=== PATIENT | female | born 1995 | race Caucasian/White ===

== ENCOUNTER 2023-08-12 20:31 | Emergency (ER) | payer BC, SELFPAY ==
[2023-08-12 20:35] VITALS: BP 134/78; PULSE 92; RESP 22; TEMP 37.1; O2SAT 97; BMI 39.1
--- NOTE | 2023-08-12 20:56 | XR_ITS ---
The [address] [address] Patient Name: YIN GALEANO MRN: [id number] date: 1995 Sex: F Assigned Patient Location: ER Current Patient Location: ED.MAIN Accession/Order Number: [id number] Exam Date: 08/12/2023 21:35 Report Date: 08/12/2023 22:19 At the request of: ROCIO MARKER Procedure: XR ankle KIERA min 3V EXAM: XR ankle KIERA min 3V HISTORY: fall down stairs, B/l ankle pain COMPARISON: None. TECHNIQUE: 3 views of the right ankle, 3 views of the left ankle are performed. FINDINGS: Left ankle: There is an oblique, minimally displaced fracture involving the distal fibular diaphysis. There is adjacent soft tissue swelling. There may be slight widening to the medial aspect of the ankle mortise. Right ankle: There is lateral soft tissue swelling. No acute fracture is seen. The ankle mortise is preserved. XR/XR ankle KIERA min 3V IMPRESSION: Left ankle: Minimally displaced distal fibular fracture, with questionable widening of the medial aspect of the ankle mortise. Right ankle: No fracture. Lateral soft tissue swelling. Electronically authenticated by: MOHIT KIRK Date: 08/12/2023 22:19
--- NOTE | 2023-08-12 20:57 | ED.LOWEXI1 ---
HPI - Extremity Injury (Lower) General Chief Complaint: Extremity Injury, Lower Stated Complaint: Lower Extremity Injury Fall Time Seen by Provider: 08/12/23 20:46 Source: patient Mode of arrival: Wheelchair History of Present Illness HPI Narrative: 27-year-old female presents for evaluation of bilateral ankle pain. The patient states she was carrying laundry down the stairs and could not see the stairs and missed the last 3 steps and twisted both ankles while falling down the stairs. She denies striking her head. She has no neck or back pain. She doubts the possibility of . She has pain at the lateral aspect of the right ankle and pain at the lateral aspect of the left ankle. She states she cannot weight-bear on the left. She states that her legs are shaking because of the pain. She has no chest pain or shortness of breath. There was no additional injury. She states she had to crawl up the stairs to get back into her apartment and then had to have help getting down the stairs to come to the hospital. Related Data Home Medications Medication Instructions Recorded Confirmed albuterol sulfate 90 mcg/actuation inhalation 08/12/23 aerosol inhaler ivabradine 5 mg tablet (Corlanor) mg 08/12/23 midodrine 5 mg tablet mg 08/12/23 montelukast 10 mg tablet mg 08/12/23 Allergies Allergy/AdvReac Type Severity Reaction Status Date / Time No Known Drug Allergies Allergy Verified 08/12/23 20:40 Review of Systems ROS Status of ROS 10 or more systems reviewed and unremarkable except as noted in history and below [facility] Social History Smoking status: Never smoker Exam Narrative Exam Narrative: Nurses note and vital signs reviewed and patient is not hypoxic. General: Tearful female, GCS 15, no respiratory distress Skin: Warm, dry, no pallor noted. There is no rash noted. Head: Normocephalic, atraumatic Eye: Normal conjunctiva, no drainage, EOMI. PERRL Cardiovascular: Regular Rate and Rhythm Respiratory: Patient is in no distress, no accessory muscle use, lungs are clear to auscultation, no wheezing, rales or rhonchi Back: non-tender, no CVA tenderness bilaterally to percussion. GI: Normal bowel sounds, no tenderness to palpation, no masses appreciated. No rebound, guarding, or rigidity noted. Musculoskeletal: There Is mild swelling and tenderness to the right lateral malleolus, patient is able to move all of her toes, Achilles is intact, No bony deformity noted There is also zyva-eh-zxynemxj swelling of the left lateral malleolus, Achilles is intact, this area is very tender, no bony deformity noted There is no calf swelling or tenderness. There is no tenderness to the knees, thighs or hips bilaterally Neurological: A&O x4, normal speech Psychiatric: Cooperative, Tearful Constitutional Vital Signs, click to edit/add: Last Vital Signs Temp 98.7 F 08/12/23 20:35 Pulse 92 H 08/12/23 20:35 Resp 22 08/12/23 20:35 BP 134/78 08/12/23 20:35 Pulse Ox 97 08/12/23 20:35 O2 Del Method Room Air 08/12/23 20:35 Course Vital Signs Vital signs: Vital Signs Temperature 98.7 F 08/12/23 20:35 Pulse Rate 92 H 08/12/23 20:35 Respiratory Rate 22 08/12/23 20:35 Blood Pressure 134/78 08/12/23 20:35 Pulse Oximetry 97 08/12/23 20:35 Oxygen Delivery Method Room Air 08/12/23 20:35 Temperature 98.7 F 08/12/23 20:35 Pulse Rate 92 H 08/12/23 20:35 Respiratory Rate 22 08/12/23 20:35 Blood Pressure 134/78 08/12/23 20:35 Pulse Oximetry 97 08/12/23 20:35 Oxygen Delivery Method Room Air 08/12/23 20:35 MDM - Extremity Injury (Lower) MDM Narrative Medical decision making narrative: 27-year-old female presents for evaluation of bilateral ankle pain after falling down 3 stairs at home while carrying laundry. She has pain in the right ankle but is weightbearing and has pain in the left ankle and states she cannot weight-bear on the left ankle. She has swelling of both lateral malleoli. Achilles are intact, there was no knee or hip injury. She denies striking her head. X-rays of both ankles were performed. X-ray of the right ankle is negative for acute findings and x-rays of left ankle shows a nondisplaced distal fibular fracture. Fracture care without manipulation; the left lower extremity was placed in a posterior one-step splint over heavy packing. Jose J wrap is applied over the splint. Patient tolerated procedure well. Sprain care without manipulation; the right lower external he was placed in an Jose J wrap for compression and comfort. Patient tolerated procedure well She will be referred to outpatient orthopedics for further evaluation and treatment. She was medicated emergency department with a [place] and Zofran and will be discharged home with a prescription for [place] and referral to outpatient orthopedics Medical Records Medical records narrative: The [place] [id number] XRay Report Signed Patient: YIN GALEANO MR#: [id number] : 1995 Acct:[id number] Age/Sex: 27 / F ADM Date: 08/12/23 Loc: ER Attending Dr: Ordering Physician: Josephine Campo Date of Service: 08/12/23 Procedure(s): XR ankle KIERA min 3V Accession Number(s): [id number] cc: PRISCA VARGAS ; Josephine Campo~ The [address] [address] Patient Name: YIN GALEANO MRN: [id number] date: 1995 Sex: F Assigned Patient Location: ER Current Patient Location: ED.MAIN Accession/Order Number: [id number] Exam Date: 08/12/2023 21:35 Report Date: 08/12/2023 22:19 At the request of: JOSEPHINE CAMPO Procedure: XR ankle KIERA min 3V EXAM: XR ankle KIERA min 3V HISTORY: fall down stairs, B/l ankle pain COMPARISON: None. TECHNIQUE: 3 views of the right ankle, 3 views of the left ankle are performed. FINDINGS: Left ankle: There is an oblique, minimally displaced fracture involving the distal fibular diaphysis. There is adjacent soft tissue swelling. There may be slight widening to the medial aspect of the ankle mortise. Right ankle: There is lateral soft tissue swelling. No acute fracture is seen. The ankle mortise is preserved. XR/XR ankle KIERA min 3V IMPRESSION: Left ankle: Minimally displaced distal fibular fracture, with questionable widening of the medial aspect of the ankle mortise. Right ankle: No fracture. Lateral soft tissue swelling. Electronically authenticated by: MOHIT KIRK Date: 08/12/2023 22:19 Discharge Plan Discharge Chief Complaint: Extremity Injury, Lower Clinical Impression: Ankle sprain and strain, Closed fibular fracture Patient Disposition: Home, Self-Care Time of Disposition Decision: 22:40 Prescriptions / Home Meds: No Action midodrine 5 mg tablet montelukast 10 mg tablet albuterol sulfate 90 mcg/actuation HFA aerosol inhaler INHALATION Corlanor 5 mg tablet Instructions: Ankle Sprain (ED), Leg Fracture (ED), Crutch Instructions (ED), How to Use an Elastic Bandage (ED), Ice Pack Application (ED) Stand Alone Forms: Portal Instructions Referrals: Josephine Campo MD [Emergency Provider] - 1 week PRISCA VARGAS [Primary Care Provider] - 1 week Yasmani Grigsby MD [Physician] - As soon as possible
[2023-08-12] MEDS: ONDANSETRON 4 MG RAPDIS TABLET SL (21:09)
[2023-08-12 21:10] VITALS: BP 142/86; PULSE 98; RESP 18; O2SAT 98
--- NOTE | 2023-08-12 21:11 | PC.NURSE ---
Pain to right and left ankle, skin to bilateral lower extremities pink and warm, pulses present and able to move both feet and toe without difficulty. Ice pack applied to both sites. Slight swelling to left and right outer ankle.
[2023-08-12] MEDS: IBUPROFEN 600 MG TABLET PO (21:13)
== END 2023-08-12 23:16 | disposition home or self-care (01) ==
PROVIDERS: Emergency Provider Emergency Medicine; PCP Nurse Practitioner Family
DX: S82.832A Other fracture of upper and lower end of left fibula, initial encounter for closed fracture (principal); S93.401A Sprain of unspecified ligament of right ankle, initial encounter; S96.911A Strain of unspecified muscle and tendon at ankle and foot level, right foot, initial encounter; W10.9XXA Fall (on) (from) unspecified stairs and steps, initial encounter; Z79.899 Other long term (current) drug therapy
CPT/HCPCS: 29515; 73610; 99283

== ENCOUNTER 2023-10-01 10:28 | Outpatient (OUT) | payer MEDICARE, SELFPAY ==
[2023-10-01 11:00] LABS: Basophils Percent Auto 0.5 % (0.2-2.0); Eosinophils Absolute Auto 0.2 10^3/uL (0.0-0.7); Eosinophils Percent Auto 3.6 % (0.9-7.0); Hematocrit 39.3 % (36.0-48.0); Hemoglobin 13.2 g/dL (12.0-16.0); Immature Granulocytes Abs Auto 0.01 10^3/uL (0.00-0.03); Immature Granulocytes Pct Auto 0.2 % (0.0-0.5); Mean Corpuscular HGB Conc 33.6 g/dL (29.9-35.2); Mean Corpuscular Hemoglobin 28.9 pg (26.7-34.0); Mean Platelet Volume 9.5 fL (9.5-13.5); Monocytes Absolute Auto 0.4 10^3/uL (0.3-0.8); Monocytes Percent Auto 7.1 % (1.7-12.0); Neutrophils Absolute Auto 3.4 10^3/uL (1.4-6.5); Neutrophils Percent Auto 55.6 % (43.0-75.0); Platelet Count 246 10^3/uL (150-450); Red Blood Count 4.57 10^6/uL (4.20-5.40); Red Cell Distribution Width 13.2 % (11.0-15.0); White Blood Count 6.1 10^3/uL (4.0-11.0)
[2023-10-01 11:39] LABS: Estimated Average Glucose 88 mg/dL; Glycohemoglobin A1C 4.7 % (4.5-6.2)
[2023-10-01 14:03] LABS: Alanine Aminotransferase 27 U/L (14-59); Albumin Globulin Ratio 1.1; Alkaline Phosphatase 64 U/L (46-116); Anion Gap 13.2; Aspartate Amino Transferase 14 U/L (15-37); BUN Creatinine Ratio 8.9; Bilirubin Total 0.7 mg/dL (0.2-1.0); Calcium 8.8 mg/dL (8.5-10.1); Carbon Dioxide 27.7 mmol/L (21.0-32.0); Chloride 103 mmol/L (98-107); Chol HDL Ratio 4.5; Cholesterol 158 mg/dL (<=200); Estimated GFR (African America >60 (>=60); Estimated GFR (Non-African Ame >60 (>=60); Free T3 2.89 pg/mL (2.18-3.98); Globulin 3.6 g/dL; Glucose 85 mg/dL (74-106); HDL Cholesterol 35 mg/dL (40-60); Potassium 3.9 mmol/L (3.5-5.1); Sodium 140 mmol/L (136-145); Thyroid Stimulating Hormone 3.694 uIU/mL (0.358-3.740); Total Protein 7.6 g/dL (6.4-8.2); Triglycerides 81 mg/dL (<=150); VLDL CHOLESTEROL 16.2 mg/dL
== END 2023-10-01 10:29 | disposition home or self-care (01) ==
PROVIDERS: PCP Nurse Practitioner Family; Visit Provider Nurse Practitioner Family
DX: R31.9 Hematuria, unspecified (principal); E66.9 Obesity, unspecified
CPT/HCPCS: 36415; 80053; 80061; 82306; 83036; 83525; 83540; 84436; 84443; 84481; 85025

== ENCOUNTER 2023-10-15 11:52 | Outpatient (OUT) | payer MEDICARE, SELFPAY ==
[2023-10-15 12:14] LABS: Bilirubin Urine NEGATIVE (NEGATIVE); Blood Urine SMALL (NEGATIVE); Clarity Urine CLEAR (CLEAR); Color Urine LT. YELLOW (YELLOW); Glucose Urine UA NEGATIVE (NEGATIVE); Ketones Urine NEGATIVE (NEGATIVE); Leukocyte Esterase Urine SMALL (NEGATIVE); Nitrite Urine NEGATIVE (NEGATIVE); Protein Urine NEGATIVE (NEG/TRACE); Urobilinogen Urine 0.2 EU/dL (0.2-1.0)
[2023-10-15 12:19] LABS: Bacteria Urine NONE SEEN #/HPF (NONE SEEN); Crystals Seen? None Seen #/HPF (None Seen); Mucus Urine NONE SEEN (NONE SEEN); RBC Urine NONE SEEN #/HPF (0-2); Squamous Epithelial Cell Urine FEW #/LPF (NONE/RARE); WBC Urine 0-2 #/HPF (NONE SEEN)
[2023-10-15 12:20] LABS: Cast Seen? NONE SEEN #/LPF (NONE SEEN)
== END 2023-10-15 11:53 | disposition home or self-care (01) ==
LOC: LAB 11:54
PROVIDERS: PCP Nurse Practitioner Family; Visit Provider Nurse Practitioner Family
DX: R31.9 Hematuria, unspecified (principal)
CPT/HCPCS: 81001; 87086

== ENCOUNTER 2023-10-29 11:40 | Outpatient (OUT) | payer MEDICARE, SELFPAY ==
[2023-10-29 14:36] LABS: Bilirubin Urine NEGATIVE (NEGATIVE); Blood Urine MODERATE (NEGATIVE); Clarity Urine CLEAR (CLEAR); Color Urine LT. YELLOW (YELLOW); Glucose Urine UA NEGATIVE (NEGATIVE); Ketones Urine NEGATIVE (NEGATIVE); Leukocyte Esterase Urine SMALL (NEGATIVE); Nitrite Urine NEGATIVE (NEGATIVE); Protein Urine NEGATIVE (NEG/TRACE); Specific Gravity Urine 1.015 (1.005-1.025); Urobilinogen Urine 0.2 EU/dL (0.2-1.0); pH Urine 6.5 (5.0-9.0)
[2023-10-29 15:34] LABS: Bacteria Urine TRACE #/HPF (NONE SEEN); Cast Seen? NONE SEEN #/LPF (NONE SEEN); Crystals Seen? None Seen #/HPF (None Seen); Mucus Urine NONE SEEN (NONE SEEN); Squamous Epithelial Cell Urine RARE #/LPF (NONE/RARE); WBC Urine 0-2 #/HPF (NONE SEEN)
== END 2023-10-29 11:41 | disposition home or self-care (01) ==
LOC: LAB 11:41
PROVIDERS: PCP Nurse Practitioner Family; Visit Provider Nurse Practitioner Family
DX: R31.9 Hematuria, unspecified (principal)
CPT/HCPCS: 81001; 87086

== ENCOUNTER 2023-11-01 07:59 | Outpatient (OUT) | payer MEDICARE, SELFPAY ==
--- OUTSIDE RECORDS SUMMARY | 2023-11-01 08:01 | XMS_ITS | CCD ---
Author Name Unknown Address [address] [place] [address] Organization [facility] Care Team Providers Care Trim Sawyer Name Role Phone DOMINGO GUILLEN AM Unavailable Unavailable DOMINGO GUILLEN AM Unavailable Unavailable KLAUS KOROMA Unavailable Unavailable KLAUS KOROMA Unavailable Unavailable CONCHITA VARGAS Admitting Unavailable CONCHITA VARGAS Attending Unavailable CONCHITA VARGAS Primary Care Unavailable CONCHITA VARGAS Consulting Unavailable CONCHITA VARGAS Admitting Unavailable CONCHITA VARGAS Attending Unavailable CONCHITA VARGAS Primary Care Unavailable CONCHITA VARGAS Consulting Unavailable NENO INGRAM Consulting Unavailable DEMETRIUS HALEY Attending Unavailable SLOAN HERNANDEZ Attending Unavailable SLOAN HERNANDEZ Attending Unavailable Conchita Vargas Primary Care Unavailable Willie Monreal Attending Unavailable Jocelin Imgloria Admitting Unavailable MD Willie Monreal Attending Provider BONNIE Vargas Primary Care Provider Allergies Allergy Classification Reported Allergen(s) Allergy Type Date of Onset Reaction(s) Facility (1 source) grape extract Drug Allergy [facility] Repository (1 source) buPROPion; Translations: [BUPROPION HCL] Drug Allergy 2 [facility] Repository (2 sources) DRAGON FRUIT; Translations: [DRAGON FRUIT] Propensity to adverse reactions to drug (disorder) 2 Anaphylaxis [facility] Repository (2 sources) GRAPE FLAVOR; Translations: [GRAPE FLAVOR] Propensity to adverse reactions to drug (disorder) 2 Hives [facility] Repository Medications Current Medications Medication Drug Class(es) Dates Sig (Normalized) Sig (Original) [id number] 200 actuat albuterol 0.09 mg/actuat metered dose inhaler (1 source) beta2-Adrenergic Agonist Start: 02-27-2023 take 1 puff(s) by inhalation every six hours Albuterol Sulfate Active 2 PUFF INHALATION Q6H February 27, 2023 12:00am 120 actuat budesonide 0.16 mg/actuat / formoterol fumarate 0.0045 mg/actuat metered dose inhaler (1 source) Corticosteroid, beta2-Adrenergic Agonist Start: 02-27-2023 take 1 puff(s) by inhalation twice daily Budesonide-Formot nataliya (Symbicort) 160-4.5 mcg/actuation Hfa Aerosol Inhaler Active 2 PUFF INHALATION Twice daily February 27, 2023 12:00am ivabradine 5 mg oral tablet (1 source) Hyperpolarizatio n-activated Cyclic Nucleotide-gated Channel [place] Start: 02-27-2023 take 1 tablet by mouth once daily Ivabradine (Corlanor) 5 mg tablet Active 5 MG PO Daily February 27, 2023 12:00am midodrine hydrochloride 10 mg oral tablet (1 source) alpha-Adrenergic Agonist Start: 02-27-2023 take 1 dose by mouth once daily at bedtime Midodrine Active 10 MG PO Twice daily February 27, 2023 12:00am do not give last dose of day after 6PM or within 4 hrs of bedtime Problems Active Problems Problem Classification Problem Date Documented Date Episodic/Chronic Abdominal pain (2 sources) Right lower quadrant pain; Translations: [Right upper quadrant pain] Onset: 01-25-2023 Episodic Cardiac dysrhythmias (4 sources) Other specified cardiac arrhythmias; Translations: [OTHER SPECIFIED CARDIAC ARRHYTHMIAS] Onset: 04-02-2018 Chronic Diabetes mellitus without complication (1 source) Other abnormal glucose; Translations: [OTHER ABNORMAL GLUCOSE] Onset: 10-31-2022 Episodic Residual codes; unclassified (2 sources) Other specified postprocedural states; Translations: [Other specified postprocedural states] Onset: 10-29-2022 Episodic Unclassified (2 sources) Unknown / UNK(Unknown) Onset: 04-02-2018 Urinary tract infections (4 sources) Urinary tract infection, site not specified; Translations: [UTI SITE NOT SPECIFIED] Onset: 01-17-2023 Episodic Past or Other Problems Problem Classification Problem Date Documented Da te Episodic/Chronic Other circulatory disease (2 sources) Postural orthostatic tachycardia syndrome ; Translations: [Postural orthostatic tachycardia syndrome (POTS)] Onset: 09-19-2022 Episodic Other disorders of stomach and duodenum (2 sources) Gastroparesis; Translations: [Gastroparesis] Onset: 09-19-2022 Episodic Syncope (2 sources) Syncope and collapse; Translations: [Syncope and collapse] Onset: 09-19-2022 Episodic Results Test Name Value Interpretation Reference Range Facility HCG ( test) IA.prasadi d Ql (U)Ordered By: Willie Monreal on 02-27-2023 HCG ( test) Ql (U) Negative [facility] HCG,Urineon 02-27-2023 Beta HCG ( test) Ql (U) Negative Normal [facility] Comment on above: Result Comment: PERF ORMED BY: [place] [address] PATHOLOGIST SUGAR SAMPLER JARED LOPEZ M.D. Performed By: #### U HCG #### [address] 02-27-2023 L Specimen: [id number] Received: 02/27/23 Status: YVON Martinez Num: [id number] Spec Type: Surgical Subm Dr: Willie Monreal MD Tissues: A Small Intestine - Biopsy/Polyp (TERMINAL ILEUM BX) B Colon Biopsy (RANDOM COLON BX) Procedures: HE/4, Gross/Micro L4/2 Age/ Patient Sex Location Account Attending Physician Anne Marie Taylor [id number] Willie Monreal MD SPEC NUM: [id number] RECD: 02/27/23 STATUS: YVON MARTINEZ NUM: [id number] VON: 02/27/23- [facility] DR: Willie Monreal MD ENTERED: 02/27/[address] [facility] [address]: AGUILA TYPE: Surgical DEPT: S ORDERED: HE/4, Gross/Micro L4/2 ORDERED: HE/4, Gross/Micro L4/2 Pathological Diagnosis A. Small bowel, terminal ileum, biopsy: - Small intestinal mucosa negative for significant histopathologic changes. - There is no evidence of active inflammation. - Negative for epithelial dysplasia. B. Colon, random, biopsy: - Colonic mucosa with changes suggestive of lymphocytic colitis. - There is no evidence of chronic colitis. - Negative for epithelial dysplasia. COMMENT: Sections demonstrate small fragments of intestinal mucosa with well preserved glandular architecture. There is mild colonic epithelial lymphocytosis without thickened subepithelial collagen. There is no evidence of chronicity. Patchy lymphoid aggregates are also present. This finding is suggestive, however not entirely diagnostic of lymphocytic colitis. In symptomatic patient, a trial of therapy may be helpful. Clinical correlation is advised. Clinical Information Abdomen pain, colitis Specimen: [id number] Received: 02/27/23 Status: YVON Martinez Num: [id number] Spec Type: Surgical Subm Dr: Willie Monreal MD Tissues: A Small Intestine - Biopsy/Polyp (TERMINAL ILEUM BX) B Colon Biopsy (RANDOM COLON BX) Procedures: HE/Kenna, Gross/Micro L4/2 Patient: Anne Marie Taylor [id number] (Continued) Specimen: [id number] Received: 02/27/23 (Continued) Signed (signature on file) Geraldine Alexander MD 02/28/23 1054 Specimen: [id number] Received: 02/27/23 Status: YVON Martinez Num: [id number] Spec Type: Surgical Subm Dr: Willie Monreal MD Tissues: A Small Intestine - Biopsy/Polyp (TERMINAL ILEUM BX) B Colon Biopsy (RANDOM COLON BX) Procedures: HE/4, Gross/Micro L4/2 Patient: Anne Marie Taylor [id number] (Continued) Specimen: [id number] Received: 02/27/23 (Continued) Gross Description A. Received in formalin labeled with the patient's name, number and terminal ileum biopsy are two fragments of soft nicole tissue averaging 0.3 cm. Entirely submitted in one cassette labeled A1. B. Received in formalin labeled with the patient's name, number and random colon biopsy is one fragment of soft nicole tissue measuring 0.5 x 0.3 x 0.2 cm. Entirely submitted in one cassette labeled B1. Microscopic Description A. Two glass slides with H E stained material have been examined. The microscopic findings support the above pathologic diagnosis. B. Two glass slides with H E stained material have been examined. The microscopic findings support the above pathologic diagnosis. CPT Codes 88869?2 Specimen: [id number] Received: 02/27/23 Status: YVON Martinez Num: [id number] Spec Type: Surgical Subm Dr: Willie Monreal MD Tissues: A Small Intestine - Biopsy/Polyp (TERMINAL ILEUM BX) B Colon Biopsy (RANDOM COLON BX) Procedures: HE/Kenna, Gross/Micro L4/2 Patient: Anne Marie Taylor [id number] (Continued) Signed (signature on file) Geraldine Alexander MD 02/28/23 1054 [facility] 36on 02-11-2023 36 Patient called requesting orders for her port to be flushed. She said she asked Ratna when she had a telemed with her a few weeks ago. She said Ratna advised her to ask her primary care (Conchita Vargas, JONATHAN), as she has been the one managing it. But this is actually incorrect. Dr. Guillen was the one who had been ordering the infusions ever since the port was placed. Is someone able to help with this? Thanks! Normal [facility] Telemedicineon 01-27-2023 Telemedicine [id number] Anne Marie Taylor 1995 F Date Provider Department Center 01/27/2023 SLOAN LEOS [facility] Family History Problem Relation Age of Onset Coronary artery disease Maternal Grandmother Cancer Maternal Grandmother Diabetes type I Maternal Grandmother Heart disease Maternal Grandmother Heart failure Maternal Grandmother Obesity Maternal Grandmother Coronary artery disease Maternal Grandfather Heart attack Maternal Grandfather Heart disease Maternal Grandfather Heart failure Maternal Grandfather Coronary artery disease Paternal Grandmother Cancer Paternal Grandmother Diabetes type I Paternal Grandmother Kidney disease Paternal Grandmother Anemia Mother Depression Mother Diabetes type II Mother Lung disease Mother Obesity Mother Asthma Sister Cancer Sister Clotting disorder Sister Diabetes type II Sister Heart attack Sister Heart murmur Sister Obesity Sister Cancer Mother's Sister Obesity Mother's Sister Hypertension Mother's Brother Lung disease Mother's Brother Obesity Mother's Sister Family Status - Relation Status Age at Maternal Grandmother Maternal Grandfather Paternal Grandmother Mother Sister Mother's Sister Mother's Brother Mother's Sister Level of Service:56585 [place] OFFICE/OUTPATIENT ESTABLISHED LOW MDM 20-29 MIN Reason for Visit and Comments: Telehealth Audio/video Visit [871] Normal [facility] CT ABD/PELV W CONon 01-18-[address] ABD/PELV W CON EXAMINATION: CT ABD/PELV W CON, 01/17/2023 3:50 PM EDT TECHNIQUE: Helical CT images from the lung bases through the symphysis pubis were obtained with contrast. Coronal and sagittal reformatted images were generated at a workstation for further assessment. CONTRAST: 100 ml Omnipaque 300. COMPARISON: None. HISTORY: Right-sided abdominal pain FINDINGS: Lower chest: No consolidation. No pleural effusion or pneumothorax. Liver: No suspicious liver lesions. Portal veins appear patent. Gallbladder: Cholecystectomy changes. Spleen: Normal size. Pancreas: No suspicious pancreatic lesions. The pancreatic duct is not dilated. Adrenal glands: No adrenal nodules. Kidneys: No hydronephrosis or obstructing renal stones. There is a punctate nonobstructing stone in the mid left kidney. Bladder / Pelvic organs: Unremarkable. Bowel: Thickening of the wall of the cecum and proximal ascending colon noted. No bowel obstruction. The appendix is not visualized. Lymph nodes: No pathologic appearing retroperitoneal, mesenteric, or pelvic lymphadenopathy. There are scattered small right lower quadrant lymph nodes, that are increased in number however are not significantly increased in size. Peritoneum / Retroperitoneum: No free fluid or air within the abdomen. Vessels: No infrarenal aortic aneurysm. Bones and soft tissues: No suspicious lesion in the bones. IMPRESSION: 1. There is thickening of the wall of the cecum and proximal ascending colon, suggesting colitis, with small, adjacent reactive right lower quadrant mesenteric lymph nodes. The appendix is not definitely seen and there is no evidence for appendicitis. Electronically authenticated by: NENO INGRAM Date: 2023-01-17 18:33 Normal [facility] CULTURE URINEon 01-17-2023 CULTURE URINE Culture Observations: LIGHT GROWTH OF MIXED GENITAL DESI. NO POTENTIAL PATHOGENS SEEN. Normal [facility] Comment on above: Performed By: #### U RCX #### [facility] [address] [place] [address] Dr. Tere Pastor UA RANDOM W/MICROSCOPICon BACTERIA TRACE Abnormal NONE SEEN [facility] Comment on above: Performed By: #### U AMIC #### [facility] [address] [place] [address] Dr. Tere Pastor Bilirubin Ql (U) Negative Normal NEGATIVE [facility] Comment on above: Performed By: #### U AMIC #### [facility] [address] [address] [address] Tere Pastor CAST NONE SEEN Normal NONE SEEN [facility] Comment on above: Performed By: #### U AMIC #### [facility] [address] [place] [address] Dr. Tere Pastor Clarity (U) CLEAR Normal CLEAR [facility] Comment on above: Performed By: #### U AMIC #### [facility] [address] [place] [address] Dr. Tere Pastor Color (U) LT. YELLOW Normal YELLOW [facility] Comment on above: Performed By: #### U AMIC #### [facility] [address] [address] [address] Tere Pastor Crystals LM Nom (Urine sed) NONE SEEN Normal NONE SEEN [facility] Comment on above: Performed By: #### U AMIC #### [facility] [address] [address] [address] Tere Pastor Epithelial cells LM Ql (Urine sed) FEW Abnormal NONE SEEN /RARE [facility] Comment on above: Performed By: #### U AMIC #### [facility] [address] [address] [address] Tere Pastor Glucose Ql (U) Negative Normal NEGATIVE [facility] Comment on above: Performed By: #### U AMIC #### [facility] [address] [place] [address] Dr. Tere Pastor Hemoglobin Ql (U) MODERATE Abnormal NEGATIVE [facility] Comment on above: Performed By: #### U AMIC #### [facility] [address] [address] [address] Tere Pastor Ketones Ql (U) TRACE Abnormal NEGATIVE [facility] Comment on above: Performed By: #### U AMIC #### [facility] [address] [address] [address] Tere Pastor LEUKOCYTES MODERATE Abnormal NEGATIVE [facility] Comment on above: Performed By: #### U AMIC #### [facility] [address] [address] [address] Tere Pastor MUCOUS NONE SEEN Normal NONE SEEN [facility] Comment on above: Performed By: #### U AMIC #### [facility] [address] [address] [address] Tere Pastor Nitrite Ql (U) Negative Normal NEGATIVE [facility] Comment on above: Performed By: #### U AMIC #### [facility] [address] [address] [address] Tere Pastor pH (U) 6.0 [pH] Normal 5-9 [facility] Comment on above: Performed By: #### U AMIC #### [facility] [address] [address] [address] Tere Pastor RBC 2-5 Abnormal 0-2 [facility] Comment on above: Performed By: #### U AMIC #### [facility] [address] [address] [address] Tere Pastor SPEC GRAVITY 1.025 Normal 1.005-<=1.025 [facility] Comment on above: Performed By: #### U AMIC #### [facility] [address] [address] [address] Tere Pastor UA PROTEIN Negative Normal NEGATIVE/ TRACE [facility] Comment on above: Performed By: #### U AMIC #### [facility] [address] [address] [address] Tere Pastor Urobilinogen Qn (U) 0.2 {Conchita'U}/dL Normal 0.2 - 1. 0 [facility] Comment on above: Performed By: #### U AMIC #### [facility] [address] [address] [address] Tere Pastor WBC 5-10 Abnormal NONE SEEN [facility] Comment on above: Performed By: #### U AMIC #### [facility] [address] [address] [address] Tere Pastor 36on 11-15-2022 36 Pt calls to ask status of dental clearance for wisdom teeth removal. Pt told we haven't received. She will have them fax again Normal [facility] Office Visiton 10-29-2022 Follow-up visit [id number] Anne Marie Taylor 1995 F Date Provider Department Center 10/29/2022 SLOAN LE[facility] Family History Problem Relation Age of Onset Coronary artery disease Maternal Grandmother Cancer Maternal Grandmother Diabetes type I Maternal Grandmother Heart disease Maternal Grandmother Heart failure Maternal Grandmother Obesity Maternal Grandmother Coronary artery disease Maternal Grandfather Heart attack Maternal Grandfather Heart disease Maternal Grandfather Heart failure Maternal Grandfather Coronary artery disease Paternal Grandmother Cancer Paternal Grandmother Diabetes type I Paternal Grandmother Kidney disease Paternal Grandmother Anemia Mother Depression Mother Diabetes type II Mother Lung disease Mother Obesity Mother Asthma Sister Cancer Sister Clotting disorder Sister Diabetes type II Sister Heart attack Sister Heart murmur Sister Obesity Sister Cancer Mother's Sister Obesity Mother's Sister Hypertension Mother's Brother Lung disease Mother's Brother Obesity Mother's Sister Family Status - Relation Status Age at Maternal Grandmother Maternal Grandfather Paternal Grandmother Mother Sister Mother's Sister Mother's Brother Mother's Sister Level of Service:39202 [place] OFFICE/OUTPATIENT ESTABLISHED LOW MDM 20-29 MIN Reason for Visit and Comments: POTS [Other] Dizziness [[id number]] Normal [facility] CBC AUTO DIFFon 10-23-2022 BASO # 0.0 103/ul Normal 0.0-0.1 [facility] Comment on above: Performed By: #### C BC #### [facility] [address] [address] [address] Tere Pastor Basophils/100 WBC (Bld) 0.5 % Normal 0.2-2.0 [facility] Comment on above: Performed By: #### C BC #### [facility] [address] [address] [address] Tere Pastor EO # 0.2 103/ul Normal 0.0-0.7 [facility] Comment on above: Performed By: #### C BC #### [facility] [address] [address] [address] Tere Pastor Eosinophils/100 WBC (Bld) 2.7 % Normal 0.9-7.0 [facility] Comment on above: Performed By: #### C BC #### [facility] [address] [address] [address] Tere Pastor Erythrocyte distribution width (RBC) [Ratio] 13.2 % Normal 11.0-15.0 [facility] Comment on above: Performed By: #### C BC #### [facility] [address] [address] [address] Tere Pastor Hematocrit (Bld) [Volume fraction] 40.5 % Normal 36.0-48.0 [facility] Comment on above: Performed By: #### C BC #### [facility] [address] [place] [address] Dr. Tere Pastor Hemoglobin (Bld) [Mass/Vol] 13.9 g/dL Normal 12.0-16.0 [facility] Comment on above: Performed By: #### C BC #### [facility] [address] [place] [address] Dr. Tere Pastor IG # 0.01 10e3/ul Normal 0.00-0.03 [facility] Comment on above: Performed By: #### C BC #### [facility] [address] [place] [address] Dr. Tere Pastor IG % 0.2 % Normal 0.0-0.5 [facility] Comment on above: Performed By: #### C BC #### [facility] [address] [place] [address] Dr. Tere Pastor LYMPH # 2.4 103/ul Normal 1.2-3.8 [facility] Comment on above: Performed By: #### C BC #### [facility] [address] [place] [address] Dr. Tere Pastor Lymphocytes/100 WBC (Bld) 36.6 % Normal 20.5-60.0 [facility] Comment on above: Performed By: #### C BC #### [facility] [address] [place] [address] Dr. Tere Pastor MANUAL DIFF REQ NO Normal [facility] Comment on above: Performed By: #### C BC #### [facility] [address] [place] [address] Dr. Tere Pastor MCH (RBC) [Entitic mass] 28.6 pg Normal 26.7-34.0 [facility] Comment on above: Performed By: #### C BC #### [facility] [address] [place] [address] Dr. Tere Pastor MCHC (RBC) [Mass/Vol] 34.3 g/dL Normal 29.9-35.2 [facility] Comment on above: Performed By: #### C BC #### [facility] [address] [address] [address] Tere Pastor MCV (RBC) [Entitic vol] 83.3 fL Normal 81.0-99.0 [facility] Comment on above: Performed By: #### C BC #### [facility] [address] [place] [address] Dr. Tere Pastor MONO # 0.5 103/ul Normal 0.3-0.8 [facility] Comment on above: Performed By: #### C BC #### [facility] [address] [place] [address] Dr. Tere Pastor Monocytes/100 WBC (Bld) 7.6 % Normal 1.7-12.0 [facility] Comment on above: Performed By: #### C BC #### [facility] [address] [place] [address] Dr. Tere Pastor NEUT # 3.5 103/ul Normal 1.4-6.5 [facility] Comment on above: Performed By: #### C BC #### [facility] [address] [place] [address] Dr. Tere Pastor Neutrophils/100 WBC (Bld) 52.4 % Normal 43.0-75.0 [facility] Comment on above: Performed By: #### C BC #### [facility] [address] [place] [address] Dr. Tere Pastor Platelet mean volume (Bld) [Entitic vol] 9.7 fL Normal 9.5-13.5 [facility] Comment on above: Performed By: #### C BC #### [facility] [address] [place] [address] Dr. Tere Pastor PLT 257 103/ul Normal 150-450 [facility] Comment on above: Performed By: #### C BC #### [facility] [address] [place] [address] Dr. Tere Pastor RBC 4.86 106/ul Normal 4.20-5.40 [facility] Comment on above: Performed By: #### C BC #### [facility] [address] [place] [address] Dr. Tere Pastor WBC 6.6 103/ul Normal 4.0-11.0 [facility] Comment on above: Performed By: #### C BC #### [facility] [address] [place] [address] Dr. Tere Pastor FREE THYROXINE INDEX T7on FTI 2.51 Normal 1.30-4.50 [facility] Comment on above: Performed By: #### T 7, CMP, TSH #### [facility] [address] [place] [address] Dr. Tere Pastor T3U 33.0 % Normal 30.0-39.0 [facility] Comment on above: Performed By: #### T 7, CMP, TSH #### [facility] [address] [place] [address] Dr. Tere Pastor T4 [Mass/Vol] 7.60 ug/dL Normal 4.80-13.90 [facility] Comment on above: Performed By: #### T 7, CMP, TSH #### [facility] [address] [place] [address] Dr. Tere Pastor GLYCOHEMOGLOBIN A1Con 2021 ADA RECOMMENDATION SEE BELOW Normal [facility] Comment on above: Result Comment: ADA RECOMMENDED LIMIT 4.0 - 6.0 ADA THERAPEUTIC TARGET < 7.0 ACTION SUGGESTED > 7.0 Performed By: #### A 1C #### [facility] [address] [place] [address] Dr. Tere Pastor Glucose [Mass/Vol] 91 mg/dL Normal [facility] Comment on above: Performed By: #### A 1C #### [facility] [address] [place] [address] Dr. Tere Pastor HbA1c (Bld) [Mass fraction] 4.8 % Normal 4.5-6.2 [facility] Comment on above: Performed By: #### A 1C #### [facility] [facility] [address] [place] [address] Dr. Tere Pastor PROF 14(COMP METB)on 022 Albumin [Mass/Vol] 3.7 g/dL Normal 3.4-5.0 [facility] Comment on above: Performed By: #### T 7, CMP, TSH #### [facility] [address] [address] [address] Tere Pastor Albumin/Globulin [Mass ratio] 1.1 {ratio} Normal [facility] Comment on above: Performed By: #### T 7, CMP, TSH #### [facility] [address] [address] [address] Tere Pastor ALP [Catalytic activity/Vol] 63 U/L Normal 46-116 [facility] Comment on above: Performed By: #### T 7, CMP, TSH #### [facility] [address] [address] [address] Tere Pastor ALT [Catalytic activity/Vol] 20 U/L Normal 14-59 [facility] Comment on above: Performed By: #### T 7, CMP, TSH #### [facility] [address] [address] [address] Tere Pastor Anion gap [Moles/Vol] 10.8 mmol/L Normal [facility] Comment on above: Performed By: #### T 7, CMP, TSH #### [facility] [address] [address] [address] Tere Pastor AST [Catalytic activity/Vol] 15 U/L Normal 15-37 [facility] Comment on above: Performed By: #### T 7, CMP, TSH #### [facility] [address] [address] [address] Tere Pastor Bilirubin [Mass/Vol] 0.7 mg/dL Normal 0.2-1.0 [facility] Comment on above: Performed By: #### T 7, CMP, TSH #### [facility] [address] [address] [address] Tere Pastor Calcium [Mass/Vol] 8.8 mg/dL Normal 8.5-10.1 [facility] Comment on above: Performed By: #### T 7, CMP, TSH #### [facility] [address] [address] [address] Tere Pastor Chloride [Moles/Vol] 102 mmol/L Normal 98-107 [facility] Comment on above: Performed By: #### T 7, CMP, TSH #### [facility] [address] [place] [address] Dr. Tere Pastor CO2 [Moles/Vol] 28.3 mmol/L Normal 21.0-32.0 [facility] Comment on above: Performed By: #### T 7, CMP, TSH #### [facility] [address] [place] [address] Dr. Tere Pastor Creatinine [Mass/Vol] 0.67 mg/dL Normal 0.55-1.02 [facility] Comment on above: Performed By: #### T 7, CMP, TSH #### [facility] [address] [place] [address] Dr. Tere Pastor EGFR-AF GUYANESE >60 Normal >=60 [facility] Comment on above: Performed By: #### T 7, CMP, TSH #### [facility] [address] [place] [address] Dr. Tere Pastor EGFR-NON AF GUYANESE >60 Normal >=60 [facility] Comment on above: Performed By: #### T 7, CMP, TSH #### [facility] [address] [place] [address] Dr. Tere Pastor Globulin (S) [Mass/Vol] 3.3 g/dL Normal [facility] Comment on above: Performed By: #### T 7, CMP, TSH #### [facility] [address] [place] [address] Dr. Tere Pastor Glucose [Mass/Vol] 87 mg/dL Normal 74-106 [facility] Comment on above: Performed By: #### T 7, CMP, TSH #### [facility] [address] [place] [address] Dr. Tere Pastor Potassium [Moles/Vol] 4.1 mmol/L Normal 3.5-5.1 [facility] Comment on above: Performed By: #### T 7, CMP, TSH #### [facility] [address] [place] [address] Dr. Tere Pastor Protein [Mass/Vol] 7.0 g/dL Normal 6.4-8.2 [facility] Comment on above: Performed By: #### T 7, CMP, TSH #### [facility] [address] [address] [address] Tere Pastor Sodium [Moles/Vol] 137 mmol/L Normal 136-145 [facility] Comment on above: Performed By: #### T 7, CMP, TSH #### [facility] [address] [address] [address] Tere Pastor Urea nitrogen [Mass/Vol] 7.0 mg/dL Normal 7.0-18.0 [facility] Comment on above: Performed By: #### T 7, CMP, TSH #### [facility] [address] [place] [address] Dr. Tere Pastor Urea nitrogen/Creatinine [Mass ratio] 10.4 mg/mg Normal [facility] Comment on above: Performed By: #### T 7, CMP, TSH #### [facility] [address] [place] [address] Dr. Tere Pastor TSHon 10-23-2022 TSH 1.865 uIU/mL Normal 0.358-3.740 [facility] Comment on above: Performed By: #### T 7, CMP, TSH #### [facility] [address] [place] [address] Dr. Tere Pastor Office Visiton 09-19-2022 Follow-up visit [id number] Anne Marie Taylor 1995 F Date Provider Department Center 09/19/2022 DEMETRIUS GUILLORY [facility] Family History Problem Relation Age of Onset Coronary artery disease Maternal Grandmother Coronary artery disease Maternal Grandfather Coronary artery disease Paternal Grandmother Family Status - Relation Status Age at Maternal Grandmother Maternal Grandfather Paternal Grandmother Level of Service:27566 [place] OFFICE/OUTPATIENT ESTABLISHED MOD MDM 30-39 MIN Reason for Visit and Comments: Syncope [506] Palpitations [358313] Normal [facility] Vital Signs Date Time Vital Sign Value Performing Clinician Faci lity 02-27-2023 12:25-0400 Diastolic blood pressure 75 mm[Hg] MEDART OPERATOR-C Conchita Alicia Work Phone: [facility] 02-27-2023 12:25-0400 Heart rate 82 /min MEDART OPERATOR-C Conchita Alicia Work Phone: [facility] 02-27-2023 12:25-0400 Respiratory rate 20 /min MEDART OPERATOR-C Conchita Alicia Work Phone: [facility] 02-27-2023 12:25-0400 SaO2% (BldA) [Mass fraction] 100 % MEDART OPERATOR-C Conchita Alicia Work Phone: [facility] 02-27-2023 12:25-0400 Systolic blood pressure 118 mm[Hg] MEDART OPERATOR-C Conchita Alicia Work Phone: [facility] 02-27-2023 10:29-0400 Body height 165.1 cm MEDART OPERATOR-C Conchitagregory Vargas Work Phone: [facility] 02-27-2023 10:29-0400 Body temperature 98.7 [degF] MEDART OPERATOR-C Conchitagregory Vargas Work Phone: [facility] 02-27-2023 10:29-0400 Body weight 102.05 kg MEDART OPERATOR-C Conchita Vargas Work Phone: [facility] Encounters Encounter Date Encounter Type Care Provider Facility Start: 02-27-2023 End: 02-27-2023 ambulatory Conchita Vargas Facility:[facility] Start: 02-27-2023 End: 02-27-2023 Admission to same day surgery center MEDART OPERATOR-C Conchitagregory Vargas Work Phone: [facility] Work Phone: Start: 02-27-2023 End: 02-27-2023 ambulatory MEDART OPERATOR-C Conchita Lazarmer Work Phone: [facility] Work Phone: Start: 01-27-2023 ambulatory SLOAN feliz [facility] Start: 01-17-2023 End: 01-18-2023 ambulatory CONCHITA ALICIA Facility:[facility] Start: 10-31-2022 Encounter for preprocedural laboratory examination CONCHITA VARGAS [facility] Start: 10-29-2022 ambulatory SLOAN HERNANDEZ [facility] Start: 10-23-2022 End: 10-24-2022 ambulatory CONCHITA ALICIA Facility:[facility] Start: 10-23-2022 End: 10-24-2022 Encounter for preprocedural laboratory examination CONCHITA ALICIA Facility:[facility] Start: 09-19-2022 End: 09-19-2022 ambulatory DEMETRIUS HALEY [facility] Start: 04-02-2018 End: 04-03-2018 Ambulatory DOMINGO GUILLEN Facility:[facility] Procedures Date Procedure Procedure Detail Performing Clinician Start: 02-27-2023 Colonoscopy MEDART OPERATORSanjuana Vargas Work Phone: Plan of Treatment Date Care Activity Detail Author Start: 02-27-2023 [facility] Payers Date Payer Category Payer Medicaid [id number] 2023 Self-pay 1995 Unknown [id number] 1995 Unknown [id number] 1959 Unknown [id number] Medicaid [id number] Medicaid [place] [employer] [id number] 9 [id number] Medicaid [place] [employer] [place] [id number] c Unknown [id number] Unknown [employer] [id number] f Social History Date Type Detail Facility Start: 02-27-2023 Tobacco smoking stat us NHIS Never smoked tobacco (finding) [facility] Start: 1995 Sex Assigned At Female F [facility] Goals Date Patient Goal Desired Activity /State History and physical note 02-27-2023 Note Date & Type Note Facility 02-27-2023 History and physical note Note Date/Time February 27, 2023 11:15am [facility] [address] [place] [address] Gastroenterology H&P Signed Patient: Anne Marie Taylor MR#: [id number] : 1995 Acct:[id number] Age/Sex: 27 / F Adm Date: 3 Loc: Room: Type: [facility] Attending Dr: Willie Monreal MD Copies to: MD Conchita Stewart CNP~ Date of Service: 02/27/2023 HISTORY & PHYSICAL: Patient's history with special attention to the cardiovascular, pulmonary systems and the current problem was reviewed with the patient immediately prior to the procedure. Present medications and doses reviewed in the EMR. Allergies and pertinent laboratory tests were also reviewedat this time in the EMR. The physical examination, as below, was then performed. Indication, assessment and HPI: 27-year-old female here for colonoscopy for evaluation of abdominal pain and colitis. Family history of GI malignancy? No PHYSICAL EXAMINATION Mouth and Pharynx : Moist mucus membranes, normal dentition Cardiac: Regular rate, regular rhythm Pulmonary: Clear to auscultation bilaterally, no wheezing Neurological: Alert and oriented x3, no focal deficits noted Abdomen: Abdomen soft, non-tender REVIEW OF SYSTEMS Constitutional: Denies malaise, fevers Cardiovascular: Denies chest pain, palpitations Respiratory: Denies shortness of breath, wheezing Gastrointestinal: Per HPI Genitourinary: Denies dysuria, polyuria Musculoskeletal: Denies joint swelling, joint stiffness Neurological: Denies numbness, tingling Integumentary: Denies rashes, skin lesions Endocrine: Denies fatigue, weight loss Written informed consent obtained from the patient. Risks (including but not limited to perforation, infection, bloating, bleeding, need for emergent surgeryand loss of life), benefits and alternatives explained and questions answered. The patient verbalized understanding. Based on history patient is an appropriate candidate for the procedure. Willie Monreal M.D. Documented By: Willie Monreal MD 02/27/23 1114 Signed By: <Electronically signed by Willie Monreal MD> 02/27/23 1115 [facility] Work Phone: Procedure note 02-27-2023 Note Date & Type Note Facility 02-27-[address] [facility] Progress note 01-27-2023 Note Date & Type Note Facility 01-27-2023 Note Anne Marie is a pleasant 2 7 year old female previously evaluated for orthostatic intolerance (OI) consistent with postural orthostatic tachycardia syndrome (POTS) in the [facility] in the [facility] at the [facility]. Copied an pasted from my initial note in October 2022: Anne Marie Taylor is a 26 y.o. 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 She is a previous patient of PADMINI Haley (October 2022) and Dr Domingo Guillen. Here with mother. Gastroparesis and EDS / hypermobility. Saw a provider at the [facility] for gastroparesis. HPI: Symptoms since age 12. Initially told faking, not real, normal . Finally dx with POTS age 19. Tilt table and 30 day monitor. In the last seven years symptoms managed. Started IV infusion therapy 3 times weekly then 2 times weekly then one weekly. Infusion port 2015. Anne Marie tried fludrocortisone, anti depressants. IV infusions 'last resort . 2020 . Delivery January 18, 2021. Infusions recently stopped. No air transport professionals for the infusions. Infusions stopped February 2022 or nine months. Last syncope 2 weeks ago. Getting up too fast in am. LOC brief 10-15 seconds. Did not hit head. Lives with in laws, , daughter, [id number]. The family members help with the child. In laws at home not working. works days. Chief Complaint: Follow up/ POTS / syncope. Midodrine 3 hours prior today :126/71mmhg Hx of hypothyroid, now reported euthyroid. Covid twice last year. Add ivabradine or Corlanor. Low dose 2.5mg bid. We discussed mechanism of action, side effects, desired effects, dosing. To contact us with medication concerns. Hold IV infusions for now. Take HR and BP at home, supine and standing (3 -5 mintues). RTC 3months. Follow up on above Corlanor addition. Heart rate improved. She reports no significant orthostatic heart rate or BP changes. No syncope. She reports needs order for port flushes. [address] Villeda. Last infusion July 2022. Review of Systems Constitutional: Positive for malaise/fatigue. Cardiovascular: Negative for near-syncope and syncope. Endocrine: Positive for heat intolerance. Objective Constitutional: Appearance: Healthy appearance. Not in distress. Neurological: Mental Status: Alert and oriented to person, place and time. Assessment/Plan The primary encounter diagnosis was POTS (postural orthostatic tachycardia syndrome). Diagnoses of Syncope, unspecified syncope type and History of insertion of tunneled central venous catheter (CVC) with port were also pertinent to this visit. Date of Telehealth Visit: 01/27/2023 Chief Complaint Patient presents with Telehealth Audio/video Visit The patient was notified that using 3rd alliance party telecommunication application (e.g., SecureAlert) is not HIPPA compliant and may carry some privacy risks. Yes The visit was conducted [id number] with the use of audio and video technology mInfo between patient and provider for a virtual visit. Verbal consent to provide and bill this service was obtained on 01/27/2023. No signature was obtained due to the COVID-19 pandemic. Patient Location: Patient Home I spent 20 minutes of total time on the day of the visit. This time was spent preparing for the visit, obtaining and reviewing any outside history/data, taking a history, performing an exam/evaluation, counseling and educating patient/family about the diagnosis and plan, performing medical decision making, referring to and communicating with other health care referrals, independently interpreting results and documenting in the EMR, and coordinating care. Please see the additional documentation in this note for specific details. 1. POTS (postural orthostatic tachycardia syndrome) IMPROVED ON CORLANOR We discussed that weight gain is not a likely side effects. We discussed tracking dietary calories with an lanre like [employer] to determine daily caloric intake. Increase physical activity. Stay at home mother of young child, age 2. Continue midodrine. Continue Corlanor one tablet daily 2. Syncope, unspecified syncope type NO SYNCOPE. 3. History of insertion of tunneled central venous catheter (CVC) with port She has not had fluids since Jul 2022, and no syncope. Continue infusion port removal in the next six months. 4. RTC 6m [facility] Progress note 11-07-2022 Note Date & Type Note Facility 11-07-2022 Note PA approved through 11/07/2023 Locked in? No Pt contact? Yes Spreadsheets, [employer], Media Managed? Spreadsheets updated, nothing to scan Final copay $10.35 Had to call insurance to verbally answer clinical PA questions, there was an active request from 10/29/22 preventing us from initiating our own. Instantly approved. Pt prefers us to mail it to her. Rudy Jain CPhT [facility] 232:42 PM [facility] Progress note 10-29-2022 Note Date & Type Note Facility 10-29-2022 Note Subjective Anne Marie Taylor is a 26 y.o. 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 She is a previous patient of PADMINI Haley (October 2022) and Dr Domingo Guillen. Here with mother. Gastroparesis and EDS / hypermobility. Saw a provider at the [facility] for gastroparesis. HPI: Symptoms since age 12. Initially told faking, not real, normal . Finally dx with POTS age 19. Tilt table and 30 day monitor. In the last seven years symptoms managed. Started IV infusion therapy 3 times weekly then 2 times weekly then one weekly. Infusion port 2015. Anne Marie tried fludrocortisone, anti depressants. IV infusions 'last resort . 2020 . Delivery January 18, 2021. Infusions recently stopped. No air transport professionals for the infusions. Infusions stopped February 2022 or nine months. Last syncope 2 weeks ago. Getting up too fast in am. LOC brief 10-15 seconds. Did not hit head. Lives with in laws, , daughter, [id number]. The family members help with the child. In laws at home not working. works days. Chief Complaint: Follow up/ POTS / syncope. Midodrine 3 hours prior today :126/71mmhg Hx of hypothyroid, now reported euthyroid. Covid twice last year. Review of Systems Constitutional: Positive for malaise/fatigue. Negative for chills and fever. HENT: Amoxicillin and Ibuprofen for wisdom teeth. To have surgery next week. Syncope; therefore needs clearance. Eyes: Positive for blurred vision. Occasional blurred vision Cardiovascular: Positive for near-syncope and syncope. Since stopping infusions, syncope nightly. Tunnel vision and loss of hearing with presyncope Respiratory: Negative. Skin: Negative. No redness to port. She has port flushed monthly at infusion center in [facility] Musculoskeletal: Positive for joint pain. Hypermobility pain: wrists, hips, knees, ankles. Some subluxation in the past. Gastrointestinal: Positive for constipation and diarrhea. Gastroparesis Neurological: Positive for dizziness and light-headedness. Psychiatric/Behavioral: Positive for depression. Negative for substance abuse and suicidal ideas. The patient is nervous/anxious. Anxiety over health. No suicide thoughts, plan or intent. Objective Vitals reviewed. Constitutional: Appearance: Healthy appearance. Not in distress. Neck: Vascular: No JVR. JVD normal. Pulmonary: Effort: Pulmonary effort is normal. Breath sounds: Normal breath sounds. No wheezing. No rhonchi. No rales. Chest: Chest wall: Not tender to palpatation. Cardiovascular: PMI at left midclavicular line. Normal rate. Regular rhythm. Normal S1. Normal S2. Murmurs: There is no murmur. No gallop. No click. No rub. Pulses: Intact distal pulses. Edema: Peripheral edema absent. Abdominal: General: Bowel sounds are normal. Palpations: Abdomen is soft. Tenderness: There is no abdominal tenderness. Musculoskeletal: Normal range of motion. General: No tenderness. Skin: General: Skin is warm and dry. Comments: Infusion port left chest, hypertrophic scar. No redness or edema. Neurological: General: No focal deficit present. Mental Status: Alert and oriented to person, place and time. Assessment/Plan The primary encounter diagnosis was POTS (postural orthostatic tachycardia syndrome). Diagnoses of Gastroparesis and Syncope, unspecified syncope type were also pertinent to this visit. Problem List Items Addressed This Visit Circulatory POTS (postural orthostatic tachycardia syndrome) - Primary Digestive Gastroparesis Other Syncope Add ivabradine or Corlanor. Low dose 2.5mg bid. We discussed mechanism of action, side effects, desired effects, dosing. To contact us with medication concerns. Hold IV infusions for now. Take HR and BP at home, supine and standing (3 -5 mintues). RTC 3months. [facility] Progress note 09-19-2022 Note Date & Type Note Facility 09-19-2022 Note Cardiovascular [facility] Progress Note SUBJECTIVE Chief Complaint Patient presents with Syncope Palpitations Anne Marie Taylor is a plesant 26 y.o. female here for follow-up. HPI Patient here to discuss stopping infusions. She has not had one for about 3 weeks now. She is feeling terrible. Passing out, erratic HR, and increased palpitations. Her had to get a different job and she is unable to get help with watching her daughter to be able to go to infusion center to get her scheduled infusions. She is drinking 2 - 64oz containers of water a day. She has had 2 syncopal episodes in the last 3 weeks. She notes increase in sx's since she hasn't been getting her infusions including palpitations, near syncope, dizziness/LH, flushed feeling, loss of hearing, chest pressure. She is fearful of having a syncopal episode in front of her 2 y/o daughter. Patient Active Problem List Diagnosis POTS (postural orthostatic tachycardia syndrome) Syncope Uncomplicated asthma Gastroparesis Depressed Past Medical History: Diagnosis Date POTS (postural orthostatic tachycardia syndrome) Syncope Family History Problem Relation Name Age of Onset Coronary artery disease Maternal Grandmother Coronary artery disease Maternal Grandfather Coronary artery disease Paternal Grandmother Social History Tobacco Use Smoking status: Never Smokeless tobacco: Never Substance Use Topics Alcohol use: Not Currently Allergies Allergen Reactions Dragon Fruit Anaphylaxis Grape Flavor Rash ROS Review of Systems HENT: Positive for hearing loss. Cardiovascular: Positive for chest pain, dyspnea on exertion, near-syncope, palpitations and syncope. Respiratory: Positive for shortness of breath. Musculoskeletal: Positive for back pain, joint pain and myalgias. Neurological: Positive for dizziness and light-headedness. OBJECTIVE Visit Vitals BP 128/84 (BP Location: Right arm, Patient Position: Sitting) Pulse 95 Ht 1.651 m (5' 5 ) Wt 100 kg (221 lb) SpO2 99% BMI 36.78 kg/m??? Smoking Status Never BSA 2.14 m??? Medications: Current Outpatient Medications: albuterol (ProAir HFA) 90 mcg/actuation inhaler, Inhale 2 puffs every 4 (four) hours if needed., Disp: , Rfl: etonogestrel-eluting contraceptive 68 mg contraceptive implant, 1 Device by implant route 1 (one) time., Disp: , Rfl: budesonide-formoteroL (Symbicort) 160-4.5 mcg/actuation inhaler, Inhale 2 puffs twice a day., Disp: , Rfl: midodrine (Proamatine) 5 mg tablet, Take 1 tablet (5 mg) by mouth in the morning, at noon, and at bedtime., Disp: 90 tablet, Rfl: 3 sodium chloride 1 gram tablet, Take 1 tablet (1 g) by mouth with breakfast and with evening meal. Start taking 1 tablet daily. Increase to twice daily if needed., Disp: 60 tablet, Rfl: 3 Physical Exam Vitals reviewed. Constitutional: Appearance: Normal appearance. She is normal weight. HENT: Head: Normocephalic and atraumatic. Right Ear: External ear normal. Left Ear: External ear normal. Eyes: Extraocular Movements: Extraocular movements intact. Conjunctiva/sclera: Conjunctivae normal. Pupils: Pupils are equal, round, and reactive to light. Neck: Vascular: No carotid bruit. Cardiovascular: Rate and Rhythm: Normal rate and regular rhythm. Pulses: Normal pulses. Heart sounds: Normal heart sounds. Pulmonary: Effort: Pulmonary effort is normal. Breath sounds: Normal breath sounds. Abdominal: General: Bowel sounds are normal. Palpations: Abdomen is soft. Musculoskeletal: Cervical back: Neck supple. Right lower leg: No edema. Left lower leg: No edema. Skin: General: Skin is warm and dry. Neurological: General: No focal deficit present. Mental Status: She is alert and oriented to person, place, and time. Psychiatric: Mood and Affect: Mood normal. Behavior: Behavior normal. Thought Content: Thought content normal. Judgment: Judgment normal. Labs/Testing/Procedures: EKG 08/30/2020: sinus rhythm ASSESSMENT/PLAN: Diagnosis Plan 1. POTS (postural orthostatic tachycardia syndrome) midodrine (Proamatine) 5 mg tablet sodium chloride 1 gram tablet General supply request 2. Syncope, unspecified syncope type 3. Palpitations #POTS #Syncope #Palpitations -She is no longer able to due her twice weekly infusions. -She has previously taken midodrine, desmopressin, fludrocortisone per Dr. Guillen. She states she thinks the only medication that may have had some type of improvement in her sx's was midodrine. There was a discussion at one point in time about her starting Northera. -Will have her start taking midodrine 5mg TID. Will also start NaCl tablets 1mg daily, increase to twice daily if needed. -Continue to increase PO fluid intake along with Na+ intake. -She previously wore compression panty hose, recommended she resume this - Rx also provided. -Advised for her to try to keep (more content not included)... [facility] Progress note 09-19-2022 Note Date & Type Note Facility 09-19-2022 Note Patient here to disc uss stopping infusions. She has not had one for about 3 weeks now. She is feeling terrible. Passing out, erratic HR, and increased palpitations. Review of Systems HENT: Positive for hearing loss. Cardiovascular: Positive for chest pain, dyspnea on exertion, near-syncope, palpitations and syncope. Respiratory: Positive for shortness of breath. Musculoskeletal: Positive for back pain, joint pain and myalgias. Neurological: Positive for dizziness and light-headedness. [facility] Evaluation note Note Date & Type Note Facility Evaluation note [facility] Discharge instructions Note Date & Type Note Facility Hospital Discharge instructions Additional Instructions DISCHARGE INSTRUCTIONS FOR COLONOSCOPY WHAT TO EXPECT: - You may feel full, gassy or cramping after your procedure. In some cases, this may be from a few hours to a day. Walking may help relieve the discomfort. - If you have polyp(s) removed you may note some minor bloody discharge after your first bowel movements. - You should begin to recover from anesthesia within 1 hour of the procedure, however may feel groggy for the next 24 hours. DO's AND DON'Ts: - Call your doctor right away if you have a hard abdomen, severe pain, are passing lots of bright red blood or clots. - Call your doctor if you develop any rashes, hives or difficulty breathing. - Let your doctor know if you have not had a bowel movement by 3 days after your procedure. - If you take 81 mg aspirin for your heart it is safe to resume this medication. - If you take other blood thinner medications your doctor will instruct you when these can safely be resumed. - Do NOT drive for 24 hours. - Do NOT operate machinery such as power tools, [employer]n mowers, snow blowers, sewing machines, etc. for 24 hours. - Avoid alcoholic beverages and drugs for allergies, nerves, or sleep. - Do NOT stay alone. Do NOT leave your child unattended. - Do NOT make important personal or business decisions or sign any legal documents. - Eat solid foods and drink liquids in smaller amounts than usual until normal appetite returns. If you should experience an upset stomach, liquids high in sugar content (soda, Asif-Aid, non-acid juices) are recommended. - You can resume normal activities tomorrow. FOLLOW UP & RECOMMENDATIONS: -Repeat colonoscopy in at the age of 45 for colon cancer screening -Follow up with PCP. -Office number [phone]. [facility] Work Phone: Summary Purpose Family History Relationship Condition Age at Onset Recorded Date/T mitchell Not Specified Diabetes mellitus Unknown Intestinal obstruction Unknown grandparent Diabetes mellitus Unknown Malignant neoplasm of breast Unknown Heart disease Unknown sister Diabetes mellitus Unknown family member Malignant neoplasm of colon Unknown Malignant neoplasm of lung Unknown Advance Directives Advance Directive Response Recorded Date/ Time Advance Directives No January 05 18 5:57pm Chief Complaint and Reason for Visit Chief Complaint Abdominal pain, Coli tis Additional Source Comments INFORMATION SOURCE (unrecogn ized section and content) DATE CREATED AUTHOR 04/22/2018 [facility] DATE CREATED AUTHOR AUTHOR'S ORGANIZ ATION 01/26/2023 [facility] DATE CREATED AUTHOR AUTHOR'S ORGANIZ ATION 02/11/2023 [facility] DATE CREATED AUTHOR AUTHOR'S ORGANIZ ATION 03/01/2023 [facility] Care Teams (unrecognized sec tion and content) Team Status: Active Member Role Status Dates Conchita Vargas NP-C Primary Care Provider Active Team Status: Inactive Member Role Status Skylar Monreal MD Attending Provider Active BONNIE Parsons Primary Care Provider Active FOR RECORDS PERTAINING TO PATIENTS WHO ARE OR HAVE BEEN ENROLLED IN A CHEMICAL DEPENDENCY/SUBSTANCEABUSE PROGRAM, SOME INFORMATION MAY BE OMITTED. This clinical summary was aggregated from multiple sources. Caution should be exercised in using it in the provision of clinical care. This summary normalizes information from multiple sources, and as a consequence, information in this document may materially change the coding, format and clinical context of patient data. In addition, data may be omitted in some cases. CLINICAL DECISIONS SHOULD BE BASED ON THE PRIMARY CLINICAL RECORDS. [facility] [employer] [facility]. provides no warranty or guarantee of the accuracy or completeness of information in this document.
--- NOTE | 2023-11-01 08:02 | US_ITS ---
The [address] [address] Patient Name: YIN GALEANO MRN: [id number] date: 1995 Sex: F Assigned Patient Location: US Current Patient Location: Accession/Order Number: [id number] Exam Date: 11/01/2023 08:06 Report Date: 11/03/2023 10:59 At the request of: PRISCA VARGAS Procedure: US renal bladder EXAM: US renal bladder HISTORY: HEMATURIA R31.9 COMPARISON: 01/17/2023 TECHNIQUE: Ultrasound of the kidneys and bladder were obtained. FINDINGS: The right and left kidneys measure 10.8 cm and 12.2 cm respectively. There is normal color flow. There is no solid renal mass. No collecting system dilation. The urinary bladder is unremarkable. Prevoid volume of 533 mL. Post volume of 29 mL. Bilateral jets visualized. Incidental note of left ovarian simple cyst/dominant follicle, 2.9 cm of likely no clinical consequence. US/US renal bladder IMPRESSION: No findings to explain the patient's microhematuria. Electronically authenticated by: ALY VAZQUEZ Date: 11/03/2023 10:59
== END 2023-11-01 08:00 | disposition home or self-care (01) ==
LOC: US 07:59
PROVIDERS: PCP Nurse Practitioner Family; Visit Provider Nurse Practitioner Family
DX: R31.9 Hematuria, unspecified (principal)
CPT/HCPCS: 76770

== ENCOUNTER 2023-12-22 13:52 | Outpatient (OUT) | payer MEDICARE, SELFPAY ==
--- NOTE | 2023-12-22 13:54 | US_ITS ---
The [address] [address] Patient Name: YIN GALEANO MRN: [id number] date: 1995 Sex: F Assigned Patient Location: US Current Patient Location: US Accession/Order Number: [id number] Exam Date: 12/22/2023 14:00 Report Date: 12/22/2023 14:57 At the request of: CULLEN MUKHERJEE Procedure: US pelvis w/ transvaginal EXAMINATION: US pelvis w/ transvaginal HISTORY: abnormal uterine bleeding N93.9 , pelvic pain. COMPARISON: No relevant comparison available. TECHNIQUE: Transabdominal and/or transvaginal sonographic examination was performed as indicated by examination type. FINDINGS: UTERUS: Normal size and appearance. Uterus size: 9.3 x 5.4 x 4.5 cm ENDOMETRIUM: Normal homogeneous appearance. Endometrial thickness: 3 mm RIGHT OVARY: Normal size and appearance. Duplex Doppler demonstrates normal waveform and flow; resistive index 0.6. Ovary size: 3.1 x 2.2 x 2.0 cm LEFT OVARY: Contains a prominent follicle versus benign-appearing 1.7 cm simple cyst. Duplex Doppler demonstrates normal waveform and flow; resistive index 0.6. Ovary size: 2.3 x 2.8 x 2.1 cm CUL-DE-SAC: Unremarkable. No significant free fluid. BLADDER: Unremarkable. OTHER: None. US/US pelvis w/ transvaginal IMPRESSION: 1. No abnormal or suspicious findings to account for patient's symptoms. Electronically authenticated by: FITZ CRISOSTOMO Date: 12/22/2023 14:57
--- OUTSIDE RECORDS SUMMARY | 2023-12-22 14:00 | XMS_ITS | CCD ---
Author Name Unknown Address [address] [place] [address] Organization [facility] Care Team Providers Care Engineering Lecturer Name Role Phone DOMINGO GUILLEN AM Unavailable [...] Primary Care Unavailable Willie Monreal Attending Unavailable Asagloria, Imad Admitting Unavailable MD Willie Monreal Attending Provider [phone] BONNIE Vargas Primary Care Provider CONCHITA VARGAS Primary Care Physician [phone] Unavailable Primary Care Provider UnavailCULLEN Cruz Attending Unavailable Orzech, Adele X Attending Unavailable JONATHAN VARGAS Referring Unavailable Orzech, Adele X Attending Unavailable Orzech, Adele X Admitting Unavailable Allergies Allergy Classification Reported Allergen(s) Allergy Type Date of Onset Reaction(s) Facility (1 source) grape extract Drug Allergy [facility] Repository (1 source) buPROPion; Translations: [BUPROPION HCL] Drug Allergy 2 [facility] Repository (2 sources) DRAGON FRUIT; Translations: [DRAGON FRUIT] Propensity to adverse reactions to drug (disorder) 2 Anaphylaxis [facility] Repository (2 sources) GRAPE FLAVOR; Translations: [GRAPE FLAVOR] Propensity to adverse reactions to drug (disorder) 2 Hives [facility] Repository (2 sources) buPROPion Drug Allergy 2 Hallucinations [facility] (2 sources) Flavoring Agent Propensity to adverse reactions 8 Hives, Rash [facility] Medications Current Medications Medication Drug Class(es) Dates Sig (Normalized) Sig (Original) [id number] 200 actuat albuterol 0.09 mg/actuat metered dose inhaler (5 sources) beta2-Adrenergic Agonist Start: 02-27-2023 take 1 puff(s) by inhalation every six hours Albuterol Sulfate Active 2 PUFF INHALATION Q6H February 27, 2023 12:00am albuterol (ProAi r RespiClick) 90 mcg/act breath-activated inhaler take 2 puff(s) by mo uth every four hours albuterol HFA 90 mcg/act inhaler inhale 2 puffs by mouth and INTO THE LUNGS every 4 hours 0 Active Albuterol (Eqv-ProAir HFA) 90 mcg/inh inhalation aerosol (2 sources) Start: 11-18-2023 Albuterol (Eqv-ProAir HFA) 90 mcg/inh inhalation aerosol 2 puff(s) Start Date: 11/18/23 Status: Ordered ALPRAZolam 0.5 mg oral tablet (2 sources) Benzodiazepine ALPRAZolam (Xana x) 0.5 MG tablet alprazolam 0.5 mg tablet 0 Active amitriptyline hydrochloride 25 mg oral tablet (4 sources) Tricyclic Antidepressant take 1 tablet by mouth at bedtime amitriptyline (Elavil) 100 MG tablet Take 100 mg by mouth at bedtime 0 Active take 1 tablet by mouth at bedtim e amitriptyline (Elavil) 25 MG tablet Take 25 mg by mouth at bedtime 0 Active 120 actuat budesonide 0.18 mg/actuat dry powder inhaler (2 sources) Corticosteroid take 1 puff(s) by inhalation in the morning budesonide (Pulmicort Flexhaler) 180 MCG/ACT inhaler Inhale 1 puff in the morning and 1 puff in the evening. 0 Active 120 actuat budesonide 0.16 mg/actuat / formoterol fumarate 0.0045 mg/actuat metered dose inhaler (7 sources) Corticosteroid, beta2-Adrenergic Agonist Start: 02-28-20 take 1 puff(s) by inhalation twice daily Budesonide-Formote rol (Symbicort) 160-4.5 mcg/actuation Hfa Aerosol Inhaler Active 2 PUFF INHALATION Twice daily February 27, 2023 12:00am Start: 09-03-2022 Symbicort 160- 4.5 MCG/ACT inhaler budesonide-formo terol (Symbicort) 80-4.5 MCG/ACT inhaler Symbicort 0 Active take 2 puff(s) by in halation in the morning budesonide-formoterol (Symbicort) 160-4.5 MCG/ACT inhaler Inhale 2 puffs in the morning and 2 puffs in the evening. 0 Active 24 hr buPROPion hydrochloride 150 mg extended release oral tablet (2 sources) Aminoketone take 1 tablet by mouth every twenty-four hours in the morning buPROPion XL (Wellbutrin XL) 150 MG 24 hr tablet Take 150 mg by mouth in the morning. 0 Active calcium carbonate (Tums) 250 mg (kletsel dehe wintun 100 mg) chewable split tablet (2 sources) take 1 tablet by mouth in the morning calcium carbonate (Tums) 250 mg (kletsel dehe wintun 100 mg) chewable split tablet Take 1 tablet by mouth in the morning. 0 Active etonogestrel 68 mg drug implant (4 sources) Progestin Start: End: etonogestrel-eluting 68 mg contraceptive implant 1 each ivabradine 5 mg oral tablet (3 sources) Hyperpolarization-a ctivated Cyclic Nucleotide-gated Channel [place] Start: Corlanor 5 mg oral tablet 5 mg = 1 tab(s) Start Date: 11/18/23 Status: Ordered Start: 02-27-2023 take 1 tablet by manda th once daily Ivabradine (Corlanor) 5 mg tablet Active 5 MG PO Daily February 27, 2023 12:00am midodrine hydrochloride 5 mg oral tablet (3 sources) alpha-Adrenergic Agonist Start: 11-18-2023 take 1 mg by mouth twice daily midodrine 5 mg Tab mg tab(s), Oral, BID Start Date: 11/18/23 Status: Ordered Start: 02-27-2023 take 1 dose by mouth once daily at bedtime Midodrine Active 10 MG PO Twice daily February 27, 2023 12:00am do not give last dose of day after 6PM or within 4 hrs of bedtime montelukast 10 mg oral tablet (2 sources) Leukotriene Receptor Antagonist Start: 11-18-2023 montelukast 10 mg Ta b 10 mg = 1 tab(s) Start Date: 11/18/23 Status: Ordered Symbicort 160/4.5 inhalation aerosol with adapter (2 sources) Start: 11-18-2023 Symbicort 160/ 4.5 inhalation aerosol with adapter 2 puff(s) Start Date: 11/18/23 Status: Ordered Problems Active Problems Problem Classification Problem Date Documented Date Episodic/Chronic Abdominal pain (2 sources) Right lower quadrant pain; Translations: [Right upper quadrant pain] Onset: 01-25-2023 Episodic Asthma (2 sources) Asthma 11-18-2023 Chronic Cardiac dysrhythmias (4 sources) Other specified cardiac arrhythmias; Translations: [OTHER SPECIFIED CARDIAC ARRHYTHMIAS] Onset: 04-02-2018 Chronic Contraceptive and procreative management (4 sources) Subcutaneous contraceptive implant present; Translations: [Encounter for surveillance of implantable subdermal contraceptive] 12-16-2023 Episodic Diabetes mellitus without complication (1 source) Other abnormal glucose; Translations: [OTHER ABNORMAL GLUCOSE] Onset: 10-31-2022 Episodic Genitourinary symptoms and ill-defined conditions (1 source) Microscopic hematuria; Translations: [Other microscopic hematuria] Onset: 11-18-2023 Episodic Headache; including migraine (2 sources) Headache 11-18-2023 Episodic Other circulatory disease (4 sources) Postural orthostatic tachycardia syndrome ; Translations: [Postural orthostatic tachycardia syndrome (POTS)] Onset: 09-19-2022 Episodic Other female genital disorders (2 sources) Abnormal uterine bleeding; Translations: [Abnormal uterine and vaginal bleeding, unspecified] 12-16-2023 Chronic Residual codes; unclassified (2 sources) Other specified postprocedural states; Translations: [Other specified postprocedural states] Onset: 10-29-2022 Episodic Unclassified (2 sources) Unknown / UNK(Unknown) Onset: 04-02-2018 Urinary tract infections (4 sources) Urinary tract infection, site not specified; Translations: [UTI SITE NOT SPECIFIED] Onset: 01-17-2023 Episodic Past or Other Problems Problem Classification Problem Date Documented Da te Episodic/Chronic Other disorders of stomach and duodenum (2 sources) Gastroparesis; Translations: [Gastroparesis] Onset: 09-19-2022 Episodic Syncope (2 sources) Syncope and collapse; Translations: [Syncope and collapse] Onset: 09-19-2022 Episodic Results Test Name Value Interpretation Reference Range Facility Urine Cytology ([facility])on 0 12-18-2023 Urine Cytology see scannd rprt Invalid Interpretation Code [facility] Comment on above: Performed By: #### 1 [id number] #### [facility] [address] [place] [address] HCG ( test) Ql (U)o n 12-16-2023 Interpretation and review of laboratory results Normal [facility] Preg Test, Ur Negative [facility] Lab Reportson 12-11-2023 Lab Reports [id number]#1.00TIFF Normal [facility] Formson 11-20-2023 Forms [id number]# 1.00TIFF Normal [facility] Physician Referralon 024 Physician Referral [id number] #1.00TIFF Normal [facility] Screenson 11-20-2023 Screens [id number] #1.00TIFF Normal [facility] Ambulatory Visit Summaryon 0 11-19-2023 Ambulatory Visit Summary ANNE MARIE TAYLOR :1995 Visit Date:11/18/2023 Ambulatory Visit Instructions Your Diagnosis Microscopic hematuria Tests Performed Urnls Dip Stick Auto w/o Microscopy POC 03255 Your Care Team Attending Physician - KE Burgos APRN, Adele Mccollum Primary Care Physician - CONCHITA VARGAS CNP Referring Physician - CONCHITA VARGAS CNP This Is Your Medications List Contact prescribing physician if questions or concerns albuterol (Albuterol (Eqv-ProAir HFA) 90 mcg/inh inhalation aerosol) budesonide-formotero l (Symbicort 160/4.5 inhalation aerosol with adapter) ivabradine (Corlanor 5 mg oral tablet) midodrine (midodrine 5 mg Tab) montelukast (montelukast 10 mg Tab) Procedures Performed Cholecystectomy, Colonoscopy, Tonsillectomy. Medications What How Much When Instructions Unchanged albuterol (Albuterol (Eqv-ProAir HFA) 90 mcg/ inh inhalation aerosol) 2 Puffs Contact prescribing physician if questions or concerns Unchanged budesonide-formotero l (Symbicort 160/ 4.5 inhalation aerosol with adapter) 2 Puffs Contact prescribing physician if questions or concerns Unchanged ivabradine (Corlanor 5 mg oral tablet) 1 Tablets Contact prescribing physician if questions or concerns Unchanged midodrine (midodrine 5 mg Tab) By Mouth 2 times a day Contact prescribing physician if questions or concerns Unchanged montelukast (montelukast 10 mg Tab) 1 Tablets Contact prescribing physician if questions or concerns Test Results Urnls Dip Stick Auto w/o Microscopy POC 63016 (11/18/2023) Bilirubin Urine Dipstick - Negative Blood Urine Dipstick - 3+ Large Glucose Urine Dipstick - Negative Ketones Urine Dipstick - Negative Leukocytes Urine Dipstick - 2+ Moderate Nitrite Urine Dipstick - Negative Protein Urine Dipstick - Trace Specific [place] Urine Dipstick - 1.020 Urine Appearance Urine Dipstick - Clear Urine Color Urine Dipstick - Yellow Urobilinogen Urine Dipstick - Normal 0.2-1 EU/dl pH Urine Dipstick - 7 Medications and Immunizations Administered Not Given influenza virus vaccine, inactivated, Patient Refuses Allergies No active allergies Problems Ongoing - Any problem that you are currently receiving treatment for. Asthma Headache Postural orthostatic tachycardia syndrome [POTS] Patient Survey You may receive a survey via text or e-mail asking about your office visit. Please share your experience with us by completing your survey. We appreciate your feedback and thank you for choosing us for your care. Education Materials Hematuria, Adult Hematuria is blood in the urine. Blood may be visible in the urine, or it may be identified with a test. This condition can be caused by infections of the bladder, urethra, kidney, or prostate. Other possible causes include: ? Kidney stones. ? Cancer of the urinary tract. ? Too much calcium in the urine. ? Conditions that are passed from parent to child (inherited conditions). ? Exercise that requires a lot of energy. Infections can usually be treated with medicine, and a kidney stone usually will pass through your urine. If neither of these is the cause of your hematuria, more tests may be needed to identify the cause of your symptoms. It is very important to tell your health care provider about any blood in your urine, even if it is painless or the blood stops without treatment. Blood in the urine, when it happens and then stops and then happens again, can be a symptom of a very serious condition, including cancer. There is no pain in the initial stages of many urinary cancers. Follow these instructions at home: Medicines ? Take malp-bty-uddozjm and prescription medicines only as told by your health care provider. ? If you were prescribed an antibiotic medicine, take it as told by your health care provider. Do not stop taking the antibiotic even if you start to feel better. Eating and drinking ? Drink enough fluid to keep your urine pale yellow. It is recommended that you drink 3?4 quarts (2.8?3.8 L) a day. If you have been diagnosed with an infection, drinking cranberry juice in addition to large amounts of water is recommended. ? Avoid caffeine, tea, and carbonated beverages. These tend to irritate the bladder. ? Avoid alcohol because it may irritate the prostate (in males). General instructions ? If you have been diagnosed with a kidney stone, follow your health care provider's instructions about straining your urine to catch the stone. ? Empty your bladder often. Avoid holding urine for long periods of time. ? If you are female: ? After a bowel movement, wipe from front to back and use each piece of toilet paper only once. ? Empty your bladder before and after sex. ? Pay attention to any changes in your symptoms. Tell your health care provider about any changes or any new symptoms. ? It is up to you to get the results of any tests. Ask your h (more content not included)... Normal [facility] Patient Educationon 11-18-19 24 Patient Education Urology Hematuria, Adult Hematuria is blood in the urine. Blood may be visible in the urine, or it may be identified with a test. This condition can be caused by infections of the bladder, urethra, kidney, or prostate. Other possible causes include: ? Kidney stones. ? Cancer of the urinary tract. ? Too much calcium in the urine. ? Conditions that are passed from parent to child (inherited conditions). ? Exercise that requires a lot of energy. Infections can usually be treated with medicine, and a kidney stone usually will pass through your urine. If neither of these is the cause of your hematuria, more tests may be needed to identify the cause of your symptoms. It is very important to tell your health care provider about any blood in your urine, even if it is painless or the blood stops without treatment. Blood in the urine, when it happens and then stops and then happens again, can be a symptom of a very serious condition, including cancer. There is no pain in the initial stages of many urinary cancers. Follow these instructions at home: Medicines ? Take cful-mvt-uxqqndq and prescription medicines only as told by your health care provider. ? If you were prescribed an antibiotic medicine, take it as told by your health care provider. Do not stop taking the antibiotic even if you start to feel better. Eating and drinking ? Drink enough fluid to keep your urine pale yellow. It is recommended that you drink 3?4 quarts (2.8?3.8 L) a day. If you have been diagnosed with an infection, drinking cranberry juice in addition to large amounts of water is recommended. ? Avoid caffeine, tea, and carbonated beverages. These tend to irritate the bladder. ? Avoid alcohol because it may irritate the prostate (in males). General instructions ? If you have been diagnosed with a kidney stone, follow your health care provider's instructions about straining your urine to catch the stone. ? Empty your bladder often. Avoid holding urine for long periods of time. ? If you are female: ? After a bowel movement, wipe from front to back and use each piece of toilet paper only once. ? Empty your bladder before and after sex. ? Pay attention to any changes in your symptoms. Tell your health care provider about any changes or any new symptoms. ? It is up to you to get the results of any tests. Ask your health care provider, or the department that is doing the test, when your results will be ready. ? Keep all follow-up visits. This is important. Contact a health care provider if: ? You develop back pain. ? You have a fever or chills. ? You have nausea or vomiting. ? Your symptoms do not improve after 3 days. ? Your symptoms get worse. Get help right away if: ? You develop severe vomiting and are unable to take medicine without vomiting. ? You develop severe pain in your back or abdomen even though you are taking medicine. ? You pass a large amount of blood in your urine. ? You pass blood clots in your urine. ? You feel very weak or like you might faint. ? You faint. Summary ? Hematuria is blood in the urine. It has many possible causes. ? It is very important that you tell your health care provider about any blood in your urine, even if it is painless or the blood stops without treatment. ? Take ivta-ksw-esukqaf and prescription medicines only as told by your health care provider. ? Drink enough fluid to keep your urine pale yellow. This information is not intended to replace advice given to you by your health care provider. Make sure you discuss any questions you have with your health care provider. Document Revised: 06/20/2021 Document Reviewed: 06/20/2021 [employer] Patient Education ? 2022 [employer]. Normal [facility] Urine Cytology ([facility])on 0 11-18-2023 Method of Extraction Voided Normal [facility] Comment on above: Performed By: #### 1 [id number] #### [facility] [address] Number of Jars 1 Invalid Interpretation Code [facility] Comment on above: Performed By: #### 1 [id number] #### [facility] [address] [place] [address] Specimen Urine Normal [facility] Comment on above: Performed By: #### 1 [id number] #### [facility] [address] [place] [address] Type of Service Technical Only Normal [facility] Comment on above: Performed By: #### 1 [id number] #### [facility] [address] [place] [address] HCG ( test) Ciarra godwin Ql (U)Ordered By: Willie Monreal on 02-27-2023 HCG ( test) Ql (U) Negative [facility] HCG,Urineon 02-27-2023 Beta HCG ( test) Ql (U) Negative Normal [facility] Comment on above: Result Comment: PERF ORMED BY: [address] [id number] PATHOLOGIST ELECTRONICS DEPARTMENT MANAGER JARED LOPEZ M.D. Performed By: #### U HCG #### [place] [id number] [facility] Darryl 02-27-2023 L Specimen: [id number] Received: 02/27/23 Status: YVON Lucasamisha Num: [id number] Spec Type: Surgical Subm Dr: Willie Monreal MD Tissues: A Small Intestine - Biopsy/Polyp (TERMINAL ILEUM BX) B Colon Biopsy (RANDOM COLON BX) Procedures: VANESSA/Kenna, Gross/Micro L4/2 Age/ Patient Sex Location Account Attending Physician Anne Marie Taylor [id number] Willie Monreal MD SPEC NUM: [id number] RECD: 02/27/23 STATUS: EDIUriel MARTINEZ NUM: [id number] VON: 02/27/23- [facility] DR: Willie Monreal MD ENTERED: 02/27/[address] [facility] DR: SPEC TYPE: Surgical DEPT: S ORDERED: HE/4, Gross/Micro [...] advised. Clinical Information Abdomen pain, colitis Specimen: [id number] Received: 02/27/23 Status: YVON Martinez Num: [id number] Spec Type: Surgical Subm Dr: Willie Monreal MD Tissues: A Small Intestine - Biopsy/Polyp (TERMINAL ILEUM BX) B Colon Biopsy (RANDOM COLON BX) Procedures: VANESSAKenna Gross/Micro L4/2 Patient: Anne Marie Taylor [id number] (Continued) Specimen: [id number] Received: 02/27/23 (Continued) Signed (signature on file) Geraldine Alexander MD 02/28/23 1054 Specimen: [id number] Received: 02/27/23 Status: YVON Martinez Num: [id number] Spec Type: Surgical Subm Dr: Willie Monreal MD Tissues: A Small Intestine - Biopsy/Polyp (TERMINAL ILEUM BX) B Colon Biopsy (RANDOM COLON BX) Procedures: VANESSAKenna Gross/Micro L4/2 Patient: Anne Marie Taylor [id number] (Continued) Specimen: [id number] Received: 02/27/23-123 (Continued) Gross Description A. Received in formalin [...] support the above pathologic diagnosis. CPT Codes 85251?2 Specimen: [id number] Received: 02/27/23-1235 Status: YVON Martinez Num: [id number] Spec Type: Surgical Subm Dr: Willie Monreal MD Tissues: A Small Intestine - Biopsy/Polyp (TERMINAL ILEUM BX) B Colon Biopsy (RANDOM COLON BX) Procedures: HE/4, Gross/Micro L4/2 Patient: Anne Marie Taylor [id number] (Continued) Signed (signature on file) Geraldine Alexander MD 02/28/23 1054 [facility] 36on 02-11-2023 36 Patient called requesting orders for her port to be flushed. She said she asked Ratna when she had a telemed with her a few weeks ago. She said Ratna advised her to ask her primary care (Conchita Vargas CNP), as she has been the one managing it. But this is actually incorrect. Dr. Guillen was the one who had been ordering the infusions ever since the port was placed. Is someone able to help with this? Thanks! [facility] Telemedicineon 01-27-2023 Telemedicine [id number] Anne Marie Taylor 1995 F Date Provider Department Center 01/27/2023 SLOAN LEOS [facility] CARD ME [facility] Family History Problem Relation Age of [...] Sister Mother's Brother Mother's Sister Level of Service:18332 ME OFFICE/OUTPATIENT ESTABLISHED LOW [facility] 20-29 MIN Reason for Visit and Comments: Telehealth Audio/video Visit [871] Normal [facility] CT ABD/PELV W CONon 01-18-[address] [...] NENO INGRAM Date: 2023-01-17 18:33 Normal [facility] CULTURE URINEon 01-17-2023 CULTURE URINE Culture Observations: LIGHT GROWTH OF MIXED GENITAL DESI. NO POTENTIAL PATHOGENS SEEN. Normal [facility] Comment on above: Performed By: #### U RCX #### [facility] [address] [place] [address] Dr. Tere Pastor UA RANDOM W/MICROSCOPICon BACTERIA TRACE Abnormal NONE SEEN [facility] Comment on above: Performed By: #### U AMIC #### [facility] [address] [place] [address] Dr. Tere Pastor Bilirubin Ql (U) Negative Normal NEGATIVE [facility] Comment on above: Performed By: #### U AMIC #### [facility] [address] [place] [address] Dr. Tere Pastor CAST NONE SEEN Normal NONE SEEN [facility] Comment on above: Performed By: #### U AMIC #### [facility] [address] [place] [address] Dr. Tere Pastor Clarity (U) CLEAR Normal CLEAR [facility] Comment on above: Performed By: #### U AMIC #### [facility] [address] [place] [address] [address] Tere Pastor Color (U) LT. YELLOW Normal YELLOW [facility] Comment on above: Performed By: #### U AMIC #### [facility] [address] [place] [address] Dr. Tere Pastor Crystals LM Nom (Urine sed) NONE SEEN Normal NONE SEEN [facility] Comment on above: Performed By: #### U AMIC #### [facility] [address] [place] [address] Dr. Tere Pastor Epithelial cells LM Ql (Urine sed) FEW Abnormal NONE SEEN /RARE [facility] Comment on above: Performed By: #### U AMIC #### [facility] [address] [place] [address] [address] Tere Pastor Glucose Ql (U) Negative Normal NEGATIVE [facility] Comment on above: Performed By: #### U AMIC #### [facility] [address] [place] [address] [address] Tere Pastor Hemoglobin Ql (U) MODERATE Abnormal NEGATIVE [facility] Comment on above: Performed By: #### U AMIC #### [facility] [address] [place] [address] [address] Tere Pastor Ketones Ql (U) TRACE Abnormal NEGATIVE [facility] Comment on above: Performed By: #### U AMIC #### [facility] [address] [place] [address] [address] Tere Pastor LEUKOCYTES MODERATE Abnormal NEGATIVE [facility] Comment on above: Performed By: #### U AMIC #### [facility] [address] [place] [address] [address] Tere Pastor MUCOUS NONE SEEN Normal NONE SEEN The [facility] Comment on above: Performed By: #### U AMIC #### [facility] [address] [address] [address] Tere Pastor Nitrite Ql (U) Negative Normal NEGATIVE [facility] Comment on above: Performed By: #### U AMIC #### [facility] [address] [address] [address] Tere Pastor pH (U) 6.0 [pH] Normal 5-9 [facility] Comment on above: Performed By: #### U AMIC #### [facility] [address] [address] [address] Tere Pastor RBC 2-5 Abnormal 0-2 [facility] Comment on above: Performed By: #### U AMIC #### [facility] [address] [address] [address] Tere Pastor SPEC GRAVITY 1.025 Normal 1.005-<=1.025 [facility] Comment on above: Performed By: #### U AMIC #### [facility] [address] [address] [address] Tere Pastor UA PROTEIN Negative Normal NEGATIVE/ TRACE [facility] Comment on above: Performed By: #### U AMIC #### [facility] [address] [address] [address] Tere Pastor Urobilinogen Qn (U) 0.2 {Conchita'U}/dL Normal 0.2 - 1. 0 [facility] Comment on above: Performed By: #### U AMIC #### [facility] [address] [address] [address] Tere Pastor WBC 5-10 Abnormal NONE SEEN [facility] Comment on above: Performed By: #### U AMIC #### [facility] [address] [address] [address] Tere Pastor 36on 11-15-2022 36 Pt calls to ask status of dental clearance for wisdom teeth removal. Pt told we haven't received. She will have them fax again Normal [facility] Office Visiton 10-29-2022 Follow-up visit [id number] Anne Marie Taylor 1995 F Date Provider Department Center 10/29/2022 SLOAN LEOS [facility] Family History Problem Relation [...] Sister Mother's Brother Mother's Sister Level of Service:49884 ME OFFICE/OUTPATIENT ESTABLISHED LOW MDM 20-29 MIN Reason for Visit and Comments: POTS [Other] Dizziness [333846] Normal [facility] CBC AUTO DIFFon 10-23-2022 BASO # 0.0 103/ul Normal 0.0-0.1 [facility] Comment on above: Performed By: #### C BC #### [facility] [address] [address] [address] Tere Pastor Basophils/100 WBC (Bld) 0.5 % Normal 0.2-2.0 [facility] Comment on above: Performed By: #### C BC #### [facility] [address] [address] [address] Tere Pastor EO # 0.2 103/ul Normal 0.0-0.7 [facility] Comment on above: Performed By: #### C BC #### [facility] [address] [place] [address] Dr. Tere Pastor Eosinophils/100 WBC (Bld) 2.7 % Normal 0.9-7.0 [facility] Comment on above: Performed By: #### C BC #### [facility] [address] [place] [address] Dr. Tere Pastor Erythrocyte distribution width (RBC) [Ratio] 13.2 % Normal 11.0-15.0 [facility] Comment on above: Performed By: #### C BC #### [facility] [address] [place] [address] Dr. Tere Pastor Hematocrit (Bld) [Volume fraction] 40.5 % Normal 36.0-48.0 [facility] Comment on above: Performed By: #### C BC #### [facility] [address] [address] [address] Tere Pastor Hemoglobin (Bld) [Mass/Vol] 13.9 g/dL Normal 12.0-16.0 [facility] Comment on above: Performed By: #### C BC #### [facility] [address] [place] [address] Dr. Tere Pastor IG # 0.01 10e3/ul Normal 0.00-0.03 [facility] Comment on above: Performed By: #### C BC #### [facility] [address] [place] [address] Dr. Tere Pastor IG % 0.2 % Normal 0.0-0.5 [facility] Comment on above: Performed By: #### C BC #### [facility] [address] [place] [address] Dr. Tere Pastor LYMPH # 2.4 103/ul Normal 1.2-3.8 [facility] Comment on above: Performed By: #### C BC #### [facility] [address] [place] [address] Dr. Tere Pastor Lymphocytes/100 WBC (Bld) 36.6 % Normal 20.5-60.0 [facility] Comment on above: Performed By: #### C BC #### [facility] [address] [place] [address] Dr. Tere Pastor MANUAL DIFF REQ NO Normal [facility] Comment on above: Performed By: #### C BC #### [facility] [address] [place] [address] Dr. Tere aPstor MCH (RBC) [Entitic mass] 28.6 pg Normal 26.7-34.0 [facility] Comment on above: Performed By: #### C BC #### [facility] [address] [place] [address] Dr. Tere Pastor MCHC (RBC) [Mass/Vol] 34.3 g/dL Normal 29.9-35.2 [facility] Comment on above: Performed By: #### C BC #### [facility] [address] [place] [address] Dr. Tere Pastor MCV (RBC) [Entitic vol] 83.3 fL Normal 81.0-99.0 [facility] Comment on above: Performed By: #### C BC #### [facility] [address] [place] [address] Dr. Tere Pastor MONO # 0.5 103/ul Normal 0.3-0.8 [facility] Comment on above: Performed By: #### C BC #### [facility] [address] [place] [address] Dr. Tere Pastor Monocytes/100 WBC (Bld) 7.6 % Normal 1.7-12.0 [facility] Comment on above: Performed By: #### C BC #### [facility] [address] [place] [address] Dr. Tere Pastor NEUT # 3.5 103/ul Normal 1.4-6.5 [facility] Comment on above: Performed By: #### C BC #### [facility] [address] [place] [address] Dr. Tere Pastor Neutrophils/100 WBC (Bld) 52.4 % Normal 43.0-75.0 [facility] Comment on above: Performed By: #### C BC #### [facility] [address] [place] [address] Dr. Tere Pastor Platelet mean volume (Bld) [Entitic vol] 9.7 fL Normal 9.5-13.5 [facility] Comment on above: Performed By: #### C BC #### [facility] [address] [place] [address] Dr. Tere Pastor PLT 257 103/ul Normal 150-450 [facility] Comment on above: Performed By: #### C BC #### [facility] [address] [place] [address] Dr. Tere Pastor RBC 4.86 106/ul Normal 4.20-5.40 [facility] Comment on above: Performed By: #### C BC #### [facility] [address] [place] [address] Dr. Tere Pastor WBC 6.6 103/ul Normal 4.0-11.0 [facility] Comment on above: Performed By: #### C BC #### [facility] [address] [place] [address] Dr. Tere Pastor FREE THYROXINE INDEX T7on FTI 2.51 Normal 1.30-4.50 [facility] Comment on above: Performed By: #### T 7, CMP, TSH #### [facility] [address] [address] [address] Tere Pastor T3U 33.0 % Normal 30.0-39.0 [facility] Comment on above: Performed By: #### T 7, CMP, TSH #### [facility] [address] [place] [address] Dr. Tere Pastor T4 [Mass/Vol] 7.60 ug/dL Normal 4.80-13.[address] [facility] Comment on above: Performed By: #### T 7, CMP, TSH #### [facility] [address] [place] [address] Dr. Tere Pastor GLYCOHEMOGLOBIN A1Con 2021 ADA RECOMMENDATION SEE BELOW Normal [facility] Comment on above: Result Comment: ADA RECOMMENDED LIMIT 4.0 - 6.0 ADA THERAPEUTIC TARGET < 7.0 ACTION SUGGESTED > 7.0 Performed By: #### A 1C #### [facility] [address] [place] [address] Dr. Tere Pastor Glucose [Mass/Vol] 91 mg/dL Normal [facility] Comment on above: Performed By: #### A 1C #### [facility] [address] [place] [address] Dr. Tere Pastor HbA1c (Bld) [Mass fraction] 4.8 % Normal 4.5-6.2 [facility] Comment on above: Performed By: #### A 1C #### [facility] [address] [place] [address] Dr. Tere Pastor PROF 14(COMP METB)on 022 Albumin [Mass/Vol] 3.7 g/dL Normal 3.4-5.0 [facility] Comment on above: Performed By: #### T 7, CMP, TSH #### [facility] [address] [place] [address] Dr. Tere Pastor Albumin/Globulin [Mass ratio] 1.1 {ratio} Normal [facility] Comment on above: Performed By: #### T 7, CMP, TSH #### [facility] [address] [place] [address] Dr. Tere Pastor ALP [Catalytic activity/Vol] 63 U/L Normal 46-116 [facility] Comment on above: Performed By: #### T 7, CMP, TSH #### [facility] [address] [place] [address] Dr. Tere Pastor ALT [Catalytic activity/Vol] 20 U/L Normal 14-59 [facility] Comment on above: Performed By: #### T 7, CMP, TSH #### [facility] [address] [place] [address] Dr. Tere Pastor Anion gap [Moles/Vol] 10.8 mmol/L Normal [facility] Comment on above: Performed By: #### T 7, CMP, TSH #### [facility] [address] [place] [address] Dr. Tere Pastor AST [Catalytic activity/Vol] 15 U/L Normal 15-37 [facility] Comment on above: Performed By: #### T 7, CMP, TSH #### [facility] [address] [place] [address] Dr. Tere Pastor Bilirubin [Mass/Vol] 0.7 mg/dL Normal 0.2-1.0 [facility] Comment on above: Performed By: #### T 7, CMP, TSH #### [facility] [address] [place] [address] Dr. Tere Pastor Calcium [Mass/Vol] 8.8 mg/dL Normal 8.5-10.1 [facility] Comment on above: Performed By: #### T 7, CMP, TSH #### [facility] [address] [place] [address] Dr. Tere Pastor Chloride [Moles/Vol] 102 mmol/L Normal 98-107 [facility] Comment on above: Performed By: #### T 7, CMP, TSH #### [facility] [address] [place] [address] Dr. Tere Pastor CO2 [Moles/Vol] 28.3 mmol/L Normal 21.0-32.0 [facility] Comment on above: Performed By: #### T 7, CMP, TSH #### [facility] [address] [place] [address] Dr. Tere Pastor Creatinine [Mass/Vol] 0.67 mg/dL Normal 0.55-1.02 [facility] Comment on above: Performed By: #### T 7, CMP, TSH #### [facility] [address] [address] [address] Tere Pastor EGFR-AF ANGUILLAN >60 Normal >=60 [facility] Comment on above: Performed By: #### T 7, CMP, TSH #### [facility] [address] [address] [address] Tere Pastor EGFR-NON AF ANGUILLAN >60 Normal >=60 [facility] Comment on above: Performed By: #### T 7, CMP, TSH #### [facility] [address] [place] [address] Dr. Tere Pastor Globulin (S) [Mass/Vol] 3.3 g/dL Normal [facility] Comment on above: Performed By: #### T 7, CMP, TSH #### [facility] [address] [address] [address] Tere Pastor Glucose [Mass/Vol] 87 mg/dL Normal 74-106 [facility] Comment on above: Performed By: #### T 7, CMP, TSH #### [facility] [address] [place] [address] Dr. Tere Pastor Potassium [Moles/Vol] 4.1 mmol/L Normal 3.5-5.1 [facility] Comment on above: Performed By: #### T 7, CMP, TSH #### [facility] [address] [address] [address] Tere Pastor Protein [Mass/Vol] 7.0 g/dL Normal 6.4-8.2 [facility] Comment on above: Performed By: #### T 7, CMP, TSH #### [facility] [address] [place] [address] Dr. Tere Pastor Sodium [Moles/Vol] 137 mmol/L Normal 136-145 [facility] Comment on above: Performed By: #### T 7, CMP, TSH #### [facility] [address] [address] [address] Tere Pastor Urea nitrogen [Mass/Vol] 7.0 mg/dL Normal 7.0-18.0 [facility] Comment on above: Performed By: #### T 7, CMP, TSH #### [facility] [address] [address] [address] Tere Pastor Urea nitrogen/Creatinine [Mass ratio] 10.4 mg/mg Normal [facility] Comment on above: Performed By: #### T 7, CMP, TSH #### [facility] [address] [address] [address] Tere Pastor TSHon 10-23-2022 TSH 1.865 uIU/mL Normal 0.358-3.740 [facility] Comment on above: Performed By: #### T 7, CMP, TSH #### [facility] [address] [address] [address] Tere Pastor Office Visiton 09-19-2022 Follow-up visit [id number] Anne Marie Taylor 1995 F Date Provider Department Center 09/19/2022 DEMETRIUS GUILLORY [facility] Family History Problem Relation Age of Onset Coronary artery disease Maternal Grandmother Coronary artery disease Maternal Grandfather Coronary artery disease Paternal Grandmother Family Status - Relation Status Age at Maternal Grandmother Maternal Grandfather Paternal Grandmother Level of Service:73994 ME OFFICE/OUTPATIENT ESTABLISHED MOD MDM 30-39 MIN Reason for Visit and Comments: Syncope [506] Palpitations [866507] Normal [facility] Vital Signs Date Time Vital Sign Value Performing Clinician Facility 12-16-2023 13:30-0500 Body weight 104.33 kg [facility] Cornelio DO Work Phone: [facility] 12-16-2023 13:30-0500 Diastolic blood pressure 72 mm[Hg] Cullen Cornelio DO Work Phone: [facility] 12-16-2023 13:30-0500 Systolic blood pressure 120 mm[Hg] Cullen Cornelio DO Work Phone: [facility] 11-18-2023 09:58-0500 Blood Pressure Location Adele Orzech [facility] 11-18-2023 09:58-0500 Diastolic blood pressure 86 mm[Hg] Adele Orzech [facility] 11-18-2023 09:58-0500 Heart rate 74 /min Adele Orzech [facility] 11-18-2023 09:58-0500 Respiratory rate 16 /min Adele Orzech [facility] 11-18-2023 09:58-0500 Systolic blood pressure 137 mm[Hg] Adele Orzech [facility] 02-27-2023 12:25-0400 Diastolic blood pressure 75 mm[Hg] ASSOCIATE PROFESSOR OF SURGERY-C Conchita Lazarmer Work Phone: [facility] 02-27-2023 12:25-0400 Heart rate 82 /min ASSOCIATE PROFESSOR OF SURGERY-C Conchitagregory Lazarmer Work Phone: [facility] 02-27-2023 12:25-0400 Respiratory rate 20 /min ASSOCIATE PROFESSOR OF SURGERY-C Conchita Alicia Work Phone: [facility] 02-27-2023 12:25-0400 SaO2% (BldA) [Mass fraction] 100 % ASSOCIATE PROFESSOR OF SURGERY-C Conchita Lazarmer Work Phone: [facility] 02-27-2023 12:25-0400 Systolic blood pressure 118 mm[Hg] ASSOCIATE PROFESSOR OF SURGERY-C Cnochita Alicia Work Phone: [facility] 02-27-2023 10:29-0400 Body height 165.1 cm ASSOCIATE PROFESSOR OF SURGERY-C Conchitagregory Lazarmer Work Phone: [facility] 02-27-2023 10:29-0400 Body temperature 98.7 [degF] ASSOCIATE PROFESSOR OF SURGERY-C Conchita Lazarmer Work Phone: [facility] 02-27-2023 10:29-3561 Body weight 102.05 kg ASSOCIATE PROFESSOR OF SURGERY-C Conchita Vargas Work Phone: [facility] Encounters Encounter Date Encounter Type Care Provider Facility Start: 12-16-2023 End: 12-16-2023 ambulatory CULLEN GRIMES Not Available Start: 12-16-2023 End: 12-16-2023 Patient encounter procedure Cullen Grimes DO Work Phone: [facility] Comment on above: Encounter for remova l of etonogestrel implant; Insertion of Nexplanon; Abnormal uterine bleeding (AUB) Start: 11-18-2023 End: 11-19-2023 ambulatory Adele X Orzech [facility] Start: 11-18-2023 End: 11-19-2023 ambulatory Adele X Orzech Facility:[facility] Start: 11-18-2023 End: 11-18-2023 Lab Drop off Adele X Orzech [facility] Start: 11-18-2023 End: 11-18-2023 Patient encounter procedure Adele X Orzech [facility] Start: 11-06-2023 ambulatory [facility] Start: 02-27-2023 End: 02-27-2023 ambulatory Conchita Vargas Facility:[facility] Start: 02-27-2023 End: 02-27-2023 Admission to same day surgery center ASSOCIATE PROFESSOR OF SURGERY-C Conchita Vargas Work Phone: [facility] Work Phone: Start: 02-27-2023 End: 02-27-2023 ambulatory ASSOCIATE PROFESSOR OF SURGERY-C Conchita Vargas Work Phone: [facility] Work Phone: Start: 01-27-2023 ambulatory SLOAN feliz [facility] Start: 01-17-2023 End: 01-18-2023 ambulatory CONCHITA VARGAS Facility:[facility] Start: 10-31-2022 Encounter for preprocedural laboratory examination CONCHITA VARGAS [facility] Start: 10-29-2022 ambulatory SLOAN HERNANDEZ [facility] Start: 10-23-2022 End: 10-24-2022 ambulatory CONCHITA ALICIA Facility:[facility] Start: 10-23-2022 End: 10-24-2022 Encounter for preprocedural laboratory examination CONCHITA ALICIA Facility:[facility] Start: 09-19-2022 End: 09-19-2022 ambulatory DEMETRIUSVELMA HALEY [facility] Start: 04-02-2018 End: 04-03-2018 Ambulatory DOMINGO GUILLEN Facility:[facility] Procedures Date Procedure Procedure Detail Performing Clinician Start: 12-16-2023 Urine test visual color cmprsn meths Cullen Cornelio DO Work Phone: Start: 02-27-2023 Colonoscopy ASSOCIATE PROFESSOR OF SURGERY-C Rafaela Vargas Work Phone: Cholecystectomy Adele Orzec h Colonoscopy Adele Orzech Tonsillectomy Adele Orzech Plan of Treatment Date Care Activity Detail Author Start: 12-16-2023 End: 12-16-2024 US for US PELVIS-TRANSVAG IF INDICATED Imaging Routine Abnormal uterine bleeding (AUB) Expected: 12/16/2023 (Approximate), Expires: 12/16/2024 [employer] Comment on above: Expected: 12/16/2023 (Approximate), Expires: 12/16/2024 Start: 02-27-2023 [facility] Removal non-biodegradable drug delivery implant Remove drug implant device Procedures Routine Encounter for removal of etonogestrel implant Ordered: 12/16/2023 [employer] Work Phone: Comment on above: Ordered: 12/16/2023 Immunizations Immunization Date Immunization Notes Care Provider Fa cility NEGATED: Highlighted row has not occurred!11-18-2023 influenza virus vaccine, unspecified formulation Adele OrzeAdfaces [facility] Payers Date Payer Category Payer Medicare [employer]M MEDICARE ADVANTAGE AN[employer]M MEDICARE ADVANTAGE [id number] 2023-Present [address] [place] [address] [id number] 2023 Medicaid [id number] 2023 Self-pay 1995 Unknown [id number] 1995 Unknown [id number] 1995 Unknown [id number] 1995 Unknown [id number] 1995 Unknown [id number] 1995 Unknown [id number] 1959 Unknown [id number] Medicaid [id number] Medicaid [place] Advantage [id number] Medicaid [id number] Unknown [id number] Unknown [employer] [id number] Social History Date Type Detail Facility Start: 02-27-2023 End: 11-20-2023 Tobacco smoking status NHIS Never smoked tobacco (finding) [facility] Start: 1995 Sex Assigned At Female [facility] Start: 11-20-2023 Sex Assigned At Female [facility] Start: 12-16-2023 Alcohol intake Lifetime non-drinker (finding) [facility] Start: 11-20-2023 History of Social function [facility] Start: 11-20-2023 Alcohol Comment caffeine: 1-2 cups per day [facility] Start: 10-30-2023 Gender identity Identifies as female gender (finding) [facility] Start: 10-30-2023 Sexual orientation Heterosexual (finding) [facility] Goals Date Patient Goal Desired Activity /State Functional Status Date Assessment Result Facility 11-18-2023 Functional Status N/A [facility] Clinical Notes 09-19-2022 to 12-16-2023 Kaye Harmon LPN - 12/16/2023 1:10 PM EST Note Date & Type Note Facility 12-16-2023 History of Presen t illness Narrative Reason for Appointment: Patient ID: Anne Marie Taylor is a 28 y.o. female who presents for Contraception (Nexplanon removal/insert) Patient presents today for Nexplanon Removal and Nexplanon Insertion appointment. Current Medications: has a current medication list which includes the following prescription(s): symbicort, albuterol, albuterol hfa, alprazolam, amitriptyline, amitriptyline, pulmicort flexhaler, budesonide-formoterol, budesonide-formoterol, bupropion xl, and calcium carbonate, and the following Facility-Administered Medications: etonogestrel-eluting. Medical History: Active Ambulatory Problems Diagnosis Date Noted No Active Ambulatory Problems Resolved Ambulatory Problems Diagnosis Date Noted No Resolved Ambulatory Problems Past Medical History: Diagnosis Date Anxiety Asthma ([facility]) Depression ([facility]) History of medical problems Family History Problem Relation Name Age of Onset Depression Mother Anxiety disorder Mother Arthritis Mother Social History Tobacco Use Smoking status: Never Smokeless tobacco: Not on file Substance Use Topics Alcohol use: Never Comment: caffeine: 1-2 cups per day Drug use: Never Past Surgical History: Procedure Laterality Date ADENOIDECTOMY CHOLECYSTECTOMY 2017 TONSILLECTOMY Allergies Allergen Reactions Bupropion Hallucinations Flavoring Agent Hives and Rash 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 HENT: Negative. Eyes: Negative. Respiratory: Negative. Cardiovascular: Negative. Gastrointestinal: Negative. Genitourinary: Negative. Musculoskeletal: Negative. Skin: Negative. Neurological: Negative. All other systems reviewed and are negative. Hematological: Negative. Endocrine: Negative. Allergic/Immunologic: Negative. Objective Physical Exam Constitutional: Appearance: Normal appearance. She is well-developed. Cardiovascular: Rate and Rhythm: Normal rate and regular rhythm. Pulmonary: Effort: Pulmonary effort is normal. Breath sounds: Normal breath sounds. Abdominal: General: Bowel sounds are normal. There is no distension. Palpations: Abdomen is soft. Tenderness: There is no abdominal tenderness. There is no guarding or rebound. Musculoskeletal: General: No swelling. Normal range of motion. Right lower leg: No edema. Left lower leg: No edema. Neurological: Mental Status: She is alert and oriented to person, place, and time. Skin: General: Skin is warm and dry. Psychiatric: Mood and Affect: Mood normal. Behavior: Behavior normal. Vitals and nursing note reviewed. Exam conducted with a custodial engineer present. Vitals: There is no height or weight on file to calculate BMI. BP: 120/72 No LMP recorded. Patient has had an implant. Assessment/Plan Encounter Diagnoses Name Primary? Encounter for removal of etonogestrel implant Insertion of Nexplanon Patient presents today for removal/reinsertion of Nexplanon. Written consent for procedure was obtained and patient was placed in supine position with left arm flexed at elbow. Skin was cleansed with alcohol/Betadine and 3cc of Lidocaine was injected underneath palpated Nexplanon at distal end. After allowing for sufficient time for numbing agent to take effect, the skin overlying the end of Nexplanon was incised with an 11inch blade scalpel. A 7.5in hemostat was inserted in the incision site to grab device and Nexplanon was released from tissue. Nexplanon implant was removed in its entirety and visualized by myself and patient. The Nexplanon device was removed from its sterile packaging and found to be in good working order. Nexplanon implant was visualized in the sheath. The skin was held taut while the Nexplanon needle device was gently inserted underneath. After Nexplanon was deployed, the insertion device was discarded in the sharps container. The Nexplanon was palpated by both provider and patient. The insertion site was covered with sterile gauze. Good hemostasis was noted. Post-procedure instructions were given. Patient was advised to call office with any questions or concerns. Follow Up: Patient is to return to the office as needed for any routine appointments or concerns regarding procedure. Documented by Kaye Harmon LPN on behalf of: Cullen Grimes DO documented in this encounter [facility] 11-18-2023 Evaluation + Plan note Diagnostic Tests PendingUrine Cytology ([facility]) 11/18/23 [facility] 11-18-2023 Note Chief Complaint Micro hematuria referral HPI Staff Referral for microhematuria from Conchita Vargas CNP. Renal bladder US done 11/03/23, UA random done 10/29/23. Dysuria: no Incomplete bladder emptying: no Hematuria: UA shows large today, Pt. is on here period. Frequency: every 1-2 hours Urgency: yes Nocturia: 1-2x's Stream: good stream Post void dripping: no Wearing pads/ Depends: no Urge incontinence: no Stress incontinence: no Incontinence without Sensory Awareness: no Abdominal pain: Pt. states occasionally having lower abd pain. Flank pain: no History of Present Illness I have reviewed and verified the staff HPI to be accurate for this encounter. Review of Systems PHQ Score Initial Depression Screen Score: 0 SCORE Physical Exam Vitals & Measurements HR: 74(Peripheral) RR: 16 BP: 137/86 HT: 65 in HT: 166 cm WT: 107 kg WT: 235.4 lb BMI: 38.83 General: Well developed, well nourished, in no acute distress. Genitourinary: Flank Pain: none. Bladder: nonpalpable Assessment/Plan BBSQ 11 1. Microscopic hematuria (R31.29: Other microscopic hematuria) UA today w/ large blood, mod leuks. Denies UTI sxs, but is menstruating at this time. Pt reports she was had an ER visit early Sep/late Oct for abdominal pain in which a UA showed blood. Pt denies UTI at that time. PCP subsequently checked urine Micro UA 10/15/23 - RBC 0 Micro UA 10/29/23 - RBC 2-5, no culture performed at that time. SARAH 11/01/23 - negative for solid renal mass or stones, no collecting system dilation. There is an incidental finding of a left ovarian simple cyst/dominant follicle measuring 2.9 cm. Pt does not that she vaginally bleeds approximately 3 weeks out of a month. She is schedule to be evaluated by [facility] [employer] [facility] on 12/19/22. Discussed w/ pt what microhematuria entails and what we are ruling out by completing work up. Discussed that first step is typically microUA with ucx, cytology. Discussed typical further work-up including upper tract imaging (which she has already completed) and cystoscopy. However, given patients current menstrual cycle and prolonged bleeding, we are unable to send urine for micro and culture today. Suggested having patient return to office for urine sample 5-7 days after bleeding is done, but it's possible that this would also be too close to her starting to bleed again. Given status of menstrual bleeding, discussed completing full hematuria workup and scheduling cysto today vs having pt see [facility] [facility] and get bleeding addressed and f/u with us in 6 mos to touch base and evaluate if further microhematuria workup is warranted. Pt would like to meet with [facility] [employer] and attempt to get their take on bleeding at this time. Pt to call office if she decides she would like to schedule cysto. Will place recall for tentative appt in 6 mos, but can see sooner if pt's vaginal bleeding is regulated and pt would like to discuss hematuria workup again. -Send urine for cytology today. -Complete [facility] [employer] workup -Complete microUA/ucx when bleeding is regulated, f/u 6 mos Ordered: Urine Cytology ([facility]) Urnls Dip Stick Auto w/o Microscopy POC [id number] Follow-up No qualifying data available Patient Education Hematuria, Adult Problem List/Past Medical History Ongoing Asthma Headache Postural orthostatic tachycardia syndrome [POTS] Historical No qualifying data Procedure/Surgical History Cholecystectomy, Colonoscopy, Tonsillectomy. Medications Albuterol (Eqv-ProAir HFA) 90 mcg/inh inhalation aerosol, 2 puff(s) Corlanor 5 mg oral tablet, 5 mg= 1 tab(s) midodrine 5 mg Tab, Oral, BID montelukast 10 mg Tab, 10 mg= 1 tab(s) Symbicort 160/4.5 inhalation aerosol with adapter, 2 puff(s) Allergies No active allergies Social History Alcohol - Denies Alcohol Use, 11/18/2023 Tobacco Never (less than 100 in lifetime) Tobacco Use:., 11/18/2023 Family History Anemia: Sister. Arthritis: Mother. Asthma: Sister. Cancer: Sister. Diabetes mellitus: Grandparent. Hyperlipidemia: Mother. Hypertension: Mother. Immunizations Vaccine Date Status Comments influenza virus vaccine, inactivated - Not Given Patient Refuses Lab Results Ambulatory Point of Care Results Bilirubin Urine Dipstick: Negative (11/18/23 10:10:00) Blood Urine Dipstick: 3+ Large (11/18/23 10:10:00) Glucose Urine Dipstick: Negative (11/18/23 10:10:00) Ketones Urine Dipstick: Negative (11/18/23 10:10:00) Leukocytes Urine Dipstick: 2+ Moderate (11/18/23 10:10:00) Nitrite Urine Dipstick: Negative (11/18/23 10:10:00) Protein Urine Dipstick: Trace (11/18/23 10:10:00) Specific [place] Urine Dipstick: 1.020 (11/18/23 10:10:00) Urine Appearance Urine Dipstick: Clear (11/18/23 10:10:00) Urine Color Urine Dipstick: Yellow (11/18/23 10:10:00) Urobilinogen Urine Dipstick: Normal 0.2-1 EU/dl (11/18/23 10:10:00) pH Urine Dipstick: 7 (11/18/23 10:10:00) Completed review of external records. [facility] Comment on above: Result Comment: Elec tronically Signed By: KE Burgos APRN, [place] X\.br\Date and Time Signed: 11/18/23 11:39 EST 11-18-2023 Hospital Discharg e instructions Patient Education 11/18/2023 11:38:29 Hematuria, Adult Hematuria, Adult Hematuria is blood in the urine. Blood may be visible in the urine, or it may be identified with a test. This condition can be caused by infections of the bladder, urethra, kidney, or prostate. Other possible causes include: Kidney stones. Cancer of the urinary tract. Too much calcium in the urine. Conditions that are passed from parent to child (inherited conditions). Exercise that requires a lot of energy. Infections can usually be treated with medicine, and a kidney stone usually will pass through your urine. If neither of these is the cause of your hematuria, more tests may be needed to identify the cause of your symptoms. It is very important to tell your health care provider about any blood in your urine, even if it is painless or the blood stops without treatment. Blood in the urine, when it happens and then stops and then happens again, can be a symptom of a very serious condition, including cancer. There is no pain in the initial stages of many urinary cancers. Follow these instructions at home: Medicines Take pkcx-yrb-cbrhdmi and prescription medicines only as told by your health care provider. If you were prescribed an antibiotic medicine, take it as told by your health care provider. Do not stop taking the antibiotic even if you start to feel better. Eating and drinking Drink enough fluid to keep your urine pale yellow. It is recommended that you drink 3 4 quarts (2.8 3.8 L) a day. If you have been diagnosed with an infection, drinking cranberry juice in addition to large amounts of water is recommended. Avoid caffeine, tea, and carbonated beverages. These tend to irritate the bladder. Avoid alcohol because it may irritate the prostate (in males). General instructions If you have been diagnosed with a kidney stone, follow your health care provider's instructions about straining your urine to catch the stone. Empty your bladder often. Avoid holding urine for long periods of time. If you are female: ?After a bowel movement, wipe from front to back and use each piece of toilet paper only once. ?Empty your bladder before and after sex. Pay attention to any changes in your symptoms. Tell your health care provider about any changes or any new symptoms. It is up to you to get the results of any tests. Ask your health care provider, or the department that is doing the test, when your results will be ready. Keep all follow-up visits. This is important. Contact a health care provider if: You develop back pain. You have a fever or chills. You have nausea or vomiting. Your symptoms do not improve after 3 days. Your symptoms get worse. Get help right away if: You develop severe vomiting and are unable to take medicine without vomiting. You develop severe pain in your back or abdomen even though you are taking medicine. You pass a large amount of blood in your urine. You pass blood clots in your urine. You feel very weak or like you might faint. You faint. Summary Hematuria is blood in the urine. It has many possible causes. It is very important that you tell your health care provider about any blood in your urine, even if it is painless or the blood stops without treatment. Take skit-gqr-psgytdh and prescription medicines only as told by your health care provider. Drink enough fluid to keep your urine pale yellow. This information is not intended to replace advice given to you by your health care provider. Make sure you discuss any questions you have with your health care provider. Document Revised: 06/20/2021 Document Reviewed: 06/20/2021 [employer] Patient Education 2022 [employer] [facility] 02-27-2023 History and physical note Note Date/Time February 27, 2023 11:15am [facility] [address] [place] [address] Gastroenterology H&P Signed Patient: Anne Marie Taylor MR#: [id number] : 1995 Acct:[id number] Age/Sex: / F Adm Date: 3 Loc: Room: Type: [facility] Attending Dr: Willie Monreal MD Copies to: [...] Monreal M.D. Documented By: Willie Monreal MD 02/27/231113 Signed By: <Electronically signed by Willie Monreal MD> 02/27/231114 [facility] Work Phone: [phone] [facility] Kaylynn is a pleasant 27 year old female previously evaluated for orthostatic intolerance (OI) consistent with postural orthostatic tachycardia syndrome (POTS) in the [facility] in the Heart and Vascular Center at the [facility]. Copied an pasted from my initial note in October 2022: Anne Marie Taylor is a 26 y.o. 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 She is a previous patient of PADMINI Haley (October 2022) and Dr Domingo Guillen. Here with mother. Gastroparesis and EDS / hypermobility. Saw a provider at the [facility] for gastroparesis. HPI: Symptoms since age [...] January 18, 2021. Infusions recently stopped. 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 Infusions stopped February 2022 or nine months. Last syncope 2 weeks ago. Getting up too fast in am. LOC brief 10-15 seconds. Did not hit head. Lives with in laws, , daughter, [id number]. The family members help with the child. [...] The patient was notified that using 3rd democrat telecommunication application (e.g., [employer]) is not HIPPA compliant and may carry some privacy risks. Yes The visit was conducted sljt-ta-fswq with the use of audio and video technology [employer] between patient and provider for a virtual [...] tracking dietary calories with an lanre like [employer] to determine daily caloric intake. Increase physical [...] in the next six months. 4. RTC [facility] NotePA approved through 11/07/2023 Locked in? No Pt contact? Yes Spreadsheets, Asembia, Media Managed? Spreadsheets updated, nothing to scan Final copay $10.35 Had to call insurance to verbally answer clinical PA questions, there was an active request from 10/29/22 preventing us from initiating our own. Instantly approved. Pt prefers us to mail it to her. Rudy Jain CPhT [facility] 232:[id number] [facility]12-27-2022 NoteSubjective Anne Marie Taylor is a 26 y.o. 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 She is a previous patient of PADMINI Haley (October 2022) and Dr Domingo Guillen. Here with mother. Gastroparesis and EDS / hypermobility. Saw a provider at the [facility] for gastroparesis. HPI: Symptoms since age [...] January 18, 2021. Infusions recently stopped. 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 Infusions stopped February 2022 or nine months. Last syncope 2 weeks ago. Getting up too fast in am. LOC brief 10-15 seconds. Did not hit head. Lives with in laws, , daughter, [id number]. The family members help with the child. [...] port flushed monthly at infusion center in [facility] Musculoskeletal: Positive for joint pain. Hypermobility pain: [...] supine and standing (3 -5 mintues). RTC 3months.[facility]11-17-2022 NoteCardiovascular Medicine, [facility] Progress Note SUBJECTIVE Chief Complaint Patient presents [...] to try to keep (more content not included)...[facility]11-17-2022 NotePatient here to discuss stopping infusions. She has [...] and myalgias. Neurological: Positive for dizziness and light-headedness.[facility] Plan note No data available for this section [facility] evaluation noteNo assessment information available [facility] Work Phone: Evaluation note* Diagnosis Encounter for removal of etonogestrel implant Insertion of Nexplanon Abnormal uterine bleeding (AUB) [facility] Additional Instructions DISCHARGE INSTRUCTIONS FOR [...] NOT operate machinery such as power tools, Sent[employer] moOneTwoSees, Timescapewers, sewing machines, etc. for 24 hours. - [...] screening -Follow up with PCP. -Office number [phone]. [facility] Work Phone: Hospital Discharge instructions No data available for this section [facility] No data available for this section [facility] Summary Purpose Family History No Family History Records Found Relationship Condition Age at Onset Recorded Date/T mitchell Not Specified Diabetes mellitus Unknown Intestinal obstruction Unknown grandparent Diabetes mellitus Unknown Malignant neoplasm of breast Unknown Heart disease Unknown sister Diabetes mellitus Unknown family member Malignant neoplasm of colon Unknown Malignant neoplasm of lung Unknown Advance Directives No Advanced Directives Records Found Advance Directive Response Recorded Date/ Time Advance Directives No January 05 5:57pm Chief Complaint and Reason for Visit Chief Complaint Abdominal pain, Coli tis Additional Source Comments INFORMATION SOURCE (unrecogn ized section and content) DATE CREATED AUTHOR 04/22/2018 [facility] DATE CREATED AUTHOR AUTHOR'S ORGANIZ ATION 01/26/2023 [facility] DATE CREATED AUTHOR AUTHOR'S ORGANIZ ATION 02/11/2023 [facility] DATE CREATED AUTHOR AUTHOR'S ORGANIZ ATION 03/01/2023 [facility] DATE CREATED AUTHOR AUTHOR'S ORGANIZ ATION 12/18/2023 [facility] DATE CREATED AUTHOR AUTHOR'S ORGANIZ ATION 12/20/2023 [facility] Care Teams (unrecognized sec tion and content) Team Status: Active Member Role Status Dates BONNIE Parsons Primary Care Provider Active Team Status: Inactive Member Role Status Dates Willie Monreal MD Attending Provider Active BONNIE Parsons Primary Care Provider Active Reason for Visit (unrecogniz ed section and content) Reason Comments Contraception Nexplanon removal/in sert FOR RECORDS PERTAINING TO PATIENTS WHO ARE [...] BE BASED ON THE PRIMARY CLINICAL RECORDS. [facility] [employer] provides no warranty or guarantee of the accuracy or completeness of information in this document.
== END 2023-12-22 13:53 | disposition home or self-care (01) ==
LOC: US 13:52
PROVIDERS: PCP Nurse Practitioner Family; Visit Provider Obstetrics & Gynecology
DX: N93.9 Abnormal uterine and vaginal bleeding, unspecified (principal)
CPT/HCPCS: 76830; 76856

== ENCOUNTER 2024-03-23 14:12 | Outpatient (OUT) | payer MEDICARE, SELFPAY ==
--- OUTSIDE RECORDS SUMMARY | 2024-03-23 14:22 | XMS_ITS | CCD ---
Author Organization [facility] CliniSyne Care Team Providers Care Control Panel Assembler Name Role Phone DOMINGO GUILLEN AM Unavailable Unavailable DOMINGO GUILLEN AM Unavailable Unavailable GA, KLAUS Unavailable Unavailable GA, KLAUS Unavailable Unavailable ALICIA, CONCHITA Admitting Unavailable ALICIA, CONCHITA Attending Unavailable ALICIA, CONCHITA Primary Care Unavailable CONCHITA VARGAS Consulting Unavailable ALICIA, CONCHITA Admitting Unavailable ALICIA, CONCHITA Attending Unavailable ALICIA, CONCHITA Primary Care Unavailable ALICIA, CONCHITA Consulting Unavailable NENO INGRAM Consulting Unavailable DEMETRIUS HALEY Attending Unavailable SLOAN HERNANDEZ Attending Unavailable SLOAN HERNANDEZ Attending Unavailable Conchita Vargas Cortney Primary Care Unavailable Asaad, Imad Attending Unavailable Asaad, Imad Admitting Unavailable MD Jocelin Imgloria Attending Provider BONNIE Vargas Primary Care Provider CONCHITA VARGAS Primary Care Physician Unavailable Primary Care Provider UnavailCULLEN Cruz Attending Unavailable Alicia CLEAT BLANKERConchita BEAR S Primary Care Provider CONCHITA VARGAS S Referring Unavailable ALICIA, CONCHITA S Primary Care Unavailable ALICIA CONCHITA S Primary Care Unavailable NIKKI PEREZ Attending Unavailable ALICIA, CONCHITA S Referring Unavailable ALICIA, CONCHITA S Primary Care Unavailable ALICIA, CONCHITA S Referring Unavailable ALICIA, CONCHITA S Primary Care Unavailable Orzech, Adele X Attending Unavailable Orzech, Adele X Attending Unavailable ALICIA, CONCHITA S Referring Unavailable Orzech, Adele X Admitting Unavailable Orzech, Adele X Attending Unavailable Allergies Allergy Classification Reported Allergen(s) Allergy Type Date of Onset Reaction(s) Facility (1 source) grape extract Drug Allergy [facility] Repository (1 source) buPROPion; Translations: [BUPROPION HCL] Drug Allergy 2 [facility] Repository (2 sources) DRAGON FRUIT; Translations: [DRAGON FRUIT] Propensity to adverse reactions to drug (disorder) 2 Anaphylaxis [facility] Repository (2 sources) GRAPE FLAVOR; Translations: [GRAPE FLAVOR] Propensity to adverse reactions to drug (disorder) 2 Hives [facility] Repository (2 sources) buPROPion Drug Allergy 2 Hallucinations [facility] Healthcare (2 sources) Flavoring Agent Propensity to adverse reactions 8 Hives, Rash [facility] (2 sources) Grape Flavoring; Translations: [GRAPE FLAVORING] Propensity to adverse reactions to drug 8 Hives, Rash [facility] Medications Current Medications Medication Drug Class(es) Dates Sig (Normalized) Sig (Original) [id number] 200 actuat albuterol 0.09 mg/actuat metered dose inhaler (6 sources) beta2-Adrenergic Agonist Start: 02-27-2023 take 1 puff(s) by inhalation every six hours Albuterol Sulfate Active 2 PUFF INHALATION Q6H February 27, 2023 12:00am Start: 06-03-2017 take 2 puff(s) by in halation every four hours as needed PROAIR HFA 90 mcg/actuation inhaler Inhale 2 puffs every 4 (four) hours as needed. ALBUTEROL SULFATE HFA SUBSTITUTE 0 06/03/2017 Active albuterol (ProAi r RespiClick) 90 mcg/act breath-activated [...] mg by mouth at bedtime 0 Active blood-glucose meter (glucose monitoring kit) kit (1 source) Start: 11-29-2020 blood-glucose meter (glucose monitoring kit) kit Indications: Abnormal glucose tolerance test in Use as instructed 1 each 0 11/29/2020 Active Budesonide (3 sources) Corticosteroid take 1 puff(s) by inhalation twice daily budesonide (PULMICORT) 180 mcg/actuation inhaler Inhale 1 puff 2 (two) times a day. 0 Active take 1 puff(s) by in halation in the morning budesonide (Pulmicort Flexhaler) 180 MCG/ACT inhaler Inhale 1 puff in the morning and 1 puff in the evening. 0 Active 120 actuat budesonide 0.16 mg/actuat / formoterol fumarate 0.0045 mg/actuat metered dose inhaler (8 sources) Corticosteroid, beta2-Adrenergic Agonist Start: 02-27-2023 take 1 puff(s) by inhalation twice daily Budesonide-Formoterol (Symbicort) 160-4.5 mcg/actuation Hfa Aerosol Inhaler Active 2 PUFF INHALATION Twice daily February 27, 2023 12:00am Start: 09-03-2022 Symbicort 160- 4.5 MCG/ACT inhaler take 2 puff(s) by in halation in the morning budesonide-formoteroL (SYMBICORT) 160-4.5 mcg/actuation inhaler Inhale 2 puffs in the morning and 2 puffs before bedtime. 0 Active budesonide-formo terol (Symbicort) 80-4.5 MCG/ACT inhaler Symbicort [...] in the morning. 0 Active calcium carbonate 500 mg chewable tablet (1 source) calcium carbonat e (TUMS) 200 mg (500 mg) chewable tablet Chew 1 tablet and swallow in the morning. 0 Active calcium carbonate (Tums) 250 mg ([place] 100 mg) chewable split tablet (2 sources) take 1 tablet by mouth in the morning calcium carbonate (Tums) 250 mg (man[place] 100 mg) chewable split tablet Take 1 tablet by mouth in the morning. 0 Active dicloxacillin 500 mg oral capsule (1 source) Penicillin-class Antibacterial take 1 capsule by mouth every six hours dicloxacillin (DYNAPEN) 500 mg capsule dicloxacillin 500 mg capsule take 1 capsule by mouth every 6 hours 0 Active dicyclomine hydrochloride 20 mg oral tablet (1 source) Anticholinergic Start: 023 take 1 tablet by mouth every six hours as needed dicyclomine (BENTYL) 20 mg tablet Take 1 tablet (20 mg total) by mouth every 6 (six) hours as needed (abdominal pain). 20 tablet 0 09/27/2023 Active docusate sodium 100 mg oral capsule (1 source) Start: take 1 capsule by mouth twice daily docusate sodium (COLACE) 100 mg capsule Take 1 capsule (100 mg total) by mouth 2 (two) times a day. 60 capsule 2 12/20/2020 Active etonogestrel 68 mg drug implant (4 sources) Progestin Start: 024 End: etonogestrel-elutin g 68 mg contraceptive implant 1 each famotidine 20 mg oral tablet (1 source) Histamine-2 Receptor Antagonist Start: take 1 tablet by mouth twice daily famotidine (PEPCID) 20 mg tablet Take 1 tablet (20 mg total) by mouth 2 (two) times a day. 30 tablet 1 12/28/2020 Active ibuprofen 800 mg oral tablet (1 source) Nonsteroidal Anti-inflammatory Drug Start: take 1 tablet by mouth every eight hours as needed ibuprofen (ADVIL,MOTRIN) 800 mg tablet Take 1 tablet (800 mg total) by mouth every 8 (eight) hours as needed (cramping). 90 tablet 0 01/20/2021 Active ivabradine 5 mg oral tablet (4 sources) Hyperpolarization-acti vated Cyclic Nucleotide-gated Channel [place] Start: Corlanor 5 mg oral tablet 5 mg = 1 tab(s) Start Date: 11/18/23 Status: Ordered Start: 02-27-2023 take 1 tablet by manda th once daily Ivabradine (Corlanor) 5 mg tablet Active 5 MG PO Daily February 27, 2023 12:00am midodrine hydrochloride 5 mg oral tablet (4 sources) alpha-Adrenergic Agonist Start: 11-18-2023 take 1 mg by mouth twice daily midodrine 5 mg Tab mg tab(s), Oral, BID Start Date: 11/18/23 Status: Ordered Start: 02-27-2023 take 1 dose by mouth once daily at bedtime Midodrine Active 10 MG PO Twice daily February 27, 2023 12:00am do not give last dose of day after 6PM or within 4 hrs of bedtime Start: 01-03-2021 take 1 tablet by manda th three times daily midodrine (PROAMATINE) 10 mg tablet Indications: POTS (postural orthostatic tachycardia syndrome) Take 1 tablet (10 mg total) by mouth 3 (three) times a day. 90 tablet 1 01/03/2021 Active montelukast 10 mg oral tablet (3 sources) Leukotriene Receptor Antagonist Start: 08-08-2017 montelukast 10 mg Tab 10 mg = 1 tab(s) Start Date: 11/18/23 Status: Ordered ondansetron 4 mg disintegrating oral tablet (1 source) Serotonin-3 Receptor Antagonist Start: 09-27-2023 take 1 tablet by mouth every eight hours as needed for nausea ondansetron ODT (ZOFRAN ODT) 4 mg disintegrating tablet Dissolve 1 tablet (4 mg total) on tongue every 8 (eight) hours as needed for nausea for up to 10 doses. 10 tablet 0 09/27/2023 Active PNV no.95/ferrous fum/folic ac ( ORAL) (1 source) take 1 tablet by mouth before mealtime PNV no.95/ferrous fum/folic ac ( ORAL) Take 1 tablet by mouth. 0 Active Symbicort 160/4.5 inhalation aerosol with adapter (2 sources) Start: 11-18-2023 Symbicort 160/4.5 inhalation aerosol with adapter 2 puff(s) Start Date: 11/18/23 Status: Ordered Completed/Discontinued Medications Medication Drug Class(es) Dates Sig (Normalized) Sig (Original) heparin (1 source) Unfractionated Heparin, Anti-coagulant Start: 12-23-2023 End: 12-23-2023 heparin, porcine (PF) syringe 500 Units 125 ml sodium chloride 9 mg/ml prefilled syringe (1 source) Start: 12-23-2023 End: 12-23-2023 sodium chloride 0.9 % flush 20 mL Problems Active Problems Problem Classification Problem Date Documented Date Episodic/Chronic Abdominal pain (2 sources) Right lower quadrant pain; Translations: [Right upper quadrant pain] Onset: 01-25-2023 Episodic Anxiety disorders (3 sources) Anxiety; Translations: [Anxiety disorder, unspecified] Onset: 07-23-2017 12-23-2023 Chronic Asthma (5 sources) Asthma; Translations: [Uncomplicated mild persistent asthma] Onset: 07-23-2017 11-18-2023 Chronic Cardiac dysrhythmias (6 sources) Other specified cardiac arrhythmias; Translations: [Postural orthostatic tachycardia syndrome ] Onset: 08-15-2017 12-23-2023 Chronic Contraceptive and procreative management (4 sources) Subcutaneous contraceptive implant present; Translations: [Encounter for surveillance of implantable subdermal contraceptive] 12-16-2023 Episodic Diabetes mellitus without complication (1 source) Other abnormal glucose; Translations: [OTHER ABNORMAL GLUCOSE] Onset: 10-31-2022 Episodic Gastritis and duodenitis (3 sources) Chronic gastritis; Translations: [Unspecified chronic gastritis without bleeding] Onset: 11-09-2020 12-23-2023 Chronic Genitourinary symptoms and ill-defined conditions (1 source) Microscopic hematuria; Translations: [Other microscopic hematuria] Onset: 11-18-2023 Episodic Headache; including migraine (2 sources) Headache 11-18-2023 Episodic Mood disorders (1 source) Depressive disorder; Translations: [Depression] Onset: 07-23-2017 07-23-2017 Chronic Other circulatory disease (2 sources) Device in situ; Translations: [Presence of other vascular implants and grafts] Onset: 11-09-2020 12-23-2023 Chronic Other circulatory disease (1 source) Presence of other vascular implants and grafts; Translations: [Presence of other vascular implants and grafts] Onset: 11-09-2020 Chronic Other congenital anomalies (2 sources) Aviva-Danlos syndrome, type 3; 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] Onset: 11-09-2020 12-23-2023 Chronic Other disorders of stomach and duodenum (2 sources) Gastroparesis syndrome; Translations: [Gastroparesis] Onset: 11-09-2020 12-23-2023 Episodic Other female genital disorders (2 sources) Abnormal uterine bleeding; Translations: [Abnormal uterine and vaginal bleeding, unspecified] 12-16-2023 Chronic Other injuries and conditions due to external causes (2 sources) Abrasion and/or friction burn of skin; Translations: [Other injury of unspecified body region, initial encounter] Onset: 12-22-2018 12-23-2023 Episodic Other nutritional; endocrine; and metabolic disorders (2 sources) Body mass index 40+ - severely obese; Translations: [Body mass index (BMI) 40.0-44.9, adult] Onset: 01-03-2021 12-23-2023 Chronic Other nutritional; endocrine; and metabolic disorders (1 source) Body mass index (BMI) 40.0-44.9, adult; Translations: [Body mass index (BMI) 40.0-44.9, adult] Onset: 01-10-2021 Chronic Other upper respiratory disease (1 source) Pain in throat Onset: 02-13-2024 Episodic Residual codes; unclassified (2 sources) Other specified postprocedural states; Translations: [Other specified postprocedural states] Onset: 10-29-2022 Episodic Unclassified (2 sources) Unknown / UNK(Unknown) Onset: 04-02-2018 Unclassified (1 source) COUGH, CONGESTION, SORE THROAT Onset: 02-13-2024 Unclassified (1 source) Hypermobile Aviva-Danlos syndrome; 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] Onset: 11-09-2020 Unclassified (1 source) Port/VAD Care Onset: 10-28-2023 Urinary tract infections (4 sources) Urinary tract infection, site not specified; Translations: [UTI SITE NOT SPECIFIED] Onset: 01-17-2023 Episodic Viral infection (1 source) Other specified viral diseases; Translations: [Other specified viral diseases] Onset: 02-13-2024 Episodic Past or Other Problems Problem Classification Problem Date Documented Da te Episodic/Chronic Mood disorders (1 source) Mood disorders Onset: 01-18-2021 01-18-2021 Other circulatory disease (5 sources) Postural orthostatic tachycardia syndrome ; Translations: [Postural orthostatic tachycardia syndrome (POTS)] Onset: 01-03-2021 Episodic Other complications of (1 source) RhD negative; Translations: [Other specified related conditions, unspecified trimester] Onset: 11-09-2020 Resolved: 01-30-2021 01-30-2021 Episodic Other disorders of stomach and duodenum (3 sources) Gastroparesis; Translations: [Gastroparesis] Onset: 11-09-2020 Episodic Other injuries and conditions due to external causes (1 source) Other injury of unspecified body region, initial encounter; Translations: [Other injury of unspecified body region, initial encounter] Onset: 12-22-2018 Episodic Other and delivery including normal (2 sources) care status; Translations: [Encounter for supervision of normal , unspecified, third trimester] Onset: 11-09-2020 Resolved: 01-30-2021 01-20-2023 Episodic Syncope (7 sources) Syncope and collapse; Translations: [Syncope] Onset: 07-23-2017 Episodic Unclassified (1 source) Onset: 12-22-2018 12-22-2018 Results Test Name Value Interpretation Reference Range Facility RAPID STREP SCR NURSINGon S. pyogenes Ag EIA Ql (Throat) Negative Normal [facility] Comment on above: Performed By: #### 6 [id number] #### [facility] ([id number]) [address] [place] [address], [place] [address] SARS/FLU A+B/RSV by NAAT/Mol ecularon 02-13-2024 SARS/FLU A+B/RSV by NAAT/Molecular FLU A PCR Negative (qualifier value) FLU B PCR Negative (qualifier value) RSV by PCR Positive (qualifier value) SARS CoV 2 Not detected (qualifier value) NOTE The Xpert Xpress SARS-CoV-2/Flu/RSV Plus test is a rapid, multiplexed real-time RT-PCR test intended for the simultaneous qualitative detection and differentiation of SARS-CoV-2, influenza A, influenza B and respiratory syncytial virus (RSV) viral RNA from individuals suspected of respiratory viral infection consistent with COVID-19 by their healthcare provider. This test has not been validated in asymptomatic patients. The Xpert Xpress SARS-CoV-2 test is intended for use by qualified and trained operators who are performing tests using either Project 2020 DX or [employer] systems and is limited to laboratories that meet the CLIA requirements to perform high and moderate complexity tests. The Xpert Xpress SARS-CoV-2/Flu/RSV Plus is only for use under the Food and Drug Administration's Emergency Use Authorization. Results are for the simultaneous detection and differentiation of SARS-CoV-2, influenza A, influenza B and RSV nucleic acids in clinical specimens. SARS-CoV-2, influenza A, influenza B and RSV RNA identified by this test are generally detectable in upper respiratory samples during the acute phase of infection. Positive results are indicative of the presence of the identified virus, but do not rule out bacterial infection or co-infection with other pathogens not detected by this test. Clinical correlation with patient history and other diagnostic information is necessary to determine patient infection status. The agent detected may not be the definite cause of disease. Negative results do not preclude SARS-CoV-2, influenza A, influenza B and RSV infection and should not be used as the sole basis for treatment or other patient management decisions. Negative results must be combined with clinical observations, patient history and epidemiological information. An Invalid result may occur with specimen-associated inhibition unable to be resolved with specimen repeat. Fact Sheet for Healthcare Providers: https://www.fda.gov/ media/672925/downloa d Fact Sheet for Patients: https://www.fda.gov/ media/554825/downloa d Normal [facility] Comment on above: Performed By: #### C OVFLR #### [facility] ([id number]) [address] [place] [address], [place] [address] Urine Cytology ( Labs)on 12-18-2023 Urine Cytology see scannd rprt Invalid Interpretation Code [facility] Comment on above: Performed By: #### 1 [id number] #### [facility] Laboratory [address] [place] [address] HCG ( test) Ql (U)o n 12-16-2023 Interpretation and review of laboratory results Normal [facility] Healthcare Preg Test, Ur Negative [facility] Healthcare Lab Reportson 12-11-2023 Lab Reports [id number]#1.00TIFF Normal [facility] Formson 11-20-2023 Forms [id number]# 1.00TIFF Normal [facility] Physician Referralon 024 Physician Referral [id number] #1.00TIFF Normal [facility] Screenson 11-20-2023 Screens [id number] #1.00TIFF Normal [facility] Ambulatory Visit Summaryon 0 11-19-2023 Ambulatory Visit Summary SHAYRENANNE MARIE :1995 Visit Date:11/18/2023 Ambulatory Visit Instructions Your Diagnosis Microscopic hematuria Tests Performed Urnls Dip Stick Auto w/o Microscopy POC 03760 Your Care Team Attending Physician - KE [...] Urnls Dip Stick Auto w/o Microscopy POC 73059 (11/18/2023) Bilirubin Urine Dipstick - Negative Blood Urine Dipstick - 3+ Large Glucose Urine Dipstick - Negative Ketones Urine Dipstick - Negative Leukocytes Urine Dipstick - 2+ Moderate Nitrite Urine Dipstick - Negative Protein Urine Dipstick - Trace Specific Eleele Urine Dipstick - 1.020 Urine Appearance Urine [...] these instructions at home: Medicines ? Take wsfx-dps-wdtxwzr and prescription medicines only as told by [...] your h (more content not included)... Normal [facility] Patient Educationon 11-18-19 Patient Education Urology Hematuria, Adult Hematuria is [...] these instructions at home: Medicines ? Take cxit-ees-yaainus and prescription medicines only as told by [...] the blood stops without treatment. ? Take yarw-mtu-iwukkwx and prescription medicines only as told by your health care provider. ? Drink enough fluid to keep your urine pale yellow. This information is not intended to replace advice given to you by your health care provider. Make sure you discuss any questions you have with your health care provider. Document Revised: 06/20/2021 Document Reviewed: 06/20/2021 [employer] Patient Education ? 2022 [employer]. Normal [facility] Urine Cytology ([facility])on 0 11-18-2023 Method of Extraction Voided Normal [facility] Comment on above: Performed By: #### 1 [id number] #### [facility] [address] Number of Jars 1 Invalid Interpretation Code [facility] Comment on above: Performed By: #### 1 [id number] #### [facility] [address] [place] [address] Specimen Urine Normal [facility] Comment on above: Performed By: #### 1 [id number] #### [facility] [address] [place] [address] Type of Service Technical Only Normal [facility] Comment on above: Performed By: #### 1 [id number] #### [facility] [address] [place] [address] HCG ( test) IA.rapi d Ql (U)Ordered By: Willie Monreal on 02-27-2023 HCG ( test) Ql (U) Negative [facility] HCG,Urineon 02-27-2023 Beta HCG ( test) Ql (U) Negative Normal [facility] Comment on above: Result Comment: PERF ORMED BY: [address] [address] PATHOLOGIST LION TRAINER JARED LOPEZ M.D. Performed By: #### U HCG #### [address] [address] [facility] 02-27-2023 L Specimen: [id number] Received: 02/27/23 Status: YVON Martinez Num: [id number] Spec Type: Surgical Subm Dr: Willie Monreal MD Tissues: A Small Intestine - Biopsy/Polyp (TERMINAL ILEUM BX) B Colon Biopsy (RANDOM COLON BX) Procedures: HE/Kenna, Gross/Micro L4/2 Age/ Patient Sex Location Account Attending Physician Anne Marie Taylor / [id number] Willie Monreal MD SPEC NUM: [id number] RECD: 02/27/23 STATUS: YVON MARTINEZ NUM: [id number] VON: 02/27/23- [facility] DR: Willie Monreal MD ENTERED: 02/27/[address] [facility] [address]: SPEC TYPE: Surgical DEPT: S [...] advised. Clinical Information Abdomen pain, colitis Specimen: [id number] Received: 02/27/23 Status: YVON Lucasamisha Num: [id number] Spec Type: Surgical Subm Dr: Willie Monreal MD Tissues: A Small Intestine - Biopsy/Polyp (TERMINAL ILEUM BX) B Colon Biopsy (RANDOM COLON BX) Procedures: HE/4, Gross/Micro L4/2 Patient: Anne Marie Taylor [id number] (Continued) Specimen: [id number] Received: 02/27/23 (Continued) Signed (signature on file) Geraldine Alexander MD 02/28/23 1054 Specimen: [id number] Received: 02/27/23 Status: YVON Lucasamisha Num: [id number] Spec Type: Surgical Subm Dr: Willie Monreal MD Tissues: A Small Intestine - Biopsy/Polyp (TERMINAL ILEUM BX) B Colon Biopsy (RANDOM COLON BX) Procedures: VANESSA/Kenna, Gross/Micro L4/2 Patient: Anne Marie Taylor [id number] (Continued) Specimen: [id number] Received: 02/27/23 (Continued) Gross Description A. Received [...] support the above pathologic diagnosis. CPT Codes 31892?2 Specimen: [id number] Received: 02/27/23 Status: YVON Martinez Num: [id number] Spec Type: Surgical Subm Dr: Willie Monreal MD Tissues: A Small Intestine - Biopsy/Polyp (TERMINAL ILEUM BX) B Colon Biopsy (RANDOM COLON BX) Procedures: HE/4, Gross/Micro L4/2 Patient: Anne Marie aTylor [id number] (Continued) Signed (signature on file) Geraldine Alexander MD 02/28/23 1054 [facility] 36on 02-11-2023 36 Patient called requesting orders [...] someone able to help with this? Thanks! [facility] Telemedicineon 01-27-2023 Telemedicine [id number] Anne Marie Taylor 1995 F Date Provider Department Center 01/27/2023 [facility]ARD [place] [facility] Family History Problem Relation Age of [...] Sister Mother's Brother Mother's Sister Level of Service:35485 [place] OFFICE/OUTPATIENT ESTABLISHED LOW MDM 20-29 MIN Reason for Visit and Comments: Telehealth Audio/video Visit [871] Normal [facility] CT ABD/PELV W CONon 01-18-[address] [...] NENO INGRAM Date: 2023-01-17 18:33 Normal [facility] CULTURE URINEon 01-17-2023 CULTURE URINE Culture Observations: LIGHT GROWTH OF MIXED GENITAL DESI. NO POTENTIAL PATHOGENS SEEN. Normal [facility] Comment on above: Performed By: #### U RCX #### [facility] [address] [address] [address] Tere Pastor UA RANDOM W/MICROSCOPICon BACTERIA TRACE Abnormal NONE SEEN [facility] Comment on above: Performed By: #### U AMIC #### [facility] [address] [address] [address] Tere Pastor Bilirubin Ql (U) Negative Normal NEGATIVE [facility] Comment on above: Performed By: #### U AMIC #### [facility] [address] [place] [address] Dr. Tere Pastor CAST NONE SEEN Normal NONE SEEN [facility] Comment on above: Performed By: #### U AMIC #### [facility] [address] [place] [address] Dr. Tere Pastor Clarity (U) CLEAR Normal CLEAR [facility] Comment on above: Performed By: #### U AMIC #### [facility] [address] [place] [address] Dr. Tere Pastor Color (U) LT. YELLOW Normal YELLOW [facility] Comment on above: Performed By: #### U AMIC #### [facility] [address] [address] [address] Tere Pastor Crystals LM Nom (Urine sed) NONE SEEN Normal NONE SEEN [facility] Comment on above: Performed By: #### U AMIC #### [facility] [address] [address] [address] Tere Pastor Epithelial cells LM Ql (Urine sed) FEW Abnormal NONE SEEN /RARE [facility] Comment on above: Performed By: #### U AMIC #### [facility] [address] [address] [address] Tere Pastor Glucose Ql (U) Negative Normal NEGATIVE The [facility] Comment on above: Performed By: #### U AMIC #### [facility] [address] [place] [address] Dr. Tere Pastor Hemoglobin Ql (U) MODERATE Abnormal NEGATIVE The [facility] Comment on above: Performed By: #### U AMIC #### [facility] [address] [address] [address] Tere Pastor Ketones Ql (U) TRACE Abnormal NEGATIVE [facility] Comment on above: Performed By: #### U AMIC #### [facility] [address] [address] [address] Tere Pastor LEUKOCYTES MODERATE Abnormal NEGATIVE [facility] Comment on above: Performed By: #### U AMIC #### [facility] [address] [address] [address] Tere Pastor MUCOUS NONE SEEN Normal NONE SEEN [facility] Comment on above: Performed By: #### U AMIC #### [facility] [address] [place] [address] Dr. Tere Pastor Nitrite Ql (U) Negative Normal NEGATIVE The [facility] Comment on above: Performed By: #### U AMIC #### [facility] [address] [place] [address] Dr. Tere Pastor pH (U) 6.0 [pH] Normal 5-9 [facility] Comment on above: Performed By: #### U AMIC #### [facility] [address] [address] [address] Tere Pastor RBC 2-5 Abnormal 0-2 [facility] Comment on above: Performed By: #### U AMIC #### [facility] [address] [place] [address] Dr. Tere Pastor SPEC GRAVITY 1.025 Normal 1.005-<=1.025 The [facility] Comment on above: Performed By: #### U AMIC #### [facility] [address] [place] [address] Dr. Tere Pastor UA PROTEIN Negative Normal NEGATIVE/ TRACE [facility] Comment on above: Performed By: #### U AMIC #### [facility] [address] [place] [address] Dr. Tere Pastor Urobilinogen Qn (U) 0.2 {Conchita'U}/dL Normal 0.2 - 1. 0 [facility] Comment on above: Performed By: #### U AMIC #### [facility] [address] [address] [address] Tere Pastor WBC 5-10 Abnormal NONE SEEN [facility] Comment on above: Performed By: #### U AMIC #### [facility] [address] [address] [address] Tere Pastor 36on 11-15-2022 36 Pt calls to ask status of dental clearance for wisdom teeth removal. Pt told we haven't received. She will have them fax again Normal [facility] Office Visiton 10-29-2022 Follow-up visit [id number] Anne Marie Taylor 1995 F Date Provider Department Center 10/29/2022 [facility] Family History Problem Relation [...] Sister Mother's Brother Mother's Sister Level of Service:91560 [place] OFFICE/OUTPATIENT ESTABLISHED LOW MDM 20-29 MIN Reason for Visit and Comments: POTS [Other] Dizziness [658868] Normal [facility] CBC AUTO DIFFon 10-23-2022 BASO # 0.0 103/ul Normal 0.0-0.1 [facility] Comment on above: Performed By: #### C BC #### [facility] [address] [address] [address] Tere Pastor Basophils/100 WBC (Bld) 0.5 % Normal 0.2-2.0 [facility] Comment on above: Performed By: #### C BC #### [facility] [address] [address] [address] Tere Pastor EO # 0.2 103/ul Normal 0.0-0.7 [facility] Comment on above: Performed By: #### C BC #### [facility] [address] [place] [address] Dr. Tere Pastor Eosinophils/100 WBC (Bld) 2.7 % Normal 0.9-7.0 [facility] Comment on above: Performed By: #### C BC #### [facility] [address] [place] [address] Dr. Tere Pastor Erythrocyte distribution width (RBC) [Ratio] 13.2 % Normal 11.0-15.0 [facility] Comment on above: Performed By: #### C BC #### [facility] [address] [place] [address] Dr. Tere Pastor Hematocrit (Bld) [Volume fraction] 40.5 % Normal 36.0-48.0 [facility] Comment on above: Performed By: #### C BC #### [facility] [address] [place] [address] Dr. Tere Pastor Hemoglobin (Bld) [Mass/Vol] 13.9 g/dL Normal 12.0-16.0 [facility] Comment on above: Performed By: #### C BC #### [facility] [address] [place] [address] Dr. Tere Pastor IG # 0.01 10e3/ul Normal 0.00-0.03 [facility] Comment on above: Performed By: #### C BC #### [facility] [address] [place] [address] Dr. Tere Pastor IG % 0.2 % Normal 0.0-0.5 [facility] Comment on above: Performed By: #### C BC #### [facility] [address] [place] [address] Dr. Tere Pastor LYMPH # 2.4 103/ul Normal 1.2-3.8 [facility] Comment on above: Performed By: #### C BC #### [facility] [address] [place] [address] Dr. Tere Pastor Lymphocytes/100 WBC (Bld) 36.6 % Normal 20.5-60.0 [facility] Comment on above: Performed By: #### C BC #### [facility] [address] [place] [address] Dr. Tere Pastor MANUAL DIFF REQ NO Normal [facility] Comment on above: Performed By: #### C BC #### [facility] [address] [place] [address] Dr. Tere Pastor MCH (RBC) [Entitic mass] 28.6 pg Normal 26.7-34.0 [facility] Comment on above: Performed By: #### C BC #### [facility] [address] [place] [address] Dr. Tere Pastor MCHC (RBC) [Mass/Vol] 34.3 g/dL Normal 29.9-35.2 [facility] Comment on above: Performed By: #### C BC #### [facility] [address] [place] [address] Dr. Tere Pastor MCV (RBC) [Entitic vol] 83.3 fL Normal 81.0-99.0 [facility] Comment on above: Performed By: #### C BC #### [facility] [address] [place] [address] Dr. Tere Pastor MONO # 0.5 103/ul Normal 0.3-0.8 [facility] Comment on above: Performed By: #### C BC #### [facility] [address] [place] [address] Dr. Tere Pastor Monocytes/100 WBC (Bld) 7.6 % Normal 1.7-12.0 [facility] Comment on above: Performed By: #### C BC #### [facility] [address] [place] [address] Dr. Tere Pastor NEUT # 3.5 103/ul Normal 1.4-6.5 [facility] Comment on above: Performed By: #### C BC #### [facility] [address] [place] [address] Dr. Tere Pastor Neutrophils/100 WBC (Bld) 52.4 % Normal 43.0-75.0 [facility] Comment on above: Performed By: #### C BC #### [facility] [address] [place] [address] Dr. Tere Pastor Platelet mean volume (Bld) [Entitic vol] 9.7 fL Normal 9.5-13.5 [facility] Comment on above: Performed By: #### C BC #### [facility] [address] [place] [address] Dr. Tere Pastor PLT 257 103/ul Normal 150-450 [facility] Comment on above: Performed By: #### C BC #### [facility] [address] [place] [address] Dr. Tere Pastor RBC 4.86 106/ul Normal 4.20-5.40 [facility] Comment on above: Performed By: #### C BC #### [facility] [address] [place] [address] Dr. Tere Pastor WBC 6.6 103/ul Normal 4.0-11.0 [facility] Comment on above: Performed By: #### C BC #### [facility] [address] [place] [address] Dr. Tere Pastor FREE THYROXINE INDEX T7on FTI 2.51 Normal 1.30-4.50 [facility] Comment on above: Performed By: #### T 7, CMP, TSH #### [facility] [address] [place] [address] Dr. Tere Pastor T3U 33.0 % Normal 30.0-39.0 [facility] Comment on above: Performed By: #### T 7, CMP, TSH #### [facility] [address] [place] [address] Dr. Tere Pastor T4 [Mass/Vol] 7.60 ug/dL Normal 4.80-13.90 [facility] Comment on above: Performed By: #### T 7, CMP, TSH #### [facility] [address] [place] [address] Dr. Tere Pastor GLYCOHEMOGLOBIN A1Con 2021 ADA RECOMMENDATION SEE BELOW Normal [facility] Comment on above: Result Comment: ADA RECOMMENDED LIMIT 4.0 - 6.0 ADA THERAPEUTIC TARGET < 7.0 ACTION SUGGESTED > 7.0 Performed By: #### A 1C #### [facility] [address] [address] [address] Tere Pastor Glucose [Mass/Vol] 91 mg/dL Normal [facility] Comment on above: Performed By: #### A 1C #### [facility] [address] [place] [address] Dr. Tere Pastor HbA1c (Bld) [Mass fraction] 4.8 % Normal 4.5-6.2 [facility] Comment on above: Performed By: #### A 1C #### [facility] [address] [place] [address] Dr. Tere Pastor PROF 14(COMP METB)on 022 Albumin [Mass/Vol] 3.7 g/dL Normal 3.4-5.0 [facility] Comment on above: Performed By: #### T 7, CMP, TSH #### [facility] [address] [place] [address] Dr. Tere Pastor Albumin/Globulin [Mass ratio] 1.1 {ratio} Normal [facility] Comment on above: Performed By: #### T 7, CMP, TSH #### [facility] [address] [place] [address] Dr. Tere Pastor ALP [Catalytic activity/Vol] 63 U/L Normal 46-116 [facility] Comment on above: Performed By: #### T 7, CMP, TSH #### [facility] [address] [place] [address] Dr. Tere Pastor ALT [Catalytic activity/Vol] 20 U/L Normal 14-59 [facility] Comment on above: Performed By: #### T 7, CMP, TSH #### [facility] [address] [place] [address] Dr. Tere Pastor Anion gap [Moles/Vol] 10.8 mmol/L Normal [facility] Comment on above: Performed By: #### T 7, CMP, TSH #### [facility] [address] [place] [address] Dr. Tere Pastor AST [Catalytic activity/Vol] 15 U/L Normal 15-37 [facility] Comment on above: Performed By: #### T 7, CMP, TSH #### [facility] [address] [place] [address] Dr. Tere Psator Bilirubin [Mass/Vol] 0.7 mg/dL Normal 0.2-1.0 [facility] Comment on above: Performed By: #### T 7, CMP, TSH #### [facility] [address] [place] [address] Dr. Tere Pastor Calcium [Mass/Vol] 8.8 mg/dL Normal 8.5-10.1 [facility] Comment on above: Performed By: #### T 7, CMP, TSH #### [facility] [address] [place] [address] Dr. Tere Pastor Chloride [Moles/Vol] 102 mmol/L Normal 98-107 [facility] Comment on above: Performed By: #### T 7, CMP, TSH #### [facility] [address] [place] [address] Dr. Tere Pastor CO2 [Moles/Vol] 28.3 mmol/L Normal 21.0-32.0 [facility] Comment on above: Performed By: #### T 7, CMP, TSH #### [facility] [address] [place] [address] Dr. Tere Pastor Creatinine [Mass/Vol] 0.67 mg/dL Normal 0.55-1.02 [facility] Comment on above: Performed By: #### T 7, CMP, TSH #### [facility] [address] [place] [address] Dr. Tere Pastor EGFR-AF CZECH >60 Normal >=60 [facility] Comment on above: Performed By: #### T 7, CMP, TSH #### [facility] [address] [place] [address] Dr. Tere Pastor EGFR-NON AF CZECH >60 Normal >=60 [facility] Comment on above: Performed By: #### T 7, CMP, TSH #### [facility] [address] [address] [address] Tere Pastor Globulin (S) [Mass/Vol] 3.3 g/dL Normal [facility] Comment on above: Performed By: #### T 7, CMP, TSH #### [facility] [address] [address] [address] Tere Pastor Glucose [Mass/Vol] 87 mg/dL Normal 74-106 [facility] Comment on above: Performed By: #### T 7, APPLE, TSH #### [facility] [address] [place] [address] Dr. Tere Pastor Potassium [Moles/Vol] 4.1 mmol/L Normal 3.5-5.1 [facility] Comment on above: Performed By: #### T 7, CMP, TSH #### [facility] [address] [place] [address] Dr. Tere Pastor Protein [Mass/Vol] 7.0 g/dL Normal 6.4-8.2 [facility] Comment on above: Performed By: #### T 7, CMP, TSH #### [facility] [address] [place] [address] Dr. Tere Pastor Sodium [Moles/Vol] 137 mmol/L Normal 136-145 [facility] Comment on above: Performed By: #### T 7, CMP, TSH #### [facility] [address] [place] [address] Dr. Tere Pastor Urea nitrogen [Mass/Vol] 7.0 mg/dL Normal 7.0-18.0 [facility] Comment on above: Performed By: #### T 7, CMP, TSH #### [facility] [address] [place] [address] Dr. Tere Pastor Urea nitrogen/Creatinine [Mass ratio] 10.4 mg/mg Normal [facility] Comment on above: Performed By: #### T 7, CMP, TSH #### [facility] [address] [address] [address] Tere Pastor TSHon 10-23-2022 TSH 1.865 uIU/mL Normal 0.358-3.740 [facility] Comment on above: Performed By: #### T 7, CMP, TSH #### [facility] [address] [address] [address] Tere Pastor Office Visiton 09-19-2022 Follow-up visit [id number] Anne Marie Taylor 1995 F Date Provider Department Center 09/19/2022 DEMETRIUS GUILLORY [facility] Family History Problem Relation Age of Onset Coronary artery disease Maternal Grandmother Coronary artery disease Maternal Grandfather Coronary artery disease Paternal Grandmother Family Status - Relation Status Age at Maternal Grandmother Maternal Grandfather Paternal Grandmother Level of Service:86339 [place] OFFICE/OUTPATIENT ESTABLISHED MOD MDM 30-39 MIN Reason for Visit and Comments: Syncope [506] Palpitations [061820] Normal [facility] Vital Signs Date Time Vital Sign Value Performing Clinician Facility 12-16-2023 13:30-0500 Body weight 104.33 kg CullenStowThat DO Work Phone: [facility] 12-16-2023 13:30-0500 Diastolic blood pressure 72 mm[Hg] Cullen Cornelio DO Work Phone: [facility] 12-16-2023 13:30-0500 Systolic blood pressure 120 mm[Hg] Cullen Cornelio DO Work Phone: [facility] 11-18-2023 09:58-0500 Blood Pressure Location Adele Orzech [facility] 11-18-2023 09:58-0500 Diastolic blood pressure 86 mm[Hg] Adele [facility]zech [facility] 11-18-2023 09:58-0500 Heart rate 74 /min Adele Orzech [facility] 11-18-2023 09:58-0500 Respiratory rate 16 /min Adele Orcarlos [facility] 11-18-2023 09:58-0500 Systolic blood pressure 137 mm[Hg] Adele Orzech [facility] 02-27-2023 12:25-0400 Diastolic blood pressure 75 mm[Hg] ZIGZAG ELASTIC ATTACHER-C Conchita Alicia Work Phone: [facility] 02-27-2023 12:25-0400 Heart rate 82 /min [employer] ATTACHER-C Conchita Vargas Work Phone: [facility] 02-27-2023 12:25-0400 Respiratory rate 20 /min [employer] ATTACHER-C Conchita Vargas Work Phone: [facility] 02-27-2023 12:25-0400 SaO2% (BldA) [Mass fraction] 100 % [employer] E[employer] ATTACHER-C Conchita Vargas Work Phone: [facility] 02-27-2023 12:25-0400 Systolic blood pressure 118 mm[Hg] [employer] ELASTIC ATTACHER-C Conchita Alicia Work Phone: [facility] 02-27-2023 10:29-0400 Body height 165.1 cm Z[employer] ELASTIC ATTACHER-C Conchita Alicia Work Phone: [facility] 02-27-2023 10:29-0400 Body temperature 98.7 [degF] [employer] ELASTIC ATTACHER-C Conchita Alicia Work Phone: [facility] 02-27-2023 10:29-0400 Body weight 102.05 kg Z[employer]ZAG ELASTIC ATTACHER-C Conchita Alicia Work Phone: [facility] Encounters Encounter Date Encounter Type Care Provider Facility Start: 05-04-2024 ambulatory Adele X Orzech Facilit y:[facility] Start: 02-23-2024 End: 03-03-2024 ambulatory CONCHITA VARGAS [facility] Start: 02-13-2024 End: 02-13-2024 Emergency department patient visit CONCHITA Lin [facility] Start: 12-23-2023 End: 12-23-2023 ambulatory CONCHITA S [facility] Start: 12-23-2023 End: 12-23-2023 ambulatory Pfo Infusion Chair 1 Tasha Bud [facility] Comment on above: POTS (postural ortho static tachycardia syndrome) (Primary Dx); Mild persistent asthma without complication; BMI 40.0-44.9, adult ([facility] Chronic gastritis without bleeding, unspecified gastritis type; Gastroparesis; Syncope, unspecified syncope type; Aviva-Danlos syndrome type III; Skin abrasion; Port-A-Cath in place; Collapse; Anxiety Start: 12-16-2023 End: 12-16-2023 ambulatory CULLEN GRIMES Not Available Start: 12-16-2023 End: 12-16-2023 Patient encounter procedure Cullen Grimes DO Work Phone: [facility] Comment on above: Encounter for remova l of etonogestrel implant; Insertion of Nexplanon; Abnormal uterine bleeding (AUB) Start: 11-18-2023 End: 11-19-2023 ambulatory Adele X Orzech Facility:[facility] Start: 11-18-2023 End: 11-19-2023 ambulatory Adele X Orzech Facility:[facility] Start: 11-18-2023 End: 11-18-2023 Lab Drop off Adele X Orzech [facility] Start: 11-18-2023 End: 11-18-2023 Patient encounter procedure Adele X Orzech [facility] Start: 11-06-2023 ambulatory Adele Orzech Facility: [facility] Start: 10-28-2023 End: 10-28-[address] [facility] Delia [facility] Start: 02-27-2023 End: 02-27-2023 ambulatory Conchita Barr [facility] Facility:[facility] Start: 02-27-2023 End: 02-27-2023 Admission to same day surgery center [employer] E[employer] ATTACHER-C Conchita Vargas Work Phone: [facility] Work Phone: Start: 02-27-2023 End: 02-27-2023 ambulatory ZIGZ[employer] ELAST[employer] ATTACHER-C Conchita Barr Alicia Work Phone: [facility] Work Phone: Start: 01-27-2023 ambulatory [facility] Start: 01-17-2023 End: 01-18-2023 ambulatory CONCHITA VARGAS Facility:[facility] Start: 10-31-2022 Encounter for preprocedural laboratory examination CONCHITA VARGAS [facility] Start: 10-29-2022 ambulatory [facility] Start: 10-23-2022 End: 10-24-2022 ambulatory CONCHITA VARGAS Facility:[facility] Start: 10-23-2022 End: 10-24-2022 Encounter for preprocedural laboratory examination CONCHITA ALICIA Facility:[facility] Start: 09-19-2022 End: 09-19-2022 ambulatory DEMETRIUS HALEY [facility] Start: 04-02-2018 End: 04-03-2018 Ambulatory DOMINGO GUILLEN Facility:[facility] Procedures Date Procedure Procedure Detail Performing Clinician Start: 12-16-2023 Urine test visual color cmprsn meths Cullen Cornelio DO Work Phone: Start: 02-27-2023 Colonoscopy Z[employer] ELASTIC ATTACHER-C Zenobiaxu abdi Alicia Work Phone: Start: 01-30-2021 Adult depression scr eening assessment Pfo 1 Start: 06-29-2020 Microscopic observat ion [Identifier] in Cervix by Cyto stain Pfo 1 Cholecystectomy Adele Orzec h Colonoscopy Adele Orzech Tonsillectomy Adele Orzech Plan of Treatment Date Care Activity Detail Author Start: 11-09-2030 DTaP,Tdap and Td Vaccines (7 - Td or Tdap) DTaP,Tdap and Td Vaccines (7 - Td or Tdap) [facility] Start: 09-26-2024 Adult BMI Screening Adult BMI Screen ing [facility] Start: 09-26-2024 Tobacco Screening Tobacco Screening [facility] Start: 02-17-2024 End: 02-17-2024 ambulatory 02/17/2024 11:30 AM EDT Infusion Tasha Fonseca [facility] [address] [place] [address] Tasha Fonseca [facility] Start: 12-16-2023 End: 12-16-2024 US for US PELVIS-TRANSVAG IF INDICATED Imaging Routine Abnormal uterine bleeding (AUB) Expected: 12/16/2023 (Approximate), Expires: 12/16/2024 [facility] Comment on above: Expected: 12/16/2023 (Approximate), Expires: 12/16/2024 Start: 07-04-2023 Influenza vaccination Influenza Vacc ine [facility] Start: 06-29-2023 Screening for malign ant neoplasm of cervix Pap Smear [facility] Start: 02-27-2023 [facility] Start: 01-30-2022 Depression Screening Depression [facility] Start: 2013 Adult BMI Follow Up Plan Adult BMI Follow Up Plan [facility] Removal non-biodegradable drug delivery implant Remove drug implant device Procedures Routine Encounter for removal of etonogestrel implant Ordered: 12/16/2023 [facility] Work Phone: Comment on above: Ordered: 12/16/2023 Immunizations Immunization Date Immunization Notes Care Provider Fa cility 11-09-2020 influenza, injectabl e, quadrivalent, preservative free Pfo 1 [facility] 11-09-2020 RHO(D) immune globulin- IV or IM Pfo 1 [facility] 11-09-2020 tetanus toxoid, reduced diphtheria toxoid, and acellular pertussis vaccine, adsorbed Pfo 1 [facility] 11-09-2020 influenza virus vaccine, unspecified formulation Pfo 1 [facility] NEGATED: Highlighted row has not occurred!11-18-2023 influenza virus vaccine, unspecified formulation Adele Burgos [facility] Payers Date Payer Category Payer Medicaid [id number] 2023 Self-pay 2020 Medicare [id number] 1.315 1995 Unknown [id number] 1995 Unknown [id number] [id number] 1995 Unknown [id number] [id number] 1995 Unknown [id number] [id number] 1995 Unknown [id number] [id number] 1995 Unknown [id number] [id number] 1995 Unknown [id number] 2.16.840.1.777153.3.579.2.1286 1995 Unknown [id number] [id number] 1995 Unknown [id number] [id number] 1995 Unknown [id number] [id number] 1995 Unknown [id number] [id number] 1959 Unknown [id number] Medicaid [id number] Medicaid [place] Advantage [id number] Medicaid Ashok Poole Mcaid [id number] Unknown [id number] Unknown [employer] [id number] Social History Date Type Detail Facility Start: 07-23-2017 End: 02-27-2023 Tobacco smoking status NHIS Never smoked tobacco (finding) [facility] Start: 1995 Sex Assigned At Female [facility] Start: 11-14-2020 End: 11-20-2023 Sex Assigned At Female [facility] Start: 12-16-2023 Alcohol intake Lifetime non-drinker (finding) [facility] Start: 11-14-2020 End: 11-20-2023 History of Social function [facility] Start: 11-20-2023 Alcohol Comment caffeine: 1-2 cups per day [facility] Start: 10-23-2021 Gender identity Identifies as female gender (finding) [facility] Start: 10-23-2021 Sexual orientation Heterosexual (finding) [facility] Start: 07-23-2017 Tobacco use and exposure Smokeless tobacco non-user [facility] Start: 09-26-2023 Alcohol intake Current non-drinker of alcohol (finding) [facility] Frequency of Alcohol Consumption Never [facility] The thought of harmi ng myself has occurred to me Never [facility] Medical Equipment Procedure Code Equipment Code Equipment Origin al Text Equipment Identifier Dates Port-10/21/2018 [id number] Start: 10-21-2018 Check 4x day: fasting, 1 hour after each meal [id number] Start: 11-29-2020 Goals Date Patient Goal Desired Activity /State Functional Status Date Assessment Result Facility 11-18-2023 Functional Status N/A [facility] Clinical Notes 09-19-2022 to 12-23-2023 Franca Chin RN - 12/23/2023 11:30 AM Josephine Harmon LPN - 12/16/2023 1:10 PM EST Note Date & Type Note Facility 12-23-2023 History of Presen t illness Narrative Port flushed per protocol. documented in this encounter [facility] 12-16-2023 History of Presen t illness Narrative [...] Past Medical History: Diagnosis Date Anxiety Asthma ([facility]) Depression ([facility]) History of medical problems Family History Problem [...] nursing note reviewed. Exam conducted with a game designer present. Vitals: There is no height or [...] Cullen Grimes DO documented in this encounter [facility] 11-18-2023 Evaluation + Plan note Diagnostic Tests PendingUrine Cytology ([facility]) 11/18/23 [facility] 11-18-2023 Note Chief Complaint Micro hematuria [...] She is schedule to be evaluated by DRILL GRINDER on 12/19/22. Discussed w/ pt what microhematuria [...] scheduling cysto today vs having pt see DRILL GRINDER and get bleeding addressed and f/u with us in 6 mos to touch base and evaluate if further microhematuria workup is warranted. Pt would like to meet with DRILL GRINDER and attempt to get their take on bleeding at this time. Pt to call office if she decides she would like to schedule cysto. Will place recall for tentative appt in 6 mos, but can see sooner if pt's vaginal bleeding is regulated and pt would like to discuss hematuria workup again. -Send urine for cytology today. -Complete [facility] workup -Complete microUA/ucx when bleeding is regulated, f/u 6 mos Ordered: Urine Cytology ([facility]) Urnls Dip Stick Auto w/o Microscopy POC [id number] Follow-up No qualifying data available Patient Education [...] Protein Urine Dipstick: Trace (11/18/23 10:10:00) Specific Eleele Urine Dipstick: 1.020 (11/18/23 10:10:00) Urine Appearance Urine Dipstick: Clear (11/18/23 10:10:00) Urine Color Urine Dipstick: Yellow (11/18/23 10:10:00) Urobilinogen Urine Dipstick: Normal 0.2-1 EU/dl (11/18/23 10:10:00) pH Urine Dipstick: 7 (11/18/23 10:10:00) Completed review of external records. [facility] Comment on above: Result Comment: [...] Follow these instructions at home: Medicines Take ulav-gtv-rtnskgu and prescription medicines only as told by [...] or the blood stops without treatment. Take oadp-gzs-xnpswug and prescription medicines only as told by your health care provider. Drink enough fluid to keep your urine pale yellow. This information is not intended to replace advice given to you by your health care provider. Make sure you discuss any questions you have with your health care provider. Document Revised: 06/20/2021 Document Reviewed: 06/20/2021 [employer] Patient Education 2022 [employer]. [facility] Kateryna 02-27-2023 History and physical note Note Date/Time February 27, 2023 11:15am [facility] [address] [place] [address] Gastroenterology H&P Signed Patient: Anne Marie Taylor MR#: [id number] : 1995 Acct:[id number] Age/Sex: 27 / F Adm Date: 3 Loc: Room: Type: [facility] Attending Dr: Willie Monreal MD [...] M.D. Documented By: Willie Monreal MD 02/27/23 111 Signed By: <Electronically signed by Willie Monreal MD> 02/27/23 1115 [facility] Work Phone: [phone] [facility] Kaylynn is a pleasant 27 year old female previously evaluated for orthostatic intolerance (OI) consistent with postural orthostatic tachycardia syndrome (POTS) in the [facility]ope [facility] Disorders Clinic in the Heart and V[facility] at the [facility]. Copied an pasted from my initial note in October 2022: Anne Marie Taylor is a 26 y.o. 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 She is a previous patient of PADMINI Haley (October 2022) and Dr Domingo Guillen. Here with mother. Gastroparesis and EDS / hypermobility. Saw a provider at the [facility] for gastroparesis. HPI: Symptoms since age [...] January 18, 2021. Infusions recently stopped. No manager mental health for the infusions. Infusions stopped February 2022 or nine months. Last syncope 2 weeks ago. Getting up too fast in am. LOC brief 10-15 seconds. Did not hit head. Lives with in laws, , daughter, cpcevfa-vq-bms. The family members help with the child. [...] The patient was notified that using 3rd constitution party telecommunication application (e.g., Center[employer]) is not HIPPA compliant and may carry some privacy risks. Yes The visit was conducted qgyd-yf-lpoj with the use of audio and video technology [employer] between patient and provider for a virtual [...] tracking dietary calories with an lanre like [employer] to determine daily caloric intake. Increase physical [...] in the next six months. 4. [facility] NotePA approved through 11/07/2023 Locked in? No Pt contact? Yes Spreadsheets, Asembia, Media Managed? Spreadsheets updated, nothing to scan Final copay $10.35 Had to call insurance to verbally answer clinical PA questions, there was an active request from 10/29/22 preventing us from initiating our own. Instantly approved. Pt prefers us to mail it to her. Rudy Jain, [facility] 232:42 [facility]Un[facility]12-27-2022 NoteSubjective Anne Marie Taylor is a 26 y.o. 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 She is a previous patient of PADMINI Haley (October 2022) and Dr Domingo Guillen. Here with mother. Gastroparesis and EDS / hypermobility. Saw a provider at the [facility] for gastroparesis. HPI: Symptoms since age [...] January 18, 2021. Infusions recently stopped. No manager mental health for the infusions. Infusions stopped February 2022 or nine months. Last syncope 2 weeks ago. Getting up too fast in am. LOC brief 10-15 seconds. Did not hit head. Lives with in laws, , daughter, joqpbdi-ew-amm. The family members help with the child. [...] port flushed monthly at infusion center in [facility] Musculoskeletal: Positive for joint pain. Hypermobility pain: [...] supine and standing (3 -5 mintues). RTC 3months.[facility]11-17-2022 NoteCardiovascular Medicine, [facility] Progress Note SUBJECTIVE Chief Complaint Patient presents [...] to try to keep (more content not included)...[facility]11-17-2022 NotePatient here to discuss stopping infusions. She [...] and myalgias. Neurological: Positive for dizziness and light-headedness.[facility] No data available for this section [facility] evaluation noteNo assessment information available [facility] Work Phone: Evaluation note* Diagnosis Encounter for removal of etonogestrel implant Insertion of Nexplanon Abnormal uterine bleeding (AUB) documented in this encounter [facility] HealthcareEvaluation note* Diagnosis POTS (postural orthostatic tachycardia syndrome)- Primary Unspecified tachycardia Mild persistent asthma without complication BMI 40.0-44.9, adult ([facility]) Chronic gastritis without bleeding, unspecified gastritis type Gastroparesis Syncope, unspecified syncope type Aviva-Danlos syndrome type III Aviva-Danlos syndrome Skin abrasion Abrasion or friction burn of other, multiple, and unspecified sites, without mention of infection Port-A-Cath in place Collapse Syncope and collapse Anxiety Anxiety state, unspecified [facility] Additional Instructions DISCHARGE INSTRUCTIONS FOR [...] NOT operate machinery such as power tools, Loaded Commercen mowers, Curse blowers, sewing machines, etc. for 24 hours. [...] screening -Follow up with PCP. -Office number [phone]. [facility] Work Phone: Hospital Discharge instructions No data available for this section [facility]ructionsNot on filedocumented in this encounter [email or web address] SystemProgress note No data available for this section [facility] Summary Purpose Family History No Family History [...] Time Advance Directives No January 05 5:57pm Latest Code Status on File Code Status Date Activated Date Inactivated Comments Full Code 01/18/2021 5:05 AM 01/20/2021 6:33 PM Chief Complaint and Reason for Visit Chief Complaint Abdominal pain, Coli tis Additional Source Comments INFORMATION SOURCE (unrecogn ized section and content) DATE CREATED AUTHOR 04/22/2018 [facility] DATE CREATED AUTHOR AUTHOR'S ORGANIZ ATION 01/26/2023 [facility] DATE CREATED AUTHOR AUTHOR'S ORGANIZ ATION 02/11/2023 [facility] DATE CREATED AUTHOR AUTHOR'S ORGANIZ ATION 03/01/2023 [facility] DATE CREATED AUTHOR AUTHOR'S ORGANIZ ATION 12/18/2023 [facility] EPIC DATE CREATED AUTHOR AUTHOR'S ORGANIZ ATION 03/04/2024 [facility] DATE CREATED AUTHOR AUTHOR'S ORGANIZ ATION 03/06/2024 [facility] Teams (unrecognized sec tion and content) Team Status: Active Member Role Status Dates BONNIE Parsons Primary Care Provider Active Team Status: Inactive Member Role Status Dates Willie Monreal MD Attending Provider Active BONNIE Parsons Primary Care Provider Active Control Panel Assembler Relationship Specialty Start Date End Date Conchita Vargas APRN-CARE SERVICES MANAGER [address] [place] [id number] PCP - General Family Medicine 11/25/19 Reason for Visit (unrecogniz ed section and content) Reason Comments Contraception Nexplanon removal/in sert Reason Comments Port/VAD Care Port flush FOR RECORDS PERTAINING TO PATIENTS WHO ARE [...] BE BASED ON THE PRIMARY CLINICAL RECORDS. [facility] [employer] [facility]. provides no warranty or guarantee of the accuracy or completeness of information in this document.
[2024-03-23 16:04] LABS: HCG Quantitative <1 mIU/mL
== END 2024-03-23 14:13 | disposition home or self-care (01) ==
LOC: LAB 14:13
PROVIDERS: PCP Nurse Practitioner Family; Visit Provider Obstetrics & Gynecology
DX: N93.9 Abnormal uterine and vaginal bleeding, unspecified (principal)
CPT/HCPCS: 36415; 84702

== ENCOUNTER 2025-09-01 11:17 | Outpatient (OUT) | payer MEDICARE, SELFPAY ==
--- OUTSIDE RECORDS SUMMARY | 2025-08-26 22:16 | XMS_ITS | Encounter Summary ---
Author Organization [facility] [employer] [facility] tem Address [facility] [id number] [address] [place] [address] Care Team Providers Care Tea Blender Name Role Phone Conchita Daigle ORGANIZATIONAL EFFECTIVENESS DIRECTOR-PATIENT SAFETY ATTENDANT Primary Care Provider Reason for Visit * ReasonCommentsShortness of BreathPt presents to ED C/O SOB [id number]. Pt states she has asthma and tried her rescue inhaler 3 times with no relief. Pt states she has had chest pain the last 2 days as well. Pt states 6/10 chest pain at this time. 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 Encounter Details DateTypeDepartmentCare Team (Latest Contact Info)Ganquiktayy50/24/2025 10:16 PM EDT - 08/27/2025 4:26 AM EDTEmergency [facility] [address] [place] [id number] Yasmani Valverde MD [address] [place] [address] Exacerbation of persistent asthma, unspecified asthma severity (Primary Dx); Hypokalemia; Nausea Discharge Disposition: Home Social History Tobacco UseTypesPacks/DayYears UsedDateSmoking Tobacco: NeverSmokeless Tobacco: NeverAlcohol UseStandard Drinks/WeekCommentsNo0 (1 standard drink = 0.6 oz pure alcohol)AUDIT-CAnswerDate RecordedFrequency of Alcohol ConsumptionNever 10/15/2018Average Number of DrinksNot on file10/15/2018Frequency of Binge DrinkingNot on file10/15/2018Overall Financial Resource Strain (CARDIA)Answer Date RecordedHow hard is it for you to pay for the very basics like food, housing, medical care, and heating?Patient vxhvuanf43/24/2023HQ-2AnswerDate RecordedTotal [id number] - TransportationAnswerDate RecordedIn the past 12 months, has lack of transportation kept you from medical appointments or from getting medications?Patient qfkujhpw82/24/2023In the past 12 months, has lack of transportation kept you from meetings, work, or from getting things needed for daily living?Patient yvlzbjlk39/24/2023Edinburgh Depression ScaleAnswerDate RecordedEdinburgh Depression Scale Tcmwr17101/30/2021The thought of harming myself has occurred to me.Never01/30/2021Housing Instability AnswerDate RecordedAre you worried or concerned that in the next two months you may not have stable housing that you own, rent or stay in as a part of a household?No03/26/2023hildcareAnswerDate DnbyoznuYyixrqbsjJjluads31/31/2019 EmploymentAnswerDate SbtnhofbYfgniaihlqDmnmpqp61/31/2019Hunger ScreeningAnswer Date RecordedWithin the past 12 months we worried whether our food would run out before we got money to buy more.Never True08/26/2025Within the past 12 months the food we bought just didn't last and we didn't have money to get more.Never True08/26/2025Purpose - LifeAnswerDate RecordedPurpose and direction in life Bzczkau3011/14/2020CommentsNoSex and Gender InformationValueDate Recorded Sex Assigned at SpmzmGeqfpb65/21/2021 8:55 AM ESTLegal CvxZjotsa54/06/2015 12:05 PM EDTGender OkedytqqYmoubj96/21/2021 8:55 AM ESTSexual OrientationStraight 10/23/2021 8:55 AM ESTdocumented as of this encounter Last Filed Vital Signs Vital SignReadingTime TakenCommentsBlood Uzxltjkn444/5110 4:15 AM EDT Dmdjf963508/27/2025 4:15 AM FIOCyvfcqpvdhp72.6 ??C (97.8 ??F)08/26/2025 10:19 PM EDTRespiratory Adhu9057 4:15 AM EDTOxygen Sljcqtpilb57%08/27/2025 4:15 AM EDTInhaled Oxygen Concentration--Nbvbjk661.6 kg (235 lb)08/26/2025 10:19 PM XRIXzgleq020.1 cm (5' 5 )08/26/2025 10:19 PM EDTBody Mass Index39.111 10:19 PM EDTdocumented in this encounter Discharge Instructions * Discharge Instructions* Portillo Donohue DO - 08/27/2025 3:33 AM EDT Utilize your asthma inhaler or nebulizer as well as other inhalers every 4 hours as needed for wheezing and shortness of breath in association with your asthma Caution overuse of your inhalers as this can cause a drop in your potassium levels Be sure to compensate any possible low potassium with high potassium diet-see discharge instructions for further details Utilize 40 mg of prednisone for the next 5 days for further treatment of your asthma symptoms For any nausea you may take 1-2 tablets of Zofran Follow-up with your tire fabric inspector as well as PCP Return to the ED as needed for any worsening shortness of breath other further symptoms * Attachments The following attachments cannot be sent through Care Everywhere. * Hypokalemia (Kazakh) * High-potassium diet (Kazakh) * Asthma? Adult ED (Kazakh) documented in this encounter Medications at Time of Discharge MedicationSigDispense QuantityRefillsLast FilledStart DateEnd Date albuterol (PROVENTIL,VENTOLIN) 2.5 mg /3 mL (0.083 %) nebulizer solution Indications:Exacerbation of persistent asthma, unspecified asthma severityInhale 3 mL (2.5 mg total) by nebulization every 6 (six) hours as needed for wheezing. 75 mL 08/27/2025 blood-glucose meter (glucose monitoring kit) kit Indications:Abnormal glucose tolerance test in pregnancyUse as instructed 1 each 11/29/2020 budesonide (PULMICORT) 180 mcg/actuation inhaler Inhale 1 puff 2 (two) times a day. budesonide-formoteroL (SYMBICORT) 160-4.5 mcg/actuation inhaler Inhale 2 puffs in the morning and 2 puffs before bedtime. calcium carbonate (TUMS) 200 mg (500 mg) chewable tablet Chew 1 tablet and swallow in the morning. CORLANOR 5 mg tablet tablet 1 tablet (5 mg total). cyclobenzaprine (FLEXERIL) 10 mg tablet Indications:Strain of left shoulder, initial encounterTake 1 tablet (10 mg total) by mouth 2 (two) times a day as needed for muscle spasms. 10 tablet 09/03/2024 dicloxacillin (DYNAPEN) 500 mg capsule dicloxacillin 500 mg capsule take 1 capsule by mouth every 6 hours dicyclomine (BENTYL) 20 mg tablet Take 1 tablet (20 mg total) by mouth every 6 (six) hours as needed (abdominal pain). 20 tablet 09/27/2023 docusate sodium (COLACE) 100 mg capsule Take 1 capsule (100 mg total) by mouth 2 (two) times a day. 60 capsule famotidine (PEPCID) 20 mg tablet Take 1 tablet (20 mg total) by mouth 2 (two) times a day. 30 tablet ibuprofen (ADVIL,MOTRIN) 800 mg tablet Take 1 tablet (800 mg total) by mouth every 8 (eight) hours as needed (cramping). 90 tablet 01/20/2021 ibuprofen (MOTRIN) 800 mg tablet Take 1 tablet (800 mg total) by mouth 3 (three) times a day. 30 tablet 12/30/2024 [place]ancets (onetouch ultrasoft[place] [facility] [place]ications:Abnormal glucose tolerance test in pregnancyCheck 4x day: fasting, 1 hour after each meal 100 each 11/29/2020 midodrine (PROAMATINE) 10 mg tablet Indications:POTS (postural orthostatic tachycardia syndrome)Take 1 tablet (10 mg total) by mouth 3 (three) times a day. 90 tablet montelukast (SINGULAIR) 10 mg tablet Take 1 tablet (10 mg total) by mouth nightly.08/08/2017 ondansetron ODT (ZOFRAN ODT) 4 mg disintegrating tablet Indications:NauseaDissolve 1 tablet (4 mg total) on tongue every 8 (eight) hours as needed for nausea for up to 10 doses. 10 tablet 08/27/2025 PNV no.95/ferrous fum/folic ac ( ORAL) Take 1 tablet by mouth. predniSONE (DELTASONE) 20 mg tablet Take 2 tablets (40 mg total) by mouth in the morning for 5 days. 10 tablet PROAIR HFA 90 mcg/actuation inhaler Inhale 2 puffs every 4 (four) hours as needed. ALBUTEROL SULFATE HFA SUBSTITUTE 06/03/2017documented as of this encounter ED Notes * Yasmani Valverde MD - 08/26/2025 10:31 PM EDTAssociated Order(s): Critical Care Images from the original note were not included. [facility] - EMERGENCY Pt Name: Anne Marie Taylor Birthdate: 1995 Chief Complaint: Chief Complaint Patient presents with ??? Shortness of Breath Pt presents to ED C/O SOB n4zqisd. Pt states she has asthma and tried her rescue inhaler 3 times with no relief. Pt states she has had chest pain the last 2 days as well. Pt states 6/10 chest pain atthis time. 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 History of Present Illness: This is a 29-year-old female with a history of asthma who presents ER for evaluation complaining ofshortness of breath for the last 2 hours. Patient states that she has developed a cough and had some discomfort in her chest associated with a cough in the breathing. Patient states that this does feel like her asthma and she took a rescue inhaler without relief. Patient denies any illness symptomsprior to this. She denies any cough fevers chills or other preceding illness symptoms. 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 Anxiety ??? Asthma ??? Chest pain ??? Depression ??? EDS (Aviva-Danlos syndrome) ??? Endocrine disorder ??? Gastroparesis ??? History of emotional problems ??? Hypotension ??? Hypothyroidism ??? Migraine ??? Neurocardiogenic syncope ??? Obesity ??? POTS (postural orthostatic tachycardia syndrome) ??? Rh incompatibility ??? SOB (shortness of breath) ??? Syncope Past Surgical History: Past Surgical History: Procedure Laterality Date ??? ADENOIDECTOMY ??? CHOLECYSTECTOMY Dr. Jesus ??? COLONOSCOPY 2016 Dr. Madrigal ??? COLONOSCOPY 2017 Dr. Hong ??? ESOPHAGOGASTRODUODENOSCOPY ??? INSERTION PORT A CATH N/A 10/21/2018 Performed by Gabe Villeda MD at [facility] ??? TONSILLECTOMY ??? UPPER GASTROINTESTINAL ENDOSCOPY Family History: Family History Problem Relation Age of Onset ??? Hypertension Sister ??? Asthma Sister ??? Depression Sister ??? Anxiety disorder Sister ??? Sleep apnea Sister ??? Heart disease Sister resolved after gastric bypass per patient. Hole in heart as baby ??? Heart disease Maternal Grandmother ??? Colon polyps Maternal Grandmother ??? Heart disease Maternal Grandfather ??? Cancer Paternal Grandmother breast ??? Heart disease Paternal Grandmother ??? Fibromyalgia Mother ??? Asthma Mother ??? Depression Mother ??? Anxiety disorder Mother ??? Colon polyps Father Social History: Social History Socioeconomic History ??? Marital status: Tobacco Use ??? Smoking status: Never ??? Smokeless tobacco: Never Substance and Sexual Activity ??? Alcohol use: No ??? Drug use: No ??? Sexual activity: Not Currently Partners: Male Other Topics Concern ??? Coffee No ??? Tea No ??? Carbonated Beverages Yes ??? Chocolate Yes Social Drivers of Health Financial Resource Strain: Patient Declined (03/26/2023) Overall Financial Resource Strain (CARDIA) ??? Difficulty of Paying Living Expenses: Patient declined Food Insecurity: No Food Insecurity (08/26/2025) Hunger Screening ??? Food Insecurity - Worry: Never True ??? Food Insecurity - Inability: Never True Transportation Needs: Patient Declined (03/26/2023) PRAPARE - Transportation ??? Lack of Transportation (Medical): Patient declined ??? Lack of Transportation (Non-Medical): Patient declined Interpersonal Safety: Unknown (12/25/2023) Received from [facility] Safety & Environment ??? Fear of Current or Ex-Partner: Not on file ??? Emotionally Abused: Not on file ??? Physically Abused: Not on file ??? Sexually Abused: Not on file ??? Physically or Sexually Abused: Not on file Housing Instability: Low Risk (03/26/2023) Housing Instability ??? Housing Instability: No Review of Systems: Review of Systems Respiratory: Positive for cough and shortness of breath. Physical Exam: ED Triage Vitals Temp Heart Rate Resp BP SpO2 08/26/25221808/26/25221808/26/25221808/26/25222108/26/252218 36.6 ??C (97.8 ??F) 84 25 136/73 100 % Temp Source Heart Rate Source Patient Position BP Location FiO2 (%) 08/26/252218 -- -- -- -- Oral Vitals: 08/26/25221808/26/252221 BP: 136/73 Temp: 36.6 ??C (97.8 ??F) TempSrc: Oral Pulse: 84 Resp: 25 SpO2: 100% Height: 165.1 cm (5' 5 ) Weight: 106.6 kg (235 lb) Physical Exam Constitutional: Appearance: She is not diaphoretic. HENT: Head: Normocephalic and atraumatic. Eyes: Pupils: Pupils are equal, round, and reactive to light. Cardiovascular: Rate and Rhythm: Normal rate and regular rhythm. Heart sounds: No murmur heard. Pulmonary: Effort: Tachypnea present. Breath sounds: Examination of the right-lower field reveals decreased breath sounds. Examination ofthe left-lower field reveals decreased breath sounds. Decreased breath sounds present. Abdominal: Palpations: Abdomen is soft. Musculoskeletal: Cervical back: Neck supple. Right lower leg: No tenderness. No edema. Left lower leg: No tenderness. No edema. Skin: General: Skin is warm and dry. Neurological: General: No focal deficit present. Mental Status: She is alert. Psychiatric: Mood and Affect: Mood normal. Procedure: Critical Care Performed by: Portillo Donohue DO Authorized by: Portillo Donohue DO Critical care provider statement: Critical care time (minutes): 35 Critical care time was exclusive of: Separately billable procedures and treating other patients Critical care was necessary to treat or prevent imminent or life-threatening deterioration of the following conditions: Respiratory failure and metabolic crisis Critical care was time spent personally by me on the following activities: Development of treatmentplan with patient or surrogate, evaluation of patient's response to treatment, examination of patient, interpretation of cardiac output measurements, obtaining history from patient or surrogate, ordering and performing treatments and interventions, ordering and review of laboratory studies, ordering and review of radiographic studies, pulse oximetry, re- evaluation of patient's condition and review of old charts I assumed direction of critical care for this patient from another provider in my specialty: no Re-evaluation: See ED course for further details Medical Decision Making Amount and/or Complexity of Data Reviewed Labs: ordered. Decision-making details documented in ED Course. Radiology: ordered. Decision-making details documented in ED Course. ECG/medicine tests: ordered. Risk Prescription drug management. ED Course: ED Course as of 08/27/25 0410 FriAug 26, 2025 2327 Patient felt somewhat better after steroid shot and breathing treatments however she is still describes some discomfort in her chest and shortness of breath. Plan will be to obtain labs at this time. Initial EKG and chest x-ray were unremarkable. I have ordered labs. Patient care will be turned over to the oncoming physician at shift change [SW] Sat Aug 27, 2025 0023 White Blood Cells: 7.1 [DL] 0024 Hemoglobin: 12.6 [DL] 0024 X-ray chest 1 view [DL] 0024 Imaging was independently??viewed??and is notable for no acute pneumonia or intra cardiopulmonary process. However, pending official radiologist read.?? [DL] 0103 Potassium(!!): 2.4 Critical low potassium noted; will repeat this potassium and add on a magnesium level to ensure no hypomagnesemia associated with her potassium being low; will provide patient with potassium lyte 50 mEq and 50 mEq of IVPB potassium chloride and rechecked this for the patient. If signs of improvement, plan to discharge patient home [DL] 0131 Patient reassessed at bedside. Patient's breathing much improved at this point in time. She was updated on her low potassium level and are need to replace it. [DL] 0224 The patient was getting nauseous [DL] 0224 Potassium(!): 2.9 [DL] 0224 Repeat potassium performed and was improved to 2.9. Patient will receive an extra 20 mEq of IVpotassium instead of the 50 that was ordered. She was feeling a bit nauseous from the zofran - IV zofran ordered for patient [DL] 0225 Magnesium: 1.8 [DL] 0409 Patient had her potassium repleted and she is feeling much improved at this time. No longer feeling nauseous. Breathing well at this time. She is going to be sent home on prednisone as well as Zofran and she was also requesting a refill on her albuterol solution for her nebulizer. Patient instructed to follow up with your PCP as well as tire fabric inspector. She was instructed to return the ED as needed for any worsening symptoms [DL] ED Course User Index [DL] Portillo Donohue DO [SW] Yasmani Valverde MD Clinical Impressions as of 08/27/25 0410 Exacerbation of persistent asthma, unspecified asthma severity Hypokalemia Nausea Transfer of Care: 08/27/2025 12:[address] Portillo Donohue accepted sign out from Dr. Yasmani Valverde. Patient is pending labs and patient re-assessment. Additional Notes/Findings for Transfer of Care See ED course for further details ED Disposition None . Please note that portions of this note were completed with a voice recognition program. Efforts were made to edit the dictations but occasionally words are mis-transcribed. Yasmani Valverde MD 08/26/25 2235 Portillo Donohue DO 08/27/25 0019 Portillo Donohue DO 08/27/25 0103 Yasmani Valverde MD 08/27/25 1517 documented in this encounter Plan of Treatment Not on file documented as of this encounter Procedures Procedure NamePriorityDate/TimeAssociated DiagnosisCommentsTROP I, HIGH SENSITIVITY 1 UUCAZHKW19/25/2025 1:02 AM EDT MUICYSBRQHAGH48/25/2025 1:02 AM EDT MAGNESIUMSTAT Add-on08/27/2025 1:02 AM EDT TROPONIN I, HIGH SENSITIVITY 0 ODCTECSG32/24/2025 11:30 PM EDT TROPONIN I, HIGH SENSITIVITY 0 UEDXLWEA44/24/2025 11:30 PM EDT CBC WITH AUTO QSSOVYFVDQIFKWXX29/24/2025 11:30 PM EDT D-SQXBZHVQM31/24/2025 11:30 PM EDT BASIC METABOLIC OGKWFLMES28/24/2025 11:30 PM EDT XR CHEST 1 UGVCVW9308/26/2025 10:45 PM EDT PM ED CRITICAL JOPLWhgjpqo02/24/2025 10:31 PM EDT ECG 12-PQKLTMLY31/24/2025 10:22 PM EDT documented in this encounter Results * Magnesium (08/27/2025 1:02 AM EDT)ComponentValueRef RangeTest MethodAnalysis TimePerformed AtPathologist SignatureMAGNESIUM1.81.8 - 2.6 mg/dL08/27/2025 1:53 AM EDTPROMEDICA TUSTIN REHABILITATION HOSPITALpecimen (Source)Anatomical Location / LateralityCollection Method / VolumeCollection TimeReceived Time BloodVenous blood / UnknownVenipuncture / Erovnjk9608/27/2025 1:02 AM EDT 08/27/2025 1:21 AM EDT Narrative Authorizing ProviderResult TypeResult StatusDanixu Donohue DOLAB BLOOD ORDERABLESFinal ResultPerforming OrganizationAddressCity/State/ZIP CodePhone Number [facility] [address] [place] [id number], * (ABNORMAL) Potassium (08/27/2025 1:02 AM EDT)ComponentValueRef RangeTest MethodAnalysis TimePerformed AtPathologist SignaturePOTASSIUM2.9(L)3.5 - 5.0 mmol/L1 1:52 AM [facility] (Source)Anatomical Location / LateralityCollection Method / VolumeCollection TimeReceived TimeBloodVenous blood / UnknownVenipuncture / Ktimihs9408/27/2025 1:02 AM EDT1 1:21 AM EDT Narrative Authorizing ProviderResult TypeResult StatusDaleighann Donohue [facility] BLOOD ORDERABLESFinal ResultPerforming OrganizationAddressCity/State/ZIP CodePhone Number [address] [place] [address], [place] * Troponin I, High Sensitivity 1 Hour (08/27/2025 1:02 AM EDT)ComponentValueRef RangeTest MethodAnalysis TimePerformed AtPathologist SignatureTROPONIN I, HIGH SENSITIVITY<2<16 ng/L1 2:04 AM [facility] (Source)Anatomical Location / LateralityCollection Method / VolumeCollection TimeReceived TimeBloodVenous blood / UnknownVenipuncture / Etzshzw9308/27/2025 1:02 AM EDT1 1:21 AM EDT Narrative Authorizing ProviderResult TypeResult StatusYasmani SON BLOOD ORDERABLES Final ResultPerforming OrganizationAddressty/State/ZIP CodePhone Number [address] [place] [address], [place] * Troponin I, High Sensitivity 0 Hour (08/26/2025 11:30 PM EDT)ComponentValueRef RangeTest MethodAnalysis TimePerformed AtPathologist SignatureTROPONIN I, HIGH SENSITIVITY2<16 ng/L1 12:32 AM [facility] (Source)Anatomical Location / LateralityCollection Method / VolumeCollection TimeReceived TimeBloodVenous blood / UnknownVenipuncture / Bfofrck3008/26/2025 11:30 PM EDT1 12:04 AM EDT Narrative Authorizing ProviderResult TypeResult StatusSteven C Wing MDLAB BLOOD ORDERABLES Final ResultPerforming OrganizationAddLifecare Hospital of Pittsburghty/State/[facility] CodePhone Number [address] [address], * D-Dimer (08/26/2025 11:30 PM EDT)ComponentValueRef RangeTest MethodAnalysis TimePerformed AtPathologist SignatureD DIMER<1501 - 255 ng/mL08/27/2025 12:31 AM EDTPGUERNSEY MEMORIAL HOSPITALComment:Results <255 ng/mL DDU: The presensence of a VTE can safely be excluded with a negative D-Dimer result and Wells score. A negative result doesn't exclude the possibility of DIC. The test should berepeated along with other diagnostic tests if the patient's symptoms persist or worsen.Specimen (Source)Anatomical Location / Laterality Collection Method / VolumeCollection TimeReceived TimeBloodVenous blood / UnknownVenipuncture / Fpitepx4108/26/2025 11:30 PM EDT1 12:04 AM EDT Narrative Authorizing ProviderResult TypeResult StatusStdudley Valverde MDLAB BLOOD ORDERABLES Final ResultPerforming [facility] CenterAddEncompass Health/[facility] CodePhone Number [address] [place] [address], * (ABNORMAL) Basic Metabolic Panel (08/26/2025 11:30 PM EDT)ComponentValueRef RangeTest MethodAnalysis TimePerformed AtPathologist FkptqvytqWUCGRN619909 - 146 mmol/L1 12:34 AM EDACMC HEALTHCARE SYSTEM GLENBEIGHPOTASSIUM 2.4(LL)3.5 - 5.0 mmol/L1 12:34 AM [facility]OSPITALCHLORIDE10298 - 109 mmol/L1 12:34 AM EDACMC HEALTHCARE SYSTEM GLENBEIGHCARBON HBHWXQX7737 - 32 mmol/L1 12:34 AM EDT [facility]ITALANION RBJ743 - 15 mmol/L1 12:34 AM EDTPGUERNSEY MEMORIAL HOSPITALBLOOD UREA AYHRAAID21 - 23 mg/dL 08/27/2025 12:34 AM [facility] HOSPITALCREATININE0.820.40 - 1.00 mg/dL08/27/2025 12:34 AM [facility]OSPITALComment: METHOD TRACEABLE TO IDMS DUQSNBGUZDSUIGN295(H)65 - 99 mg/dL08/27/2025 12:34 AM [facility] HOSPITALCALCIUM9.78.5 - 10.5 mg/dL08/27/2025 12:34 AM [facility] HOSPITALEGFR Non-Race Dependent>90>=60 ml/min/1.73sq.m1 12:34 AM [facility] Comment: Reported eGFR is based on the CKD-EPI 2020 equation that does not use a race coefficient. Specimen (Source)Anatomical Location / LateralityCollection Method / Volume Collection TimeReceived TimeBloodVenous blood / UnknownVenipuncture / Unknown 08/26/2025 11:30 PM EDT1 12:04 AM EDT Narrative Authorizing ProviderResult TypeResult StatusStevjames Valverde MDLAB BLOOD ORDERABLES Final ResultPerforming OrganizationAddressCity/State/ZIP CodePhone Number [facility] [address] [place] [address], * CBC auto differential (08/26/2025 11:30 PM EDT)ComponentValueRef RangeTest MethodAnalysis TimePerformed AtPathologist SignatureWBC7.14 - 11 x10E9/L 08/27/2025 12:17 AM [facility] HOSPITALRBC Count4.473.8 - 5.2 X10E12/L1 12:17 AM [facility] Vzhbbbxnvv70.611.7 - 15.5 g/dL08/27/2025 12:17 AM [facility] HOSPITALHematocrit36.535 - 47 %08/27/2025 12:17 AM [facility]OSPITALMCV8280 - 100 fL08/27/2025 12:17 AM [facility]OSPITALMCH28.127 - 34 pg08/27/2025 12:17 AM EDTPGUERNSEY MEMORIAL HOSPITALMCHC34.432 - 36 g/dL08/27/2025 12:17 AM EDTPGUERNSEY MEMORIAL HOSPITALRDW13.811.5 - 15 %08/27/2025 12:17 AM EDTPGUERNSEY MEMORIAL HOSPITALPlatelet Lkhvy796586 - 450 X10E9/L1 12:17 AM EDTPGUERNSEY MEMORIAL HOSPITALMPV8.37 - 12 fL08/27/2025 12:17 AM EDT [facility]OS[facility]ITALNeutrophils %43.4%08/27/2025 12:17 AM EDT [facility] HOSPITALLymphocytes %46.8%08/27/2025 12:17 AM EDT [facility]OMKA[facility]OSPITALMonocytes %6.7%08/27/2025 12:17 AM EDT [facility]OMPROVID[facility] HOSPITALEosinophils %2.8%08/27/2025 12:17 AM EDT PROMKAIS[facility] HOSPITALBasophils %0.3%08/27/2025 12:17 AM EDT PROMKA[facility] HOSPITALNeutrophils Absolute (A)3.11.5 - 6.6 10*3/uL08/27/2025 12:17 AM EDTPGUERNSEY MEMORIAL HOSPITALLymphocytes Absolute3.31.0 - 3.5 10*3/uL08/27/2025 12:17 AM EDTPCLEVELAND CLINIC HILLCRE[facility]PITAL HOSPITALMonocytes Absolute0.50.0 - 0.9 10*3/uL08/27/2025 12:17 AM EDTPGUERNSEY MEMORIAL HOSPITALEosinophils Absolute0.20.0 - 0.4 10*3/uL08/27/2025 12:17 AM EDTPGUERNSEY MEMORIAL HOSPITALBasophils Absolute0.00.0 - 0.2 10*3/uL08/27/2025 12:17 AM EDACMC HEALTHCARE SYSTEM GLENBEIGHDifferential TypeAUTOMATED UDAFTLHOLREX39/25/2025 12:17 AM EDTPPROVIDENCE HOSPITALpecimen (Source)Anatomical Location / LateralityCollection Method / VolumeCollection TimeReceived TimeBloodVenous blood / UnknownVenipuncture / Fpbdfyk9908/26/2025 11:30 PM EDT1 12:04 AM EDT Narrative Authorizing ProviderResult TypeResult StatusStdudley SON BLOOD ORDERABLES Final ResultPerforming OrganizationAddressCity/State/ZIP CodePhone Number [facility] [address] [place] [address], * X-ray chest 1 view (08/26/2025 10:45 PM EDT)Anatomical RegionLaterality ModalityBody, ChestN/AComputed RadiographySpecimen (Source)Anatomical Location / LateralityCollection Method / VolumeCollection TimeReceived Time08/26/2025 10:47 PM EDT Narrative 08/26/2025 10:47 PM EDT HISTORY: A 29-year-old female with a history of the cough and shortness of breath. EXAM/TECHNIQUE: ??CHEST: Portable upright AP view COMPARISON: Comparison is made with prior chest examination of 10/21/2018. FINDINGS: Both lungs and costophrenic angles are clear. There is no evidence of pulmonary infiltrate or acute pulmonary pathology. The cardiac silhouette is within normal limits. The trachea is in midline. The mediastinum is otherwise unremarkable. The hemidiaphragms are normal in position. The bony rib cage is intact. IMPRESSION: * ??No evidence of pulmonary infiltrate, acute pulmonary pathology or significant interval change. Finalized by Clay Feng MD on 08/26/2025 10:47 PM Procedure Note Clay Feng MD - 08/26/2025 HISTORY: A 29-year-old female with a history of the cough and shortnessof breath. EXAM/TECHNIQUE: CHEST: Portable upright AP view COMPARISON: Comparison is made with prior chest examination of10/21/2018. FINDINGS: Both lungs and costophrenic angles are clear. There is noevidence of pulmonary infiltrate or acute pulmonary pathology. The cardiac silhouette is within normal limits. The trachea is in midline.The mediastinum is otherwise unremarkable. The hemidiaphragms are normal in position. The bony rib cage is intact. IMPRESSION: * No evidence of pulmonary infiltrate, acute pulmonary pathology orsignificant interval change. Finalized by Clay Feng MD on 08/26/2025 10:47 PM Authorizing ProviderResult TypeResult Larry BARCENAS [facility]AG[facility] ORDERABLESFinal Result * Critical Care (08/26/2025 10:31 PM EDT) Narrative Yasmani Valverde MD - 08/26/2025 10:31 PM EDT Yasmani Valverde MD 08/27/2025 3:17 PM Critical Care Performed by: Portillo Donohue DO Authorized by: Portillo Donohue DO ?? Critical care provider statement: ??Critical care time (minutes): ??35 ??Critical care time was exclusive of: ??Separately billable procedures and treating other patients ??Critical care was necessary to treat or prevent imminent or life-threatening deterioration of the following conditions: ??Respiratory failure and metabolic crisis ??Critical care was time spent personally by me on the following activities: ??Development of treatment plan with patient or surrogate, evaluation of patient's response to treatment, examination of patient, interpretation of cardiac output measurements, obtaining history from patient or surrogate, ordering and performing treatments and interventions, ordering and review of laboratory studies, ordering and review of radiographic studies, pulse oximetry, re-evaluation of patient's condition and review of old charts ??I assumed direction of critical care for this patient from another provider in my specialty: no ?? Authorizing ProviderResult TypeResult Mikey Donohue DO PROCEDURE/MINOR SURGICAL ORDERABLESFinal Result * ECG 12 lead (08/26/2025 10:22 PM EDT)Specimen (Source)Anatomical Location / LateralityCollection Method / VolumeCollection TimeReceived Time08/26/2025 10:22 PM EDT Narrative TRACEMASTERVUE - 08/26/2025 11:55 PM EDT Authorizing ProviderResult TypeResult Larry Valverde MDECG ORDERABLESFinal ResultPerforming OrganizationAddressCity/State/ZIP CodePhone Number TRACEMASTERVUE documented in this encounter Visit Diagnoses Diagnosis Exacerbation of persistent asthma, unspecified asthma severity- Primary Hypokalemia Hypopotassemia Nausea Nausea alone documented in this encounter Administered Medications Medication OrderMAR ActionAction DateDoseRateSite albuterol (PROVENTIL,VENTOLIN) nebulizer solution 2.5 mg 2.5 mg, nebulization, Once, On Fri08/26/25 at 2220, For 1 dose, Implement INPATIENT/ED Bronchodilator Clinical Practice Guidelines? Yes Given08/26/2025 10:47 PM EDT2.5 mg ipratropium-albuteroL (DUONEB) 0.5 mg-3 mg(2.5 mg base)/3 mL nebulizer solution 3 mL 3 mL, nebulization, Once, On Fri08/26/25 at 2220, For 1 dose, Implement INPATIENT/ED Bronchodilator Clinical Practice Guidelines? Yes Given08/26/2025 10:47 PM EDT3 mL methylPREDNISolone acetate (DEPO-MEDROL) injection 80 mg 80 mg, intramuscular, Once, On Fri08/26/25 at 2220, For 1 dose, Look-alike/sound-alike medication - verify indication for use. May alter blood glucose or insulin requirements. Given08/26/2025 10:43 PM EDT80 mgLeft Deltoid ondansetron (PF) (ZOFRAN) injection 4 mg 4 mg, intravenous, Once, On 08/27/25 at 0227, For 1 dose, Intravenous administration preferred to be given over 2-5 minutes. Given08/27/2025 2:36 AM EDT4 mg potassium bicarbonate (K-LYTE) 25 MEQ disintegrating tablet 50 mEq 50 mEq, oral, Once, On 08/27/25 at 0103, For 1 dose, Dissolve completely in 3-4 ounces of cold water or juice. Do not open until time of use. Given08/27/2025 1:11 AM EDT50 mEq potassium chloride IVPB 10 mEq/100 mL in water (0.1 mEq/mL premix) 10 mEq, intravenous, at 100 mL/hr, Administer over 60 Minutes, Every 1 hour, First dose on 08/27/25 at 0103, For 5 doses, VESICANT (YELLOW) Infuse each 10 mEq over a minimum of 1 hour. Rate/Dose Futrwl57/ 2:40 AM EDT75 mL/hrNew Bag08/27/2025 2:40 AM EDT10 sSg859 mL/hrRate/Dose Cqznfz8908/27/2025 2:00 AM EDT75 mL/hrdocumented in this encounter Active and Recently Administered Medications Times are shown in EDT.Medication Order albuterol (PROVENTIL,VENTOLIN) nebulizer solution 2.5 mg (COMPLETED) 2.5 mg, nebulization, Once, On Fri08/26/25 at 2220, For 1 dose, Implement INPATIENT/ED Bronchodilator Clinical Practice Guidelines? Yes * 2247 (Given - Provider: Bess Dudley RCP) ipratropium-albuteroL (DUONEB) 0.5 mg-3 mg(2.5 mg base)/3 mL nebulizer solution 3 mL (COMPLETED) 3 mL, nebulization, Once, On Fri08/26/25 at 2220, For 1 dose, Implement INPATIENT/ED Bronchodilator Clinical Practice Guidelines? Yes * 2247 (Given - Provider: Bess Dudley RCP) methylPREDNISolone acetate (DEPO-MEDROL) injection 80 mg (COMPLETED) 80 mg, intramuscular, Once, On Fri08/26/25 at 2220, For 1 dose, Look-alike/sound-alike medication - verify indication for use. May alter blood glucose or insulin requirements. * 2243 (Given - Provider: Phyllis Coreas RN) ondansetron (PF) (ZOFRAN) injection 4 mg (COMPLETED) 4 mg, intravenous, Once, On 08/27/25 at 0227, For 1 dose, Intravenous administration preferred to be given over 2-5 minutes. * 0236 (Given - Provider: Lilibeth Lofton RN) potassium bicarbonate (K-LYTE) 25 MEQ disintegrating tablet 50 mEq (COMPLETED) 50 mEq, oral, Once, On 08/27/25 at 0103, For 1 dose, Dissolve completely in 3-4 ounces of cold water or juice. Do not open until time of use. * 0111 (Given - Provider: Lilibeth Lofton RN) potassium chloride IVPB 10 mEq/100 mL in water (0.1 mEq/mL premix) 10 mEq, intravenous, at 100 mL/hr, Administer over 60 Minutes, Every 1 hour, First dose on 08/27/25 at 0103, For 5 doses, VESICANT (YELLOW) Infuse each 10 mEq over a minimum of 1 hour. * 0122 (New Bag - Provider: Lilibeth Lofton, SHAMA) * 0200 (Rate/Dose Change - Provider: Lilibeth Lofton RN - Comment: for pt tolerance) * 0217 (Stop Bag - Provider: Lilibeth Lofton RN) * 0240 (New Bag - Provider: Lilibeth Lofton RN) * 0240 (Rate/Dose Change - Provider: Lilibeth Lofton RN) * 0300 (Due) * 0400 (Due) * 0404 (Stop Bag - Provider: Lilibeth Lofton RN) documented in this encounter Additional Health Concerns AssessmentNoted TimePHQ-9 Depression Total Score: 4:48 AM EDTA Body Mass Index follow-up plan has been documented for the xaneaqi4912/22/2018 4:00 PM ESTdocumented as of this encounter Care Teams Team MemberRelationshipSpecialtyStart DateEnd Date Conchita Daigle, ORGANIZATIONAL EFFECTIVENESS DIRECTOR-PATIENT SAFETY ATTENDANT [address] [facility], [place] [address] PCP - GeneralFamily Rgtpztbh39/1/24documented as of this encounter
--- OUTSIDE RECORDS SUMMARY | 2025-09-01 11:39 | XMS_ITS | Clinical Summary ---
Author Organization [facility] Address [address] [place] [address] Care Team Providers Care Emanations Analysis Technician Name Role Phone Ronald Moseley MD Primary Care Provider [phone] Allergies Active AllergyReactionsCriticalityNoted DateCommentsDragon FruitAnaphylaxisHigh 09/19/2022Grape NuyugqExdiWxv35/17/2022upropion HclHallucinationsMedium 10/29/2022 Medications MedicationSigDispense QuantityRefillsLast FilledStart DateEnd DateStatus budesonide-formoteroL (Symbicort) 160-4.5 mcg/actuation inhaler Inhale 2 puffs twice a day.Active albuterol 90 mcg/actuation inhaler Inhale 2 puffs every 4 (four) hours if needed.06/03/2017Active etonogestrel-eluting contraceptive 68 mg contraceptive implant 1 Device by implant route 1 (one) time.Active sodium chloride 1 gram tablet Indications:POTS (postural orthostatic tachycardia syndrome)Take 1 tablet (1 g) by mouth with breakfast and with evening meal. Start taking 1 tablet daily. Incr ease to twice daily if needed. 60 tablet ctive sodium chloride flush Indications:POTS (postural orthostatic tachycardia syndrome)Flush port with saline every 4-6 weeks per protocol. 12 mL ctive Additional Information Patient not taking.Reported on 10/11/2024 montelukast (Singulair) 10 mg tablet Take 10 mg by mouth at bedtime.Active ivabradine (Corlanor) 5 mg tablet Indications:POTS (postural orthostatic tachycardia syndrome)Take 1 tablet (5 mg) by mouth in the morning. 90 tablet 5Active midodrine (Proamatine) 5 mg tablet Indications:POTS (postural orthostatic tachycardia syndrome)Take 1 tablet (5 mg) by mouth three times daily. 270 tablet 415Active Active Problems ProblemNoted DateDiagnosed DateHistory of insertion of tunneled central venous catheter (CVC) with port10/29/2022Uncomplicated loonwg9709/19/2022Gastroparesis 09/19/20222128Finptspgq17/17/2022OTS (postural orthostatic tachycardia syndrome) Syncope Family History Medical HistoryRelationNameCommentsCoronary artery diseaseMaternal Grandfather Yemi woodruffHeart attackMaternal GrandfatherWilliamaliha woodruffHeart disease Maternal GrandfatherWilliamaliha woodruffHeart failureMaternal GrandfatherWilliam woodruffCancerMaternal GrandmotherSharon woodruffCoronary artery diseaseMaternal GrandmotherSharon woodruffDiabetes type IMaternal GrandmotherSharon minesh Heart diseaseMaternal GrandmotherSharon woodruffHeart failureMaternal GrandmotherSharon woodruffObesityMaternal GrandmotherSharon woodruffAnemiaMother Autumn swickDepressionMotherAmy swickDiabetes type IIMotherAmy swickLung disease MotherAmy swickObesityMotherAmy swickHypertensionMother's BrotherDenny minesh Lung diseaseMother's BrotherDenny woodruffCancerMother's Sister 1Teri Horan ObesityMother's Sister 1Teri CunninghamObesityMother's Sister 2Linda minesh CancerPaternal GrandmotherMary SwickCoronary artery diseasePaternal Grandmother Gladys SwickDiabetes type IPaternal GrandmotherMary SwickKidney diseasePaternal GrandmotherMary SwickAsthmaSisterKaitie swickCancerSisterKaitie swickClotting disorderSisterKaitie swickDiabetes type IISisterKaitie swickHeart attackSister Mer swickHeart murmurSisterKaitie swickObesitySisterKaitie swickRelationName StatusCommentsMaternal GrandfatherWilliam woodruffMaternal GrandmotherSharon woodruffMotherAmy swickMother's BrotherDenny woodruffMother's Sister 1Teri MerlenehamMother's Sister 2Linda woodruffPaternal GrandmotherMary RyannghiaSister Mertram tineo Social History Tobacco UseTypesPacks/DayYears UsedDateSmoking Tobacco: NeverSmokeless Tobacco: Never Tobacco Cessation:Counseling Given: Not Answered Alcohol UseStandard Drinks/WeekCommentsNot Currently0 (1 standard drink = 0.6 oz pure alcohol)PHQ-2AnswerDate RecordedPatient Health Questionnaire-2 Score0 01/27/2023UT Safety & EnvironmentAnswerDate RecordedFear of Current or Ex-PartnerNot on file12/25/2023Emotionally AbusedNot on file12/25/2023hysically AbusedNot on file12/25/2023Sexually AbusedNot on file12/25/2023hysically or Sexually AbusedNot on file12/25/2023CommentsUnknownSex and Gender InformationValueDate RecordedSex Assigned at BirthNot on fileLegal SexFemale 05/01/2022 10:36 PM EDTGender IdentityNot on fileSexual OrientationNot on file Last Filed Vital Signs Vital SignReadingTime TakenCommentsBlood Gkxrkurj792/7312 10:37 AM EST Pyxop108410/11/2024 10:37 AM JXSPqwvgsxsyyb76.8 ??C (98.2 ??F)06/10/2024 9:33 AM EDTRespiratory Rvqx671311/28/2023 8:54 AM ESTOxygen Snuwmbqweu10%10/11/2024 10:37 AM ESTInhaled Oxygen Concentration--Kainfe802 kg (235 lb)10/11/2024 10:37 AM EST Mpvhvy618.1 cm (5' 5 )10/11/2024 10:37 AM ESTBody Mass Index39.11112/12/2023 10:37 AM EST Plan of Treatment Health MaintenanceDue DateLast DoneCommentsMedicare Annual Wellness (AWV) 1995Depression Cavayfnfb27/31/2008Varicella Vaccines (1 of 2 - 13+ 2-dose series)2008Pneumococcal Vaccine: Pediatrics (0 to 5 Years) and At-Risk Patients (6 to 64 Years) (1 of 2 - PCV)2014Pap Smear2016HPV Vaccines (1 - 3-dose SCDM series)3COVID-19 Vaccine (1 - 2024- season) 2025Influenza Vaccine (#1)501/05/2021, 10/25/2010dult Tetanus /05/2021Zoster Vaccines (1 of 2)2045HIB VaccinesCompleted 03/04/1997, 06/07/1996, 02/23/1996IPV WdndxshkAwqgartbb12/22/2001, 03/04/1997, 06/07/1996, Additional history existsMeningococcal B VaccineAged OutNo longer eligible based on patient's age to complete this topicMeningococcal VaccineAged OutNo longer eligible based on patient's age to complete this topicRotavirus VaccinesAged OutNo longer eligible based on patient's age to complete this topic Insurance Care Teams Team MemberRelationshipSpecialtyStart DateEnd Date Ronald Moseley MD [address] [facility] [address] [address] [facility] [place] [address]/17/22
--- OUTSIDE RECORDS SUMMARY | 2025-09-01 11:39 | XMS_ITS | Encounter Summary ---
Author Organization [facility] Address [address] [place] [address] Care Team Providers Care It Consultant Name Role Phone Unavailable Primary Care Provider Unavailabl e Encounter Details DateTypeDepartmentCare Team (Latest Contact Info)Joskpgmgjdu67/19/2024Clinisync Result Encounter [facility] Unsolicited Cullen Grimes, DO [address] [place] [address] [place] [address] Social History Tobacco UseTypesPacks/DayYears UsedDateSmoking Tobacco: NeverAlcohol UseStandard Drinks/WeekCommentsNever0 (1 standard drink = 0.6 oz pure alcohol)caffeine: 1-2 cups per dayCommentsNoSex and Gender InformationValueDate RecordedSex Assigned at DyvcyNaieoq06/28/2023 11:31 AM ESTLegal AqeJdzqqx78/15/2023 6:46 PM EDTGender RagmsahrEbeglh60/28/2023 11:31 AM ESTSexual OrientationStraight 10/30/2023 11:31 AM ESTdocumented as of this encounter Plan of Treatment Not on file documented as of this encounter Procedures Procedure NamePriorityDate/TimeAssociated DiagnosisCommentsUS PELVIS W/ NLAUKBZSAWWH06/19/2024 2:57 PM EST documented in this encounter Results * US PELVIS W/ TRANSVAGINAL (12/22/2023 2:57 PM EST)Anatomical RegionLaterality ModalityOtherSpecimen (Source)Anatomical Location / LateralityCollection Method / VolumeCollection TimeReceived Time12/22/2023 2:57 PM EST Narrative 12/22/2023 2:59 PM EST [facility] ?[address] ? [place], [facility] ? Ultrasound Report ? Signed ? Patient: ANNE MARIE GALEANO ?MR#: [id number] ?? : 1995 ?Acct:[id number] ?? Age/Sex: 28 / F ?ADM Date: 12/22/23 ?? Loc: US ? Attending Dr: Cullen Grimes D.O. ? Ordering Physician: Culeln Grimes D.O. ?? Date of Service: 12/22/23 ?? Procedure(s): US pelvis w/ transvaginal ?? Accession Number(s): [id number] ? cc: PRISCA VARGAS ; Cullen Grimes D.O. ? [facility] ? [address] [facility] ? [place] [address] ? Patient Name: ?? ANNE MARIE Martine DEARSREN ? MRN: [facility]:[id number] ? date: 1995 ?Sex: F ?? Assigned Patient Location: US ?? Current Patient Location: US ?? Accession/Order Number: [id number] ?? Exam Date: 12/22/2023 ??14:00 ?Report Date: 12/22/2023 ??14:57 ? At the request of: ?? CULLEN ??CORNELIO ? Procedure: ??US pelvis w/ transvaginal ? EXAMINATION: US pelvis w/ transvaginal ? HISTORY: abnormal uterine bleeding N93.9 , pelvic pain. ? COMPARISON: No relevant comparison available. ? TECHNIQUE: Transabdominal and/or transvaginal sonographic examination was ?? performed as indicated by examination type. ? FINDINGS: ?? UTERUS: Normal size and appearance. Uterus size: 9.3 x 5.4 x 4.5 cm ?? ENDOMETRIUM: Normal homogeneous appearance. Endometrial thickness: 3 mm ? RIGHT OVARY: Normal size and appearance. Duplex Doppler demonstrates normal ?? waveform and flow; resistive index 0.6. Ovary size: 3.1 x 2.2 x 2.0 cm ? LEFT OVARY: Contains a prominent follicle versus benign-appearing 1.7 cm ?? simple ?? cyst. Duplex Doppler demonstrates normal waveform and flow; resistive index ?? 0.6. Ovary size: 2.3 x 2.8 x 2.1 cm ? CUL-DE-SAC: Unremarkable. No significant free fluid. ?? BLADDER: Unremarkable. ?? OTHER: None. ? US/US pelvis w/ transvaginal ?? IMPRESSION: ? 1. No abnormal or suspicious findings to account for patient's symptoms. ? Electronically authenticated by: YASMANI ??ANDRESSA ?? Date: 12/22/2023 ??14:57 ? Dictated By: ?Yasmani Clay M.D. ? Signed By: ?12/22/23 1459 ? DD/ 1457 ? TD/TT: ? Colorist Formulator: Procedure Note Radiology, Radiologist, MD - 12/22/2023 [place] [address] Ultrasound Report Signed Patient: ANNE MARIE GALEANO [facility]#: [id number] : 1995Acct:[id number] Age/Sex: 28 / FADM Date: 12/22/23 Loc: US Attending Dr: Cullen Grimes D.O. Ordering Physician: Cullen Grimes D.O. Date of Service: 12/22/23 Procedure(s): US pelvis w/ transvaginal Accession Number(s): [id number] cc: PRISCA VARGAS ; Cullen Grimes D.O. [facility] [place] [id number] Patient Name: ANNE MARIE GALEANO MRN: [id number] date: 1995 Sex: F Assigned Patient Location: US Current Patient Location: US Accession/Order Number: [id number] Exam Date: 12/22/2023 14:00 Report Date: 12/22/2023 14:57 At the request of: CULLEN GRIMES Procedure: US pelvis w/ transvaginal EXAMINATION: US pelvis w/ transvaginal HISTORY: abnormal uterine bleeding N93.9 , pelvic pain. COMPARISON: No relevant comparison available. TECHNIQUE: Transabdominal and/or transvaginal sonographic examination was performed as indicated by examination type. FINDINGS: UTERUS: Normal size and appearance. Uterus size: 9.3 x 5.4 x 4.5 cm ENDOMETRIUM: Normal homogeneous appearance. Endometrial thickness: 3 mm RIGHT OVARY: Normal size and appearance. Duplex Doppler demonstratesnormal waveform and flow; resistive index 0.6. Ovary size: 3.1 x 2.2 x 2.0 cm LEFT OVARY: Contains a prominent follicle versus benign-appearing 1.7 cm simple cyst. Duplex Doppler demonstrates normal waveform and flow; resistiveindex 0.6. Ovary size: 2.3 x 2.8 x 2.1 cm CUL-DE-SAC: Unremarkable. No significant free fluid. BLADDER: Unremarkable. OTHER: None. US/US pelvis w/ transvaginal IMPRESSION: 1. No abnormal or suspicious findings to account for patient's symptoms. Electronically authenticated by: YASMANI CLAY Date: 12/22/2023 14:57 Dictated By: Yasmani Clay M.D. Signed By:12/22/23 1459 DD/ 1457 TD/TT: Colorist Formulator: Authorizing ProviderResult TypeResult StatusCorey Corenlio DOCLINISYNC IMAGINGFinal Result documented in this encounter Visit Diagnoses Not on filedocumented in this encounter
--- OUTSIDE RECORDS SUMMARY | 2025-09-01 11:40 | XMS_ITS | Clinical Summary ---
Author Organization [employer] Address [id number] [address] 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 ALBUTEROL SULFATE HFA SUBSTITUTE 06/03/2017Active montelukast (SINGULAIR) 10 mg tablet Take 1 tablet (10 mg total) by mouth nightly.08/08/2017Active PNV no.95/ferrous fum/folic ac ( ORAL) Take 1 tablet by mouth.Active budesonide (PULMICORT) 180 mcg/actuation inhaler Inhale 1 puff 2 (two) times a day.Active lancets (onetouch ultrasoft) [facility] Indications:Abnormal glucose tolerance test in pregnancyCheck 4x day: fasting, 1 hour after each meal 100 each 11/29/2020ctive Additional Information Patient not taking.Reported on 08/15/2022 blood-glucose meter (glucose monitoring kit) kit Indications:Abnormal glucose tolerance test in pregnancyUse as instructed 1 each 11/29/2020ctive Additional Information Patient not taking.Reported on 08/15/2022 docusate sodium (COLACE) 100 mg capsule Take 1 capsule (100 mg total) by mouth 2 (two) times a day. 60 capsule ctive Additional Information Patient not taking.Reported on 08/15/2022 calcium carbonate (TUMS) 200 mg (500 mg) chewable tablet Chew 1 tablet and swallow in the morning.Active famotidine (PEPCID) 20 mg tablet Take 1 tablet (20 mg total) by mouth 2 (two) times a day. 30 tablet ctive Additional Information Patient not taking.Reported on 08/15/2022 midodrine (PROAMATINE) 10 mg tablet Indications:POTS (postural orthostatic tachycardia syndrome)Take 1 tablet (10 mg total) by mouth 3 (three) times a day. 90 tablet ctive Additional Information Patient taking differently:10 mg oral2 times daily, Reported on 05/12/2023 budesonide-formoteroL (SYMBICORT) 160-4.5 mcg/actuation inhaler Inhale 2 puffs in the morning and 2 puffs before bedtime.Active ibuprofen (ADVIL,MOTRIN) 800 mg tablet Take 1 tablet (800 mg total) by mouth every 8 (eight) hours as needed (cramping). 90 tablet 01/20/2021ctive Additional Information Patient not taking.Reported on 08/15/2022 dicloxacillin (DYNAPEN) 500 mg capsule dicloxacillin 500 mg capsule take 1 capsule by mouth every 6 hoursActive CORLANOR 5 mg tablet tablet 1 tablet (5 mg total).Active dicyclomine (BENTYL) 20 mg tablet Take 1 tablet (20 mg total) by mouth every 6 (six) hours as needed (abdominal pain). 20 tablet 3Active cyclobenzaprine (FLEXERIL) 10 mg tablet Indications:Strain of left shoulder, initial encounterTake 1 tablet (10 mg total) by mouth 2 (two) times a day as needed for muscle spasms. 10 tablet 4Active ibuprofen (MOTRIN) 800 mg tablet Take 1 tablet (800 mg total) by mouth 3 (three) times a day. 30 tablet 5Active albuterol (PROVENTIL,VENTOLIN) 2.5 mg /3 mL (0.083 %) nebulizer solution Indications:Exacerbation of persistent asthma, unspecified asthma severityInhale 3 mL (2.5 mg total) by nebulization every 6 (six) hours as needed for wheezing. 75 mL 5Active predniSONE (DELTASONE) 20 mg tablet Take 2 tablets (40 mg total) by mouth in the morning for 5 days. 10 tablet /5Active ondansetron ODT (ZOFRAN ODT) 4 mg disintegrating tablet Indications:NauseaDissolve 1 tablet (4 mg total) on tongue every 8 (eight) hours as needed for nausea for up to 10 doses. 10 tablet 5Active ondansetron ODT (ZOFRAN ODT) 4 mg disintegrating tablet Dissolve 1 tablet (4 mg total) on tongue every 8 (eight) hours as needed for nausea for up to 10 doses. 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 Hurtado (GI, [facility]) Port-A-Cath in place11/09/2020kin ntumnelc12/19/8425Bcvrfqwf26/16/2018POTS (postural orthostatic tachycardia syndrome)08/15/2017 Overview (01/03/2021): Followed by transitions manager rn Receiving IV saline infusions 2-3 X/week (has PortACath) 11/2020 Restarted midodrine - takes 10mg PO TID Assessment & Plan (10/12/2020 12:59 PM EST): Pt with longstanding history of POTS. Receiving iv infusion twice weekly (Friday, ). She had been taking minodrine 10 mg tid prior to but was told by cardiology COOK'S ASSISTANT to stop all meds.Pt reports syncopal episodes by day 3 after the infusion. I had a long discussion with the patient and her partner -- POTS is a form of orthostatic intolerance characterized by an increased heart rate upon transition from supine to standing, and head-up tilt without orthostatic hypotension. Management includes volume expansion, physical counter maneuvers,and pharmacological agents such as fludrocortisone, midodrine, propranolol, and pyridostigmine. Although the course of POTS in is variable and POTS has not been directly implicated in any adverse outcomes for the mother or fetus, Anne Marie 's syncopal episodes are a danger to her. Please note that in addition to volume expansion, Anne Marie can take midodrine. This medication has worked for her inthe past and should be restarted (I have sent in a prescription). I would also suggest that Anne Marie increase her infusions from twice to three times weekly. I suggest Anne Marie start at a low dose of midodrine 2.5 mg po tid. She will require a BP check during the first week. If she tolerates this dose, then her dose can be increased to 5 mg tid during week 2 and then 10 mg tid week 3 (max dose). Sycwvrq3407/23/2017 Overview (01/03/2021): Was on buspar and amitriptyline prior to Declines prescription for zoloft at this time Vcjzovn7507/23/20173595Oppysouyae70/20/0451Vjzmvc35/20/2017 Overview (01/03/2021): Stable on singulair, twice daily steroid inhaler, and proair prn - only uses rescue once a week Resolved Problems ProblemNoted DateDiagnosed DateResolved DateIntrauterine kxklublex19/18/2021 01/30/2021renatal care in third gjjtykmqj74/ Overview (01/10/2021): Transfer of care from Dr. Hilario Dated by 11 week US with EDC 01/15/2021 Quad low risk labs Negative: HIV/Syphilis/HepBSAg/Hep C Pap/GC/Chlamycia Positive: Rubella, Varicella Normal: Hb Electrophoresis TSH 1.58 on 06/15/2020 Per MFM: growth scans and follow-up neck every 4 weeks after 28 weeks 11/09/2020 30w3d EFW 76% AC 82% 01/03/21: cephalic, post placenta, EFW 3741g (86th%), AC >99th%, CORNELIUS 15cm GBS negative S/p week of BG logs in 12/24 - reviewed and noted to pass Rh negative state in antepartum / Overview (11/14/2020): Rec'd Rhogam 11/09/2020 at [facility] (30 weeks) Encounters DateTypeDepartmentCare KynwHsmmvplchqv65/24/2025 10:16 PM EDT - 08/27/2025 4:26 AM EDTEmergency [facility] [address] [place] [phone] Yasmani Valverde MD Exacerbation of persistent asthma, unspecified asthma severity (Primary Dx); Hypokalemia; Nausea Discharge Disposition: Home08/26/2025Travelfrom Last 3 Months Immunizations ImmunizationAdministration DatesNext DueInfluenza, Injectable, quadrivalent (PF) 11/09/2020ho (D) Immune Xitidacm90/07/7975Ebqg53/07/2021 Family History Medical HistoryRelationNameCommentsColon polypsFatherHeart diseaseMaternal GrandfatherColon polypsMaternal GrandmotherHeart diseaseMaternal Grandmother Anxiety disorderMotherAsthmaMotherDepressionMotherFibromyalgiaMotherCancer Paternal GrandmotherbreastHeart diseasePaternal GrandmotherAnxiety disorder SisterAsthmaSisterDepressionSisterHeart diseaseSisterresolved after gastric bypass per patient. Hole in heart as babyHypertensionSisterSleep apneaSister RelationNameStatusCommentsFatherAliveMaternal GrandfatherMaternal Grandmother MotherAlivePaternal GrandmotherDeceasedSisterAlive Social History Tobacco UseTypesPacks/DayYears UsedDateSmoking Tobacco: NeverSmokeless Tobacco: NeverAlcohol UseStandard Drinks/WeekCommentsNo0 (1 standard drink = 0.6 oz pure alcohol)AUDIT-CAnswerDate RecordedFrequency of Alcohol ConsumptionNever 10/15/2018Average Number of DrinksNot on file10/15/2018Frequency of Binge DrinkingNot on file10/15/2018Overall Financial Resource Strain (CARDIA)Answer Date RecordedHow hard is it for you to pay for the very basics like food, housing, medical care, and heating?Patient lvitgpha49/24/2023HQ-2AnswerDate RecordedTotal Ojckz6801PRAPARE - TransportationAnswerDate RecordedIn the past 12 months, has lack of transportation kept you from medical appointments or from getting medications?Patient xsdqfetm88/24/2023In the past 12 months, has lack of transportation kept you from meetings, work, or from getting things needed for daily living?Patient ozazhnzj64/24/2023Edinburgh Depression ScaleAnswerDate RecordedEdinburgh Depression Scale Isrwi27501/30/2021The thought of harming myself has occurred to me.Never01/30/2021Housing Instability AnswerDate RecordedAre you worried or concerned that in the next two months you may not have stable housing that you own, rent or stay in as a part of a household?No03/26/2023hildcareAnswerDate YnzcsyulPxypwobzgIovpsrd20/31/2019 EmploymentAnswerDate ZkehdbtmSsoihbxgpbNztcfic27/31/2019Hunger ScreeningAnswer Date RecordedWithin the past 12 months we worried whether our food would run out before we got money to buy more.Never True08/26/2025Within the past 12 months the food we bought just didn't last and we didn't have money to get more.Never True08/26/2025Purpose - LifeAnswerDate RecordedPurpose and direction in life Zypogcl82/12/2021CommentsNoSex and Gender InformationValueDate Recorded Sex Assigned at FepfqByxlhr20/21/2021 8:55 AM ESTLegal TpiZzfica81/06/2015 12:05 PM EDTGender UlrpoadpWescfd10/21/2021 8:55 AM ESTSexual OrientationStraight 10/23/2021 8:55 AM EST Last Filed Vital Signs Vital SignReadingTime TakenCommentsBlood Rijawaln130/511 4:15 AM EDT Kbuii437808/27/2025 4:15 AM ZDGLqljbihjxss95.6 ??C (97.8 ??F)08/26/2025 10:19 PM EDTRespiratory Rjlv4164 4:15 AM EDTOxygen Ckprnhdyyi79%08/27/2025 4:15 AM EDTInhaled Oxygen Concentration--Amhoxk699.6 kg (235 lb)08/26/2025 10:19 PM FAYAcgpsu217.1 cm (5' 5 )08/26/2025 10:19 PM EDTBody Mass Index39.111 10:19 PM EDT Plan of Treatment Health MaintenanceDue DateLast DoneCommentsAdult BMI Follow Up Plan2013 Depression Dxdkpgeoa55/1Pap Smear/Influenza Myjbgsz05/05/2021, 10/25/2010dult BMI Zyfjrarlt53/ Tobacco Fyqeifkle20DTaP,Tdap and Td Vaccines (7 - Td or Tdap) /05/2021, 06/24/2001, 08/05/1997, Additional history exists Medical Devices ImplantedTypeAreaManufacturerDevice IdentifierShelf Expiration DateModel / Serial / LotPortPortPort Power Mri W/Open Ended 8f R Plstc Ca - Sna - [id number] Implanted:Qty: 1 on 10/21/2018 [facility]: NeckBard Peripheral Rlqagsvo13/31/[id number] / NA / [id number]-84/19/2018 Implanted:Qty: 1 on 10/21/2018PortLeft: Chest Procedures Procedure NamePriorityDate/TimeAssociated DiagnosisCommentsMAGNESIUMSTAT Add-on 08/27/2025 1:02 AM EDT XVPGFJIENBAIQ24/25/2025 1:02 AM EDT TROP I, HIGH SENSITIVITY 1 FMZKXPRD16/25/2025 1:02 AM EDT TROPONIN I, HIGH SENSITIVITY 0 IUKNDUAC31/24/2025 11:30 PM EDT TROPONIN I, HIGH SENSITIVITY 0 QZNAYQLZ83/24/2025 11:30 PM EDT D-GFRJBZEGV00/24/2025 11:30 PM EDT BASIC METABOLIC PXDKRKJOO27/24/2025 11:30 PM EDT CBC WITH AUTO QUWPLVSDHEHSSGCS52/24/2025 11:30 PM EDT XR CHEST 1 QSEFVB4008/26/2025 10:45 PM EDT PM ED CRITICAL TXIDSrzaext44/24/2025 10:31 PM EDT ECG 12-SHYOCCIM65/24/2025 10:22 PM EDT HM PAP GROFKGfyzwhi17/27/2020 from Last 3 Months or Most Recently Relevant to Health Maintenance Results * Troponin I, High Sensitivity 1 Hour (08/27/2025 1:02 AM EDT)ComponentValueRef RangeTest MethodAnalysis TimePerformed AtPathologist SignatureTROPONIN I, HIGH SENSITIVITY<2<16 ng/L1 2:04 AM EDTPROM[facility] Specimen (Source)Anatomical Location / LateralityCollection Method / Volume Collection TimeReceived TimeBloodVenous blood / UnknownVenipuncture / Unknown 08/27/2025 1:02 AM EDT10/ 1:21 AM EDT Narrative Authorizing ProviderResult TypeResult StatusStdudley SON BLOOD ORDERABLES Final ResultPerforming OrganizationAddressty/State/ZIP CodePhone Number [address] [place] [address], [place] * (ABNORMAL) Potassium (08/27/2025 1:02 AM EDT)ComponentValueRef RangeTest MethodAnalysis TimePerformed AtPathologist SignaturePOTASSIUM2.9(L)3.5 - 5.0 mmol/L1 1:52 AM ED[facility] (Source)Anatomical Location / LateralityCollection Method / VolumeCollection TimeReceived TimeBloodVenous blood / UnknownVenipuncture / Hebrqsh0408/27/2025 1:02 AM EDT1 1:21 AM EDT Narrative Authorizing ProviderResult TypeResult StatusDaniel Lazaro Cora DOLAB BLOOD ORDERABLESFinal ResultPerforming OrganizationAddressCity/State/ZIP CodePhone Number [address] [place] [address], [place] * Magnesium (08/27/2025 1:02 AM EDT)ComponentValueRef RangeTest MethodAnalysis TimePerformed AtPathologist SignatureMAGNESIUM1.81.8 - 2.6 mg/dL08/27/2025 1:53 AM [facility] (Source)Anatomical Location / LateralityCollection Method / VolumeCollection TimeReceived Time BloodVenous blood / UnknownVenipuncture / Zeigzsl7208/27/2025 1:02 AM EDT 08/27/2025 1:21 AM EDT Narrative Authorizing ProviderResult TypeResult StatusDaniel Lazaro Cora DOLAB BLOOD ORDERABLESFinal ResultPerforming OrganizationAddressty/State/ZIP CodePhone Number [address] [place] [address], [place] * Troponin I, High Sensitivity 0 Hour (08/26/2025 11:30 PM EDT)ComponentValueRef RangeTest MethodAnalysis TimePerformed AtPathologist SignatureTROPONIN I, HIGH SENSITIVITY2<16 ng/L1 12:32 AM [facility] Specimen (Source)Anatomical Location / LateralityCollection Method / Volume Collection TimeReceived TimeBloodVenous blood / UnknownVenipuncture / Unknown 08/26/2025 11:30 PM EDT1 12:04 AM EDT Narrative Authorizing ProviderResult TypeResult StatusStevjames SON BLOOD ORDERABLES Final ResultPerforming OrganizationAddressCity/State/ZIP CodePhone Number [facility] [address] [place] [address], * CBC auto differential (08/26/2025 11:30 PM EDT)ComponentValueRef RangeTest MethodAnalysis TimePerformed AtPathologist SignatureWBC7.14 - 11 x10E9/L 08/27/2025 12:17 AM [facility] CENTERRBC Count4.473.8 - 5.2 X10E12/L1 12:17 AM [facility] Auqebtzgkb28.611.7 - 15.5 g/dL08/27/2025 12:17 AM [facility] CENTERHematocrit36.535 - 47 %08/27/2025 12:17 AM [facility]ENTERMCV8280 - 100 fL08/27/2025 12:17 AM [facility]ENTERMCH28.127 - 34 pg08/27/2025 12:17 AM [facility]ENTERMCHC34.432 - 36 g/dL08/27/2025 12:17 AM [facility]ENTERRDW13.811.5 - 15 %08/27/2025 12:17 AM [facility] CENTERPlatelet Ciquw545616 - 450 X10E9/L1 12:17 AM [facility] CENTERMPV8.37 - 12 fL08/27/2025 12:17 AM EDT [facility]ITALNeutrophils %43.4%08/27/2025 12:17 AM EDT [facility]ITALLymphocytes %46.8%08/27/2025 12:17 AM EDT [facility]ITALMonocytes %6.7%08/27/2025 12:17 AM EDT [facility] HOSPITALEosinophils %2.8%08/27/2025 12:17 AM EDT [facility]Basophils %0.3%08/27/2025 12:17 AM EDT [facility]ITALNeutrophils Absolute (A)3.11.5 - 6.6 10*3/uL08/27/2025 12:17 AM EDTPMADISON HEALTHLymphocytes Absolute3.31.0 - 3.5 10*3/uL08/27/2025 12:17 AM EDTPCHILDREN'S H[facility] FOR [facility]ABILITATION HOSPITALMonocytes Absolute0.50.0 - 0.9 10*3/uL08/27/2025 12:17 AM EDTPMADISON HEALTHEosinophils Absolute0.20.0 - 0.4 10*3/uL08/27/2025 12:17 AM EDTPMADISON HEALTHBasophils Absolute0.00.0 - 0.2 10*3/uL08/27/2025 12:17 AM [facility]ENTERDifferential TypeAUTOMATED WRZYTCUMZFEO23/25/2025 12:17 AM [facility] (Source)Anatomical Location / LateralityCollection Method / VolumeCollection TimeReceived TimeBloodVenous blood / UnknownVenipuncture / Xgiwezz0808/26/2025 11:30 PM EDT1 12:04 AM EDT Narrative Authorizing ProviderResult TypeResult StatusSteven Kj Valverde MDLAB BLOOD ORDERABLES Final ResultPerforming OrganizationAddressCity/State/ZIP CodePhone Number [facility] [address] [place] [address], [place] * D-Dimer (08/26/2025 11:30 PM EDT)ComponentValueRef RangeTest MethodAnalysis TimePerformed AtPathologist SignatureD DIMER<1501 - 255 ng/mL08/27/2025 12:31 AM [facility] CENTERComment:Results <255 ng/mL DDU: The presensence of a VTE can safely be excluded with a negative D-Dimer result and Wells score. A negative result doesn't exclude the possibility of DIC. The test should berepeated along with other diagnostic tests if the patient's symptoms persist or worsen.Specimen (Source)Anatomical Location / Laterality Collection Method / VolumeCollection TimeReceived TimeBloodVenous blood / UnknownVenipuncture / Dlinonh4008/26/2025 11:30 PM EDT1 12:04 AM EDT Narrative Authorizing ProviderResult TypeResult StatusStevjames SON BLOOD ORDERABLES Final ResultPerforming OrganizationAddressCity/State/ZIP CodePhone Number [facility] [address] [place] [address], * (ABNORMAL) Basic Metabolic Panel (08/26/2025 11:30 PM EDT)ComponentValueRef RangeTest MethodAnalysis TimePerformed AtPathologist BkeibzfkkSWUVFH282688 - 146 mmol/L1 12:34 AM [facility] CENTERPOTASSIUM 2.4(LL)3.5 - 5.0 mmol/L1 12:34 AM [facility] CENTERCHLORIDE10298 - 109 mmol/L1 12:34 AM [facility] CENTERCARBON YFHGCVC8313 - 32 mmol/L1 12:34 AM EDT [facility]ITALANION IDF760 - 15 mmol/L1 12:34 AM [facility] CENTERBLOOD UREA KXHDOCKO42 - 23 mg/dL 08/27/2025 12:34 AM [facility] CENTERCREATININE0.820.40 - 1.00 mg/dL08/27/2025 12:34 AM [facility] CENTERComment: METHOD TRACEABLE TO IDMS DIOKXAIFPBSTASD333(H)65 - 99 mg/dL08/27/2025 12:34 AM [facility] CENTERCALCIUM9.78.5 - 10.5 mg/dL08/27/2025 12:34 AM [facility] CENTEREGFR Non-Race Dependent>90>=60 ml/min/1.73sq.m1 12:34 AM [facility] Comment: Reported eGFR is based on the CKD-EPI 2020 equation that does not use a race coefficient. Specimen (Source)Anatomical Location / LateralityCollection Method / Volume Collection TimeReceived TimeBloodVenous blood / UnknownVenipuncture / Unknown 08/26/2025 11:30 PM EDT1 12:04 AM EDT Narrative Authorizing ProviderResult TypeResult StatusStevjames SON BLOOD ORDERABLES Final ResultPerforming OrganizationAddressCity/State/ZIP CodePhone Number [place] [phone] [facility] [place] [address], * X-ray chest 1 view (08/26/2025 10:45 [...] on 08/26/2025 10:47 PM Authorizing ProviderResult TypeResult StatusStdudley BARCENAS DIAGNOSTIC IMAGING ORDERABLESFinal Result * Critical Care (08/26/2025 10:31 PM EDT) Yasmani Leblanc MD - 08/26/2025 10:31 PM EDT Yasmani Valverde MD 08/27/2025 3:17 PM Critical Care Performed by: Portillo Shepherd DO Authorized by: Portillo Shepherd DO ?? Critical care provider statement: ??Critical [...] specialty: no ?? Authorizing ProviderResult TypeResult Mikey Shepherd DO PROCEDURE/MINOR SURGICAL ORDERABLESFinal Result * ECG 12 lead (08/26/2025 10:22 PM EDT)Specimen (Source)Anatomical Location / LateralityCollection Method / VolumeCollection TimeReceived Time08/26/2025 10:22 PM EDT Narrative [facility] - 08/26/2025 11:55 PM EDT Authorizing ProviderResult TypeResult StatusSteven Kj Valverde MDECG ORDERABLESFinal ResultPerforming OrganizationAddressCity/State/ZIP CodePhone Number [facility] * HM PAP SMEAR (06/29/2020)ComponentValueRef RangeTest MethodAnalysis Time Performed AtPathologist SignatureHM Pap smearNEGATIVEMANUALLY TRANSCRIBED RESULTS Narrative Authorizing ProviderResult TypeResult StatusOrders Support User Transcribe HEALTH MAINTENANCEFinal ResultPerforming OrganizationAddressCity/State/ZIP Code Phone Number MANUALLY TRANSCRIBED RESULTS from Last 3 Months or Most Recently Relevant to Health Maintenance Insurance Advance Directives * Full Code (Latest Code Status on File) Date ActivatedDate InactivatedComments01/18/2021 5:05 AM01/20/2021 6:33 PM Care Teams Team MemberRelationshipSpecialtyStart DateEnd Date Conchita Daigle, LEHR LOADER-MILK ROUTE SUPERVISOR [address] [place] [address] PCP - GeneralFamily Pcbdeezc34/1/24
--- OUTSIDE RECORDS SUMMARY | 2025-09-01 11:40 | XMS_ITS | Encounter Summary ---
Author Organization [employer] s tem Address [id number] [address] [place] [address] Care Team Providers Care Equipment Records Supervisor Name Role Phone OxanaConchita Delia ARROYO-WEATHERIZATION COORDINATOR Primary Care Provider Encounter Details DateTypeDepartmentCare Team (Latest Contact Info)Wndqtmcedfw96/24/2025Travel Social History Tobacco UseTypesPacks/DayYears UsedDateSmoking Tobacco: NeverSmokeless Tobacco: NeverAlcohol UseStandard Drinks/WeekCommentsNo0 (1 standard drink = 0.6 oz pure alcohol)AUDIT-CAnswerDate RecordedFrequency of Alcohol ConsumptionNever 10/15/2018Average Number of DrinksNot on file10/15/2018Frequency of Binge DrinkingNot on file10/15/2018Overall Financial Resource Strain (CARDIA)Answer Date RecordedHow hard is it for you to pay for the very basics like food, housing, medical care, and heating?Patient yfluooyy89/24/2023HQ-2AnswerDate RecordedTotal Zjitm4691PRAPARE - TransportationAnswerDate RecordedIn the past 12 months, has lack of transportation kept you from medical appointments or from getting medications?Patient /24/2023In the past 12 months, has lack of transportation kept you from meetings, work, or from getting things needed for daily living?Patient akphyyhh79/24/2023Edinburgh Depression ScaleAnswerDate RecordedEdinburgh Depression Scale Fadgh60401/30/2021The thought of harming myself has occurred to me.Never01/30/2021Housing Instability AnswerDate RecordedAre you worried or concerned that in the next two months you may not have stable housing that you own, rent or stay in as a part of a household?No3ChildcareAnswerDate IrtpwopkHddaqyuzdOtytdng04/31/2019 EmploymentAnswerDate ZdafpdfsEylefgplacRgdwdlr45/31/2019Hunger ScreeningAnswer Date RecordedWithin the past 12 months we worried whether our food would run out before we got money to buy more.Never True08/26/2025Within the past 12 months the food we bought just didn't last and we didn't have money to get more.Never True08/26/2025Purpose - LifeAnswerDate RecordedPurpose and direction in life Ilcajxg06/12/2021CommentsNoSex and Gender InformationValueDate Recorded Sex Assigned at TnjkaOqlbnz57/21/2021 8:55 AM ESTLegal KgwTdhgyv68/06/2015 12:05 PM EDTGender WwfqexaoBjkezx86/21/2021 8:55 AM ESTSexual OrientationStraight 10/23/2021 8:55 AM ESTdocumented as of this encounter Plan of Treatment Not on file documented as of this encounter Visit Diagnoses Not on filedocumented in this encounter Additional Health Concerns AssessmentNoted TimePHQ-9 Depression Total Score: 4:48 AM EDTA Body Mass Index follow-up plan has been documented for the aaedrot3212/22/2018 4:00 PM ESTdocumented as of this encounter Care Teams Team MemberRelationshipSpecialtyStart DateEnd Date Conchita Daigle, MOTOR COACH OPERATOR-WEATHERIZATION COORDINATOR [address] [facility] [place] [address] PCP - GeneralFamily Aqimyknq22/1/24documented as of this encounter
--- OUTSIDE RECORDS SUMMARY | 2025-09-01 11:40 | XMS_ITS | Clinical Summary ---
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 Medications MedicationSigDispense QuantityRefillsLast FilledStart DateEnd DateStatus budesonide-formoterol (Symbicort) 160-4.5 MCG/ACT inhaler Inhale 2 puffs in the morning and 2 puffs in the evening.Active albuterol (ProAir RespiClick) 90 mcg/act breath-activated inhaler Active Corlanor 5 MG tablet 5 mg02/27/2023ctive midodrine (Proamatine) 10 MG tablet Twice daily02/27/2023ctive montelukast (Singulair) 10 MG tablet Take 10 mg by mouth DailyActive Enskyce 0.15-30 MG-MCG tablet Indications:Irregular menstrual bleedingTAKE 1 TABLET BY MOUTH ONCE DAILY FOR 28 DAYS 28 tablet 5ActiveHospital, Clinic, or Other Facility Administered Medication Ordered DoseRouteFrequencyStart DateEnd DateStatus etonogestrel-eluting 68 mg contraceptive implant 1 each Indications:Encounter for removal of etonogestrel implant1 eachILContinuous /ctive Encounters DateTypeDepartmentCare GvheSjxlpwtclqt45/16/2025Refill [facility] [address] [place] [address] Ed Grimes, Irregular menstrual /25/2025 2:20 PM EDTOffice Visit [facility] [address] [place] [address] Ed Grimes DO Vaginal cyst; HSV infection; Irregular menstrual mbrtkveu32/25/2025amboo flowsheet [facility] [address] [place] [address] Ed Grimes DO 06/25/2025Travelfrom Last 3 Months Family History Medical HistoryRelationNameCommentsAnxiety disorderMotherArthritisMother DepressionMotherRelationNameStatusCommentsFatherAliveMotherAlive Social History Tobacco UseTypesPacks/DayYears UsedDateSmoking Tobacco: Never Tobacco Cessation:Counseling Given: Not Answered Alcohol UseStandard Drinks/WeekCommentsNever0 (1 standard drink = 0.6 oz pure alcohol)caffeine: 1-2 cups per dayCommentsNoSex and Gender Information ValueDate RecordedSex Assigned at TivtnTilesa31/28/2023 11:31 AM ESTLegal Sex Winosc0001/15/2023 6:46 PM EDTGender PrnbbisaTiznok87/28/2023 11:31 AM ESTSexual SwqbmarvqfdRxiqxyvi31/28/2023 11:31 AM EST Last Filed Vital Signs Vital SignReadingTime TakenCommentsBlood Clhipuyo132/7405 1:07 PM EDT Pulse--Temperature--Respiratory Rate--Oxygen Saturation--Inhaled Oxygen Concentration--Lmfnlw108 kg (231 lb 6.4 oz)06/27/2025 2:35 PM EDTHeight--Body Mass Index-- Plan of Treatment Not on file Insurance
--- OUTSIDE RECORDS SUMMARY | 2025-09-01 11:42 | XMS_ITS | CCD ---
Author Organization [facility] [place] [facility] Providers Care Completions Manager Name Role Phone DOMINGO JACOME AM Unavailable Unavailable DOMINGO JACOME AM Unavailable Unavailable GA, KLAUS Unavailable Unavailable GA, KLAUS Unavailable Unavailable ALICIA, CONCHITA Admitting Unavailable CONCHITA VARGAS Attending Unavailable CONCHITA VARGAS Primary Care Unavailable CONCHITA VARGAS Consulting Unavailable ALICIA, CONCHITA Admitting Unavailable CONCHITA VARGAS Attending Unavailable CONCHITA VARGAS Primary Care Unavailable CONCHITA VARGAS Consulting Unavailable NENO INGRAM Consulting Unavailable Conchita Vargas Primary Care Unavailable Asaad, Imad Attending Unavailable Asagloria, Imad Admitting Unavailable MD Willie Monreal Attending Provider BONNIE Vargas Primary Care Provider CONCHITA VARGAS Primary Care Physician Unavailable Primary Care Provider Unavailabl e Orzech, Adele X Attending Unavailable Orzech, Adele X Admitting Unavailable Orzech, Adele X Attending Unavailable Orzech, Adele X Admitting Unavailable Orzech, Adele X Attending Unavailable Orzech, Adele X Attending Unavailable Orzech, Adele X Admitting Unavailable MICHAEL, KEVIN Referring Unavailable LOLA MATTHEW Attending Unavailable SURINDER GARLAND Attending Unavailable KEVIN RODRIGUEZ Attending Unavailable Conchita Kenney Primary Care Provider JALIL MENDOZA Referring Unavailable ALICIA, CONCHITA S Primary Care Unavailable ED GRIMES Attending Unavailable Orzech, Adele X Attending Unavailable Orzech, Adele X Admitting Unavailable CONCHITA VARGAS S Primary Care Unavailable NORBERTO SKELTON Attending Unavailable ALICIA, CONCHITA S Primary Care Unavailable KAMINI HERNÁNDEZ Referring Unavailable ALICIA, CONCHITA S Primary Care Unavailable KAMINI HERNÁNDEZ Referring Unavailable CONCHITA VARGAS Primary Care Unavailable CONCHITA VARGAS Primary Care Unavailable FITZ GAXIOLA Attending Unavailable Allergies Allergy ClassificationReported Allergen(s)Allergy TypeDate of OnsetReaction(s) Facility (1 source)grape extractDrug AllergyKeenan Private Hospital Repository (2 sources)grape flavor; Translations: [GRAPE FLAVOR]Allergy to substance 06-18-6745ZdfbzGqmrdhsitAshtabula [facility] Hospital (2 sources)dragon fruit; Translations: [DRAGON FRUIT]Allergy to substance 91-57-4334DfkkfzjqsniIvjtsabdiTrinity Health [facility] (6 sources)buPROPionDrug Umtslcl65-35-9481MwygvfazeygxmbUAKP Healthcare (5 sources)Flavoring AgentPropensity to adverse ypfztnnbw40-00-2416MugzeNorth [facility] Hospital (2 sources)No Known Medication Allergies; Translations: [No Known Medication Allergies]Propensity to adverse reactions (disorder)[facility] Repository (1 source)buPROPion; Translations: [BUPROPION HCL]Drug Cvpcgbp99-13-6113 [facility] Repository (5 sources)Grape Flavoring; Translations: [GRAPE FLAVORING]Propensity to adverse reactions to hlmg06-03-4956FtlzqVCU Health Community [facility] (4 sources)Flavoring Agent (Non-Screening)Propensity to adverse reactions 54-65-2797MnfglCenterpoint Medical Center Medications Current Medications MedicationDrug Class(es)DatesSig (Normalized)Sig (Original)[id number] 200 actuat albuterol 0.09 mg/actuat metered dose inhaler (14 sources)beta2-Adrenergic AgonistStart: 92-92-7300ijbx 1 puff(s) by inhalation every six hoursAlbuterol Sulfate Active 2 PUFF INHALATION Q6H February 27, 2023 12:00amStart: 82-15-5614pptg 2 puff(s) by inhalation every four hours as neededPROAIR HFA 90 mcg/actuation inhaler Inhale 2 puffs every 4 (four) hours as needed. ALBUTEROL SULFATE HFA SUBSTITUTE 0 06/03/2017 Activealbuterol (ProAir RespiClick) 90 mcg/act breath-activated inhaler Active End: 57-74-1972fjmc 2 puff(s) by mouth every four hoursalbuterol HFA 90 mcg/act inhaler inhale 2 puffs by mouth and INTO THE LUNGS every 4 hours 06/27/2025 Discontinued (Other)Albuterol (Eqv-ProAir HFA) 90 mcg/inh inhalation aerosol (6 sources)Start: 91-65-8845Bmelctunb (Eqv-ProAir HFA) 90 mcg/inh inhalation aerosol 2 puff(s) Start Date: 11/18/23 Status: OrderedALPRAZolam 0.5 mg oral tablet (2 sources)BenzodiazepineALPRAZolam (Xanax) 0.5 MG tablet alprazolam 0.5 mg tablet 0 Activeamitriptyline hydrochloride 25 mg oral tablet (4 sources)Tricyclic Antidepressanttake 1 tablet by mouth at bedtime amitriptyline (Elavil) 100 MG tablet Take 100 mg by mouth at bedtime 0 Active take 1 tablet by mouth at bedtimeamitriptyline (Elavil) 25 MG tablet Take 25 mg by mouth at bedtime 0 Activeblood-glucose meter (glucose monitoring kit) kit (2 sources)Start: 10-15-9088hyamk-glucose meter (glucose monitoring kit) kit Indications: Abnormal glucose tolerance test in Use as instructed 1 each 0 11/29/2020 [id number] actuat budesonide 0.16 mg/actuat / formoterol fumarate 0.0045 mg/actuat metered dose inhaler (19 sources)Corticosteroid, beta2-Adrenergic AgonistStart: 21-77-8130ihxa 1 puff(s) by inhalation twice dailyBudesonide-Formoterol (Symbicort) 160-4.5 mcg/actuation Hfa Aerosol Inhaler Active 2 PUFF INHALATION Twice daily February 27, 2023 12:00amStart: 09-03-2022 End: 58-27-6623Sbipqldag 160-4.5 MCG/ACT inhaler 09/03/2022 06/27/2025 Discontinued (Other)take 2 puff(s) by inhalation in the morningbudesonide- formoterol (Symbicort) 160-4.5 MCG/ACT inhaler Inhale 2 puffs in the morning and 2 puffsin the evening. Active End: 67-30-7070gpsplerkqp-formoterol (Symbicort) 80-4.5 MCG/ACT inhaler Symbicort 06/27/2025 Discontinued (Other)take 2 puff(s) by inhalation in the morningbudesonide-formoteroL (SYMBICORT) 160-4.5 mcg/actuation inhaler Inhale 2 puffs in the morning and 2puffs before bedtime. 0 Activecalcium carbonate 500 mg chewable tablet (2 sources)calcium carbonate (TUMS) 200 mg (500 mg) chewable tablet Chew 1 tablet and swallow in the morning. 0 Activecalcium carbonate (Tums) 250 mg (venetie ira 100 mg) chewable split tablet (2 sources)take 1 tablet by mouth in the morningcalcium carbonate (Tums) 250 mg (venetie ira 100 mg) chewable split tablet Take 1 tablet by mouth in the morning. 0 Activecephalexin 500 mg oral capsule (2 sources)Cephalosporin AntibacterialStart: 06-27-2025 End: 43-89-1867dukd 1 capsule by mouth in the morning, then take 1 capsule by mouth in the evening, then take 1 capsule by mouth at bedtimecephalexin (Keflex) 500 MG capsule Indications: Vaginal cyst Take 1 capsule (500 mg) by mouth in the morning and 1 capsule (500 mg) in the evening and 1 capsule (500 mg) before bedtime. Do all this for 7 days. 21 capsule 06/27/2025 07/04/2025 Active desogestrel 0.15 mg / ethinyl estradiol 0.03 mg oral tablet (2 sources)Progestin, EstrogenStart: 06-27-2025 End: 89-43-1217ipwb 1 tablet by mouth once daily, then take 1 tablet by mouth once dailydesogestrel-ethinyl estradiol (Apri) 0.15-30 MG-MCG tablet Indications: Irregular menstrual bleeding Take 1 tablet by mouth Daily for 28 days Take 1 tablet by mouth daily 28 tablet 06/27/2025 07/25/2025 Active dicyclomine hydrochloride 20 mg oral tablet (2 sources)AnticholinergicStart: 77-41-0658msgo 1 tablet by mouth every six hours as neededdicyclomine (BENTYL) 20 mg tablet Take 1 tablet (20 mg total) by mouth every 6 (six) hours as needed (abdominal pain). 20 tablet 0 09/27/2023 Activedocusate sodium 100 mg oral capsule (2 sources)Start: 55-12-5650nlny 1 capsule by mouth twice dailydocusate sodium (COLACE) 100 mg capsule Take 1 capsule (100 mg total) by mouth 2 (two) times a day.60 capsule 2 12/20/2020 Activeetonogestrel 68 mg drug implant (8 sources)ProgestinStart: 12-16-2023 End: 20-61-0409obnxjxvrlsuk-eluting 68 mg contraceptive implant 1 eachfamotidine 20 mg oral tablet (2 sources)Histamine-2 Receptor AntagonistStart: 96-47-3036ndhr 1 tablet by mouth twice dailyfamotidine (PEPCID) 20 mg tablet Take 1 tablet (20 mg total) by mouth 2 (two) times a day. 30 tablet 1 12/28/2020 Activeibuprofen 800 mg oral tablet (5 sources)Nonsteroidal Anti-inflammatory DrugStart: 01-20-2021 End: 44-27-0983kvhr 1 tablet by mouth every eight hours as neededibuprofen (ADVIL,MOTRIN) 800 mg tablet Take 1 tablet (800 mg total) by mouth every 8 (eight) hours as needed (cramping). 90 tablet 0 01/20/2021 Activeivabradine 5 mg oral tablet (12 sources)Hyperpolarization-activated Cyclic Nucleotide-gated Channel [place] Start: 43-77-4581Errahndr 5 MG tablet 5 mg 02/27/2023 Activemidodrine hydrochloride 5 mg oral tablet (12 sources)alpha-Adrenergic AgonistStart: 06-73-8484grff 1 mg by mouth twice dailymidodrine 5 mg Tab mg tab(s), Oral, BID Start Date: 11/18/23 Status: Ordered Start: 64-13-7887gwohrfjvy (Proamatine) 10 MG tablet Twice daily 02/27/2023 ActiveStart: 56-25-7684tfhr 1 dose by mouth once daily at bedtimeMidodrine Active 10 MG PO Twice daily February 27, 2023 12:00am do not give last dose of day after 6PM or within 4 hrs of bedtimeStart: 29-51-1333nnqp 1 tablet by mouth three times dailymidodrine (PROAMATINE) 10 mg tablet Indications: POTS (postural orthostatic tachycardia syndrome) Take 1 tablet (10 mg total) by mouth 3 (three) times a day. 90 tablet 1 01/03/2021 Activemontelukast 10 mg oral tablet (11 sources)Leukotriene Receptor AntagonistStart: 62-05-2171xgsksqnrmfd 10 mg Tab 10 mg = 1 tab(s) Start Date: 11/18/23 Status: Orderedondansetron 4 mg disintegrating oral tablet (2 sources)Serotonin-3 Receptor AntagonistStart: 08-22-0767cmut 1 tablet by mouth every eight hours as needed for nauseaondansetron ODT (ZOFRAN ODT) 4 mg disintegrating tablet Dissolve 1 tablet (4 mg total) on tongue every 8 (eight) hours as needed for nausea for up to 10 doses. 10 tablet 0 09/27/2023 ActivePNV no.95/ferrous fum/folic ac ( ORAL) (2 sources)take 1 tablet by mouth before mealtimePNV no.95/ferrous fum/folic ac ( ORAL) Take 1 tablet by mouth. 0 ActiveSymbicort 160/4.5 inhalation aerosol with adapter (6 sources)Start: 76-87-3951Chxbgcyqq 160/4.5 inhalation aerosol with adapter 2 puff(s) Start Date: 11/18/23 Status: OrderedvalACYclovir 1000 mg oral tablet (2 sources)Herpesvirus Nucleoside Analog DNA Polymerase Inhibitor, Herpes Simplex Virus Nucleoside Analog DNA Polymerase Inhibitor, Herpes Zoster Virus Nucleoside Analog DNA Polymerase InhibitorStart: 06-27-2025 End: 14-60-6776ynjk 1 tablet by mouth in the morningvalACYclovir (Valtrex) 1 g tablet Indications: HSV infection Take 1 tablet (1,000 mg) by mouth in the morning and 1 tablet (1,000 mg) before bedtime. Do all this for 10 days. 20 tablet 06/27/2025 07/07/2025 Active Completed/Discontinued Medications MedicationDrug Class(es)DatesSig (Normalized)Sig (Original)120 actuat budesonide 0.18 mg/actuat dry powder inhaler (7 sources)Corticosteroid End: 98-00-5736qdhf 1 puff(s) by inhalation in the morningbudesonide (Pulmicort Flexhaler) 180 MCG/ACT inhaler Inhale 1 puff in the morning and 1 puff in the evening. 06/27/2025 Discontinued (Other)take 1 puff(s) by inhalation twice daily budesonide (PULMICORT) 180 mcg/actuation inhaler Inhale 1 puff 2 (two) times a day. 0 Juxgxm63 hr buPROPion hydrochloride 150 mg extended release oral tablet (5 sources)Aminoketone End: 32-14-4615lscj 1 tablet by mouth every twenty-four hours in the morning buPROPion XL (Wellbutrin XL) 150 MG 24 hr tablet Take 150 mg by mouth in the morning. 06/27/2025 Discontinued (Other)dicloxacillin 500 mg oral capsule (5 sources)Penicillin-class Antibacterial End: 72-82-5911lozq 1 capsule by mouth every six hoursdicloxacillin (Dynapen) 500 MG capsule dicloxacillin 500 mg capsule take 1 capsule by mouth every 6hours 06/27/2025 Discontinued (Other)heparin (2 sources)Unfractionated Heparin, Anti-coagulantStart: 12-23-2023 End: 25-13-4225kqvwmnl, porcine (PF) syringe 500 UnitsStart: 93-86-3189ihmehoh, porcine (PF) syringe 500 Henfc409 ml sodium chloride 9 mg/ml prefilled syringe (2 sources)Start: 12-23-2023 End: 37-32-5457ldvkln chloride 0.9 % flush 20 mLStart: 77-69-4516uudept chloride 0.9 % flush 20 mL Problems Active Problems Problem ClassificationProblemDateDocumented DateEpisodic/ChronicAbdominal pain (2 sources)Right lower quadrant pain; Translations: [Right upper quadrant pain] Onset: 37-13-0322VbsffbuoGyydhbi disorders (4 sources)Anxiety; Translations: [Anxiety disorder, unspecified]Onset: 577466-68-2381SdoyhxhQfgupq (11 sources)Asthma; Translations: [Uncomplicated mild persistent asthma]Onset: 852354-40-9735WukkgzsKenpavx dysrhythmias (8 sources)Other specified cardiac arrhythmias; Translations: [Postural orthostatic tachycardia syndrome ]Onset: hronic Contraceptive and procreative management (4 sources)Subcutaneous contraceptive implant present; Translations: [Encounter for surveillance of implantable subdermal contraceptive]95-21-3512Hmehqbej Diabetes mellitus without complication (1 source)Other abnormal glucose; Translations: [OTHER ABNORMAL GLUCOSE]Onset: 41-61-5593XxplpcbuBseuj and electrolyte disorders (1 source)Hypokalemia; Translations: [Hypokalemia]Onset: 76-49-8786Uqgijuqk Gastritis and duodenitis (4 sources)Chronic gastritis; Translations: [Unspecified chronic gastritis without bleeding]Onset: 189134-39-9000IvtvilvOaivnhecssmfa symptoms and ill-defined conditions (7 sources)Microscopic hematuria; Translations: [Other microscopic hematuria] Onset: 67-47-4122PjimowbaXaojtepp; including migraine (6 sources)Dhrcrsaq94-91-5636LgfrmxtrWiqplweuy disorders (2 sources)Irregular periods; Translations: [Irregular menstruation, unspecified]82-57-0509TejmzixPylk disorders (2 sources)Depressive disorder; Translations: [Depression]Onset: 07-23-2017 04-84-8819ThqztlpAtqauz and vomiting (3 sources)Nausea; Translations: [Nausea]Onset: 10-26-1168McurhofzIatrgdsymeb chest pain (3 sources)Other chest pain; Translations: [Chest pain, unspecified]Onset: 78-05-4158MfwruziqTqwrb aftercare (2 sources)Encounter for other specified surgical aftercare; Translations: [Encounter for other specified surgical aftercare]Onset: 46-12-6191IxbvkzhgGcqzi circulatory disease (4 sources)Device in situ; Translations: [Presence of other vascular implants and grafts]Onset: 117753-24-3462IsnzqobNkxsb circulatory disease (8 sources)Postural orthostatic tachycardia syndrome ; Translations: [Postural orthostatic tachycardia syndrome (POTS)]Onset: 636819-66-7483MosccqtbKguks congenital anomalies (4 sources)Aviva-Danlos syndrome, type 3; 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]Onset: 459408-15-5643ZhhmsyzJdalf connective tissue disease (1 source)Pain in right lower leg; Translations: [Pain in right lower leg]Onset: 99-49-4928CvjhbvhpWkubp female genital disorders (2 sources)Abnormal uterine bleeding; Translations: [Abnormal uterine and vaginal bleeding, unspecified]72-62-5459UozcwcdEcyab female genital disorders (2 sources)Cyst of vagina; Translations: [Other specified noninflammatory disorders of vagina]97-51-3936XnxqmwpcEzgiw lower respiratory disease (1 source)Shortness of breathOnset: 01-14-8645VnbyteciGohgt nutritional; endocrine; and metabolic disorders (4 sources)Body mass index 40+ - severely obese; Translations: [Body mass index (BMI) 40.0-44.9, adult]Onset: 569248-59-9100EnymwycTbgwp skin disorders (1 source)Localized swelling, mass and lump, right lower limb; Translations: [Localized swelling, mass and lump, right lower limb]Onset: 76-70-9662Zkjkuywf Unclassified (2 sources)Unknown / UNK(Unknown)Onset: 38-80-9325Yjgwkdykowrg (1 source)Shoulder InjuryOnset: 48-22-1274Maqfudh tract infections (4 sources)Urinary tract infection, site not specified; Translations: [UTI SITE NOT SPECIFIED]Onset: 85-34-9236OetysssmJngzu infection (2 sources)Herpes simplex; Translations: [Herpesviral infection, unspecified] 63-31-4372Ymiendrb Past or Other Problems Problem ClassificationProblemDateDocumented DateEpisodic/ChronicMood disorders (2 sources)Mood disordersOnset: Other aftercare (2 sources)Encounter for adjustment and management of vascular access device; Translations: [Encounter for adjustment and management of vascular access device]Onset: 03-30-2150YfsdjpfmFxasr complications of (2 sources)RhD negative; Translations: [Other specified related conditions, unspecified trimester]Onset: 11-09-2020 Resolved: 623553-15-5086YptmyiqrSrnvn disorders of stomach and duodenum (4 sources)Gastroparesis syndrome; Translations: [Gastroparesis]Onset: 052977-85-7170KzdobtnyCbdek injuries and conditions due to external causes (4 sources)Abrasion and/or friction burn of skin; Translations: [Other injury of unspecified body region, initial encounter]Onset: 425252-30-1070Kigrzlmv Other non-traumatic joint disorders (1 source)Pain in right knee; Translations: [Pain in right knee]Onset: 13-87-5314KmuuuwraWgbqh non-traumatic joint disorders (1 source)Knee painOnset: 95-10-4930FmijssjvIpxdx non-traumatic joint disorders (1 source)Shoulder painOnset: 67-57-4255KtasdnenPmezv and delivery including normal (4 sources) care status; Translations: [Encounter for supervision of normal , unspecified, third trimester]Onset: 11-09-2020 Resolved: 733930-56-1246ZynfkdopJlrvm skin disorders (2 sources)Localized swelling, mass and lump, neck; Translations: [Localized swelling, mass and lump, neck]Onset: 63-31-0719UelhetvdQcadvhfve; thrombophlebitis and thromboembolism (2 sources)Acute embolism and thrombosis of unspecified vein; Translations: [Acute embolism and thrombosis of unspecified vein]Onset: 36-77-9520Fzcldcgn Spondylosis; intervertebral disc disorders; other back problems (2 sources)Cervicalgia; Translations: [Cervicalgia]Onset: 44-78-5212Qlzumvog Sprains and strains (2 sources)Sprain of other specified parts of right knee, subsequent encounter; Translations: [Strain of unspecified muscle, fascia and tendon at shoulder and upper arm level, left arm, initial encounter]Onset: 76-55-0736OvwcmqpxAwetobl (8 sources)Syncope; Translations: [Syncope and collapse]Onset: 07-23-2017 20-20-8114DoeujdpiYvmxhzqfdbxr (2 sources)Onset: Results Test NameValueInterpretationReference RangeFacilityMAGNESIUMon 08-27-2025 Magnesium [Mass/Vol]1.8 mg/dLNormal1.8-2.6ProMedica St. Joseph'S Medical CenterComment on above:Performed By: #### MG ####[facility] [place] [address] VIRPOTASSIUMon 33-35-0356Wbbfwmnlr [Moles/Vol] 2.9 mmol/LLow3.5-5.0ProSt. David'S South Austin Medical CenterComment on above:Performed By: #### K #### [facility] ([address] [address] VIRTROP I, HIGH SENSITIVITY 1 HOURon 25-20-9418RYRQYGRF I, HIGH SENSITIVITY<^2Normal<16ProSt. David'S South Austin Medical CenterComment on above:Performed By: #### TNIHS1 ####[facility] ([address] [address] VIRBASIC METABOLIC PANELon 13-10-2451Hmqku gap [Moles/Vol] 13 mmol/LNormal5-15ProSt. David'S South Austin Medical CenterComment on above:Performed By: #### BMP #### [facility] ([address] [address] VIRCalcium [Mass/Vol]9.7 mg/dLNormal8.5-10.5PSelect Medical OhioHealth Rehabilitation HospitalComment on above:Performed By: #### BMP #### [facility] ([address] [address] VIRChloride [Moles/Vol]102 mmol/STfqgut27-416EetRtgidsSt. David'S South Austin Medical CenterComment on above:Performed By: #### BMP #### [facility] ([address] [place] [address] VIRCO2 [Moles/Vol]24 mmol/VXvweep02-03NtnAqbcvdSelect Medical OhioHealth Rehabilitation HospitalComment on above:Performed By: #### BMP #### [facility] ([address] [address] VIRCreatinine [Mass/Vol]0.82 mg/dLNormal0.40-1.00ProSt. David'S South Austin Medical CenterComment on above:Result Comment: METHOD TRACEABLE TO IDMS STANDARDPerformed By: #### BMP #### [facility] ([address] [place] [address] VIREGFR (CKD-EPI) NON-RACE DEPENDENT>^90Normal>=60Prem[facility] Medical CenterComment on above:Result Comment: Reported eGFR is based on the CKD-EPI 2020 equation that does not use a race coefficient.Performed By: #### BMP #### [facility] ([address] [place] [address] VIRGlucose [Mass/Vol]120 mg/iWWxrf84-46TtnGqwyzmSt. David'S South Austin Medical CenterComment on above:Performed By: #### BMP #### [facility] ([address] [place] [address] VIRPotassium [Moles/Vol]2.4 mmol/LCritically low3.5-5.0 [facility] CenterComment on above:Performed By: #### BMP #### [facility] ([address] [place] [address] VIRSodium [Moles/Vol]139 mmol/GObcmhl268-342ZrhWuelfePremier Health Upper Valley Medical CenterComment on above:Performed By: #### BMP #### [address] [place] [address] VIRUrea nitrogen [Mass/Vol]9 mg/dLNormal5-23ProSt. David'S South Austin Medical CenterComment on above:Performed By: #### BMP #### [facility] ([address] [place] [address] VIRCBC WITH AUTO DIFFERENTIALon 72-74-7824VKFKKAZAQ ABSOLUTE COUNT (10*3/UL) BY AUTOMATED COUNT0.0 10*3/uLNormal0.0-0.2ProMedica St. Joseph'S Medical CenterComment on above:Performed By: #### CBCA #### [facility] ([address] [place] [address] VIRBASOPHILS RELATIVE PERCENT BY AUTOMATED COUNT0.3 %Normal [facility] Medical CenterComment on above:Performed By: #### CBCA #### [facility] ([address] [place] [address] VIRCELLAVISION DIFFERENTIAL TYPEAUTOMATED DIFFERENTIALNormal [facility] CenterComment on above:Performed By: #### CBCA #### [facility] ([address] [place] [address] VIREosinophils (Bld) [#/Vol]0.2 10*3/uLNormal0.0-0.4[facility] Medical CenterComment on above:Performed By: #### CBCA #### [address] [address] VIREOSINOPHILS RELATIVE PERCENT BY AUTOMATED COUNT2.8 %Normal [facility] Medical CenterComment on above:Performed By: #### CBCA #### [facility] ([address] [address] VIRErythrocyte distribution width (RBC) [Ratio]13.8 %Normal 11.5-15[facility] Medical CenterComment on above:Performed By: #### CBCA #### [address] [place] [address] VIRHematocrit (Bld) [Volume fraction]36.5 %Jbgwti75-04 [facility] CenterComment on above:Performed By: #### CBCA #### [facility] ([address] [place] [address] VIRHemoglobin (Bld) [Mass/Vol]12.6 g/lSMhchie92.7-15.5 [facility] CenterComment on above:Performed By: #### CBCA #### [facility] ([address] [place] [address] VIRLYMPHOCYTES ABSOLUTE COUNT (10*3/UL) BY AUTOMATED COUNT3.3 10*3/uLNormal1.0-3.5PSelect Medical OhioHealth Rehabilitation HospitalComment on above:Performed By: #### CBCA #### [facility] ([address] [place] [address] VIRLYMPHOCYTES RELATIVE PERCENT BY AUTOMATED COUNT46.8 %Normal [facility] CenterComment on above:Performed By: #### CBCA #### [facility] ([address] [place] [address] VIRMCH (RBC) [Entitic mass]28.1 qhXtymry47-97QcwFfkmoxPremier Health Upper Valley Medical CenterComment on above:Performed By: #### CBCA #### [facility] ([address] [place] [address] VIRMCHC (RBC) [Mass/Vol]34.4 g/sFEgeqrl21-43TlqWjgjomPremier Health Upper Valley Medical CenterComment on above:Performed By: #### CBCA #### [facility] ([address] [place] [address] VIRMCV (RBC) [Entitic vol]82 oNQrhqfi60-533NehSkrqpp Fremont HospitalComment on above:Performed By: #### CBCA #### [facility] ([address] [place] [address] VIRMONOCYTES ABSOLUTE COUNT (10*3/UL) BY AUTOMATED COUNT0.5 10*3/uLNormal0.0-0.9[facility] CenterCompromedica [facility] on above:Performed By: #### CBCA #### [facility] ([address] [place] [address] VIRMONOCYTES RELATIVE PERCENT BY AUTOMATED COUNT6.7 %Normal [facility] CenterComment on above:Performed By: #### CBCA #### [facility] ([address] [place] [address] VIRNEUTROPHILS ABSOLUTE COUNT BY AUTOMATED COUNT3.1 10*3/uL Normal1.5-6.6Prem[facility] Health Upper Valley Medical CenterComment on above:Performed By: #### CBCA #### [facility] ([address] [place] [address] VIRNEUTROPHILS RELATIVE PERCENT BY AUTOMATED COUNT43.4 %Normal [facility] Medical CenterComment on above:Performed By: #### CBCA #### [facility] ([address] [place] [address] VIRPlatelet mean volume (Bld) [Entitic vol]8.3 fLNormal7-12 [facility] Medical CenterComment on above:Performed By: #### CBCA #### [facility] ([address] [place] [address] VIRPlatelets (Bld) [#/Vol]225 10*3/uFMhwtry823-476VxuBomwww [facility] HospitalComment on above:Performed By: #### CBCA #### [facility] ([address] [place] [address] VIRRBC COUNT4.47 X10E12/LNormal3.8-5.2ProMedica St. Joseph'S Medical CenterComment on above:Performed By: #### CBCA #### [facility] ([address] [place] [address] VIRWBC (Bld) [#/Vol]7.1 10*3/uLNormal4-11Prem[facility] Medical CenterComment on above:Performed By: #### CBCA #### [facility] ([address] [place] [address] VIRD-DIMERon 08-26-2025D DIMER<^666Crsvsq8-325CraVcyghx [facility]remont HospitalComment on above:Result Comment: Results <255 ng/mL DDU: The presensence of a VTE can safely be excluded with a negative D-Dimer result and Wells score. A negative result doesn't exclude the possibility of DIC. The test should be repeated along with other diagnostic tests if the patient's symptoms persist or worsen.Performed By: #### DDMR #### DOMICLEVELAND CLINIC MEDINA HOSPITALMartine [facility] ([facility]) [address] [place] [address]. [place] [address] VIRTROPONIN I, HIGH SENSITIVITY 0 HOURon 79-12-1659BKYJHPZO I, HIGH SENSITIVITY2 ng/LNormal<16ProSt. David'S South Austin Medical CenterComment on above: Performed By: #### TNIHS0 #### [facility] ([facility]) [address] [place] [address]. [place] [address] VIRXR CHEST 1 VWon 79-22-2167NZ CHEST 1 VWXR CHEST 1 VW HISTORY: A 29-year-old female with a history of the cough and shortness of breath. EXAM/TECHNIQUE: CHEST: Portable upright AP view [...] by Clay Feng MD on 08/26/2025 10:47 PMNormalProSt. David'S South Austin Medical CenterBASIC METABOLIC PANELon 11-10-2780Nwmxu gap [Moles/Vol]10 mmol/LNormal 5-15ProSt. David'S South Austin Medical CenterComment on above:Performed By: #### BMP #### [facility] ([facility]) [address] [place] [address] VIRCalcium [Mass/Vol]9.3 mg/dLNormal8.5-10.5ProMedica St. Joseph'S Medical CenterComment on above:Performed By: #### BMP #### [facility] ([facility]) [address] [place] [address] VIRChloride [Moles/Vol]105 mmol/VYwcpfx80-362GgqSsaeavSt. David'S South Austin Medical CenterComment on above:Performed By: #### BMP #### [facility] ([facility]) [address] [place] [address] VIRCO2 [Moles/Vol]25 mmol/WIumhrh08-61PliFdjdou [facility]remont HospitalComment on above:Performed By: #### BMP #### [facility] ([facility]) [address] [place] [address] VIRCreatinine [Mass/Vol]0.66 mg/dLNormal0.40-1.00ProSt. David'S South Austin Medical CenterComment on above:Result Comment: METHOD TRACEABLE TO IDMS STANDARDPerformed By: #### BMP #### [facility] ([facility]) [address] [place] [address] VIREGFR (CKD-EPI) NON-RACE DEPENDENT>^90Normal>=60ProSt. David'S South Austin Medical CenterComment on above:Result Comment: Reported eGFR is based on the CKD-EPI 2020 equation that does not use a race coefficient.Performed By: #### BMP #### [facility] ([facility]) [address] [place] [address] VIRGlucose [Mass/Vol]76 mg/uVJqggjm34-07NulKvnyiaSt. David'S South Austin Medical CenterComment on above:Performed By: #### BMP #### [facility] ([facility]) [address] [place] [address] VIRPotassium [Moles/Vol]3.9 mmol/LNormal3.5-5.0ProSt. David'S South Austin Medical CenterComment on above:Performed By: #### BMP #### [facility] ([facility]) [address] [place] [address] VIRSodium [Moles/Vol]140 mmol/KEerpyz250-376TplMbmrpb [facility] HospitalComment on above:Performed By: #### BMP #### [facility] ([facility]) [address] [place] [address] VIRUrea nitrogen [Mass/Vol]8 mg/dLNormal5-[facility] Medical CenterComment on above:Performed By: #### BMP #### [facility] ([facility]) [address] [place] [address] VIRCBC WITH AUTO DIFFERENTIALon 30-53-4060KCCMTJWPZ ABSOLUTE COUNT (10*3/UL) BY AUTOMATED COUNT0.0 10*3/uLNoUniversity Hospitals St. John Medical Center on above:Performed By: #### CBCA #### [facility] ([facility]) [address] [place] [address] VIRBASOPHILS RELATIVE PERCENT BY AUTOMATED COUNT0.7 %Normal [facility] Medical CenterComment on above:Performed By: #### CBCA #### [facility] ([facility]) [address] [place] [address] VIRCELLAVISION DIFFERENTIAL TYPEAUTOMATED DIFFERENTIALNormal [facility] CenterComment on above:Performed By: #### CBCA #### [facility] ([facility]) [address] [place] [address] VIREosinophils (Bld) [#/Vol]0.2 10*3/uLBellevue HospitalComment on above:Performed By: #### CBCA #### [facility] ([facility]) [address] [place] [address] VIREOSINOPHILS RELATIVE PERCENT BY AUTOMATED COUNT2.6 %Normal [facility] Medical CenterComment on above:Performed By: #### CBCA #### [facility] ([facility]) [address] [place] [address] VIRErythrocyte distribution width (RBC) [Ratio]13.8 %Normal 11.5-15Prem[facility] Medical CenterComment on above:Performed By: #### CBCA #### [facility] ([facility]) [address] [place] [address] VIRHematocrit (Bld) [Volume fraction]39.5 %Qeqoxh82-49OmbZxfodzPremier Health Upper Valley Medical CenterComment on above:Performed By: #### CBCA #### [facility] ([facility]) [address] [place] [address] VIRHemoglobin (Bld) [Mass/Vol]13.7 g/bBDnoroy43.7-15.5ProMedica [address]. Joseph'S Medical CenterComment on above:Performed By: #### CBCA #### [facility] ([facility]) [address] [place] [address] VIRLYMPHOCYTES ABSOLUTE COUNT (10*3/UL) BY AUTOMATED COUNT2.1 10*3/uLNoalPremier Health Upper Valley Medical CenterComment on above:Performed By: #### CBCA #### [facility] ([facility]) [address] [place] [address] VIRLYMPHOCYTES RELATIVE PERCENT BY AUTOMATED COUNT32.2 %Normal [facility] Medical CenterComment on above:Performed By: #### CBCA #### [facility] ([facility]) [address] [place] [address] VIRMCH (RBC) [Entitic mass]28.5 hfXorvpj99-00OteRxfratSt. David'S South Austin Medical CenterComment on above:Performed By: #### CBCA #### [facility] ([facility]) [address] [place] [address] VIRMCHC (RBC) [Mass/Vol]34.6 g/sHFaszly12-15AtiIbahheSt. David'S South Austin Medical CenterComment on above:Performed By: #### CBCA #### [facility] ([facility]) [address] [place] [address] VIRMCV (RBC) [Entitic vol]82 qQRgfxcw92-629AxoImadwb [facility]ont HospitalComment on above:Performed By: #### CBCA #### [facility] ([facility]) [address] [place] [address] VIRMONOCYTES ABSOLUTE COUNT (10*3/UL) BY AUTOMATED COUNT0.5 10*3/uLNormalPremier Health Upper Valley Medical CenterComment on above:Performed By: #### CBCA #### [facility] ([facility]) [address] [place] [address] VIRMONOCYTES RELATIVE PERCENT BY AUTOMATED COUNT7.4 %Normal [facility] Medical CenterComment on above:Performed By: #### CBCA #### [facility] ([facility]) [address] [place] [address] VIRNEUTROPHILS ABSOLUTE COUNT BY AUTOMATED COUNT3.7 10*3/uL NormalPremier Health Upper Valley Medical CenterComment on above:Performed By: #### CBCA #### [facility] ([facility]) [address] [place] [address] VIRNEUTROPHILS RELATIVE PERCENT BY AUTOMATED COUNT57.1 %Normal [facility] Medical CenterComment on above:Performed By: #### CBCA #### [facility] ([facility]) [address] [place] [address] VIRPlatelet mean volume (Bld) [Entitic vol]8.5 fLNormal7-12 [facility] CenterComment on above:Performed By: #### CBCA #### [facility] ([facility]) [address] [place] [address] VIRPlatelets (Bld) [#/Vol]225 10*3/zEKrrgia618-010MtbWpgheiPremier Health Upper Valley Medical CenterComment on above:Performed By: #### CBCA #### [facility] ([facility]) [address] [place] [address] VIRRBC COUNT4.80 X10E12/LNormal3.8-5.2ProMedica St. Joseph'S Medical CenterComment on above:Performed By: #### CBCA #### [facility] ([facility]) [address] [place] [address] VIRWBC (Bld) [#/Vol]6.4 10*3/uLNormal4-11[facility] CenterComment on above:Performed By: #### CBCA #### [facility] ([facility]) [address] [place] [address] VIRXR KNEE RT 3 VWSon 83-29-5128NU KNEE RT 3 VWSXR KNEE RT 3 VWS XR KNEE RT 3 VWS: 12/30/2024 PROVIDED HISTORY: * 29 years old Female * Pain - denies injury COMPARISON: None. TECHNIQUE: Three views of right knee were obtained. Findings: Alignment is unremarkable. Joint space is preserved. No evidence of joint effusion, acute fracture or dislocation. Impression: 1. No acute fracture or dislocation. No significant joint effusion. 2. If there is concern for Alexis/popliteal cyst, nonemergent sonographic evaluation may be of diagnostic value. Finalized by Nelly Ramirez MD on 12/30/2024 11:19 AMNormalPremier Health Upper Valley Medical CenterFollow-Upon [id number] DeaYin pringle 1995 F Date Provider Department Center 10/11/2024 LOLA GODDARD [facility] Family History Problem Relation Age of [...] Sister Mother's Brother Mother's Sister Level of Service:[address] [place] OFFICE/OUTPATIENT ESTABLISHED LOW MDM 20 [facility]36on [id number] op call s/p CVC removal on 09/28/24, patient states having continued pain and swelling, science writer encouraged patient to take tylenol/ibuprofen as instructed and to call back if it become intolerable. F/U appointment on 10/11/24 @ 1030. [facility] CenterHPon [id number] Of Present Illness Yin Taylor is a 28 y.o. female presenting for port removal. Past Medical History She has a past medical history of Asthma (Childhood), POTS (postural orthostatic tachycardia syndrome), and Syncope. Surgical History She has a past surgical history that includes Cholecystectomy and Tonsillectomy. Social History She reports that she has never smoked. She has never used smokeless tobacco. She reports that she does not currently use alcohol. She reports that she does not use drugs. Family History Family History Problem Relation Name Age of Onset Coronary artery disease Maternal Grandmother Nati minesh Cancer Maternal Grandmother Nati minesh Diabetes type I Maternal Grandmother Nati minesh Heart disease Maternal Grandmother Nati minesh Heart failure Maternal Grandmother Nati minesh Obesity Maternal Grandmother Nati minesh Coronary artery disease Maternal Grandfather Yemi minesh Heart attack Maternal Grandfather Yemi minesh Heart disease Maternal Grandfather Yemi minesh Heart failure Maternal Grandfather Yemi minesh Coronary artery disease Paternal Grandmother Gladys [place] Cancer Paternal Grandmother Gladys [place] Diabetes type I Paternal Grandmother Gladys [place] Kidney disease Paternal Grandmother Gladys [place] Anemia Mother Autumn rivka Depression Mother Autumn rivka Diabetes type II Mother Autumn rivka Lung disease Mother Autumn rivka Obesity Mother Autumn rivka Asthma Sister Mer rivka Cancer Sister Mer rivka Clotting disorder Sister Mer rivka Diabetes type II Sister Mer rivka Heart attack Sister Mer rivka Heart murmur Sister Mer rivka Obesity Sister Mer rivka Cancer Mother's Sister Marva Horan Obesity Mother's Sister Marva Horan Hypertension Mother's Brother Nando minesh Lung disease Mother's Brother Nando minesh Obesity Mother's Sister Elda edge Allergies Dragon fruit, Wellbutrin [bupropion hcl], and Grape flavor Medications No medications prior to admission. Review of Systems Constitutional: Negative. HENT: Negative. Respiratory: Negative. Cardiovascular: Negative. Last Recorded Vitals Visit Vitals BP 112/65 Pulse 76 Resp 18 Ht 1.651 m (5' 5 ) Wt 107 kg (235 lb) SpO2 97% BMI 39.11 kg/m??? Smoking Status Never BSA 2.22 m??? Physical Exam Constitutional: Appearance: Normal appearance. She is obese. Eyes: Pupils: Pupils are equal, round, and reactive to light. Cardiovascular: Rate and Rhythm: Normal rate and regular rhythm. Heart sounds: No murmur heard. Pulmonary: Effort: Pulmonary effort is normal. No respiratory distress. Breath sounds: No stridor. Neurological: General: No focal deficit present. Mental Status: She is alert and oriented to person, place, and time. Psychiatric: Mood and Affect: Mood normal. Behavior: Behavior normal. Thought Content: Thought content normal. Judgment: Judgment normal. Relevant Lab Results No results found for: NA , K , CL , CO2 , BUN , CREATININE , GLUCOSE , CALCIUM , ANIONGAP , EGFR , BCR Relevant Imaging Results Vascular US upper extremity venous duplex left Narrative: Procedure: The upper extremity veins were evaluated bilaterally. This included evaluation of the subclavian, axillary, brachial, ulnar, radial, basilic and cephalic veins. Evaluation done by real-time ultrasound, color Doppler, compression and augmentation. Procedure: The upper extremity veins were evaluated bilaterally. This included evaluation of the subclavian, axillary, brachial, ulnar, radial, basilic and cephalic veins. Evaluation done by real-time ultrasound, color Doppler, compression and augmentation. Impression: Right: No evidence of acute deep vein thrombosis of the right subclavian vein. Left: No evidence of acute deep or superficial vein thrombosis of the left upper extremity. PICC line visualized in internal jugular vein with spontaneous, phasic color Doppler flow noted. Right: No evidence of acute deep vein thrombosis of the right subclavian vein. Left: No evidence of acute deep or superficial vein thrombosis of the left upper extremity. PICC line visualized in internal jugular vein with spontaneous, phasic color Doppler flow noted. Conclusions: No evidence of acute deep vein thrombosis in the left upper extremity. Assessment/Plan For port removal Leigha Hutton MD, DARRIUS, M Med Ed, CPE, FRCS, FACS, DFSVS, FACCW, FAPWCA, RVT, RPVI Professor, Division of Vascular, Endovascular and Wound Surgery Department of Surgery Department of Medical Education [place] [facility] and [employer] [facility] [phone] [email or web address]. [email or web address] HospitalOPNOTEon [id number] Internal Jugular Vein CVC Removal (L) Operative Note Date: 09/28/2024 Location: [facility] Name: Yin Taylor, : 1995, Diagnosis Port for removal Port for removal Procedures * Left Internal Jugular Vein CVC Removal Surgeons Primary: Leigha Hutton MD Procedure Summary Anesthesia: * No anesthesia type entered * ASA: ASA status not filed in the log. Estimated Blood Loss: Minimal Total IV Fluids: mL Drains: * None in log * Staff: No surgical staff documented. Indications: Yin Taylor is an 28 y.o. female who is having surgery for Difficult intravenous access. Procedure Details: The patient was seen in the preoperative area. The risks, benefits, complications, treatment options, non-operative alternatives, expected recovery and outcomes were discussed with the patient. The possibilities of reaction to medication, pulmonary aspiration, injury to surrounding structures, bleeding, recurrent infection, the need for additional procedures, failure to diagnose a condition, and creating a complication requiring transfusion or operation were discussed with the patient. The patient concurred with the proposed plan, giving informed consent. The site of surgery was properly noted/marked if necessary per policy. The patient has been actively warmed in preoperative area. Preoperative antibiotics are not indicated. Venous thrombosis prophylaxis are not indicated. Under local anesthesia, incision made in the skin on the port. Used cautery to control bleeding The port identified and dissected, the catheter removed then the port removed. Hemostasis secured and wound closed with 4-0 vicryl Complications: None; patient tolerated the procedure well. Disposition: PACU - hemodynamically stable. Condition: stable Leigha Hutton [address] [phone] was referred back to our office for port removal. Port has not been in use in over a year and it hasn't been flushed. She saw HO in June 21, and per office note between Rebekah calix and Rubina, port can be removed either at [facility] or [place]. Behavioral Medical Director reached out to [facility] nurses for expediency w scheduling.Corey HospitalTelephoneon [id number] Yin Taylor 1995 F Date Provider Department Center 09/23/2024 LAYLA ABDUL [facility] Family History Problem Relation Age [...] Mother Sister Mother's Sister Mother's Brother Mother's SisterNormalUniCleveland Clinic [facility] HospitalOffice Visiton [phone]-up [id number] Yin Taylor 1995 F Date Provider Department Center 09/22/2024 Dandre-SURINDER [facility] Family History Problem Relation Age [...] Sister Mother's Brother Mother's Sister Level of Service:[address] [place] OFFICE/OUTPATIENT ESTABLISHED LOW MDM 20 MINNoal [facility] CenterXR SHOULDER LT MIN 2 VWSon 02-08-1715KJ SHOULDER LT MIN 2 VWSXR SHOULDER LT MIN 2 VWS XR SHOULDER LT MIN 2 VWS HISTORY: Shoulder pain. COMPARISON: none IMPRESSION: 1. No acute fracture or dislocation. Congruent acromioclavicular joint. 2. Left chest wall port, catheter redundancy within the lower neck. Finalized by Alan Wilson MD on 09/03/2024 9:[address] Joseph'S Medical CenterOffice Visiton [id number]-up [id number] Yin Taylor 1995 F Date Provider Department Center 06/10/2024 150-KEVIN RODRIGUEZ HVCVASENDO [place] [facility] Family History Problem Relation Age of [...] Sister Mother's Brother Mother's Sister Level of Service:44370 [place] OFFICE/OUTPATIENT NEW LOW MDM 30 MINUTES Reason for Visit and Comments: New Patient [632] - New Patient- discuss port removalNormalUniversity of Usmd Hospital At ArlingtonC Urineon 85-15-8135Stqbdwxy identified Cx Nom (U)Microbiology PROCEDURE: Urine Culture [R1] SOURCE: U CleanCatch BODY SITE: COLLECTED DATE/TIME: 05/10/2024 11:33 EDT RECEIVED DATE/TIME: 05/10/2024 18:13 EDT START DATE/TIME: 05/10/2024 18:13 EDT FREE TEXT SOURCE: Orzech TURBOGENERATOR OPERATOR, INTELLIGENCE ENGINEER-C, Orzech TURBOGENERATOR OPERATOR, INTELLIGENCE ENGINEER-C, Adele X Adele X FINAL REPORTS Final Report [] Verified Date/Time: 05/12/2024 10:39 EDT 1,000 cfu/ml Mixed skin contaminants Performing Locations R1: This test was performed at: [facility], [address] [place] [address], [facility]- , [place], XpotiwLpymgyMercy Health Allen HospitalComment on above:Performed By: #### [id number] #### [facility] [address] [place] [id number] By: SYSTEM SYSTEM on 89-31-8195Yrpuhxswy Ql (U)NegativeNormalNegativemg/dLFT UA Auto SSClarity (U)Clear (05/10/24 11:33 AM)NormalClearFTM UA Auto SSColor (U)Colorless 1 *ABN* (05/10/24 11:33 AM)Invalid Interpretation CodeYellowST. ANTHONY HOSPITAL – [place] UA Auto SSComment on above:Interpretive Data: Microscopic readings are only performed on those samples that meet specific criteria set forth by [facility].Glucose Ql (U)NegativeNormalNegativemg/dLFT UA Auto SSHemoglobin Auto test strip (U) [Mass/Vol]Trace mg/dLInvalid Interpretation Code Negativemg/dLFT UA Auto SSKetones Auto test strip Ql (U)NegativeNormal Negativemg/dLFT UA Auto SSLeukocyte esterase Auto test strip Ql (U)Negative NormalNegativeLeu/uLFT UA Auto SSNitrite Auto test strip Ql (U)NegativeNormal Negativemg/dLFT UA Auto SSpH (U)6.5 *NA* (05/10/24 11:33 AM)Invalid Interpretation Code5.0 - 9.0ST. [facility] [place] UA Auto SSProtein Ql (U)NegativeNormalNegativemg/dLST. ANTHONY HOSPITAL – [place] UA Auto SSSpecific gravity (U) [Rel density] 1.006 *NA* (05/10/24 11:33 AM)Invalid Interpretation Code1.005 - 1.030[facility] [place] UA Auto SS Urobilinogen (U) [Mass/Vol]NegativeNormalNegativemg/dLST. ANTHONY HOSPITAL – [place] UA Auto SSURINALYSIS Ordered By: Breanne Ireland on 12-00-6941JT Spec DescClean Catch (05/10/24 11:33 AM)NormalST. ANTHONY HOSPITAL – [place] UA Auto SSUrinalysis with Microon 05-10-2024 Bilirubin Ql (U)NegativeNormalNegativeCleveland Clinic FoundationComment on above:Performed By: #### [id number] #### [facility] [address] [place], [place] [address]Jcvylls (U)ClearNormalClearCleveland Clinic FoundationComment on above:Performed By: #### [id number] #### [facility] [address] [place] [id number] (U)ColorlessAbnormalYellowCleveland Clinic Foundation Comment on above:Result Comment: Microscopic readings are only performed on those samples that meet specific criteria set forth by [facility].Performed By: #### [id number] #### [facility] [address], [place] [address]Ccyxpkg Ql (U)NegativeNormalNegativeC[facility] Comment on above:Performed By: #### [id number] #### [facility] [address], [place] [address]Nkqyyqjqun Auto test strip (U) [Mass/Vol]TraceAbnormalNegative [facility] FoundationComment on above:Performed By: #### [id number] #### [facility] [address], [place] [address]Tbixgxo Auto test strip Ql (U)NegativeNormalNegativeCleveland Clinic FoundationComment on above:Performed By: #### [id number] #### [facility] [address] [place] [address]Piezuchjk esterase Auto test strip Ql (U)NegativeNormalNegative [facility] FoundationComment on above:Performed By: #### [id number] #### [facility] [address] [place] [address]Cwasesl Auto test strip Ql (U)NegativeNormalNegMcCullough-Hyde Memorial HospitalComment on above:Performed By: #### [id number] #### [facility] [address] [place] [address]0715uR (U)6.5 [pH]Invalid Interpretation Code5.0-9.0[facility] Clinic FoundationComment on above:Performed By: #### [id number] #### [facility] [address] [place] [address]Namaboz Ql (U)UNC Health ChathamrmalNegMcCullough-Hyde Memorial Hospital Comment on above:Performed By: #### [id number] #### [facility] [address] [place] [address]Bofbiybl gravity (U) [Rel density]1.006Invalid Interpretation Code1.005-1.030[facility] FoundationComment on above:Performed By: #### [id number] #### [facility] [address] [place] [address]Wtntpiuvhwcy (U) [Mass/Vol]NegativeNormalNegMcCullough-Hyde Memorial HospitalComment on above:Performed By: #### [id number] #### [facility] [address] [place] [address]Ymmu of Urine collection methodClean CatchNoMercy Health Allen HospitalComment on above:Performed By: #### [id number] #### [facility] [address] [place] [address] 608[address]P Urineon 18-26-6192Goyuxknm identified Cx Nom (U)Microbiology PROCEDURE: Urine Culture [R1] SOURCE: U CleanCatch BODY SITE: COLLECTED DATE/TIME: 05/04/2024 09:43 EDT RECEIVED DATE/TIME: 05/04/2024 19:28 EDT START DATE/TIME: 05/04/2024 19:28 EDT FREE TEXT SOURCE: Orzech TURBOGENERATOR OPERATOR, INTELLIGENCE ENGINEER-C, Orzech TURBOGENERATOR OPERATOR, INTELLIGENCE ENGINEER-C, Adele X Adele X FINAL REPORTS Final Report [] Verified Date/Time: 05/06/2024 07:12 EDT 800 cfu/ml Mixed skin contaminants Performing Locations R1: This test was performed at: [facility], [address] [place] [address], [facility]- , , FurwhgUssapyMercy Health Allen HospitalComment on above:Performed By: #### [id number] #### [facility] [address] [place] [address] 164[address]RICEBPBRLUIhqafum By: SYSTEM SYSTEM on 43-55-7947Eustqfgoh Ql (U)NegativeNormalNegativemg/dLFT UA Auto SSClarity (U)Clear (05/04/24 9:43 AM)NormalClearFMCBRIDE ORTHOP[facility] [place] UA Auto SSColor (U)Light-Yellow 1 (05/04/24 9:43 AM)NormalYellowST. ANTHONY HOSPITAL – [place] UA Auto SSComment on above:Interpretive Data: Microscopic readings are only performed on those samples that meet specific criteria set forth by [facility].Epithelial cells.squamous Auto (Urine sed) [#/Area]9-10 graded/HPFInvalid Interpretation CodeFT UA Auto SSGlucose Ql (U)NegativeNormalNegativemg/dLFT UA Auto SS Hemoglobin Auto test strip (U) [Mass/Vol]1+ mg/dLInvalid Interpretation Code Negativemg/dLFT UA Auto SSKetones Auto test strip Ql (U)NegativeNormal Negativemg/dLFT UA Auto SSLeukocyte esterase Auto test strip Ql (U)Negative NormalNegativeLeu/uLFT UA Auto SSMucus Auto Ql (U)Trace graded/LPFNormal Negativegraded/LPFFTMC UA Auto SSNitrite Auto test strip Ql (U)NegativeNormal Negativemg/dLST. ANTHONY HOSPITAL – [place] UA Auto SSpH (U)6.5 *NA* (05/04/24 9:43 AM)Invalid Interpretation Code5.0 - 9.0[facility] [place] UA Auto SSProtein Ql (U)NegativeNormalNegativemg/dLST. ANTHONY HOSPITAL [facility] [place] UA Auto SSRBC Ql (U)4-20 graded/HPFInvalid Interpretation Code0-3graded/HPFST. ANTHONY HOSPITAL [facility] [place] UA Auto SSSpecific gravity (U) [Rel density]1.015 *NA* (05/04/24 9:43 AM)Invalid Interpretation Code1.005 - 1.030[facility] [place] UA Auto SS Urobilinogen (U) [Mass/Vol]NegativeNormalNegativemg/dLST. ANTHONY HOSPITAL [facility] [place] UA Auto SSWBC Auto (Urine sed) [#/Area]0-5 graded/HPFNormal0-5graded/HPFST. ANTHONY [facility]OSPITAL [facility] [place] UA Auto SSURINALYSIS Ordered By: Breanne Ireland on 72-10-9682AJ Spec DescClean Catch (05/04/24 9:43 AM)NormalST. ANTHONY HOSPITAL – [place] UA Auto SSUrinalysis with Microon 60-18-6465Ylgiekneu Ql (U)NegativeNormalNegativeCleveland Clinic FoundationComment on above: Performed By: #### [id number] #### [facility] [address], [place] [address]Lliatoc (U)ClearNormalClearCleveland Clinic FoundationComment on above:Performed By: #### [id number] #### [facility] [address], [place] [address]Qavir (U)Light-YellowNormalYellowCleveland Clinic Foundation Comment on above:Result Comment: Microscopic readings are only performed on those samples that meet specific criteria set forth by [facility].Performed By: #### [id number] #### [facility] [address] [place] [address], [place] [address]Ceudbvhvcu cells.squamous Auto (Urine sed) [#/Area]9-10Invalid Interpretation CodeCleveland Clinic FoundationComment on above:Performed By: #### [id number] #### [facility] [address] [place] [address], [place] [address]Ocqnlgp Ql (U)NegativeNormalNegMcCullough-Hyde Memorial Hospital Comment on above:Performed By: #### [id number] #### [facility] [address], [place] [address]Xkjlxleohe Auto test strip (U) [Mass/Vol]1+ mg/dLAbnormal NegativeCleveland Clinic FoundationComment on above:Performed By: #### [id number] #### [facility] [address], [place] [address]Ofmevwb Auto test strip Ql (U)NegativeNormalNegativeCleveland Clinic FoundationComment on above:Performed By: #### [id number] #### [facility] [address], [place] [address]Hlczqtrih esterase Auto test strip Ql (U)NegativeNormalNegative [facility] FoundationComment on above:Performed By: #### [id number] #### [facility] [address], [place] [address] Auto Ql (U)TraceNormalNegMcCullough-Hyde Memorial Hospital Comment on above:Performed By: #### [id number] #### [facility] [address], [place] [address]Zuptxwd Auto test strip Ql (U)NegativeNormalNegMcCullough-Hyde Memorial HospitalComment on above:Performed By: #### [id number] #### [facility] [address], [place] [address]hG (U)6.5 [pH]Invalid Interpretation Code5.0-9.0[facility] FoundationComment on above:Performed By: #### [id number] #### [facility] [address], [place] [address]Zmqtsov Ql (U)NegativeNormalNegMcCullough-Hyde Memorial Hospital Comment on above:Performed By: #### [id number] #### [facility] [address], [place] [address]AZI Ql (U)5-83Qumuitaj0-9EoxkzfUniversity Hospitals Ahuja Medical CenterComment on above:Performed By: #### [id number] #### [facility] [address], [place] [address]Mbcazhrl gravity (U) [Rel density]1.015Invalid Interpretation Code1.005-1.030[facility] FoundationComment on above:Performed By: #### [id number] #### [facility] [address], [place] [address]Hxxtzosugtac (U) [Mass/Vol]NegativeNormalNegativeCleveland Clinic FoundationComment on above:Performed By: #### [id number] #### [facility] [address], [place] [address]BGH Auto (Urine sed) [#/Area]1-8Ikuzqo0-1ZhjzdkUniversity Hospitals Ahuja Medical CenterComment on above:Performed By: #### [id number] #### [facility] [address], [place] [address]Czqw of Urine collection methodClean CatchNormalCleveland Clinic FoundationComment on above:Performed By: #### [id number] #### [facility] [address], [place] [address] 85-23-691280Bnnlnjo is needing a medication refill. She has not been seen since 01/2023, and is unable to schedule appt d/t provider schedule not available at this moment. Patient would like a call to update that medication has been sent. Thank you This phone message was created by the Ambulatory float staff. If you need director of academic support follow up regarding this patient, please make your appropriate clinic staff member aware. Thank you. [facility] 36Needs apptNormalUniversity Kettering Health PrebleUS PELVIS W/ TRANSVAGINALon 71-27-6755H[address] [address] Ultrasound Report Signed Patient: DEARSMAN,YIN A MR#: [id number] : 1995 Acct:[id number] Age/Sex: 28 / F ADM Date: 12/22/23 Loc: US Attending Dr: Ed Grimes D.O. Ordering Physician: Ed Grimes D.O. Date of Service: 12/22/23 Procedure(s): US pelvis w/ transvaginal Accession Number(s): [id number] cc: CONCHITA VARGAS ; Ed Grimes D.O. [place] [address] Patient Name: YIN TAYLOR MRN: [id number] date: 1995 Sex: F Assigned Patient Location: US Current Patient Location: US Accession/Order Number: [id number] Exam Date: 12/22/2023 14:00 Report Date: 12/22/2023 14:57 At the request of: ED GRIMES Procedure: US pelvis w/ transvaginal EXAMINATION: [...] size and appearance. Duplex Doppler demonstrates normal waveform and flow; resistive index 0.6. Ovary size: 3.1 x 2.2 x 2.0 cm LEFT OVARY: Contains a prominent follicle versus benign-appearing 1.7 cm simple cyst. Duplex Doppler demonstrates normal waveform and flow; resistive index 0.6. Ovary size: 2.3 x 2.8 x 2.1 cm CUL-DE-SAC: Unremarkable. No significant free fluid. BLADDER: Unremarkable. OTHER: None. US/US pelvis w/ transvaginal IMPRESSION: 1. No abnormal or suspicious findings to account for patient's symptoms. Electronically authenticated by: FITZ CRISOSTOMO Date: 12/22/2023 14:57 Dictated By: Fitz Crisostomo M.D. Signed By: 12/22/23 1459 DD/ 1457 TD/TT: Hoe Runner:THANIAadiologsteve, Radiologist, - 12/22/2023 [place] [address] Ultrasound Report Signed Patient: YIN TAYLOR MR#: [id number] : 1995 Acct:[id number] Age/Sex: 28 / F ADM Date: 12/22/23 Loc: US Attending Dr: Ed Grimes D.O. Ordering Physician: Ed Grimes D.O. Date of Service: 12/22/23 Procedure(s): US pelvis w/ transvaginal Accession Number(s): [id number] cc: CONCHITA VARGAS ; Ed Grimes D.O. [address] [place] [address] Patient Name: YIN TAYLOR MRN: [id number] date: 1995 Sex: F Assigned Patient Location: US Current Patient Location: US Accession/Order Number: [id number] Exam Date: 12/22/2023 14:00 Report Date: 12/22/2023 14:57 At the request of: ED GRIMES Procedure: US pelvis w/ transvaginal EXAMINATION: [...] size and appearance. Duplex Doppler demonstrates normal waveform and flow; resistive index 0.6. Ovary size: 3.1 x 2.2 x 2.0 cm LEFT OVARY: Contains a prominent follicle versus benign-appearing 1.7 cm simple cyst. Duplex Doppler demonstrates normal waveform and flow; resistive index 0.6. Ovary size: 2.3 x 2.8 x 2.1 cm CUL-DE-SAC: Unremarkable. No significant free fluid. BLADDER: Unremarkable. OTHER: None. US/US pelvis w/ transvaginal IMPRESSION: 1. No abnormal or suspicious findings to account for patient's symptoms. Electronically authenticated by: FITZ CRISOSTOMO Date: 12/22/2023 14:57 Dictated By: Fitz Crisostomo M.D. Signed By: 12/22/231458 DD/ 56 TD/TT: Hoe Runner: ANNE HealthcareRadiology Study observation (narrative)NOMS HealthcareUS PELVIS W/ TRANSVAGINALOrdered By: Radiologist Radiology on 95-11-5895HP[employer] Work Phone: HCG ( test) Ql (U)on 16-74-5408Lmduhyiuhbtqcz and review of laboratory resultsNormalNOMS HealthcarePreg Test, UrNegativeNOMS Western Reserve HospitalNOSD HealthcareHCG ( test) IA.rapid Ql (U)Ordered By: Willie Monreal on 37-78-5307ONG ( test) Ql (U)NegativeWayne HospitalHCG,Urineon 17-62-9308Zhfw HCG ( test) Ql (U)NegativeNormal Wayne HospitalComment on above:Result Comment: PERFORMED BY: [place] [address] PATHOLOGIST JOURNAL CLERK JARED LOPEZ M.D.Performed By: #### UHCG #### [facility] [address] [place] [address] USALon 02-27-2023L Specimen: [id number] Received: 02/27/23-123 Status: YVON Jhaveri Num: [id number] Spec Type: Surgical Subm Dr: Willie Monreal MD Tissues: A Small Intestine - Biopsy/Polyp (TERMINAL ILEUM BX) B Colon Biopsy (RANDOM COLON BX) Procedures: HE/4, Gross/Micro L4/2 Age/ Patient Sex Location Account Attending Physician Yin Taylor [id number] Willie Monreal MD SPEC NUM: [id number] RECD: 02/27/23-1234 STATUS: YVON JHAVERI NUM: [id number] VON: 02/27/23- SUBM DR: Willie Monreal MD ENTERED: 02/27/23-1235 [facility] DR: SPEC TYPE: Surgical DEPT: S ORDERED: [...] advised. Clinical Information Abdomen pain, colitis Specimen: [id number] Received: 02/27/23 Status: YVON Lucasamisha Num: [id number] Spec Type: Surgical Subm Dr: Willie Monreal MD Tissues: A Small Intestine - Biopsy/Polyp (TERMINAL ILEUM BX) B Colon Biopsy (RANDOM COLON BX) Procedures: HE/4, Gross/Micro L4/2 Patient: HermilobrandonYin [id number] (Continued) Specimen: [id number] Received: 02/27/23 (Continued) Signed (signature on file) Geraldine Alexander MD 02/28/23 1054 Specimen: [id number] Received: 02/27/23 Status: YVON Jhaveri Num: [id number] Spec Type: Surgical Subm Dr: Willie Monreal MD Tissues: A Small Intestine - Biopsy/Polyp (TERMINAL ILEUM BX) B Colon Biopsy (RANDOM COLON BX) Procedures: HE/Kenna, Gross/Micro L4/2 Patient: Yin Taylor Martine [id number] (Continued) Specimen: [id number] Received: 02/27/23 (Continued) Gross Description A. Received [...] support the above pathologic diagnosis. CPT Codes 85226?2 Specimen: [id number] Received: 02/27/23 Status: YVON Jhaveri Num: [id number] Spec Type: Surgical Subm Dr: Willie Monreal MD Tissues: A Small Intestine - Biopsy/Polyp (TERMINAL ILEUM BX) B Colon Biopsy (RANDOM COLON BX) Procedures: HE/Kenna, Gross/Micro L4/2 Patient: Yin Taylor [id number] (Continued) Signed (signature on file) Geraldine Alexander MD 02/28/23 1054NoMarietta Osteopathic ClinicCT ABD/PELV W CONon 65-27-2239CX ABD/PELV W CONEXAMINATION: CT ABD/PELV W CON, 01/17/2023 3:50 PM [...] Electronically authenticated by: NENO INGRAM Date: 2023-01-17 18:33Normal The [facility] MemorialCULTURE URINEon 50-91-6628XGXYLLW URINECulture Observations: LIGHT GROWTH OF MIXED GENITAL DESI. NO POTENTIAL PATHOGENS SEEN.NormalThe [facility] MemorialComment on above:Performed By: #### URCX #### [facility] [address] [place] [address] [address] Tree Rene RANDOM W/MICROSCOPICon 07-93-7439RZAETJPLQDIFFExqumxerAKQX SEENKeenan Private HospitalComment on above:Performed By: #### UAMIC #### [facility] [address] [place] [address] [address] Tere PastorBilirubin Ql (U)NegativeNormalNEGATIVEKeenan Private Hospital Comment on above:Performed By: #### UAMIC #### [facility] [address] [place] [address] [address] Tere PastorCASTNONE SEENNormalNONE SEENKeenan Private HospitalComment on above:Performed By: #### UAMIC #### [facility] [address] [place] [address] [address] Tere PastorClarity (U)CLEARNormalCLEARKeenan Private HospitalComment on above: Performed By: #### UAMIC #### [facility] [address] [place] [address] [address] Tere PastorColor (U)LT. YELLOWNormalYZanesville City HospitalComment on above:Performed By: #### UAMIC #### [facility] [address] [place] [address] [address] Tere PastorCrystals LM Nom (Urine sed)NONE SEENNormalNONE SEENKeenan Private HospitalComment on above:Performed By: #### UAMIC #### [facility] [address] [place] [address] [address] Carranza ChangEpithelial cells LM Ql (Urine sed)FEWAbnormalNONE SEEN /RAREKeenan Private HospitalComment on above:Performed By: #### UAMIC #### [facility] [address] [place] [address] Dr. Tere PastorGlucose Ql (U)NegativeNormalNEGATIVEKeenan Private HospitalComment on above:Performed By: #### UAMIC #### [facility] [address] [place] [address] [address] Tere PastorHemoglobin Ql (U)MODERATEAbnormalNEGATIVEKeenan Private Hospital Comment on above:Performed By: #### UAMIC #### [facility] [address] [place] [address] [address] Tere Waddell Ql (U)TRACEAbnormalNEGATIVEKeenan Private HospitalComment on above:Performed By: #### UAMIC #### [facility] [address] [place] [address] Dr. Tere PastorLEUKOCYTESMODERATEAbnormalNEGATIVEThe [facility] MemorialComment on above:Performed By: #### UAMIC #### [facility] [address] [place] [address] Dr. Tere ShepardCOUSNONChang SEENNormalNONE SEENKeenan Private HospitalComment on above:Performed By: #### UAMIC #### [facility] [address] [place] [address] Dr. Tere Melchortrite Ql (U)NegativeNormalNEGATIVEKeenan Private HospitalComment on above:Performed By: #### UAMIC #### [facility] [address] [place] [address] Dr. Tere PastorpH (U)6.0 [pH]Normal5-9The [facility] MemorialComment on above: Performed By: #### UAMIC #### [facility] [address] [place] [address] Dr. Tere PastorVthskLSL6-2Slawxbsb0-4Oya Bellevue HospitalComment on above:Performed By: #### UAMIC #### [facility] [address] [place] [address] Dr. Tere PastorSPEC GRAVITY1.170Rxcsfi8.005-<=1.025The [facility] MemorialComment on above:Performed By: #### UAMIC #### [facility] [address] [place] [address] Dr. Tere Rene PROTEINNegativeNormalNEGATIVE/ TRACEKeenan Private Hospital Comment on above:Performed By: #### UAMIC #### [facility] [address] [place] [address] Dr. Tere Mcraebiltaylorgen Qn (U)0.2 {Conchita'U}/dLNormal0.2 - 1.0The [facility] MemorialComment on above:Performed By: #### UAMIC #### [facility] [address] [place] [address] Dr. Tere CottonBC5-10AbnormalNONE SEENThe [facility] MemorialComment on above: Performed By: #### UAMIC #### [facility] [address] [place] [address] Dr. Tere Bliss AUTO DIFFon 49-22-2977YTZV #0.0 103/ulNormal0.0-0.1The [facility] MemorialComment on above:Performed By: #### CBC #### [facility] [address] [place] [address] Dr. Tere PastorBasophils/100 WBC (Bld)0.5 %Normal0.2-2.0[facility] Comment on above:Performed By: #### CBC #### [facility] [address] [place] [address] Dr. Tere Patel #0.2 103/ulNormal0.0-0.7The [facility] on above: Performed By: #### CBC #### [facility] [address] [place] [address] Dr. Tere Hillosinophils/100 WBC (Bld)2.7 %Normal0.9-7.0The [facility] Comment on above:Performed By: #### CBC #### [facility] [address] [place] [address] Dr. Tere Hillrythrocyte distribution width (RBC) [Ratio]13.2 %Otsoxg79.0-15.0 The [facility] MemorialComment on above:Performed By: #### CBC #### [facility] [address] [place] [address] Dr. Tere PastorHematocrit (Bld) [Volume fraction]40.5 %Vfkwgr33.0-48.0The [facility] MemorialComment on above:Performed By: #### CBC #### [facility] [address] [place] [address] Dr. Tere PastorHemoglobin (Bld) [Mass/Vol]13.9 g/sDHepeaw44.0-16.0The [facility] MemorialComment on above:Performed By: #### CBC #### [facility] [address] [place] [address] Dr. Tere Santana #0.01 10e3/ulNormal0.00-0.03The [facility] MemorialComment on above:Performed By: #### CBC #### [facility] [address] [place] [address] Dr. Tere Santana %0.2 %Normal0.0-0.5The [facility] MemorialComment on above: Performed By: #### CBC #### [facility] [address] [place] [address] Dr. Tere Henderson #2.4 103/ulNormal1.2-3.8The [facility] MemorialComment on above:Performed By: #### CBC #### [facility] [address] [place] [address] Dr. Tere Tanhocytes/100 WBC (Bld)36.6 %Mvfrhq27.5-60.0The [facility] MemorialCompromedica charles and [facility] on above:Performed By: #### CBC #### [facility] [address] [place] [address] Dr. Tere PeraltaUAL DIFF REQNONormalThe [facility] MemorialComment on above: Performed By: #### CBC #### [facility] [address] [place] [address] Dr. Tere Caraballo (RBC) [Entitic mass]28.6 xpPkipdg04.7-34.0The [facility] MemorialComment on above:Performed By: #### CBC #### [facility] [address] [place] [address] Dr. Tere Caraballo (RBC) [Mass/Vol]34.3 g/lXLofoho96.9-35.2The [facility] MemorialComment on above:Performed By: #### CBC #### [facility] [address] [place] [address] Dr. Tere CaraballoV (RBC) [Entitic vol]83.3 aKRuhlqe15.0-99.0The [facility] MemorialComment on above:Performed By: #### CBC #### [facility] [address] [place] [address] Dr. Tere Mcrae #0.5 103/ulNormal0.3-0.8The [facility] MemorialComment on above:Performed By: #### CBC #### [facility] [address] [place] [address] Dr. Tere Adkinsocytes/100 WBC (Bld)7.6 %Normal1.7-12.0The [facility] Comment on above:Performed By: #### CBC #### [facility] [address] [place] [address] Dr. Tere Davila #3.5 103/ulNormal1.4-6.5The [facility] MemorialComment on above:Performed By: #### CBC #### [facility] [address] [place] [address] Dr. Tere Markhamutrophils/100 WBC (Bld)52.4 %Fzttzw74.0-75.0The [facility] MemorialComment on above:Performed By: #### CBC #### [facility] [address] [place] [address] Dr. Tere Wadsworthlet mean volume (Bld) [Entitic vol]9.7 fLNormal9.5-13.5The [facility] MemorialComment on above:Performed By: #### CBC #### [facility] [address] [place] [address] Dr. Tere PastorPLT257 103/ugXrknql935-997Onb [facility] MemorialComment on above: Performed By: #### CBC #### [facility] [address] [place] [address] Dr. Tere PastorRBC4.86 106/ulNormal4.20-5.40The [facility] MemorialComment on above:Performed By: #### CBC #### [facility] [address] [place] [address] [address] Tere PastorWBC6.6 103/ulNormal4.0-11.0The [facility] MemorialComment on above: Performed By: #### CBC #### [facility] [address] [address] [address] Tere PastorFRMAL THYROXINE INDEX T7on 24-49-6467JVC8.02Jcrdmy7.30-4.50The [facility] MemorialComment on above:Performed By: #### T7, CMP, TSH #### [facility] [address] [place] [address] Dr. Tere PastorT3U33.0 %Lsgatt54.0-39.0The [facility] MemorialComment on above: Performed By: #### T7, CMP, TSH #### [facility] [address] [place] [address] Dr. Tere PastorT4 [Mass/Vol]7.60 ug/dLNormal4.80-13.90The [facility] Comment on above:Performed By: #### T7, CMP, TSH #### [facility] [address] [place] [address] Dr. Tere PastorGLYCOHEMOGLOBIN A1Con 57-11-2784OCX RECOMMENDATIONSEE BELOWNormal The [facility] MemorialCompromedica [facility] on above:Result Comment: ADA RECOMMENDED LIMIT 4.0 - 6.0 ADA THERAPEUTIC TARGET < 7.0 ACTION SUGGESTED > 7.0Performed By: #### A1C #### [facility] [address] [place] [address] Dr. Tere PastorGlucose [Mass/Vol]91 mg/dLNormalThe [facility] MemorialComment on above:Performed By: #### A1C #### [facility] [address] [place] [address] Dr. Tere PastorHbA1c (Bld) [Mass fraction]4.8 %Normal4.5-6.2The [facility] MemorialComment on above:Performed By: #### A1C #### [facility] [address] [place] [address] Dr. Tere PastorPROF 14(COMP METB)on 50-06-3625Frdlpco [Mass/Vol]3.7 g/dLNormal 3.4-5.0The [facility] MemorialComment on above:Performed By: #### T7, CMP, TSH #### [facility] [address] [address] [address] Tere PastorAlbumin/Globulin [Mass ratio]1.1 {ratio}NormalThe [facility] MemorialComment on above:Performed By: #### T7, CMP, TSH #### [facility] [address] [address] [address] Tere GunnP [Catalytic activity/Vol]63 U/TBtogiw66-818Oxg [facility] MemorialComment on above:Performed By: #### T7, CMP, TSH #### [facility] [address] [address] [address] Tere GunnT [Catalytic activity/Vol]20 U/GLrhrgn70-14Fyi [facility] MemorialComment on above:Performed By: #### T7, CMP, TSH #### [facility] [address] [address] [address] Tere Wolfe gap [Moles/Vol]10.8 mmol/LNormalThe [facility] Comment on above:Performed By: #### T7, CMP, TSH #### [facility] [address] [address] [address] Tere PastorAST [Catalytic activity/Vol]15 U/UQuumuk04-08Win [facility] MemorialComment on above:Performed By: #### T7, CMP, TSH #### [facility] [address] [address] [address] Tere PastorBilirubin [Mass/Vol]0.7 mg/dLNormal0.2-1.0The [facility] Comment on above:Performed By: #### T7, CMP, TSH #### [facility] [address] [address] [address] Tere PastorCalcium [Mass/Vol]8.8 mg/dLNormal8.5-10.1[facility] Comment on above:Performed By: #### T7, CMP, TSH #### [facility] [address] [address] [address] Tere PastorChloride [Moles/Vol]102 mmol/XSofeve30-581Eic [facility] Comment on above:Performed By: #### T7, CMP, TSH #### [facility] [address] [address] [address] Tere PastorCO2 [Moles/Vol]28.3 mmol/EFrrqvq10.0-32.0The [facility] Comment on above:Performed By: #### T7, CMP, TSH #### [facility] [address] [address] [address] Tere PastorCreatinine [Mass/Vol]0.67 mg/dLNormal0.55-1.02The [facility] MemorialComment on above:Performed By: #### T7, CMP, TSH #### [facility] [address] [address] [address] Tere HillGFR-AF NIGERIAN>60Normal>=60The [facility] MemorialComment on above:Performed By: #### T7, CMP, TSH #### [facility] [address] [address] [address] Tere Yuen-NON AF NIGERIAN>60Normal>=60The [facility] MemorialComment on above:Performed By: #### T7, CMP, TSH #### [facility] [address] [address] [address] Tere PastorGlobulin (S) [Mass/Vol]3.3 g/dLNormalThe [facility] MemorialComment on above:Performed By: #### T7, CMP, TSH #### [facility] [address] [address] [address] Tere PastorGlucose [Mass/Vol]87 mg/xSJsudyd48-835Ejo [facility] Comment on above:Performed By: #### T7, CMP, TSH #### [facility] [address] [address] [address] Tere PastorPotassium [Moles/Vol]4.1 mmol/LNormal3.5-5.1The [facility] Comment on above:Performed By: #### T7, CMP, TSH #### [facility] [address] [place] [address] Dr. Tere PastorProtein [Mass/Vol]7.0 g/dLNormal6.4-8.2[facility] Comment on above:Performed By: #### T7, CMP, TSH #### [facility] [address] [place] [address] Dr. Tere PastorSodium [Moles/Vol]137 mmol/RBjdoqs344-022TvwKe[facility]an [facility] Comment on above:Performed By: #### T7, CMP, TSH #### [facility] [address] [place] [address] Dr. Tere PastorUrea nitrogen [Mass/Vol]7.0 mg/dLNormal7.0-18.0[facility] HospitalComment on above:Performed By: #### T7, CMP, TSH #### [facility] [address] [place] [address] Dr. Tere Mandel nitrogen/Creatinine [Mass ratio]10.4 mg/mgNormalThe [facility] MemorialComment on above:Performed By: #### T7, CMP, TSH #### [facility] [address] [place] [address] Dr. Tere Greenwood 34-36-8323MUI0.865 uIU/mLNormal0.358-3.740[facility] HospitalComment on above:Performed By: #### T7, CMP, TSH #### [facility] [address] [place] [address] Dr. Tere Pastor Vital Signs Date TimeVital SignValuePerforming BbliczqjfEgfwhdhg81-08-2381 14:35-0400Body puurar394.96 kgCorey Cornelio DO Work Phone: [facility] HealthVxrgvjaemz96-19-2204 13:30-0500Body .33 kgCorey Cornelio DO Work Phone: [facility] HealthTxeywbapwv62-14-8203 13:30-0500Diastolic blood bdrqadtb93 mm[Hg]Ed Cornelio DO Work Phone: [facility] HealthIkvwxyqjgm03-17-8116 13:30-0500Systolic blood oenzdpmn619 mm[Hg]Ed Cornelio DO Work Phone: [facility] HealthVtudvivenq26-80-4462 09:58-0500Blood Pressure LocationAurora Orzech [facility]01-16-2024 09:58-0500Diastolic blood dryyyvic94 mm[Hg]Adele Orzech [facility]01-16-2024 09:58-0500Heart rate74 /minAurora Orzech [facility]01-16-2024 09:58-0500Respiratory rate16 /minAurora Orzech [facility]01-16-2024 09:58-0500Systolic blood yuungzqq519 mm[Hg]Adele Orzech [facility]04-27-2023 12:25-0400Diastolic blood bxsvjswu06 mm[Hg]OIL HEATER INSTALLER-C Conchita Lazarmer Work Phone: [facility]04-27-2023 12:25-0400 Heart rate82 /minNP-C Conchita Alicia Work Phone: [facility]04-27-2023 12:25-0400 Respiratory rate20 /minNP-C Conchita Alicia Work Phone: [facility]04-27-2023 12:25-0400 SaO2% (BldA) [Mass fraction]100 %OIL HEATER INSTALLER-C Conchita Alicia Work Phone: [facility]04-27-2023 12:25-0400 Systolic blood mm[Hg]OIL HEATER INSTALLER-C Conchita Vargas Work Phone: [facility]04-27-2023 10:290400 Body fqqben329.1 cmNP-Kj Vargas Work Phone: [facility]04-27-2023 10:290400 Body iycxatkcivu02.7 [degF]OIL HEATER INSTALLER-Kj Vargas Work Phone: [facility]04-27-2023 10:0400 Body jykrmc432.05 kgNP-C Conchita Vargas Work Phone: [facility] Encounters Encounter DateEncounter TypeCare ProviderFacilityStart: 08-26-2025 End: 37-45-5476Wqignmbev department patient visitUT [facility] HospitalStart: 06-27-2025 End: 64-47-0257Pkfhgr outpatient visit 15 minutesCorey Cornelio DO Work Phone: NOZW Kateryna OBGYNComment on above:Vaginal cyst; HSV infection; Irregular menstrual bleedingStart: 06-27-2025 End: 94-18-9571ymzqrtretuNZTHC FAZIONot AvailableStart: 06-27-2025 End: 14-60-0811Yevfex flowsheetCorey Cornelio DO Work Phone: NOVD Kateryna OBGYNStart: 06-27-2025 End: 87-07-3012Grzkot flowsheetCorey Cornelio DO Work Phone: NOZN Kateryna OBGYNStart: 04-22-2025 End: 10-37-6033ldjqobfmotTTIYS L [facility] Start: 03-09-2025 End: 24-67-0229hatyyxklstMTITAK Sridevi [facility] HospitalStart: 12-30-2024 End: 05-80-4214Tusndedxl department patient visitVETERANS HE[facility] HospitalStart: 10-11-2024 End: 17-57-5659dfgsiwwxvwWEZPYCT [facility] Start: 09-22-2024 End: 85-93-0342fitrgiqxhiNWDXB GRUBBUniRiverview Health Institutetart: 09-03-2024 End: 50-92-2858Ugfqyibzp department patient visitCONCHITA Lin OhioHealthtart: 06-11-2024 End: 20-31-0452gtqztglqqdHXRJDEF [facility]tart: 41-67-3703hzqldgcewgXSQRXCG [facility]tart: 14-38-3616Vjgcjtozd for other preprocedural examinationHEATHER [facility] Hospitaltart: 05-10-2024 End: 10-62-1737Agj Drop offAurora X Orzech [facility] Start: 05-10-2024 End: 19-49-7243frbqocrppgJfuebe X OrzechFacility:EU BellevueStart: 05-10-2024 End: 19-31-7906Mdxuijt encounter procedureAurora X Orzech [facility] start: 05-04-2024 End: 00-01-4716ukgnjjxnesOkobmm X OrzechFacility:FTMCStart: 05-04-2024 End: 67-53-4933Mam Drop offAurora X Orzech [facility] Start: 05-04-2024 End: 71-90-2109Pgxwxiy encounter procedureAurora X Orzech [facility] start: 12-23-2023 End: 82-49-2821zzeulcmauvKqb Infusion Chair orothy [facility] - Medical OncologyComment on above:POTS (postural orthostatic tachycardia syndrome) (Primary Dx); Mild persistent asthma without complication; BMI 40.0-44.9, adult ([facility]); Chronic gastritis without bleeding, unspecified gastritis type; Gastroparesis; Syncope, unspecified syncope type; Aviva-Danlos syndrome type III; Skin abrasion; Port-A-Cath in place; Collapse; AnxietyStart: 12-22-2023 End: 48-91-4257Xjrpzkcfe Result EncounterCorey Cornelio DO Work Phone: noms External Department UnsolicitedStart: 12-22-2023 End: 23-13-1904Zesywmyqy Result EncounterCorey Cornelio DO Work Phone: noms External Department UnsolicitedStart: 12-16-2023 End: 88-33-9007Wgdgqss encounter procedureCorey CornelioMy Hood Work Phone: noms BCP OBComment on above:Encounter for removal of etonogestrel implant; Insertion of Nexplanon; Abnormal uterine bleeding (AUB)Start: 11-18-2023 End: 71-53-4432Vag Drop offAurora X Orzech [facility] Start: 11-18-2023 End: 71-87-9251Risoudu encounter procedureAurora X Orzech [facility] start: 10-28-2023 End: 11-99-7700rmwsembsglUxf Infusion Chair 1[facility] - Medical OncologyComment on above:POTS (postural orthostatic tachycardia syndrome) (Primary Dx); Mild persistent asthma without complication; BMI 40.0-44.9, adult ([facility]); Chronic gastritis without bleeding, unspecified gastritis type; Gastroparesis; Syncope, unspecified syncope type; Aviva-Danlos syndrome type III; Skin abrasion; Port-A-Cath in place; Collapse; AnxietyStart: 02-27-2023 End: 45-02-7452ganeofptkhZiyyvp Sue CramerFacility:[facility] Hospitaltart: 02-27-2023 End: 70-71-0767Kaqzqfyec to same day surgery centerBONNIE Vargas Work Phone: [facility] Work Phone: Start: 02-27-2023 End: 54-27-5160dwrqvavvkaIA-Kj Arango Cortney Vargas Work Phone: [facility] Work Phone: Start: 01-17-2023 End: 31-99-6554fmlfsihlyaDZMJUF CRAMERFacility:C5Ftugr: 85-28-8645Gzanisqlg for preprocedural laboratory examinationCONCHITA VARGASClermont County Hospitaltart: 10-23-2022 End: 39-35-4064bxdbanyfzjKNVBID CRAMERFacility:N4Hhgrw: 10-23-2022 End: 89-86-2096Teobfmrwi for preprocedural laboratory examinationCONCHITA VARGAS Facility:G3Pwzcr: 04-02-2018 End: 04-45-2468DtrfnuatjoDXNAR AM MURPHYFacility:[facility] Procedures DateProcedureProcedure DetailPerforming ClinicianStart: 92-37-0736KF PELVIS W/ TRANSVAGINALCorey Cornelio DO Work Phone: Start: 52-31-7866Mkjfl test visual color cmprsn methsCorey Cornelio DO Work Phone: Start: 38-44-2957BbekubhflolUM-Kj Lazarmer Work Phone: Start: 38-36-9042Gnpok depression screening assessment Pfo 1Start: 04-55-5640Gfqvjhmqtjc observation [Identifier] in Cervix by Cyto stainPfo 1CholecystectomyAurora Orzech ColonoscopyAurora Orzech TonsillectomyAurora Orzech Plan of Treatment DateCare ActivityDetailAuthorStart: 86-66-6491CFwL,Tdap and Td Vaccines (7 - Td or Tdap)DTaP,Tdap and Td Vaccines (7 - Td or Tdap)[facility] Hospitaltart: 06-27-2025 End: 03-29-7934Ypnslvi encounter nfefkfvxn88/25/2025 2:20 PM EDT Office Visit [facility]NE [facility] [address] [place] [id number] Ed Grimes DO [address], [place] [id number] ArrivedNOMS Kateryna OBGYNComment on above:ArrivedStart: 80-82-0790Rgzkw BMI ScreeningAdult BMI ScreeningProPike Community Hospital SystemStart: 23-80-8669Rsjampp ScreeningTobacco ScreeningProMansfield Hospitaltart: 02-17-2024 End: 45-66-8228ebbsteaakp57/16/2024 11:30 AM EDT Infusion Tasha L [facility] - Medical Oncology [address] [place] [phone] Tasha L [place] [facility] Medical OncologyStart: 12-23-2023 End: 11-33-3632kwicjqtlse57/20/2024 11:30 AM EST Infusion Tasha Farrell [place] [facility] Medical Oncology [address] [place] [phone] Tasha [facility] Medical OncologyStart: 12-16-2023 End: 04-01-9097KS for pregnancyUS PELVIS-TRANSVAG IF INDICATED Imaging Routine Abnormal uterine bleeding (AUB) Expected: 12/16/2023 (Approximate), Expires: 12/16/2024NOS[facility] HealthcareComment on above:Expected: 12/16/2023 (Approximate), Expires: 12/16/2024Start: 89-39-8497Pkytuxvbl vaccinationInfluenza Vaccine [facility] SystemStart: 61-88-6253Puyujyfgo for malignant neoplasm of cervixPap SmearProMansfield Hospitaltart: 45-15-6169MtcutqmvwMary Rutan Hospitaltart: 34-26-4118Xfmyqaojvr ScreeningDepression ScreeningECU Health Bertie Hospitaltart: 48-96-2480Vrbiq BMI Follow Up PlanAdult BMI Follow Up Plan [facility] SystemRemoval non-biodegradable drug delivery implantRemove drug implant device Procedures Routine Encounter for removal of etonogestrel implant Ordered: 12/16/2023[facility] Work Phone: comment on above:Ordered: 12/16/2023 Immunizations Immunization DateImmunizationNotesCare ZmxvynliLkujwjme43-56-4335tpcygqlle, injectable, quadrivalent, preservative freePfo [address] [place] [address] 34-76-1898ZWG(D) immune globulin- IV or IMPfo [address] [place], [place] 5827001-07-2021 tetanus toxoid, reduced diphtheria toxoid, and acellular pertussis vaccine, adsorbedPfo [address] [place], [place] [address]Adtrwn01-11-6233youhsjsbc virus vaccine, unspecified formulationPfo [address] [place], [place] [address]NEGATED: Highlighted row has not occurred!51-72-0017adphbtbsb virus vaccine, unspecified formulationAdele Burgos [facility] Payers DatePayer CategoryPayerPolicy [id number] (Managed Care)[employer] [id number] [id number] 82-31-1423Xwql-[id number] [id number] 2.16.840.1.337408.3.57[id number] 2.16.840.1.258805.3.57[id number] 2.16.840.1.763346.3.57[id number] 2.16.840.1.685954.3.57[id number] 2.16.840.1.372447.3.57[id number] 2.840.1.179314.3.57[id number] 2.840.1.198826.3.57[id number] 2.840.1.353417.3.57[id number] 2.840.1.258413.3.57[id number] 2.0.1.791185.3.57[id number] 2.840.1.593183.3.57[id number] 2.840.1.158535.3.579.2.1286 [id number] MedicaidParamount [id number] MedicaidM[place]ina MyCare[place] [id number] [id number] 2.16.840.1.936719.3.579.2.531UnknownReverify Insurance [id number] Social History DateTypeDetailFacilityStart: 02-27-2023 End: 82-76-2681Eafhxwf smoking status NHISNever smoked tobacco (finding) [facility]tart: 02-33-4522Sql Assigned At [facility] Hospitaltart: 11-20-2023 End: 83-38-8296Otm Assigned At [facility] Centertart: 12-16-2023 End: 19-66-4451Gfbgcsp intakeLifetime non-drinker (finding)[facility] HealthcareStart: 11-20-2023 End: 01-92-4382Xtktguu of Social functionSelect Medical [facility] SystemStart: 37-60-5997Rcbipvq Commentcaffeine: 1-2 cups per dayNOSD HealthcareStart: 26-41-1124Mbhhdm identityIdentifies as female gender (finding)[facility] SystemStart: 31-33-1630Nxmhhr orientationHeterosexual (finding)[facility] SystemStart: 09-47-6461Loivlkv smoking statusNeverExecutive Urology of [facility] BellevueStart: 27-95-5299Hxvgqjh use and exposureSmokeless tobacco non-userSelect Medical [facility] SystemStart: 89-69-5632Birlfqf intakeCurrent non-drinker of alcohol (finding)[facility] SystemThe thought of harming myself has occurred to [facility] Medical Equipment Procedure CodeEquipment CodeEquipment Original TextEquipment IdentifierDates [facility]-10/21/[id number]_impStart: 64-91-2601Hixyx 4x day: fasting, 1 hour after each [id number]: 11-29-2020 Goals DatePatient GoalDesired Activity/State Functional Status UxinHvnhszzfehYbpehkIsxfeuhl29-76-3626Esjqkcfrbc StatusN/AExec[facility]01-16-2024Functional StatusN/AExec[facility] Clinical Notes 02-27-2023 to 06-27-2025 Note Date & IqpnXmsiFadpuobu05-81-1435 History of Present illness Narrative* Usha Razo, TONY - 06/27/2025 2:20 PM EDT Reason for Appointment: Patient ID: Yin Taylor is a 29 y.o. female who presents for vaginal cyst Patient presents today for Consult appointment. 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 PROBLEMS Active Ambulatory Problems Diagnosis Date Noted No Active Ambulatory Problems Resolved Ambulatory Problems Diagnosis Date Noted No Resolved Ambulatory Problems Past Medical History: Diagnosis Date Anxiety Asthma (HCC) Depression History of medical problems HISTORY PAST MEDICAL HISTORY SOCIAL HISTORY Past Medical History: Diagnosis Date Anxiety Asthma (HCC) Depression History of medical problems CARRILLO syndrome Social History Tobacco Use Smoking status: Never Smokeless tobacco: Not on file Substance Use Topics Alcohol use: Never Comment: caffeine: 1-2 cups per day Drug use: Never FAMILY HISTORY Family History Problem Relation Name Age of Onset Depression Mother Anxiety disorder Mother Arthritis Mother SURGICAL HISTORY Past Surgical History: Procedure Laterality Date ADENOIDECTOMY CHOLECYSTECTOMY 2017 TONSILLECTOMY REVIEW OF SYSTEMS Review of Systems: Review of Systems Constitutional: Negative. HENT: Negative. Eyes: Negative. Respiratory: Negative. Cardiovascular: Negative. Gastrointestinal: Negative. Genitourinary: Positive for vaginal pain. Musculoskeletal: Negative. Skin: Negative. Neurological: Negative. All other systems reviewed and are negative. Hematological: Negative. Endocrine: Negative. Allergic/Immunologic: Negative. OBJECTIVE Objective: Physical Exam Constitutional: Appearance: Normal appearance. She is well-developed. Genitourinary: Vulva normal. Cardiovascular: Rate and Rhythm: Normal rate and [...] nursing note reviewed. Exam conducted with a junior high school teacher present. Vitals: There is no height or weight on file to calculate BMI. BP: No LMP recorded. Patient has had an implant. ASSESSMENT & PLAN ICD-10-CM 1. Vaginal cyst N89.8 Patient complaints of vaginal Documented by Usha Razo LPN on behalf of: Ed Grimes DO documented in this encounterPhelps HealthVzsoxagvyv90-11-2342 NoteDEPARTMENT OF VASCULAR SURGERY Subjective Yin Taylor is a 28 y.o. female with a history of POTS who presents today for follow-up after removal of intrajugular port. Patient reports she used these for daily injections but no longer requires it. She does report she had some pain and swelling of the left neck after immediately after surgery but this has resolved. Denies any signs of infection at the port site. Review of Systems HENT: Positive for congestion, rhinorrhea and sore throat. Respiratory: Positive for cough and wheezing. Cardiovascular: Positive for chest pain and leg swelling. Gastrointestinal: Negative. Endocrine: Positive for cold intolerance. Genitourinary: Negative. Negative for difficulty urinating. Musculoskeletal: Negative. Skin: Positive for rash. Allergic/Immunologic: Negative. Neurological: Positive for numbness. Hematological: Negative. Psychiatric/Behavioral: Negative. Objective Visit Vitals BP 116/73 (BP Location: Left arm, Patient Position: Sitting) Pulse 77 Physical Exam Constitutional: General: She is not in acute distress. Appearance: Normal appearance. She is not toxic-appearing. HENT: Head: Normocephalic and atraumatic. Eyes: General: No scleral icterus. Pupils: Pupils are equal, round, and reactive to light. Neck: Comments: Left intrajugular port site well-healed without any areas of dehiscence Cardiovascular: Rate and Rhythm: Normal rate and regular rhythm. Pulmonary: Effort: Pulmonary effort is normal. No respiratory distress. Breath sounds: Normal breath sounds. Musculoskeletal: Cervical back: Neck supple. Skin: General: Skin is warm and dry. Neurological: General: No focal deficit present. Mental Status: She is alert and oriented to person, place, and time. Psychiatric: Mood and Affect: Mood normal. Behavior: Behavior normal. Judgment: Judgment normal. Assessment/Plan Diagnoses and all orders for this visit: Encounter for postoperative wound check -Port site is healed well at this time. No signs of infection or dehiscence -Okay to use silicone scar gel and gentle massage for scar appearance -can follow-up as needed Electronically signed by: QUINTEN Sanchez Physician Bakery Helper Vascular and Wound Surgery 10/11/2024 This note was created with the assistance of a speech-recognition program. While intending to generate a document that accurately reflects the content of the encounter, no guarantee can be provided that every mistake has been identified and corrected by editing Diagnosis Plan 1. Encounter for postoperative wound check No orders of the defined types were placed in this encounter. No results found for this or any previous visit (from the past 36 hour(s)). No follow-ups on file.[facility]11-20-2024 NoteSYNCOPE AND AUTONOMIC [facility]ORD[facility] Reason for Consultation: Follow-up of postural tachycardia syndrome HPI: Yin Taylor is a 28 y.o. year old with past medical history of postural orthostatic tachycardia syndrome. She has been doing reasonably well despite the stresses and strains of raising a 3-year-old. Though she fatigues easily she nonetheless is functional and able to carry on the normal affairs of day-to-day living. She has stopped getting IV fluids for the last 2 years and is inquired about having her port removed. Apparently it has not been flushed and therefore most likely is clotted shut. I will be making a referral to vascular surgery to have this removed. Otherwise since she is doing well I am not can to make any changes in her current pharmaceutical regime. I have advised her to try to get enough sleep and at the same time begin some kind of program of reconditioning working towards a goal of doing at least 20 minutes ofaerobic activity 3 times weekly. I spent 30 minutes in [id number] patient counseling and therapeutic decision making during which time we discussed postural orthostatic tachycardia syndrome, its pathophysiology and prognosis. We also discussed additional therapeutic options that could be employed's if her symptoms increased. We also discussed the link between gastroparesis and gastrointestinal problems and postural tachycardia syndrome. For now I think we can see her back on a yearly basis. I have renewed her midodrine and ivabradine for the coming year. PMH: Past Medical History: Diagnosis Date Asthma Childhood POTS (postural orthostatic tachycardia syndrome) Syncope PSH: Past Surgical History: Procedure Laterality Date CHOLECYSTECTOMY TONSILLECTOMY SH: Social Determinants of Health Tobacco Use: Low Risk (09/03/2024) Received from [employer] Patient History Smoking Tobacco Use: Never Smokeless Tobacco Use: Never Passive Exposure: Not on file Alcohol Use: Not At Risk (10/15/2018) Received from [employer] AUDIT-C Frequency of Alcohol Consumption: Never Average Number of Drinks: Not on file Frequency of Binge Drinking: Not on file Financial Resource Strain: Patient Declined (03/26/2023) Received from [employer] Overall Financial Resource Strain (CARDIA) Difficulty of Paying Living Expenses: Patient declined Food Insecurity: No Food Insecurity (09/03/2024) Received from [employer] Hunger Screening Within the past 12 months we worried whether our food would run out before we got money to buy more.: Never True Within the past 12 months the food we bought just didn't last and we didn't have money to get more.: Never True Transportation Needs: Patient Declined (03/26/2023) Received from [employer] PRAPARE - Transportation Lack of Transportation (Medical): Patient declined Lack of Transportation (Non-Medical): Patient declined Physical Activity: Not on file Stress: Not on file Social Connections: Not on file Intimate Partner Violence: Unknown (12/25/2023) [place] Safety & [place] Fear of Current or Ex-Partner: Not on file Emotionally Abused: Not on file Physically Abused: Not on file Sexually Abused: Not on file Physically or Sexually Abused: Not on file Depression: Not at risk (01/27/2023) PHQ-2 PHQ-2 Score: 0 Housing Stability: Low Risk (03/26/2023) Re[facility] from [employer] Are you worried or concerned that in the next two months you may not have stable housing that you own, rent or stay in as a part of a household?: No Utilities: Not on file Health Literacy: Not on file Meds: Current Outpatient Medications on File Prior to Visit Medication Sig Dispense Refill albuterol 90 mcg/actuation inhaler Inhale 2 puffs every 4 (four) hours if needed. budesonide-formoteroL (Symbicort) 160-4.5 mcg/actuation inhaler Inhale 2 puffs twice a day. etonogestrel-eluting contraceptive 68 mg contraceptive implant 1 Device by implant route 1 (one) time. montelukast (Singulair) 10 mg tablet Take 10 mg by mouth at bedtime. sodium chloride 1 gram tablet Take 1 tablet (1 g) by mouth with breakfast and with evening meal. Start taking 1 tablet daily. Increase to twice daily if needed. 60 tablet 3 [DISCONTINUED] ivabradine (Corlanor) 5 mg tablet Take 1 tablet (5 mg) by mouth in the morning. 90 tablet 3 [DISCONTINUED] midodrine (Proamatine) 5 mg tablet Take 1 tablet (5 mg) by mouth three times daily. 270 tablet 3 sodium chloride flush Flush port with saline every 4-6 weeks per protocol. 12 mL 3 [DISCONTINUED] amitriptyline (Elavil) 25 mg tablet Take 25 mg by mouth at bedtime. [DISCONTINUED] amoxicillin (Amoxil) 500 mg capsule Take by mouth. [DISCONTINUED] ciprofloxacin (Cipro) 500 mg tablet Take 500 mg by mouth in (more content not included)...[facility]08-08-2024 Note Subjective Patient ID: Yin Taylor is a 28 y.o. female who presents for New Patient (New Patient- discuss port removal). HPI Review of Systems Constitutional: Positive for fatigue. Negative for activity change, appetite change, chills, diaphoresis, fever and unexpected weight change. HENT: Negative for congestion, dental problem, drooling, ear discharge, ear pain, facial swelling, hearing loss, mouth sores, nosebleeds, postnasal drip, rhinorrhea, sinus pressure, sinus pain, sneezing, sore throat, tinnitus, trouble swallowing and voice change. Eyes: Negative for photophobia, pain, discharge, redness, itching and visual disturbance. Respiratory: Positive for cough, choking, shortness of breath and wheezing. Negative for apnea, chest tightness and stridor. Cardiovascular: Positive for chest pain, palpitations and leg swelling. Gastrointestinal: Positive for constipation. Negative for abdominal distention, abdominal pain, anal bleeding, blood in stool, diarrhea, nausea, rectal pain and vomiting. Endocrine: Negative for cold intolerance, heat intolerance, polydipsia, polyphagia and polyuria. Genitourinary: Negative for decreased urine volume, difficulty urinating, dyspareunia, dysuria, enuresis, flank pain, frequency, genital sores, hematuria, menstrual problem, pelvic pain, urgency, vaginal bleeding, vaginal discharge and vaginal pain. Musculoskeletal: Positive for neck pain and neck stiffness. Negative for arthralgias, back pain, gait problem, joint swelling and myalgias. Skin: Positive for rash. Negative for color change, pallor and wound. Allergic/Immunologic: Negative for environmental allergies, food allergies and immunocompromised state. Neurological: Positive for dizziness and light-headedness. Negative for tremors, seizures, syncope, facial asymmetry, speech difficulty, weakness, numbness and headaches. Hematological: Negative for adenopathy. Bruises/bleeds easily. Psychiatric/Behavioral: Negative for agitation, behavioral problems, confusion, decreased concentration, dysphoric mood, hallucinations, self-injury, sleep disturbance and suicidal ideas. The patient is nervous/anxious. The patient is not hyperactive. Objective There were no vitals taken for this visit. Physical Exam Assessment/Plan No diagnosis found. No orders of the defined types were placed in this encounter. No results found for this or any previous visit (from the past 36 hour(s)). No follow-ups on file.[facility]08-08-2024 Note Subjective Patient ID: Yin Taylor is a 28 y.o. female who presents for New Patient (New Patient- discuss port removal). HPI 28 y.o. female presents to discuss port removal. Port placed October 2018 for sodium chloride infusion for POTS. She now takes Corlonor and does not need sodium chloride infusions any longer. She has mild swelling to left neck, denies trouble swallowing. Will order stat LUE Venous duplex to evaluate for DVT. Review of Systems Constitutional: Positive for fatigue. Negative for activity change, appetite change, chills, diaphoresis, fever and unexpected weight change. HENT: Negative for congestion, dental problem, drooling, ear discharge, ear pain, facial swelling, hearing loss, mouth sores, nosebleeds, postnasal drip, rhinorrhea, sinus pressure, sinus pain, sneezing, sore throat, tinnitus, trouble swallowing and voice change. Eyes: Negative for photophobia, pain, discharge, redness, itching and visual disturbance. Respiratory: Positive for cough, choking, shortness of breath and wheezing. Negative for apnea, chest tightness and stridor. Cardiovascular: Positive for chest pain, palpitations and leg swelling. Gastrointestinal: Positive for constipation. Negative for abdominal distention, abdominal pain, anal bleeding, blood in stool, diarrhea, nausea, rectal pain and vomiting. Endocrine: Negative for cold intolerance, heat intolerance, polydipsia, polyphagia and polyuria. Genitourinary: Negative for decreased urine volume, difficulty urinating, dyspareunia, dysuria, enuresis, flank pain, frequency, genital sores, hematuria, menstrual problem, pelvic pain, urgency, vaginal bleeding, vaginal discharge and vaginal pain. Musculoskeletal: Positive for neck pain and neck stiffness. Negative for arthralgias, back pain, gait problem, joint swelling and myalgias. Skin: Positive for rash. Negative for color change, pallor and wound. Allergic/Immunologic: Negative for environmental allergies, food allergies and immunocompromised state. Neurological: Positive for dizziness and light-headedness. Negative for tremors, seizures, syncope, facial asymmetry, speech difficulty, weakness, numbness and headaches. Hematological: Negative for adenopathy. Bruises/bleeds easily. Psychiatric/Behavioral: Negative for agitation, behavioral problems, confusion, decreased concentration, dysphoric mood, hallucinations, self-injury, sleep disturbance and suicidal ideas. The patient is nervous/anxious. The patient is not hyperactive. Objective Visit Vitals BP 112/63 (BP Location: Right arm, Patient Position: Sitting) Pulse 68 Temp 36.8 ???C (98.2 ???F) (Temporal) Physical Exam Vitals reviewed. Constitutional: Appearance: Normal appearance. She is obese. HENT: Head: Normocephalic and atraumatic. Eyes: Extraocular Movements: Extraocular movements intact. Neck: Comments: Mild swelling left neck Cardiovascular: Rate and Rhythm: Normal rate. Musculoskeletal: General: Normal range of motion. Cervical back: Normal range of motion. Skin: General: Skin is warm and dry. Comments: Right chemo port with hypertrophic scar tissue. Neurological: Mental Status: She is alert and oriented to person, place, and time. Psychiatric: Mood and Affect: Mood normal. Behavior: Behavior normal. Assessment/Plan Port removal Will schedule port removal to be done at [facility] Venous duplex stat to rule out LUE DVT. She has swelling in her left neck. Scheduled for 06/11 9AM. Follow up after port removal for post op check No diagnosis found. No orders of the defined types were placed in this encounter. No results found for this or any previous visit (from the past 36 hour(s)). No follow-ups on file.[facility]07-08-2024 Evaluation + Plan note Diagnostic Tests Pending * Urine Culture 05/10/24 [facility]07-02-2024 Evaluation + Plan note Diagnostic Tests Pending * Urine Culture 05/04/24 [facility]07-02-2024 Hospital Discharge instructions Patient Education 05/04/2024 09:40:00 Hematuria, Adult Hematuria, Adult Hematuria is blood in the urine. Blood may be visible in the urine, or it may be identified with a test. This condition can be caused by infections of the bladder, urethra, kidney, or prostate. Otherpossible causes include: Kidney stones. Cancer of the [...] blood in your urine, even if it ispainless or the blood stops without treatment. Blood in the urine, when it happens and then stops and then happens again, can be a symptom of a very serious condition, including cancer. There is no pain in the initial stages of many urinary cancers. Follow these instructions at home: Medicines Take hbhs-ryo-stwibwq and prescription medicines only as told by your health care provider. If you were prescribed an antibiotic medicine, take it as told by your health care provider. Do notstop taking the antibiotic even if you start to feel better. Eating and drinking Drink enough fluid to keep your urine pale yellow. It is recommended that you drink 3 4 quarts (2.83.8 L) a day. If you have been diagnosed with an infection, drinking cranberry juice in addition tolarge amounts of water is recommended. Avoid caffeine, [...] about any blood in your urine, even ifit is painless or the blood stops without treatment. Take larm-xyv-ggrikav and prescription medicines only as told by your health care provider. Drink enough fluid to keep your urine pale yellow. This information is not intended to replace advice given to you by your health care provider. Make sure you discuss any questions you have with your health care provider. Document Revised: 06/20/2021 Document Reviewed: 06/20/2021 4Home Patient Education 2022 [employer]. Follow Up Care 03/05/2024 09:51:28 With:KE Burgos APRN, JARRETT Hernandez, URL Address: When: Unknown Comments:pending micro/cx [facility] 02-20-2024 History of Present illness Narrative* Franca Chin RN - 12/23/2023 11:30 AM EST Port flushed per protocol. documented in this encounterProMedica Toledo HospitalNew World Development Group [id number] History of Present illness Narrative* Kaye Harmon LPN - 12/16/2023 1:10 PM EST Reason for Appointment: Patient ID: Yin Taylor is a 28 y.o. female who [...] Past Medical History: Diagnosis Date Anxiety Asthma (CMS/HCC) Depression (CMS/[facility]) History of medical problems Family [...] nursing note reviewed. Exam conducted with a junior high school teacher present. Vitals: There is no height or [...] arm flexed at elbow. Skin was cleansed withalcohol/Betadine and 3cc of Lidocaine was injected underneath [...] by Kaye Harmon LPN on behalf of: Ed Grimes DO documented in this encounterPhelps [id number] Evaluation + Plan note Diagnostic Tests Pending * Urine Cytology ([facility]) 11/18/23 [facility]01-16-2024 Hospital Discharge instructions Patient Education 11/18/2023 11:38:29 Hematuria, Adult Hematuria, Adult Hematuria is blood in the urine. Blood may be visible in the urine, or it may be identified with a test. This condition can be caused by infections of the bladder, urethra, kidney, or prostate. Otherpossible causes include: Kidney stones. Cancer of the [...] blood in your urine, even if it ispainless or the blood stops without treatment. Blood in the urine, when it happens and then stops and then happens again, can be a symptom of a very serious condition, including cancer. There is no pain in the initial stages of many urinary cancers. Follow these instructions at home: Medicines Take wbbj-lcg-qegkhzg and prescription medicines only as told by your health care provider. If you were prescribed an antibiotic medicine, take it as told by your health care provider. Do notstop taking the antibiotic even if you start to feel better. Eating and drinking Drink enough fluid to keep your urine pale yellow. It is recommended that you drink 3 4 quarts (2.83.8 L) a day. If you have been diagnosed with an infection, drinking cranberry juice in addition tolarge amounts of water is recommended. Avoid caffeine, [...] about any blood in your urine, even ifit is painless or the blood stops without treatment. Take ktbz-bvm-ldjkxfz and prescription medicines only as told by your health care provider. Drink enough fluid to keep your urine pale yellow. This information is not intended to replace advice given to you by your health care provider. Make sure you discuss any questions you have with your health care provider. Document Revised: 06/20/2021 Document Reviewed: 06/20/2021 4Home Patient Education 2022 [employer]. [facility] 12-26-2023 History of Present illness Narrative* Franca Chin RN - 10/28/2023 12:30 PM EST Port flushed per protocol. documented in this encounterOhio[facility] History and physical note Author Willie Monreal [facility] February 27, 2023 11:15amNote Date/TimeApril 2022 11:15[place] [address] Gastroenterology H&P Signed Patient: Yin Taylor MR#: [id number] : 1995 Acct:[id number] Age/Sex: 27 / F Adm Date: 3 Loc: Room: Type: [facility] Attending Dr: Willie Monreal MD Copies to: MD Conchita Stewart CNP~ Date of Service: 02/27/2023 HISTORY & PHYSICAL: Patient's history with special attention to the cardiovascular, pulmonary systems and the current problem was reviewed with the patient immediately prior to the procedure. Present medications and doses reviewed in the EMR. Allergies and pertinent laboratory tests were also re viewedat this time in the EMR. The physical examination, as below, was then performed. Indication, assessment and HPI: 27-year-old female here for colonoscopy for evaluation of abdominalpain and colitis. Family history of GI malignancy? [...] signed by Willie Monreal MD> 02/27/23 1115 [facility] Work Phone: [phone]) 935-250004-27-2023 Procedure noteFirCleveland Clinic [facility] GeneralEvaluation + Plan note No data available for this section [facility] evaluation noteNo assessment information available [facility] Work Phone: Evaluation note* Diagnosis Encounter for removal of etonogestrel implant Insertion of Nexplanon Abnormal uterine bleeding (AUB) documented in this encounter [facility] HealthcareEvaluation note* Diagnosis POTS (postural orthostatic tachycardia syndrome)- Primary Unspecified tachycardia Mild persistent asthma without complication BMI 40.0-44.9, adult ([facility]) Chronic gastritis without bleeding, unspecified gastritis type Gastroparesis Syncope, unspecified syncope type Aviva-Danlos syndrome type III Aviva-Danlos syndrome Skin abrasion Abrasion or friction burn of other, multiple, and unspecified sites, without mention of infection Port-A-Cath in place Collapse Syncope and collapse Anxiety Anxiety state, unspecified documented in this encounter [facility]* Diagnosis Vaginal cyst Other specified noninflammatory disorder of vagina HSV infection Herpes simplex without mention of complication Irregular menstrual bleeding Irregular menstrual cycle documented in this encounter [facility] HealthcareHospital Discharge instructions Additional Instructions DISCHARGE INSTRUCTIONS [...] NOT operate machinery such as power tools, lawn mowers, snow blowers, sewing machines, etc. for [...] screening -Follow up with PCP. -Office number [phone]. [facility] Work Phone: Hospital Discharge instructions No data available for this section [facility] HospitalInstructionsNot on filedocumented in this encounter [facility] SystemProgress note No data available for this section [facility] Summary Purpose Family History Relationship Condition Age at Onset Recorded Date/T mitchell Not Specified Diabetes mellitus Unknown Intestinal obstructionUnknowngrandparentDiabetes mellitusUnknownMalignant neoplasm of breastUnknownHeart diseaseUnknownsisterDiabetes mellitusUnknown family memberMalignant neoplasm of colonUnknownMalignant neoplasm of lungUnknown Advance Directives Advance Directive Response Recorded Date/ Time Advance Directives No January 05 5:57pm Code StatusDate ActivatedDate InactivatedCommentsFull Code01/18/2021 5:05 AM 01/20/2021 6:33 PM Chief Complaint and Reason for Visit Chief Complaint Abdominal pain, Coli tis Additional Source Comments INFORMATION SOURCE (unrecogn ized section and content) DATE CREATED AUTHOR 04/22/2018 [facility] DATE CREATED AUTHOR AUTHOR'S ORGANIZ ATION 01/26/2023 [facility] DATE CREATED AUTHOR AUTHOR'S ORGANIZ ATION 03/01/2023 [facility] DATE CREATED AUTHOR AUTHOR'S ORGANIZ ATION 05/06/2024 [facility] DATE CREATED AUTHOR AUTHOR'S ORGANIZ ATION 05/07/2024 [facility] DATE CREATED AUTHOR AUTHOR'S ORGANIZ ATION 05/17/2024 [facility] DATE CREATED AUTHOR AUTHOR'S ORGANIZ ATION 05/18/2024 [facility] DATE CREATED AUTHOR AUTHOR'S ORGANIZ ATION 05/20/2024 [facility] DATE CREATED AUTHOR AUTHOR'S ORGANIZ ATION 10/14/2024 [facility] DATE CREATED AUTHOR AUTHOR'S ORGANIZ ATION 04/25/2025 [facility] DATE CREATED AUTHOR AUTHOR'S ORGANIZ ATION 06/28/2025 [facility] DATE CREATED AUTHOR AUTHOR'S ORGANIZ ATION 07/29/2025 [facility] DATE CREATED AUTHOR AUTHOR'S ORGANIZ ATION 08/28/2025 [facility] Care Teams (unrecognized sec tion and content) Team Status: Active Member Role Status Dates Conchita Vargas NP-C Primary Care Provider Active Team Status: Inactive Member Role Status Dates Willie Monreal MD Attending Provider Active Conchita Vargas NP-CPrimary Care ProviderActiveTeam MemberRelationship SpecialtyStart DateEnd Date Conchita Vargas TURBOGENERATOR OPERATOR-UTILITY BAGGER [address] [place] [id number] PCP - GeneralFamily Medicine11/25/19 Reason for Visit (unrecogniz ed section and content) ReasonCommentsContraceptionNexplanon removal/insertReasonCommentsPort/VAD Care Port flushReasonCommentsvaginal cyst FOR RECORDS PERTAINING TO PATIENTS WHO ARE [...] BE BASED ON THE PRIMARY CLINICAL RECORDS. [facility] [employer] [facility]. provides no warranty or guarantee of the accuracy or completeness of information in this document.
[2025-09-01 12:23] LABS: Hematocrit 43.7 % (36.0-48.0); Hemoglobin 14.6 g/dL (12.0-16.0); Immature Granulocytes Abs Auto 0.03 10^3/uL (0.00-0.03); Immature Granulocytes Pct Auto 0.3 % (0.0-0.5); Lymphocytes Absolute Auto 3.0 10^3/uL (1.2-3.8); Mean Corpuscular HGB Conc 33.4 g/dL (29.9-35.2); Mean Corpuscular Hemoglobin 28.4 pg (26.7-34.0); Mean Corpuscular Volume 85.0 fL (81.0-99.0); Platelet Count 283 10^3/uL (150-450); Red Blood Count 5.14 10^6/uL (4.20-5.40); White Blood Count 9.9 10^3/uL (4.0-11.0)
[2025-09-01 12:53] LABS: Alanine Aminotransferase 19 U/L (14-59); Albumin Globulin Ratio 1.0; Albumin Level 3.9 g/dL (3.4-5.0); Alkaline Phosphatase 70 U/L (46-116); Anion Gap 12.3; Aspartate Amino Transferase 12 U/L (15-37); Blood Urea Nitrogen 12.0 mg/dL (7.0-18.0); Calcium 8.9 mg/dL (8.5-10.1); Carbon Dioxide 28.8 mmol/L (21.0-32.0); Chloride 103 mmol/L (98-107); Cholesterol 155 mg/dL (<=200); Estimated GFR (African America >60 (>=60 mL/min/1.73m^2); Estimated GFR (Non-African Ame >60 (>=60 mL/min/1.73m^2); Free T3 3.09 pg/mL (2.18-3.98); Globulin 3.8 g/dL; Glucose 86 mg/dL (74-106); HDL Cholesterol 38 mg/dL (40-60); Potassium 4.1 mmol/L (3.5-5.1); Sodium 140 mmol/L (136-145); Thyroid Stimulating Hormone 2.281 uIU/mL (0.358-3.740); Total Protein 7.7 g/dL (6.4-8.2); Triglycerides 61 mg/dL (<=150); VLDL CHOLESTEROL 12.2 mg/dL
[2025-09-01 13:40] LABS: Iron 71.0 ug/dL (50.0-170.0)
== END 2025-09-01 11:18 | disposition home or self-care (01) ==
PROVIDERS: PCP Nurse Practitioner Family; Visit Provider Nurse Practitioner Family
DX: R73.09 Other abnormal glucose (principal); E66.9 Obesity, unspecified; D64.9 Anemia, unspecified; E03.9 Hypothyroidism, unspecified; E55.9 Vitamin D deficiency, unspecified
CPT/HCPCS: 36415; 80053; 80061; 82306; 83036; 83525; 83540; 84436; 84443; 84481; 85025

== ENCOUNTER 2025-10-11 08:26 | Outpatient (OUT) | payer MEDICARE, SELFPAY ==
--- OUTSIDE RECORDS SUMMARY | 2025-10-11 08:33 | XMS_ITS | CCD ---
Author Organization [facility]iniSynd Care Team Providers Care Business Analytics Specialist Name Role Phone DOMINGO JACOME AM Unavailable Unavailable DOMINGO JACOME AM Unavailable Unavailable GAKLAUS VARGAS Unavailable Unavailable GA, KLAUS Unavailable Unavailable CONCHITA VARGAS Admitting Unavailable CONCHITA VARGAS Attending Unavailable CONCHITA VARGAS Primary Care Unavailable CONCHITA VARGAS Consulting Unavailable ALICIA, CONCHITA Admitting Unavailable CONCHITA VARGAS Attending Unavailable ALICIA CONCHITA Primary Care Unavailable CONCHITA VARGAS Consulting Unavailable NENO INGRAM Consulting Unavailable Conchita Vargas Primary Care Unavailable Asaad Imad Attending Unavailable Jocelin, Imad Admitting Unavailable MD Willie Monreal Attending [...] Primary Care Unavailable ED GRIMES Attending Unavailable ALICIA, CONCHITA S Primary Care Unavailable NORBERTO SKELTON Attending Unavailable ALICIA, CONCHITA S Primary Care Unavailable KAMINI HERNÁNDEZ Referring Unavailable ALICIA, CONCHTIA S Primary Care Unavailable KAMINI HERNÁNDEZ Referring Unavailable ALICIA, CONCHITA S Primary Care Unavailable ALICIA, CONCHITA S Primary Care Unavailable FITZ AGXIOLA Attending Unavailable Adele Burgos Attending Unavailable Adele Burgos Admitting Unavailable Adele Burgos Attending Unavailable Allergies Allergy ClassificationReported Allergen(s)Allergy TypeDate of OnsetReaction(s) Facility (1 source)grape extractDrug AllergyUpper [facility] (2 sources)grape flavor; Translations: [GRAPE FLAVOR]Allergy to substance 46-00-5514RmvmbQcnydoumxMercy Health St. [facility] (2 sources)dragon fruit; Translations: [DRAGON FRUIT]Allergy to substance 49-62-6599VexqybxrnksSkibylivgMercy Health West Hospital (6 sources)buPROPionDrug Scchrog92-24-4727NgtwiznhbxoqutVWNI Healthcare (5 sources)Flavoring AgentPropensity to adverse opiffxryc25-34-4744KyyicSaint [facility] Hospital [facility] (3 sources)No Known Medication Allergies; Translations: [No Known Medication Allergies]Propensity to adverse reactions (disorder)[facility] Repository (1 source)buPROPion; Translations: [BUPROPION HCL]Drug Aqwxxre96-75-6819 [facility] Repository (5 sources)Grape Flavoring; Translations: [GRAPE FLAVORING]Propensity to adverse reactions to swmr25-17-1080[facility]Cent[facility] (4 sources)Flavoring Agent (Non-Screening)Propensity to adverse reactions 33-63-5673LjlfaFitzgibbon Hospital Medications Current Medications MedicationDrug Class(es)DatesSig (Normalized)Sig (Original)[id number] 200 actuat albuterol 0.09 mg/actuat metered dose inhaler (14 sources)beta2-Adrenergic AgonistStart: 27-58-8279hkqc 1 puff(s) by inhalation every six hoursAlbuterol Sulfate Active 2 PUFF INHALATION Q6H February 27, 2023 12:00amStart: 71-31-7853xapg 2 puff(s) by inhalation every four hours as neededPROAIR HFA 90 mcg/actuation inhaler Inhale 2 puffs every 4 (four) hours as needed. ALBUTEROL SULFATE HFA SUBSTITUTE 0 06/03/2017 Activealbuterol (ProAir RespiClick) 90 mcg/act breath-activated inhaler Active End: 94-95-2345xsvg 2 puff(s) by mouth every four hoursalbuterol HFA 90 mcg/act inhaler inhale 2 puffs by mouth and INTO THE LUNGS every 4 hours 06/27/2025 Discontinued (Other)Albuterol (Eqv-ProAir HFA) 90 mcg/inh inhalation aerosol (6 sources)Start: 80-01-5624Kyzjbzdva (Eqv-ProAir HFA) 90 mcg/inh inhalation aerosol 2 [...] meter (glucose monitoring kit) kit (2 sources)Start: 42-95-8252vieno-glucose meter (glucose monitoring kit) kit Indications: Abnormal glucose tolerance test in Use as instructed 1 each 0 11/29/2020 Uqsysa829 actuat budesonide 0.16 mg/actuat / formoterol fumarate 0.0045 mg/actuat metered dose inhaler (19 sources)Corticosteroid, beta2-Adrenergic AgonistStart: 56-57-5220ahxb 1 puff(s) by inhalation twice dailyBudesonide-Formoterol (Symbicort) 160-4.5 mcg/actuation Hfa Aerosol Inhaler Active 2 PUFF INHALATION Twice daily February 27, 2023 12:00amStart: 09-03-2022 End: 27-98-4570Zaawnhqta 160-4.5 MCG/ACT inhaler 09/03/2022 06/27/2025 Discontinued (Other)take 2 puff(s) by inhalation in the morningbudesonide- formoterol (Symbicort) 160-4.5 MCG/ACT inhaler Inhale 2 puffs in the morning and 2 puffsin the evening. Active End: 96-32-8115xshlsyvchs-formoterol (Symbicort) 80-4.5 MCG/ACT inhaler Symbicort 06/27/2025 Discontinued (Other)take 2 puff(s) by inhalation in the morningbudesonide-formoteroL (SYMBICORT) 160-4.5 mcg/actuation inhaler Inhale 2 puffs in the morning and 2puffs before bedtime. 0 Activecalcium carbonate 500 mg chewable tablet (2 sources)calcium carbonate (TUMS) 200 mg (500 mg) chewable tablet Chew 1 tablet and swallow in the morning. 0 Activecalcium carbonate (Tums) 250 mg (yocha dehe 100 mg) chewable split tablet (2 sources)take 1 tablet by mouth in the morningcalcium carbonate (Tums) 250 mg (yocha dehe 100 mg) chewable split tablet Take 1 tablet by mouth in the morning. 0 Activecephalexin 500 mg oral capsule (2 sources)Cephalosporin AntibacterialStart: 06-27-2025 End: 11-57-2358gxxl 1 capsule by mouth in the morning, [...] oral tablet (2 sources)Progestin, EstrogenStart: 06-27-2025 End: 25-30-0806aweg 1 tablet by mouth once daily, then take 1 tablet by mouth once dailydesogestrel-ethinyl estradiol (Apri) 0.15-30 MG-MCG tablet Indications: Irregular menstrual bleeding Take 1 tablet by mouth Daily for 28 days Take 1 tablet by mouth daily 28 tablet 06/27/2025 07/25/2025 Active dicyclomine hydrochloride 20 mg oral tablet (2 sources)AnticholinergicStart: 44-65-7368gmjd 1 tablet by mouth every six hours as neededdicyclomine (BENTYL) 20 mg tablet Take 1 tablet (20 mg total) by mouth every 6 (six) hours as needed (abdominal pain). 20 tablet 0 09/27/2023 Activedocusate sodium 100 mg oral capsule (2 sources)Start: 85-68-8302kigz 1 capsule by mouth twice dailydocusate sodium (COLACE) 100 mg capsule Take 1 capsule (100 mg total) by mouth 2 (two) times a day.60 capsule 2 12/20/2020 Activeetonogestrel 68 mg drug implant (8 sources)ProgestinStart: 12-16-2023 End: 49-23-5508dqzpnuvtmubz-eluting 68 mg contraceptive implant 1 eachfamotidine 20 mg oral tablet (2 sources)Histamine-2 Receptor AntagonistStart: 26-68-5311lzks 1 tablet by mouth twice dailyfamotidine (PEPCID) 20 mg tablet Take 1 tablet (20 mg total) by mouth 2 (two) times a day. 30 tablet 1 12/28/2020 Activeibuprofen 800 mg oral tablet (5 sources)Nonsteroidal Anti-inflammatory DrugStart: 01-20-2021 End: 31-76-1741hzah 1 tablet by mouth every eight hours as neededibuprofen (ADVIL,MOTRIN) 800 mg tablet Take 1 tablet (800 mg total) by mouth every 8 (eight) hours as needed (cramping). 90 tablet 0 01/20/2021 Activeivabradine 5 mg oral tablet (12 sources)Hyperpolarization-activated Cyclic Nucleotide-gated Channel [place] Start: 74-74-9573Efmczwoa 5 MG tablet 5 mg 02/27/2023 Activemidodrine hydrochloride 5 mg oral tablet (12 sources)alpha-Adrenergic AgonistStart: 44-63-5953maqg 1 mg by mouth twice dailymidodrine 5 mg Tab mg tab(s), Oral, BID Start Date: 11/18/23 Status: Ordered Start: 44-78-5872dsnxcltjc (Proamatine) 10 MG tablet Twice daily 02/27/2023 ActiveStart: 58-90-0927votz 1 dose by mouth once daily at bedtimeMidodrine Active 10 MG PO Twice daily February 27, 2023 12:00am do not give last dose of day after 6PM or within 4 hrs of bedtimeStart: 17-28-6219wjpm 1 tablet by mouth three times dailymidodrine (PROAMATINE) 10 mg tablet Indications: POTS (postural orthostatic tachycardia syndrome) Take 1 tablet (10 mg total) by mouth 3 (three) times a day. 90 tablet 1 01/03/2021 Activemontelukast 10 mg oral tablet (11 sources)Leukotriene Receptor AntagonistStart: 21-23-3821vtfubscbiur 10 mg Tab 10 mg = 1 tab(s) Start Date: 11/18/23 Status: Orderedondansetron 4 mg disintegrating oral tablet (2 sources)Serotonin-3 Receptor AntagonistStart: 77-94-8307jwdo 1 tablet by mouth every eight hours [...] 160/4.5 inhalation aerosol with adapter (6 sources)Start: 73-71-8363Gpeslmpld 160/4.5 inhalation aerosol with adapter 2 puff(s) Start Date: 11/18/23 Status: OrderedvalACYclovir 1000 mg oral tablet (2 sources)Herpesvirus Nucleoside Analog DNA Polymerase Inhibitor, Herpes Simplex Virus Nucleoside Analog DNA Polymerase Inhibitor, Herpes Zoster Virus Nucleoside Analog DNA Polymerase InhibitorStart: 06-27-2025 End: 22-85-2294zkaf 1 tablet by mouth in the morningvalACYclovir (Valtrex) 1 g tablet Indications: HSV infection Take 1 tablet (1,000 mg) by mouth in the morning and 1 tablet (1,000 mg) before bedtime. Do all this for 10 days. 20 tablet 06/27/2025 07/07/2025 Active Completed/Discontinued Medications MedicationDrug Class(es)DatesSig (Normalized)Sig (Original)120 actuat budesonide 0.18 mg/actuat dry powder inhaler (7 sources)Corticosteroid End: 88-58-3522dhtk 1 puff(s) by inhalation in the morningbudesonide (Pulmicort Flexhaler) 180 MCG/ACT inhaler Inhale 1 puff in the morning and 1 puff in the evening. 06/27/2025 Discontinued (Other)take 1 puff(s) by inhalation twice daily budesonide (PULMICORT) 180 mcg/actuation inhaler Inhale 1 puff 2 (two) times a day. 0 Cyrzrq50 hr buPROPion hydrochloride 150 mg extended release oral tablet (5 sources)Aminoketone End: 48-13-6724ydta 1 tablet by mouth every twenty-four hours in the morning buPROPion XL (Wellbutrin XL) 150 MG 24 hr tablet Take 150 mg by mouth in the morning. 06/27/2025 Discontinued (Other)dicloxacillin 500 mg oral capsule (5 sources)Penicillin-class Antibacterial End: 82-59-0346aixy 1 capsule by mouth every six hoursdicloxacillin (Dynapen) 500 MG capsule dicloxacillin 500 mg capsule take 1 capsule by mouth every 6hours 06/27/2025 Discontinued (Other)heparin (2 sources)Unfractionated Heparin, Anti-coagulantStart: 12-23-2023 End: 97-76-7676kqgkuhr, porcine (PF) syringe 500 UnitsStart: 25-95-7399votjznq, porcine (PF) syringe 500 Zikqm452 ml sodium chloride 9 mg/ml prefilled syringe (2 sources)Start: 12-23-2023 End: 52-58-1983plagzs chloride 0.9 % flush 20 mLStart: 22-94-0781cdypym chloride 0.9 % flush 20 mL Problems Active Problems Problem ClassificationProblemDateDocumented DateEpisodic/ChronicAbdominal pain (2 sources)Right lower quadrant pain; Translations: [Right upper quadrant pain] Onset: 65-81-0121RiwpkhkjLixzmvt disorders (4 sources)Anxiety; Translations: [Anxiety disorder, unspecified]Onset: 340763-02-7830GiivhmgArbhqe (11 sources)Asthma; Translations: [Uncomplicated mild persistent asthma]Onset: 493794-32-5116AjcmpeeHczabat dysrhythmias (8 sources)Other specified cardiac arrhythmias; Translations: [Postural orthostatic tachycardia syndrome ]Onset: hronic Contraceptive and procreative management (4 sources)Subcutaneous contraceptive implant present; Translations: [Encounter for surveillance of implantable subdermal contraceptive]19-49-5734Lhnlethm Diabetes mellitus without complication (1 source)Other abnormal glucose; Translations: [OTHER ABNORMAL GLUCOSE]Onset: 53-49-5072LziybwndItjfq and electrolyte disorders (1 source)Hypokalemia; Translations: [Hypokalemia]Onset: 45-66-3887Dqtmdajy Gastritis and duodenitis (4 sources)Chronic gastritis; Translations: [Unspecified chronic gastritis without bleeding]Onset: 406721-68-7416AbyufaqVvcpzbbfiibok symptoms and ill-defined conditions (7 sources)Microscopic hematuria; Translations: [Other microscopic hematuria] Onset: 47-68-1283KjuoqdstRgrasusp; including migraine (6 sources)Ddmnezzt42-68-2440NdhpbygeIujpcufpe disorders (2 sources)Irregular periods; Translations: [Irregular menstruation, unspecified]96-34-7875HjdakzjTeyt disorders (2 sources)Depressive disorder; Translations: [Depression]Onset: 07-23-2017 73-18-5794ZynmaozNcooqe and vomiting (3 sources)Nausea; Translations: [Nausea]Onset: 14-81-2788NejyxbwfAuwzyhzsqju chest pain (3 sources)Other chest pain; Translations: [Chest pain, unspecified]Onset: 40-41-3381PqncmwbiWqpne aftercare (2 sources)Encounter for other specified surgical aftercare; Translations: [Encounter for other specified surgical aftercare]Onset: 57-98-6069SysmueltOtjnr circulatory disease (4 sources)Device in situ; Translations: [Presence of other vascular implants and grafts]Onset: 428269-57-6614GccgypjUmwyj circulatory disease (8 sources)Postural orthostatic tachycardia syndrome ; Translations: [Postural orthostatic tachycardia syndrome (POTS)]Onset: 842819-70-2890ZousnqonXiqss congenital anomalies (4 sources)Aviva-Danlos syndrome, type 3; 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]Onset: 252947-83-3459OhvvelbUjbos connective tissue disease (1 source)Pain in right lower leg; Translations: [Pain in right lower leg]Onset: 31-80-1048MqhmqajzQxhrw female genital disorders (2 sources)Abnormal uterine bleeding; Translations: [Abnormal uterine and vaginal bleeding, unspecified]55-80-7323HxbpuxiPxwzy female genital disorders (2 sources)Cyst of vagina; Translations: [Other specified noninflammatory disorders of vagina]96-57-9801TqxjufhiFcqdi lower respiratory disease (1 source)Shortness of breathOnset: 60-43-2144NgnyugtnRikou nutritional; endocrine; and metabolic disorders (4 sources)Body mass index 40+ - severely obese; Translations: [Body mass index (BMI) 40.0-44.9, adult]Onset: 560271-78-8805QtzzvnsKfkqf skin disorders (1 source)Localized swelling, mass and lump, right lower limb; Translations: [Localized swelling, mass and lump, right lower limb]Onset: 06-18-3299Ofrpzubs Unclassified (2 sources)Unknown / UNK(Unknown)Onset: 72-89-1643Ukabekleygjb (1 source)Shoulder InjuryOnset: 69-00-2400Juswzaj tract infections (4 sources)Urinary tract infection, site not specified; Translations: [UTI SITE NOT SPECIFIED]Onset: 34-31-6067MtbdvfckYgrih infection (2 sources)Herpes simplex; Translations: [Herpesviral infection, unspecified] 15-35-0501Rtaeaegi Past or Other Problems Problem ClassificationProblemDateDocumented DateEpisodic/ChronicMood disorders (2 sources)Mood disordersOnset: Other aftercare (2 sources)Encounter for adjustment and management of vascular access device; Translations: [Encounter for adjustment and management of vascular access device]Onset: 75-27-3433DhaqgyhkHrhip complications of (2 sources)RhD negative; Translations: [Other specified related conditions, unspecified trimester]Onset: 11-09-2020 Resolved: 885780-94-7175VwndiyyfGunrs disorders of stomach and duodenum (4 sources)Gastroparesis syndrome; Translations: [Gastroparesis]Onset: 607715-51-2557ManhosivXuags injuries and conditions due to external causes (4 sources)Abrasion and/or friction burn of skin; Translations: [Other injury of unspecified body region, initial encounter]Onset: 741559-28-0471Qwqhocfp Other non-traumatic joint disorders (1 source)Pain in right knee; Translations: [Pain in right knee]Onset: 17-36-9925KwysqclqFjodn non-traumatic joint disorders (1 source)Knee painOnset: 10-21-8575ElwvquveZjotm non-traumatic joint disorders (1 source)Shoulder painOnset: 93-52-1070WnkhciytHvnme and delivery including normal (4 sources) care status; Translations: [Encounter for supervision of normal , unspecified, third trimester]Onset: 11-09-2020 Resolved: 316400-57-3115GfjcyjcyIwmtm skin disorders (2 sources)Localized swelling, mass and lump, neck; Translations: [Localized swelling, mass and lump, neck]Onset: 44-66-1917HnrshhxqSkpqtpldc; thrombophlebitis and thromboembolism (2 sources)Acute embolism and thrombosis of unspecified vein; Translations: [Acute embolism and thrombosis of unspecified vein]Onset: 80-15-2012Fthkniop Spondylosis; intervertebral disc disorders; other back problems (2 sources)Cervicalgia; Translations: [Cervicalgia]Onset: 52-24-3255Qtpwezef Sprains and strains (2 sources)Sprain of other specified parts of right knee, subsequent encounter; Translations: [Strain of unspecified muscle, fascia and tendon at shoulder and upper arm level, left arm, initial encounter]Onset: 83-39-6711OfacjimfBsrptdv (8 sources)Syncope; Translations: [Syncope and collapse]Onset: 07-23-2017 86-31-7491EecusdamGizoccyensrn (2 sources)Onset: Results Test NameValueInterpretationReference RangeFacilityMAGNESIUMon 08-27-2025 Magnesium [Mass/Vol]1.8 mg/dLNormal1.8-2.6ProMedica Fairmont Rehabilitation And Wellness CenterComment on above:Performed By: #### MG ####[facility] ([address] [place] [address] VIRPOTASSIUMon 88-63-3106Gvkazuhoc [Moles/Vol] 2.9 mmol/LLow3.5-5.0ProCrescent Medical Center LancasterComment on above:Performed By: #### K #### [facility] ([address] [place] [address] VIRTROP I, HIGH SENSITIVITY 1 HOURon 80-69-2968TRYOISBO I, HIGH SENSITIVITY<^2Normal<16ProCrescent Medical Center LancasterComment on above:Performed By: #### TNIHS1 ####[facility] ([address] [place] [address] VIRBASIC METABOLIC PANELon 60-61-6825Jafwf gap [Moles/Vol] 13 mmol/LNormal5-15ProCrescent Medical Center LancasterComment on above:Performed By: #### BMP #### [facility] ([address] [place] [address] VIRCalcium [Mass/Vol]9.7 mg/dLNormal8.5-10.5POhioHealth Arthur G.H. Bing, MD, Cancer CenterComment on above:Performed By: #### BMP #### [facility] ([address] [place] [address] VIRChloride [Moles/Vol]102 mmol/ZJxobod17-579EhnCroksoCrescent Medical Center LancasterComment on above:Performed By: #### BMP #### [facility] ([address] [place] [address] VIRCO2 [Moles/Vol]24 mmol/NAfinnv48-68HqkZuizlkOhioHealth Arthur G.H. Bing, MD, Cancer CenterComment on above:Performed By: #### BMP #### [facility] ([address] [place] [address] VIRCreatinine [Mass/Vol]0.82 mg/dLNormal0.40-1.00ProCrescent Medical Center LancasterComment on above:Result Comment: METHOD TRACEABLE TO IDMS STANDARDPerformed By: #### BMP #### [facility] ([address] [place] [address] VIREGFR (CKD-EPI) NON-RACE DEPENDENT>^90Normal>=60ProCrescent Medical Center LancasterComment on above:Result Comment: Reported eGFR is based on the CKD-EPI 2020 equation that does not use a race coefficient.Performed By: #### BMP #### [facility] ([address] [place] [address] VIRGlucose [Mass/Vol]120 mg/hKWgyt91-63XcyRrftluCrescent Medical Center LancasterComment on above:Performed By: #### BMP #### [address] [address] VIRPotassium [Moles/Vol]2.4 mmol/LCritically low3.5-5.0 Wilson HealthComment on above:Performed By: #### BMP #### [facility] ([address] [address] VIRSodium [Moles/Vol]139 mmol/BZuqiux638-917SirCgktew [facility]remont HospitalComment on above:Performed By: #### BMP #### [address] [place] [address] VIRUrea nitrogen [Mass/Vol]9 mg/dLNormal5-23ProCrescent Medical Center LancasterComment on above:Performed By: #### BMP #### [facility] ([address] [place] [address] VIRCBC WITH AUTO DIFFERENTIALon 24-20-2856SJJXDDALQ ABSOLUTE COUNT (10*3/UL) BY AUTOMATED COUNT0.0 10*3/uLNormal0.0-0.2ProMedica [facility] Rehabilitation And Wellness CenterComment on above:Performed By: #### CBCA #### [facility] ([address] [place] [address] VIRBASOPHILS RELATIVE PERCENT BY AUTOMATED COUNT0.3 %Normal Wilson HealthComment on above:Performed By: #### CBCA #### [facility] ([address] [place] [address] VIRCELLAVISION DIFFERENTIAL TYPEAUTOMATED DIFFERENTIALNormal Wilson HealthComment on above:Performed By: #### CBCA #### [facility] ([address] [place] [address] VIREosinophils (Bld) [#/Vol]0.2 10*3/uLNormal0.0-0.4Wilson HealthComment on above:Performed By: #### CBCA #### [facility] ([address] [place] [address] VIREOSINOPHILS RELATIVE PERCENT BY AUTOMATED COUNT2.8 %Normal Wilson HealthComment on above:Performed By: #### CBCA #### [facility] ([address] [place] [address] VIRErythrocyte distribution width (RBC) [Ratio]13.8 %Normal 11.5-15Wilson HealthComment on above:Performed By: #### CBCA #### [facility] ([address] [place] [address] VIRHematocrit (Bld) [Volume fraction]36.5 %Vnakif57-65 Wilson HealthComment on above:Performed By: #### CBCA #### [facility] ([address] [place] [address] VIRHemoglobin (Bld) [Mass/Vol]12.6 g/iIXuovim41.7-15.5 Wilson HealthComment on above:Performed By: #### CBCA #### [facility] ([address] [place] [address] VIRLYMPHOCYTES ABSOLUTE COUNT (10*3/UL) BY AUTOMATED COUNT3.3 10*3/uLNormal1.0-3.5POhioHealth Arthur G.H. Bing, MD, Cancer CenterComment on above:Performed By: #### CBCA #### [facility] ([address] [place] [address] VIRLYMPHOCYTES RELATIVE PERCENT BY AUTOMATED COUNT46.8 %Normal Wilson HealthComment on above:Performed By: #### CBCA #### [facility] ([address] [place] [address] VIRMCH (RBC) [Entitic mass]28.1 jxWpwnnp12-42QoaOtciffCrescent Medical Center LancasterComment on above:Performed By: #### CBCA #### [facility] ([address] [place] [address] VIRMCHC (RBC) [Mass/Vol]34.4 g/gXOektwf87-64WpgAmwafbWilson HealthComment on above:Performed By: #### CBCA #### [facility] ([address] [place] [address] VIRMCV (RBC) [Entitic vol]82 iHVndvzl48-777VgbWklrbo [facility]remont HospitalComment on above:Performed By: #### CBCA #### [facility] ([address] [place] [address] VIRMONOCYTES ABSOLUTE COUNT (10*3/UL) BY AUTOMATED COUNT0.5 10*3/uLNormal0.0-0.9Wilson HealthComment on above:Performed By: #### CBCA #### [facility] ([address] [place] [address] VIRMONOCYTES RELATIVE PERCENT BY AUTOMATED COUNT6.7 %Normal Wilson HealthComment on above:Performed By: #### CBCA #### [facility] (ON LICENSE OF [facility]) [address] [place], [place] [address] [address] VIRNEUTROPHILS ABSOLUTE COUNT BY AUTOMATED COUNT3.1 10*3/uL Normal1.5-6.6Wilson HealthComment on above:Performed By: #### CBCA #### [facility] (ON LICENSE OF [facility]) [address] [place], [place] [address] [place] [address] VIRNEUTROPHILS RELATIVE PERCENT BY AUTOMATED COUNT43.4 %Normal Wilson HealthComment on above:Performed By: #### CBCA #### [facility] ([address] [place] [address] VIRPlatelet mean volume (Bld) [Entitic vol]8.3 fLNormal7-12 Wilson HealthComment on above:Performed By: #### CBCA #### [facility] ([address] [place] [address] VIRPlatelets (Bld) [#/Vol]225 10*3/qLHhlfcz128-338GizLakepb [facility]remont HospitalComment on above:Performed By: #### CBCA #### [facility] (ON LICENSE OF [facility]) [address] [place] [address] [place] [address] VIRRBC COUNT4.47 X10E12/LNormal3.8-5.2Pro[facility] And Wellness CenterComment on above:Performed By: #### CBCA #### [facility] ([address] [place] [address] VIRWBC (Bld) [#/Vol]7.1 10*3/uLNormal4-11Wilson HealthComment on above:Performed By: #### CBCA #### [facility] (ON LICENSE OF [facility]) [address] [place] [address] [place] [address] VIRD-DIMERon 08-26-2024D DIMER<^482Uuaxnc4-349AfvVaunzv [facility]ont HospitalComment on above:Result Comment: Results <255 ng/mL DDU: The presensence of a VTE can safely be excluded with a negative D-Dimer result and Wells score. A negative result doesn't exclude the possibility of DIC. The test should be repeated along with other diagnostic tests if the patient's symptoms persist or worsen.Performed By: #### DDMR #### [facility] (ON LICENSE OF [facility]) [address] [place] [address]. [place] [address] VIRTROPONIN I, HIGH SENSITIVITY 0 HOURon 11-79-4789UFLHJHCF I, HIGH SENSITIVITY2 ng/LNormal<16ProCrescent Medical Center LancasterComment on above: Performed By: #### [id number] #### [facility] (ON LICENSE OF [facility]) [address] [place] [address]. [place] [address] VIRXR CHEST 1 VWon 46-27-8034FT CHEST 1 VWXR CHEST 1 VW HISTORY: [...] by Clay Feng MD on 08/26/2025 10:47 PMNormalProCrescent Medical Center LancasterBASIC METABOLIC PANELon 61-58-1036Dmueh gap [Moles/Vol]10 mmol/LNormal 5-15Wilson HealthComment on above:Performed By: #### BMP #### [facility] ([facility]) [address] [place] [address] VIRCalcium [Mass/Vol]9.3 mg/dLNormal8.5-10.5ProMedica Fairmont Rehabilitation And Wellness CenterComment on above:Performed By: #### BMP #### [facility] ([facility]) [address] [place] [address] VIRChloride [Moles/Vol]105 mmol/DPzmymx22-097RikHwohfjCrescent Medical Center LancasterComment on above:Performed By: #### BMP #### [facility] ([facility]) [address] [place] [address] VIRCO2 [Moles/Vol]25 mmol/RUhvrbs06-25FjfGffhnz Fremont HospitalComment on above:Performed By: #### BMP #### [facility] ([facility]) [address] [place] [address] VIRCreatinine [Mass/Vol]0.66 mg/dLNormal0.40-1.00Wilson HealthComment on above:Result Comment: METHOD TRACEABLE TO IDMS STANDARDPerformed By: #### BMP #### [facility] ([facility]) [address] [place] [address] VIREGFR (CKD-EPI) NON-RACE DEPENDENT>^90Normal>=60ProCrescent Medical Center LancasterComment on above:Result Comment: Reported eGFR is based on the CKD-EPI 2020 equation that does not use a race coefficient.Performed By: #### BMP #### [facility] ([facility]) [address] [place] [address] VIRGlucose [Mass/Vol]76 mg/hTTjtbdj29-59VyoBkizpmCrescent Medical Center LancasterComment on above:Performed By: #### BMP #### [facility] ([facility]) [address] [place] [address] VIRPotassium [Moles/Vol]3.9 mmol/LNormal3.5-5.0Wilson HealthComment on above:Performed By: #### BMP #### [facility] ([facility]) [address] [place] [address] VIRSodium [Moles/Vol]140 mmol/DKeyvgm640-222IxoOwygyb Fremont HospitalComment on above:Performed By: #### BMP #### [facility] ([facility]) [address] [place] [address] VIRUrea nitrogen [Mass/Vol]8 mg/dLNormal5-Wilson HealthComment on above:Performed By: #### BMP #### [facility] ([facility]) [address] [place] [address] VIRCBC WITH AUTO DIFFERENTIALon 15-22-6802DUDMCTELL ABSOLUTE COUNT (10*3/UL) BY AUTOMATED COUNT0.0 10*3/uLParkview Health Bryan Hospital on above:Performed By: #### CBCA #### [facility] ([facility]) [address] [place] [address] VIRBASOPHILS RELATIVE PERCENT BY AUTOMATED COUNT0.7 %Normal Wilson HealthComment on above:Performed By: #### CBCA #### [facility] ([facility]) [address] [place] [address] VIRCELLAVISION DIFFERENTIAL TYPEAUTOMATED DIFFERENTIALNoal Wilson HealthComment on above:Performed By: #### CBCA #### [facility] ([facility]) [address] [place] [address] VIREosinophils (Bld) [#/Vol]0.2 10*3/uLMarietta Memorial HospitalComment on above:Performed By: #### CBCA #### [facility] ([facility]) [address] [place] [address] VIREOSINOPHILS RELATIVE PERCENT BY AUTOMATED COUNT2.6 %Normal Wilson HealthComtrinity health grand [facility] on above:Performed By: #### CBCA #### [facility] ([facility]) [address] [place] [address] VIRErythrocyte distribution width (RBC) [Ratio]13.8 %Normal 11.5-15Wilson HealthComment on above:Performed By: #### CBCA #### [facility] ([facility]) [address] [place] [address] VIRHematocrit (Bld) [Volume fraction]39.5 %Qvlftc39-33CkhSfadzzCrescent Medical Center LancasterComment on above:Performed By: #### CBCA #### [facility] ([facility]) [address] [place] [address] VIRHemoglobin (Bld) [Mass/Vol]13.7 g/cNJtfgaq09.7-15.5POhioHealth Arthur G.H. Bing, MD, Cancer CenterComment on above:Performed By: #### CBCA #### [facility] ([facility]) [address] [place] [address] VIRLYMPHOCYTES ABSOLUTE COUNT (10*3/UL) BY AUTOMATED COUNT2.1 10*3/uLMarietta Memorial HospitalComment on above:Performed By: #### CBCA #### [facility] ([facility]) [address] [place] [address] VIRLYMPHOCYTES RELATIVE PERCENT BY AUTOMATED COUNT32.2 %Normal Wilson HealthComment on above:Performed By: #### CBCA #### [facility] ([facility]) [address] [place] [address] VIRMCH (RBC) [Entitic mass]28.5 zbCaoioy60-84EvvWtbpwzCrescent Medical Center LancasterComment on above:Performed By: #### CBCA #### [facility] ([facility]) [address] [place] [address] VIRMCHC (RBC) [Mass/Vol]34.6 g/mHNovtnq62-64TymKgdqyjWilson HealthComment on above:Performed By: #### CBCA #### [facility] ([facility]) [address] [place] [address] VIRMCV (RBC) [Entitic vol]82 sDCbrywx46-329FgwNcgaorWilson HealthComment on above:Performed By: #### CBCA #### [facility] ([facility]) [address] [place] [address] VIRMONOCYTES ABSOLUTE COUNT (10*3/UL) BY AUTOMATED COUNT0.5 10*3/uLNormalProCrescent Medical Center LancasterComment on above:Performed By: #### CBCA #### [facility] ([facility]) [address] [place] [address] VIRMONOCYTES RELATIVE PERCENT BY AUTOMATED COUNT7.4 %Normal Wilson HealthComment on above:Performed By: #### CBCA #### [facility] ([facility]) [address] [place] [address] VIRNEUTROPHILS ABSOLUTE COUNT BY AUTOMATED COUNT3.7 10*3/uL NormalWilson HealthComment on above:Performed By: #### CBCA #### [facility] ([facility]) [address] [place] [address] VIRNEUTROPHILS RELATIVE PERCENT BY AUTOMATED COUNT57.1 %Normal Wilson HealthComment on above:Performed By: #### CBCA #### [facility] ([facility]) [address] [place] [address] VIRPlatelet mean volume (Bld) [Entitic vol]8.5 fLNormal7-12 Wilson HealthComment on above:Performed By: #### CBCA #### [facility] ([facility]) [address] [place] [address] VIRPlatelets (Bld) [#/Vol]225 10*3/wLCzjtbk838-428OesUrezhtWilson HealthComment on above:Performed By: #### CBCA #### [facility] ([facility]) [address] [place] [address] VIRRBC COUNT4.80 X10E12/LNormal3.8-5.2ProMedica [facility]mont Rehabilitation And Wellness CenterComment on above:Performed By: #### CBCA #### [facility] ([facility]) [address] [place] [address] VIRWBC (Bld) [#/Vol]6.4 10*3/uLNormal4-11Wilson HealthComment on above:Performed By: #### CBCA #### [facility] ([facility]) [address] [place] [address] VIRXR KNEE RT 3 VWSon 72-59-0825KV KNEE RT 3 VWSXR KNEE RT 3 [...] by Nelly Ramirez MD on 12/30/2024 11:19 AMNormalWilson HealthFollow-Upon [id number] Yin Taylor 1995 F Date Provider Department Center 10/11/2024 LOLA GODDARD [facility] Family History Problem Relation Age of [...] Sister Mother's Brother Mother's Sister Level of Service:[address] [place] OFFICE/OUTPATIENT ESTABLISHED LOW MDM 20 [facility]36on 57-20-632357Lbvn op call s/p CVC removal on 09/28/24, patient states having continued pain and swelling, scientific technical writer encouraged patient to take tylenol/ibuprofen as instructed and to call back if it become intolerable. F/U appointment on 10/11/24 @ 1030. [facility] HospitalHPon 41-62-1306HVNzhccmb Of Present Illness Yin Taylor is a [...] disease Mother Autumn rivka Obesity Mother Autumn rvika Asthma Sister Mer rivka Cancer Sister Mer rivka Clotting disorder Sister Mer tadeock Diabetes type II Sister Mer rivka Heart attack Sister Mer rivka Heart murmur Sister Mer rivka Obesity Sister Mer rivka Cancer Mother's Sister Marva Horan Obesity Mother's Sister Marva Horan Hypertension Mother's Brother Nando minesh Lung disease Mother's Brother Nando jettruff Obesity Mother's Sister Elda edge Allergies Dragon [...] Department of Surgery Department of Medical Education [facility] Sciences [facility] [phone] [email or web address] earlyNoDoctors HospitalOPNOTEon 27-38-6681CDBSZKRljn Internal Jugular Vein CVC Removal (L) Operative Note Date: 09/28/2024 Location: [facility] Name: Yin Taylor, : [...] - hemodynamically stable. Condition: stable Leigha Hutton RyroxtEcjysawuswDoctors Hospital36on 86-45-272060Wioiucg was referred back to our office for port removal. Port has not been in use in over a year and it hasn't been flushed. She saw HO in June 21, and per office note between Rebekah calix and Rubina, port can be removed either at [facility] or [place]. Cooker Loader reached out to [facility] nurses for expediency w scheduling.[facility] County HospitalTelephoneon [id number] Yin Taylor 1995 F Date Provider Department Center 09/23/2024 Darvin0LAYLA ASCENCIO [facility] Family History Problem Relation Age [...] Mother Sister Mother's Sister Mother's Brother Mother's SisterNormalUniversAccess Hospital DaytonOffice Visiton 54-30-8893Lqpgyc-up [id number] Yin Taylor 1995 F Date Provider Department Center 09/22/2024 Dandre-SURINDER GARLAND [facility] Family History Problem Relation Age of Onset [...] Sister Mother's Brother Mother's Sister Level of Service:31336 [place] OFFICE/OUTPATIENT ESTABLISHED LOW MDM 20 MINNoDayton Osteopathic HospitalXR SHOULDER LT MIN 2 VWSon 82-23-4151CP SHOULDER LT MIN 2 VWSXR SHOULDER LT MIN 2 VWS XR SHOULDER LT MIN 2 VWS HISTORY: Shoulder pain. COMPARISON: none IMPRESSION: 1. No acute fracture or dislocation. Congruent acromioclavicular joint. 2. Left chest wall port, catheter redundancy within the lower neck. Finalized by Alan Wilson MD on 09/03/2024 9:41 AMNormalProMedica Fairmont Rehabilitation And Wellness CenterOffice Visiton 26-79-0054Hmijbu-up [id number] Yin Taylor 1995 F Date Provider Department Center 06/10/2024 KEVIN HERNANDEZ HVCVASENDO [facility] Family History Problem Relation Age of [...] Sister Mother's Brother Mother's Sister Level of Service:16660 [place] OFFICE/OUTPATIENT NEW LOW MDM 30 MINUTES Reason for Visit and Comments: New Patient [632] - New Patient- discuss port removalNormalUniversity of Baylor Scott & White Medical Center – WaxahachieURINALYSISOrdered By: SYSTEM SYSTEM on 46-26-1456Jcuxadokf Ql (U) NegativeNormalNegativemg/dLCHICKASAW NATION MEDICAL [facility]ENTER – [facility] UA Auto SSClarity (U)Clear (05/10/24 11:33 AM)NormalClearFTM UA Auto SSColor (U)Colorless 1 *ABN* (05/10/24 11:33 AM)Invalid Interpretation CodeYellowFT UA Auto SSComment on above:Interpretive Data: Microscopic readings are only performed on those samples that meet specific criteria set forth by [facility].Glucose Ql (U)NegativeNormalNegativemg/dLCHICKASAW NATION MEDICAL CENTER – [facility] UA Auto SSHemoglobin Auto test strip (U) [Mass/Vol]Trace mg/dLInvalid Interpretation Code Negativemg/dLFT UA Auto SSKetones Auto test strip Ql (U)NegativeNormal Negativemg/dLFT UA Auto SSLeukocyte esterase Auto test strip Ql (U)Negative NormalNegativeLeu/uLFT UA Auto SSNitrite Auto test strip Ql (U)NegativeNormal Negativemg/dLFT UA Auto SSpH (U)6.5 *NA* (05/10/24 11:33 AM)Invalid Interpretation Code5.0 - 9.0FT UA Auto SSProtein Ql (U)NegativeNormalNegativemg/dLFT UA Auto SSSpecific gravity (U) [Rel density] 1.006 *NA* (05/10/24 11:33 AM)Invalid Interpretation Code1.005 - 1.030FT UA Auto SS Urobilinogen (U) [Mass/Vol]NegativeNormalNegativemg/dLFT UA Auto SSURINALYSIS Ordered By: Breanne Ireland on 37-03-7489RC Spec DescClean Catch (05/10/24 11:33 AM)NormalCHICKASAW NATION MEDICAL CENTER – ADA UA Auto SSUrinalysis with Microon 05-10-2024 Bilirubin Ql (U)NegativeNormalNegativeSelect Specialty Hospital - Durhamer Brook Lane Psychiatric CenterComment on above:Performed By: #### [id number] #### [facility] [address] [place], [place] [address]Xwxswlt (U)ClearNormalClearThe University Of Toledo Medical CenterComment on above:Performed By: #### [id number] #### [facility] [address], [place] [address]Exoiu (U)ColorlessAbnormalYellowThe [facility] Comment on above:Result Comment: Microscopic readings are only performed on those samples that meet specific criteria set forth by [facility].Performed By: #### [id number] #### [facility] [address], [place] [address]Ckylrco Ql (U)NegativeNormalNegativeThe [facility] Comment on above:Performed By: #### [id number] #### [facility] [address], [place] [address]Boyrahvjke Auto test strip (U) [Mass/Vol]TraceAbnormalNegative [facility] CenterComment on above:Performed By: #### [id number] #### [facility] [address], [place] [address]Iiikeli Auto test strip Ql (U)NegativeNormalNegativeThe University Of Toledo Medical CenterComment on above:Performed By: #### [id number] #### [facility] [address], [place] [address]Fdnmzxlvp esterase Auto test strip Ql (U)NegativeNormalNegative [facility] CenterComment on above:Performed By: #### [id number] #### [facility] [address], [place] [address]Pcozvpo Auto test strip Ql (U)NegativeNormalNegChillicothe VA Medical CenterComment on above:Performed By: #### [id number] #### [facility] [address], [place] [address]oJ (U)6.5 [pH]Invalid Interpretation Code5.0-9.0[facility] Medical CenterComment on above:Performed By: #### [id number] #### [facility] [address] [place] [address]Kybqylw Ql (U)NegativePioneertownNegChillicothe VA Medical Center Comment on above:Performed By: #### [id number] #### [facility] [address] [place] [address]Hfrpiorx gravity (U) [Rel density]1.006Invalid Interpretation Code1.005-1.030[facility] CenterComment on above:Performed By: #### [id number] #### [facility] [address] [place] [address]Oxukwmavtphk (U) [Mass/Vol]NegativeNormalNegChillicothe VA Medical CenterComment on above:Performed By: #### [id number] #### [facility] [address] [place] [address]Nwam of Urine collection methodClean CatchWadsworth-Rittman HospitalComment on above:Performed By: #### [id number] #### [facility] [address] [place] [address]T Urineon 30-50-3399Qxtgmjjl identified Cx Nom (U)Microbiology PROCEDURE: Urine Culture [R1] SOURCE: U CleanCatch BODY SITE: COLLECTED DATE/TIME: 05/04/2024 09:43 EDT RECEIVED DATE/TIME: 05/04/2024 19:28 EDT START DATE/TIME: 05/04/2024 19:28 EDT FREE TEXT SOURCE: Aubrey ARROYO, BOX SPINNER-C, Aubrey ARROYO, BOX SPINNER-C, Adele X Adele X FINAL REPORTS Final Report [] Verified Date/Time: 05/06/2024 07:12 EDT 800 cfu/ml Mixed skin contaminants Performing Locations R1: This test was performed at: [facility], [address] [place] [address], [phone]- , , UkcgkuYhaljvWadsworth-Rittman HospitalComment on above:Performed By: #### [id number] #### [facility] [address] [place] [address]KWCOITOLHYSommpnw By: SYSTEM SYSTEM on 78-99-1812Slfqwelxj Ql (U)NegativeNormalNegativemg/dLFT UA Auto SSClarity (U)Clear (05/04/24 9:43 AM)NormalClearFTM UA Auto SSColor (U)Light-Yellow 1 (05/04/24 9:43 AM)NormalYellowFT UA Auto SSComment on above:Interpretive Data: Microscopic readings are only performed on those samples that meet specific criteria set forth by [facility].Epithelial cells.squamous Auto (Urine sed) [#/Area]9-10 graded/HPFInvalid Interpretation CodeFT UA Auto SSGlucose Ql (U)NegativeNormalNegativemg/dLFT UA Auto SS Hemoglobin Auto test strip (U) [Mass/Vol]1+ mg/dLInvalid Interpretation Code Negativemg/dLFTMC UA Auto SSKetones Auto test strip Ql (U)NegativeNormal Negativemg/dLFT UA Auto SSLeukocyte esterase Auto test strip Ql (U)Negative NormalNegativeLeu/uLFT UA Auto SSMucus Auto Ql (U)Trace graded/LPFNormal Negativegraded/LPFFTMC UA Auto SSNitrite Auto test strip Ql (U)NegativeNormal Negativemg/dLFTMC UA Auto SSpH (U)6.5 *NA* (05/04/24 9:43 AM)Invalid Interpretation Code5.0 - 9.0FT UA Auto SSProtein Ql (U)NegativeNormalNegativemg/dLFT UA Auto SSRBC Ql (U)4-20 graded/HPFInvalid Interpretation Code0-3graded/HPFFTMC UA Auto SSSpecific gravity (U) [Rel density]1.015 *NA* (05/04/24 9:43 AM)Invalid Interpretation Code1.005 - 1.030FTMC UA Auto SS Urobilinogen (U) [Mass/Vol]NegativeNormalNegativemg/dLFT UA Auto SSWBC Auto (Urine sed) [#/Area]0-5 graded/HPFNormal0-5graded/HPFFTMC UA Auto SSURINALYSIS Ordered By: Breanne Ireland on 12-85-0573LW Spec DescClean Catch (05/04/24 9:43 AM)[facility] UA Auto SSUrinalysis with Microon 41-87-8125Ieaxgtrvh Ql (U)NegativeNormalNegativeThe [facility] CenterComment on above: Performed By: #### [id number] #### [facility] [address], [place] [address]Edmzfdj (U)ClearNormalClearThe [facility] Medical CenterComment on above:Performed By: #### [id number] #### [facility] [address], [place] [address]Imvox (U)Light-YellowNormalYellowThe [facility] Comment on above:Result Comment: Microscopic readings are only performed on those samples that meet specific criteria set forth by [facility].Performed By: #### [id number] #### [facility] [address], [place] [address]Dychvdrljg cells.squamous Auto (Urine sed) [#/Area]9-10Invalid Interpretation CodeThe University Of Toledo Medical CenterComment on above:Performed By: #### [id number] #### [facility] [address], [place] [address]Dndfpxj Ql (U)NegativeNormalNegChillicothe VA Medical Center Comment on above:Performed By: #### [id number] #### [facility] [address], [place] [address]Xdyaqzrqmc Auto test strip (U) [Mass/Vol]1+ mg/dLAbnormal NegativeThe University Of Toledo Medical CenterComment on above:Performed By: #### [id number] #### [facility] [address], [place] [address]Frkjxkm Auto test strip Ql (U)NegativeNormalNegativeThe [facility] Of [facility]edo Medical CenterComment on above:Performed By: #### [id number] #### [facility] [address], [place] [address]Mcgwoldug esterase Auto test strip Ql (U)NegativeNormalNegative [facility] CenterComment on above:Performed By: #### [id number] #### [facility] [address] [place] [address]Cwrvq Auto Ql (U)TraceNormalNegativeThe [facility] Comment on above:Performed By: #### [id number] #### [facility] [address] [place] [address]Fhhjnyh Auto test strip Ql (U)NegativeNormalNegativeThe [facility] Medical CenterComment on above:Performed By: #### [id number] #### [facility] [address] [place] [address]yD (U)6.5 [pH]Invalid Interpretation Code5.0-9.0[facility] CenterComment on above:Performed By: #### [id number] #### [facility] [address] [place] [address]Qvmhlls Ql (U)NegativeNormalNegChillicothe VA Medical Center Comment on above:Performed By: #### [id number] #### [facility] [address] [place] [address]HXZ Ql (U)0-91Hxfqmcff9-3Eheuvb [address] Psychiatric CenterComment on above:Performed By: #### [id number] #### [facility] [address] [place] [address]Efzsnmte gravity (U) [Rel density]1.015Invalid Interpretation Code1.005-1.030[facility] CenterComment on above:Performed By: #### [id number] #### [facility] [address] [place] [address]Jwppgimwojhq (U) [Mass/Vol]NegativeNormalNegativeThe [facility] Of [facility] Medical CenterComment on above:Performed By: #### [id number] #### [facility] [address] [place] [address]WCV Auto (Urine sed) [#/Area]3-4Gdcjcl6-4Bphlnc [facility] [address] Psychiatric CenterComment on above:Performed By: #### [id number] #### [facility] [address], [place] [address]Slrd of Urine collection methodClean CatchNormalFisher Brook Lane Psychiatric CenterComment on above:Performed By: #### [id number] #### [facility] [address], [place] [address]vi 40-16-807811Yypzupg is needing a medication refill. She has not been seen since 01/2023, and is unable to schedule appt d/t provider schedule not available at this moment. Patient would like a call to update that medication has been sent. Thank you This phone message was created by the Ambulatory float staff. If you need support manager follow up regarding this patient, please make your appropriate clinic staff member aware. Thank you. [facility] 36Needs apptNormalUniversAccess Hospital DaytonUS PELVIS W/ TRANSVAGINALon [id number] [address] Ultrasound Report Signed Patient: YIN TAYLOR MR#: [id number] : 1995 Acct:[id number] Age/Sex: 28 / F ADM Date: 12/22/23 Loc: US Attending Dr: Ed Grimes D.O. Ordering Physician: Ed Grimes D.O. Date of Service: 12/22/23 Procedure(s): US pelvis w/ transvaginal Accession Number(s): [id number] cc: CONCHITA VARGAS ; Ed Grimes D.O. The 85 [address] [address] Patient Name: YIN TAYLOR MRN: [id number] date: 1995 Sex: F Assigned Patient Location: US Current Patient Location: US Accession/Order Number: [id number] Exam Date: 12/22/2023 14:00 Report Date: 12/22/2023 [...] Crisostomo M.D. Signed By: 12/22/23 1459 DD/ 56 TD/TT: Inductor Tester:TBHRadiology, Radiologist, - 12/22/2023 [place] [address] Ultrasound Report Signed Patient: YIN TAYLOR MR#: [id number] : 1995 Acct:[id number] Age/Sex: 28 / F ADM Date: 12/22/23 Loc: US Attending Dr: Ed Grimes D.O. Ordering Physician: Ed Grimes D.O. Date of Service: 12/22/23 Procedure(s): US pelvis w/ transvaginal Accession Number(s): [id number] cc: CONCHITA VARGAS ; Ed Grimes D.O. The [place] [id number] Patient Name: YIN TAYLOR MRN: [id number] date: 1995 Sex: F Assigned Patient Location: [place] Current Patient Location: [place] Accession/Order Number: [id number] Exam Date: 12/22/2023 14:00 Report Date: 12/22/2023 [...] Signed By: 12/22/23 1459 DD/ 1457 TD/TT: Inductor Tester: ANNE HealthcareRadiology Study observation (narrative)[facility]OMS HealthcareUS PELVIS W/ TRANSVAGINALOrdered By: Radiologist Radiology on 57-35-8672WQWHSSM DePaul [facility] Work Phone: HCG ( test) Ql (U)on 01-69-6709Dzpazjwgmzilco and review of laboratory resultsNormalNOWV HealthcarePreg Test, UrNegativeNORipley County Memorial HospitalNORipley County Memorial HospitalHCG ( test) IA.rapid Ql (U)Ordered By: Willie Monreal on 71-96-5550ATB ( test) Ql (U)NegativeFirUniversity Hospitals Cleveland Medical CenterHCG,Urineon 42-30-1691Vocx HCG ( test) Ql (U)NegativeNormal [facility] CenterComment on above:Result Comment: PERFORMED BY: [address] [place] [address] PATHOLOGIST RN RENAL JARED LOPEZ M.D.Performed By: #### UHCG #### [place] [id number] USALon 02-27-2023L Specimen: [id number] Received: 02/27/23 Status: YVON Martinez Num: [id number] Spec Type: Surgical Subm Dr: Willie Monreal MD Tissues: A Small Intestine - Biopsy/Polyp (TERMINAL ILEUM BX) B Colon Biopsy (RANDOM COLON BX) Procedures: VANESSA/Kenna, Gross/Micro L4/2 Age/ Patient Sex Location Account Attending Physician Dearsman,Yin Martine [id number] Willie Monreal MD SPEC NUM: [id number] RECD: 02/27/23 STATUS: YVON WONG NUM: [id number] VON: 02/27/23- [facility] DR: Willie Monreal MD ENTERED: 02/27/23 [facility] DR: SPEC TYPE: Surgical DEPT: [...] advised. Clinical Information Abdomen pain, colitis Specimen: [id number] Received: 02/27/23 Status: YVON Martinez Num: [id number] Spec Type: Surgical Subm Dr: Willie Monreal MD Tissues: A Small Intestine - Biopsy/Polyp (TERMINAL ILEUM BX) B Colon Biopsy (RANDOM COLON BX) Procedures: Franc NUÑEZ/Micro L4/2 Patient: Yin Taylor [id number] (Continued) Specimen: [id number] Received: 02/27/23 (Continued) Signed (signature on file) Geraldine Alexander MD 02/28/23 1054 Specimen: [id number] Received: 02/27/23 Status: YVON Martinez Num: [id number] Spec Type: Surgical Subm Dr: Willie Monreal MD Tissues: A Small Intestine - Biopsy/Polyp (TERMINAL ILEUM BX) B Colon Biopsy (RANDOM COLON BX) Procedures: Franc NUÑEZ/Micro L4/2 Patient: Yin Taylor [id number] (Continued) Specimen: [id number] Received: 02/27/23-123 (Continued) Gross Description A. Received [...] support the above pathologic diagnosis. CPT Codes 56112?2 Specimen: [id number] Received: 02/27/23-1235 Status: YVON Martinez Num: [id number] Spec Type: Surgical Subm Dr: Willie Monreal MD Tissues: A Small Intestine - Biopsy/Polyp (TERMINAL ILEUM BX) B Colon Biopsy (RANDOM COLON BX) Procedures: HE/4, Gross/Micro L4/2 Patient: Yin Taylor [id number] (Continued) Signed (signature on file) Geraldine Alexander MD 02/28/23 1054[facility] HospitalCT A[facility]/PELV W CONon 90-50-8223DX ABD/PELV W CONEXAMINATION: CT ABD/PELV W CON, [...] by: NENO INGRAM Date: 2023-01-17 18:33Normal The [facility] HospitalCULTURE URINEon 51-11-3768IEBLLJS URINECulture Observations: LIGHT GROWTH OF MIXED GENITAL DESI. NO POTENTIAL PATHOGENS SEEN.NormalThe Providence HospitalComment on above:Performed By: #### URCX #### [facility] [address] [place] [address] Dr. Tere Rene RANDOM W/MICROSCOPICon 51-29-3406KTUHKEUQAAGUFGorzqzntLCXR SEENThe Providence HospitalComment on above:Performed By: #### UAMIC #### [facility] [address] [address] [address] Tere PastorBilirubin Ql (U)NegativeNormalNEGATIVEThe [facility] Comment on above:Performed By: #### UAMIC #### [facility] [address] [place] [address] [address] Tere PastorCASTNONE SEENNormalNONE SEENUpper Valley Medical CenterComment on above:Performed By: #### UAMIC #### [facility] [address] [place] [address] Dr. Tere PastorClarity (U)CLEARNormalCLEARThe Providence HospitalComment on above: Performed By: #### UAMIC #### [facility] [address] [place] [address] [address] Tere Christopherlor (U)LT. YELLOWNormalYELLOWUpper Valley Medical CenterComment on above:Performed By: #### UAMIC #### [facility] [address] [address] [address] Tere PastorCrystals LM Nom (Urine sed)NONE SEENNormalNONE SEENUpper Valley Medical CenterComment on above:Performed By: #### UAMIC #### [facility] [address] [address] [address] Carranza ChangEjosiethelial cells LM Ql (Urine sed)FEWAbnormalNONE SEEN /RAREUpper Valley Medical CenterComment on above:Performed By: #### UAMIC #### [facility] [address] [place] [address] Dr. Tere PastorGlucose Ql (U)NegativeNormalNEGATIVEUpper Valley Medical CenterComment on above:Performed By: #### UAMIC #### [facility] [address] [place] [address] Dr. Tere PastorHemoglobin Ql (U)MODERATEAbnormalNEGATIVENewark Hospital on above:Performed By: #### UAMIC #### [facility] [address] [place] [address] Dr. Tere PasotrKetones Ql (U)TRACEAbnormalNEGATIVEUpper Valley Medical CenterComment on above:Performed By: #### UAMIC #### [facility] [address] [place] [address] Dr. Tere PastorLEUKOCYTESMODERATEAbnormalNEGATIVEUpper Valley Medical CenterComment on above:Performed By: #### UAMIC #### [facility] [address] [address] [address] Tere PastorMUCOUSNONE SEENNormalNONE SEENUpper Valley Medical CenterComment on above:Performed By: #### UAMIC #### [facility] [address] [place] [address] Dr. Tere PastorNitrite Ql (U)NegativeNormalNEGATIVEUpper Valley Medical CenterComment on above:Performed By: #### UAMIC #### [facility] [address] [place] [address] Dr. Tere PastorpH (U)6.0 [pH]Normal5-9The Providence HospitalComment on above: Performed By: #### UAMIC #### [facility] [address] [place] [address] Dr. Tere PastorPnwcvETM7-8Sevrldra2-7Hab Providence HospitalComment on above:Performed By: #### UAMIC #### [facility] [address] [place] [address] Dr. Tere PastorSPEC GRAVITY1.780Nihjjl3.005-<=1.025The [facility] HospitalComment on above:Performed By: #### UAMIC #### [facility] [address] [place] [address] Dr. Tere Rene PROTEINNegativeNormalNEGATIVE/ TRACEThe [facility] Comment on above:Performed By: #### UAMIC #### [facility] [address] [place] [address] Dr. Tere Mcraebiltaylorgen Qn (U)0.2 {Conchita'U}/dLNormal0.2 - 1.0The Providence HospitalComment on above:Performed By: #### UAMIC #### [facility] [address] [place] [address] Dr. Tere PastorWBC5-10AbnormalNONE SEENThe Providence HospitalComment on above: Performed By: #### UAMIC #### [facility] [address] [place] [address] Dr. Tere FamC AUTO DIFFon 41-73-7507PXNY #0.0 103/ulNormal0.0-0.1The [facility] HospitalComment on above:Performed By: #### CBC #### [facility] [address] [place] [address] Dr. Tere PastorBasophils/100 WBC (Bld)0.5 %Normal0.2-2.0[facility] Comment on above:Performed By: #### CBC #### [facility] [address] [place] [address] [address] Tere Patel #0.2 103/ulNormal0.0-0.7The [facility] HospitalComment on above: Performed By: #### CBC #### [facility] [address] [place] [address] Dr. Tere Hillosinophils/100 WBC (Bld)2.7 %Normal0.9-7.0[facility] Comment on above:Performed By: #### CBC #### [facility] [address] [place] [address] Dr. Tere Hillrythrocyte distribution width (RBC) [Ratio]13.2 %Deveiw37.0-15.0 The [facility] Hospitalment on above:Performed By: #### CBC #### [facility] [address] [place] [address] Dr. Tere PastorHematocrit (Bld) [Volume fraction]40.5 %Hexnyz44.0-48.0The Providence HospitalComment on above:Performed By: #### CBC #### [facility] [address] [place] [address] Dr. Tere PastorHemoglobin (Bld) [Mass/Vol]13.9 g/wLPyeocw91.0-16.0The [facility] Hospitalment on above:Performed By: #### CBC #### [facility] [address] [place] [address] Dr. Tere Santana #0.01 10e3/ulNormal0.00-0.03The Providence HospitalComment on above:Performed By: #### CBC #### [facility] [address] [place] [address] Dr. Tere Santana %0.2 %Normal0.0-0.5The [facility] Hospitalment on above: Performed By: #### CBC #### [facility] [address] [place] [address] Dr. Tere Henderson #2.4 103/ulNormal1.2-3.8The [facility] HospitalComment on above:Performed By: #### CBC #### [facility] [address] [address] [address] Tere Sotomphocytes/100 WBC (Bld)36.6 %Ktranw61.5-60.0The [facility] HospitalComment on above:Performed By: #### CBC #### [facility] [address] [place] [address] Dr. Tere Harris DIFF REQNONormalThe Providence HospitalComment on above: Performed By: #### CBC #### [facility] [address] [place] [address] Dr. Tere Caraballo (RBC) [Entitic mass]28.6 tjEbadmt77.7-34.0The Providence HospitalComment on above:Performed By: #### CBC #### [facility] [address] [place] [address] Dr. Tere Caraballo (RBC) [Mass/Vol]34.3 g/pFAxzxim29.9-35.2The Providence HospitalComment on above:Performed By: #### CBC #### [facility] [address] [place] [address] Dr. Tere Caraballo (RBC) [Entitic vol]83.3 pXHgxemq45.0-99.0The [facility] HospitalComment on above:Performed By: #### CBC #### [facility] [address] [place] [address] Dr. Tere Mcrae #0.5 103/ulNormal0.3-0.8The Providence HospitalComment on above:Performed By: #### CBC #### [facility] [address] [place] [address] Dr. Tere Adkinsocytes/100 WBC (Bld)7.6 %Normal1.7-12.0The [facility] on above:Performed By: #### CBC #### [facility] [address] [place] [address] Dr. Tere Davila #3.5 103/ulNormal1.4-6.5The [facility] on above:Performed By: #### CBC #### [facility] [address] [address] [address] Tere Markhamutrophils/100 WBC (Bld)52.4 %Ajxrfn57.0-75.0The [facility] on above:Performed By: #### CBC #### [facility] [address] [address] [address] Tere Wadsworthlet mean volume (Bld) [Entitic vol]9.7 fLNormal9.5-13.5The [facility] on above:Performed By: #### CBC #### [facility] [address] [place] [address] Dr. Tere PastorPLT257 103/mdVzzhsg944-438Olf [facility] on above: Performed By: #### CBC #### [facility] [address] [place] [address] Dr. Tere PastorRBC4.86 106/ulNormal4.20-5.40The [facility] on above:Performed By: #### CBC #### [facility] [address] [place] [address] Dr. Tere PastorWBC6.6 103/ulNormal4.0-11.0The [facility] on above: Performed By: #### CBC #### [facility] [address] [place] [address] Dr. Tere Nunez THYROXINE INDEX T7on 88-26-0550VPX0.46Uoebtp3.30-4.50The [facility] on above:Performed By: #### T7, CMP, TSH #### [facility] [address] [place] [address] Dr. Tere PastorT3U33.0 %Mekhpr22.0-39.0The [facility] on above: Performed By: #### T7, CMP, TSH #### [facility] [address] [place] [address] Dr. Tere PastorT4 [Mass/Vol]7.60 ug/dLNormal4.80-13.90[facility] Comment on above:Performed By: #### T7, CMP, TSH #### [facility] [address] [place] [address] Dr. Tere PastorGLYCOHEMOGLOBIN A1Con 98-31-8146NMJ RECOMMENDATIONSEE BELOWNormal The Providence HospitalComment on above:Result Comment: ADA RECOMMENDED LIMIT 4.0 - 6.0 ADA THERAPEUTIC TARGET < 7.0 ACTION SUGGESTED > 7.0Performed By: #### A1C #### [facility] [address] [place] [address] Dr. Tere PastorGlucose [Mass/Vol]91 mg/dLNormalThe Providence HospitalComment on above:Performed By: #### A1C #### [facility] [address] [place] [address] Dr. Tere PastorHbA1c (Bld) [Mass fraction]4.8 %Normal4.5-6.2The [facility] HospitalComment on above:Performed By: #### A1C #### [facility] [address] [place] [address] Dr. Tere PastorPROF 14(COMP METB)on 47-42-9899Fqbvqsl [Mass/Vol]3.7 g/dLNormal 3.4-5.0The [facility] HospitalComment on above:Performed By: #### T7, CMP, TSH #### [facility] [address] [place] [address] Dr. Tere PastorAlbumin/Globulin [Mass ratio]1.1 {ratio}NormalThe Providence HospitalComment on above:Performed By: #### T7, CMP, TSH #### [facility] [address] [place] [address] Dr. Tere GunnP [Catalytic activity/Vol]63 U/QHypsgw53-742Bob [facility] Hospitalment on above:Performed By: #### T7, CMP, TSH #### [facility] [address] [place] [address] Dr. Tere GunnT [Catalytic activity/Vol]20 U/RGtjbhj05-77Fpr [facility] HospitalComment on above:Performed By: #### T7, CMP, TSH #### [facility] [address] [address] [address] Tere Bateson gap [Moles/Vol]10.8 mmol/LNormalThe [facility] Comment on above:Performed By: #### T7, CMP, TSH #### [facility] [address] [place] [address] Dr. Tere PastorAST [Catalytic activity/Vol]15 U/JWhcqgd43-57Viz Providence HospitalComment on above:Performed By: #### T7, CMP, TSH #### [facility] [address] [place] [address] Dr. Tere PastorBilirubin [Mass/Vol]0.7 mg/dLNormal0.2-1.0[facility] Comment on above:Performed By: #### T7, CMP, TSH #### [facility] [address] [place] [address] Dr. Tere PastorCalcium [Mass/Vol]8.8 mg/dLNormal8.5-10.1[facility] Comment on above:Performed By: #### T7, CMP, TSH #### [facility] [address] [place] [address] Dr. Tere PastorChloride [Moles/Vol]102 mmol/RWtbqkq10-128TqpUpper Valley Medical Center Comment on above:Performed By: #### T7, CMP, TSH #### [facility] [address] [place] [address] Dr. Tere PastorCO2 [Moles/Vol]28.3 mmol/LDyvjnf15.0-32.0[facility] Comment on above:Performed By: #### T7, CMP, TSH #### [facility] [address] [place] [address] Dr. Tere PastorCreatinine [Mass/Vol]0.67 mg/dLNormal0.55-1.02The [facility] HospitalComment on above:Performed By: #### T7, CMP, TSH #### [facility] [address] [place] [address] Dr. Yilan ChangEGFR-AF TURKS AND CAICOS ISLANDER>60Normal>=60The [facility] HospitalComment on above:Performed By: #### T7, CMP, TSH #### [facility] [address] [place] [address] Dr. Tere HillGFR-NON AF TURKS AND CAICOS ISLANDER>60Normal>=60The [facility] HospitalComment on above:Performed By: #### T7, CMP, TSH #### [facility] [address] [place] [address] Dr. Tere PastorGlobulin (S) [Mass/Vol]3.3 g/dLNormalThe Providence HospitalComment on above:Performed By: #### T7, CMP, TSH #### [facility] [address] [place] [address] Dr. Tere PastorGlucose [Mass/Vol]87 mg/pKKrkotf72-190MvrUpper Valley Medical Center Comment on above:Performed By: #### T7, CMP, TSH #### [facility] [address] [place] [address] Dr. Tere PastorPotassium [Moles/Vol]4.1 mmol/LNormal3.5-5.1[facility] Comment on above:Performed By: #### T7, CMP, TSH #### [facility] [address] [place] [address] Dr. Tere PastorProtein [Mass/Vol]7.0 g/dLNormal6.4-8.2[facility] Comment on above:Performed By: #### T7, CMP, TSH #### [facility] [address] [place] [address] Dr. Tere PastorSodium [Moles/Vol]137 mmol/VVzmtcc404-046ZziUpper Valley Medical Center Comment on above:Performed By: #### T7, CMP, TSH #### [facility] [address] [place] [address] Dr. Tere PastorUrea nitrogen [Mass/Vol]7.0 mg/dLNormal7.0-18.0The [facility] HospitalComment on above:Performed By: #### T7, CMP, TSH #### [facility] [address] [place], [place] [address] Dr. Tere PastorUrea nitrogen/Creatinine [Mass ratio]10.4 mg/mgNormalThe Providence HospitalComment on above:Performed By: #### T7, CMP, TSH #### [facility] [address] [place], [place] [address] Dr. Tere PastorTSHoedy 54-14-0295IOM6.865 uIU/mLNormal0.358-3.740[facility] CenterComment on above:Performed By: #### T7, CMP, TSH #### [facility] [address] [place], [place] [address] Dr. Tere Pastor Vital Signs Date TimeVital SignValuePerforming HusdlxyuzHfhrpslq20-38-1537 14:35-0400Body ubpfeh421.96 kgCorey Cornelio DO Work Phone: [facility] CenterUaaanmhxdt07-64-3359 13:30-0500Body .33 kgCorey Cornelio DO Work Phone: [facility] CenterMegjqerccy84-96-5482 13:30-0500Diastolic blood bqernltp30 mm[Hg]Ed Cornelio DO Work Phone: [facility] CenterGltwfgvpiw39-15-3167 13:30-0500Systolic blood vqhuazfg536 mm[Hg]Ed Cornelio DO Work Phone: [facility] CenterMhlaxumabb01-43-9204 09:58-0500Blood Pressure LocationAurora Orzech [facility]01-16-2024 09:58-0500Diastolic blood mm[Hg]Adele Orzech [facility]01-16-2024 09:58-0500Heart rate74 /minAurora Orzech [facility]01-16-2024 09:58-0500Respiratory rate16 /minAurora Orzech [facility]01-16-2024 09:58-0500Systolic blood pszdujph865 mm[Hg]Adele Orzech [facility]04-27-2023 12:25-0400Diastolic blood eccqqrbm40 mm[Hg]HAND FORMER HELPER-C Conchita Alicia Work Phone: [phone] [place], [place] 542[address]04-27-2023 12:25-0400 Heart rate82 /minNP-C Conchita Alicia Work Phone: [phone] [place], [place] 542[address]04-27-2023 12:25-0400 Respiratory rate20 /minNP-C Conchita Alicia Work Phone: [phone]04-27-2023 12:25-0400 SaO2% (BldA) [Mass fraction]100 %HAND FORMER HELPER-C Conchita Vargas Work Phone: [phone] [place], [place] 542[address]04-27-2023 12:25-0400 Systolic blood eeatddln685 mm[Hg]HAND FORMER HELPER-C Conchita Alicia Work Phone: [phone] [place], [place] 542[address]04-27-2023 10:29-0400 Body espshs992.1 cmNP-C Conchita Alicia Work Phone: [phone] [place], [place] 542[address]04-27-2023 10:29-0400 Body eqrxpzgwlqj01.7 [degF]HAND FORMER HELPER-C Conchita Alicia Work Phone: [phone] [place], [place] 542[address]04-27-2023 10:29-0400 Body lxultr114.05 kgNP-C Conchita Alicia Work Phone: [phone] [place] [address] Encounters Encounter DateEncounter TypeCare ProviderFacilityStart: 26-28-9115cjuljimfch Adele X OrzechFacility:EU BellevueStart: 08-26-2025 End: 67-01-4424Lqhvnbxts department patient visitPAMAISHA VARGASMercy Memorial Hospitaltart: 06-27-2025 End: 76-96-5365Vkdwzu outpatient visit 15 minutesCorey Cornelio DO Work Phone: [facility] OBGYNComment on above:Vaginal cyst; HSV infection; Irregular menstrual bleedingStart: 06-27-2025 End: 49-60-4339csusistelwKNXGK FAZIONot AvailableStart: 06-27-2025 End: 80-73-6054Pogvvw flowsheetCorey Cornelio DO Work Phone: [facility] OBGYNStart: 06-27-2025 End: 19-67-7195Zaecnx flowsheetCorey Cornelio DO Work Phone: [facility]aoñ OBGYNStart: 04-22-2025 End: 86-06-8405aocamkrhloBNDWW L [facility]AL[facility] Start: 03-09-2025 End: 69-62-5791atavhagrntSIMJNE B [facility] HospitalStart: 12-30-2024 End: 48-37-8367Ncmfkcaoj department patient visitOhioHealth O'Bleness Hospitaltart: 10-11-2024 End: 47-09-4881lathbznqjvLNIVNXT [facility] Start: 09-22-2024 End: 75-91-0122xfbtdxbfuuOFAOS GRUBBUniThe MetroHealth Systemtart: 09-03-2024 End: 37-26-7391Qmwnbwygl department patient visitOhioHealth O'Bleness Hospitaltart: 06-11-2024 End: 81-90-2131dkwuuzyjcuLUPVVJE [facility]: 34-22-7710vtsdbyvnacCXPOTDL [facility] Hospitaltart: 20-82-8641Texbddunj for other preprocedural examinationHEATHER [facility] Hospitaltart: 05-10-2024 End: 34-90-4329Bmo Drop offAurormartine Burgos [facility] Start: 05-10-2024 End: 71-30-8971cvsaropzopRlddvl X OrzechFacility:EU BellevueStart: 05-10-2024 End: 99-04-0647Lcuzdqa encounter procedureAurora X Orzech [facility] start: 05-04-2024 End: 12-73-3837kkptukavgyZnpjlv X OrzechFacility:FTMCStart: 05-04-2024 End: 87-46-3295Pyc Drop offAurora X Orzech [facility] Start: 05-04-2024 End: 58-43-1055Egvzcby encounter procedureAurora X Orzech [facility] start: 12-23-2023 End: 74-82-6180tfjrkaehqyMke Infusion Chair [address] [place] [address] - Medical OncologyComment on above:POTS (postural orthostatic tachycardia syndrome) (Primary Dx); Mild persistent asthma without complication; BMI 40.0-44.9, adult ([facility]); Chronic gastritis without bleeding, unspecified gastritis type; Gastroparesis; Syncope, unspecified syncope type; Aviva-Danlos syndrome type III; Skin abrasion; Port-A-Cath in place; Collapse; AnxietyStart: 12-22-2023 End: 65-68-2071Vnpqmmctt Result EncounterCorey Cornelio DO Work Phone: noms External Department UnsolicitedStart: 12-22-2023 End: 70-58-6277Whlqczhrc Result EncounterCorey Cornelio DO Work Phone: noms External Department UnsolicitedStart: 12-16-2023 End: 45-29-3176Ejbwgyu encounter procedureCorey Cornelio DO Work Phone: [facility] OBComment on above:Encounter for removal of etonogestrel implant; Insertion of Nexplanon; Abnormal uterine bleeding (AUB)Start: 11-18-2023 End: 19-24-5207Huw Drop offAurora X Orzech [facility] Start: 11-18-2023 End: 24-89-8578Aizoxty encounter procedureAurora X Orzech [facility] start: 10-28-2023 End: 32-75-5646qiwubkofwiJvw Infusion Chair 1DBaton [facility] - Medical OncologyComment on above:POTS (postural orthostatic tachycardia syndrome) (Primary Dx); Mild persistent asthma without complication; BMI 40.0-44.9, adult ([facility]); Chronic gastritis without bleeding, unspecified gastritis type; Gastroparesis; Syncope, unspecified syncope type; Aviva-Danlos syndrome type III; Skin abrasion; Port-A-Cath in place; Collapse; AnxietyStart: 02-27-2023 End: 65-75-8965vaizemlvgwUhajse Sue CramerFacility:[facility] Centertart: 02-27-2023 End: 34-23-5661Krqjoufij to same day surgery Nestor Vargas Work Phone: [facility] Work Phone: Start: 02-27-2023 End: 35-62-3261uaibooarmiJY-C Pamela Sue Cramer Work Phone: [facility] Work Phone: Start: 01-17-2023 End: 34-14-1318bsqwllulocSYDQOL CRAMERFacility:Y5Sbydf: 87-67-0589Vtzpcfgsc for preprocedural laboratory examinationCONCHITA VARGASOhioHealth Grant Medical Centertart: 10-23-2022 End: 30-98-0314idkmpzhuubTCTJZR CRAMERFacility:S8Bhkgl: 10-23-2022 End: 95-57-9050Zrblrijod for preprocedural laboratory examinationCONCHITA VARGAS Facility:R4Ypyek: [birth year]02-2018 End: 75-18-2753UtdkjnzrikVHJTD ERLINDA JACOMEFacility:[facility] Procedures DateProcedureProcedure DetailPerforming ClinicianStart: 57-40-0515HA PELVIS W/ TRANSVAGINALCorey Cornelio DO Work Phone: Start: 07-46-9557Kxeqt test visual color cmprsn methsCorey Cornelio DO Work Phone: Start: 25-49-2130DnyueeaugvjGC-C Conchitagregory Vargas Work Phone: Start: 74-87-2808Rnrge depression screening assessment Pfo 1Start: 15-25-7944Fgciwyhujeu observation [Identifier] in Cervix by Cyto stainPfo 1CholecystectomyAurora Orzech ColonoscopyAurora Orzech TonsillectomyAurora Orzech Plan of Treatment DateCare ActivityDetailAuthorStart: 62-89-8198QRiO,Tdap and Td Vaccines (7 - Td or Tdap)DTaP,Tdap and Td Vaccines (7 - Td or Tdap)[facility] SystemStart: 06-27-2025 End: 91-79-6197Yhledun encounter wmaqlyonq49/25/2025 2:20 PM EDT Office Visit [facility] [address] [place] [address] Ed Grimes DO [address] [place] [address] ArrivedNOMS Avendaño OBGYNComment on above:ArrivedStart: 05-30-1641Cztqm BMI ScreeningAdult BMI ScreeningProMedica Health SystemStart: 14-51-1344Uvdrirc ScreeningTobacco ScreeningNovant Health Ballantyne Medical Centertart: 02-17-2024 End: 03-28-4741njkgsguuht83/16/2024 11:30 AM EDT Infusion Tasha Fonseca [facility] - Medical Oncology [address] [place] [address] Tasha Fonseca [facility] Medical OncologyStart: 12-23-2023 End: 77-19-9830recacvnfab67/20/2024 11:30 AM EST Infusion Tasha Fonseca [facility] Medical Oncology [facility] [place] [address] Tasha Fonseca [facility] Medical OncologyStart: 12-16-2023 End: 80-90-8887RF for pregnancyUS PELVIS-TRANSVAG IF INDICATED Imaging Routine Abnormal uterine bleeding (AUB) Expected: 12/16/2023 (Approximate), Expires: 12/16/2024NOWV HealthcareComment on above:Expected: 12/16/2023 (Approximate), Expires: 12/16/2024Start: 85-04-4466Blfwczrwy vaccinationInfluenza Vaccine [facility] Centertart: 69-35-1388Raeotwiol for malignant neoplasm of cervixPap SmearCincinnati Shriners Hospital SystemStart: 39-60-7845GemkvcubuAdams County Regional Medical Centertart: 02-75-4674Vjbvvyszkp ScreeningDepression ScreeningCincinnati Shriners Hospital SystemStart: 53-26-0044Aukfs BMI Follow Up PlanAdult BMI Follow Up Plan [facility] HospitalRem[facility] non-biodegradable drug delivery implantRemove drug implant device Procedures Routine Encounter for removal of etonogestrel implant Ordered: 12/16/2023[facility] Work Phone: comment on above:Ordered: 12/16/2023 Immunizations Immunization DateImmunizationNotesCare CmzpjeleIzombbwq72-42-9231xfagmulxk, injectable, quadrivalent, preservative freePfo [address] [place] [address] 35-80-2952BPR(D) immune globulin- IV or IMPfo [address] [place], [place] [address]252901-07-2021 tetanus toxoid, reduced diphtheria toxoid, and acellular pertussis vaccine, adsorbedPfo [address] [place], [place] [address]Jrzajy52-36-7538oeozdnicp virus vaccine, unspecified formulationPfo [address] [place], [place] [address]NEGATED: Highlighted row has not occurred!19-38-1153qwkuljvnz virus vaccine, unspecified formulationAureannamartine Camargoshellie [facility] Payers DatePayer CategoryPayerPolicy [id number] (Managed Care)[employer] [id number] [id number]-[id number] [id number] 2.0.1.595224.3.57[id number] 2.0.1.847633.3.57[id number] 2.0.1.269802.3.57[id number] 2.16840.1.027435.3.57[id number] 2.840.1.955994.3.57[id number] 2.840.1.127822.3.57[id number] 2.840.1.324277.3.57[id number] 2.840.1.263084.3.57[id number] 2.0.1.213756.3.57[id number] 2.0.1.366326.3.57[id number] 2.0.1.894858.3.57[id number] 2..1.519811.3.57[id number] 2.0.1.129303.3.579.2.727 [id number] MedicaidParamount [id number] MedicaidMolina [place]Care[place] [id number] [id number] 2.0.1.110536.3.579.2.531UnknownReverify Insurance [id number] Social History DateTypeDetailFacilityStart: 02-27-2023 End: 98-99-1819Wschowv smoking status NHISNever smoked tobacco (finding) [facility] Centertart: 02-39-2982Kkp Assigned At BirthFemale [facility] Centertart: 11-20-2023 End: 73-35-3306Rpx Assigned At BirthFeMercy Health Willard Hospitaltart: 12-16-2023 End: 67-32-9139Bgydidb intakeLifetime non-drinker (finding)[facility] HealthcareStart: 11-20-2023 End: 26-15-6198Qcabynj of Social functionNovant Health Ballantyne Medical Centertart: 12-69-9326Ethhijx Commentcaffeine: 1-2 cups per dayNOWV HealthcareStart: 13-48-1403Tpafqb identityIdentifies as female gender (finding)[facility] SystemStart: 99-41-2464Sicjzu orientationHeterosexual (finding)[facility] Centertart: 68-81-1975Wreifzk smoking statusNeverExecutive Urology of [facility] Hospitaltart: 28-09-4491Ebsredt use and exposureSmokeless tobacco non-userNovant Health Ballantyne Medical Centertart: 39-51-8975Ysfhexr intakeCurrent non-drinker of alcohol (finding)[facility] HospitalThe thought of harming myself has occurred to [facility] Medical Equipment Procedure CodeEquipment CodeEquipment Original TextEquipment IdentifierDates [facility]-10/21/[id number]_impStart: 20-47-4990Wvgnc 4x day: fasting, 1 hour after each [id number]: 11-29-2020 Goals DatePatient GoalDesired Activity/State Functional Status QzmxYmongswiewWkqyvqPpjcojaq94-15-4941Npjvqamjks StatusN/AExec[facility]rology of [facility]01-16-2024Functional StatusN/AExec[facility] Clinical Notes 02-27-2023 to 06-27-2025 Note Date & JuwqGrdqRrcuslav50-09-1951 History of Present illness Narrative* Usha Razo LPN - 06/27/2025 2:20 PM EDT Reason for [...] nursing note reviewed. Exam conducted with a end trimmer present. Vitals: There is no height or weight on file to calculate BMI. BP: No LMP recorded. Patient has had an implant. ASSESSMENT & PLAN ICD-10-CM 1. Vaginal cyst N89.8 Patient complaints of vaginal Documented by Usha Razo LPN on behalf of: Ed Grimes DO documented in this encounterSSM DePaul Health CenterMssnpvhjak87-75-3944 [facility]villeEPARTMENT [facility] VASC[facility] SURGERY Subjective Yin Taylor is [...] needed Electronically signed by: QUINTEN Sanchez Physician Sludge Filtration Attendant Vascular and Wound Surgery 10/11/2024 This note [...] the past 36 hour(s)). No follow-ups on file.[facility]11-20-2024 NoteSYNCOPE AND AUTONOMIC DISORDERS CLINIC Reason for [...] times weekly. I spent 30 minutes in mupd-vf-bvze patient counseling and therapeutic decision making during [...] Tobacco Use: Low Risk (09/03/2024) Received from [employer] Patient History Smoking Tobacco Use: Never Smokeless Tobacco Use: Never Passive Exposure: Not on file Alcohol Use: Not At Risk (10/15/2018) Received from [employer], [employer] AUDIT-C Frequency of Alcohol Consumption: Never Average Number of Drinks: Not on file Frequency of Binge Drinking: Not on file Financial Resource Strain: Patient Declined (03/26/2023) Received from [employer], [employer] Overall Financial Resource Strain (CARDIA) Difficulty of Paying Living Expenses: Patient declined Food Insecurity: No Food Insecurity (09/03/2024) Received from [employer] Hunger Screening Within the past 12 months we worried whether our food would run out before we got money to buy more.: Never True Within the past 12 months the food we bought just didn't last and we didn't have money to get more.: Never True Transportation Needs: Patient Declined (03/26/2023) Received from [employer], [employer] PRAPARE - Transportation Lack of Transportation (Medical): Patient declined Lack of Transportation (Non-Medical): Patient declined Physical Activity: Not on file Stress: Not on file Social Connections: Not on file Intimate Partner Violence: Unknown (12/25/2023) [place] Safety & Environment Fear of Current or Ex-Partner: Not on file Emotionally Abused: Not on file Physically Abused: Not on file Sexually Abused: Not on file Physically or Sexually Abused: Not on file Depression: Not at risk (01/27/2023) PHQ-2 PHQ-2 Score: 0 Housing Stability: Low Risk (03/26/2023) Received from [employer], [employer] Housing Instability Are you worried or concerned [...] mg by mouth in (more content not included)...[facility]08-08-2024 Note Subjective Patient ID: Yin Taylor is [...] the past 36 hour(s)). No follow-ups on file.[facility]08-08-2024 Note Subjective Patient ID: Yin Taylor is [...] schedule port removal to be done at [facility] LUE Venous duplex stat to rule out LUE DVT. She has swelling in her left neck. Scheduled for 06/11 9AM. Follow up after port removal for post op check No diagnosis found. No orders of the defined types were placed in this encounter. No results found for this or any previous visit (from the past 36 hour(s)). No follow-ups on file.[facility]07-08-2024 Evaluation + Plan note Diagnostic Tests Pending * Urine Culture 05/10/24 [facility]07-02-2024 Evaluation + Plan note Diagnostic Tests Pending * Urine Culture 05/04/24 [facility]07-02-2024 Hospital Discharge instructions Patient Education 05/04/2024 09:40:00 [...] Follow these instructions at home: Medicines Take lcvb-ncu-fcfzeoc and prescription medicines only as told by [...] or the blood stops without treatment. Take dyfp-crt-zacrpsp and prescription medicines only as told by your health care provider. Drink enough fluid to keep your urine pale yellow. This information is not intended to replace advice given to you by your health care provider. Make sure you discuss any questions you have with your health care provider. Document Revised: 06/20/2021 Document Reviewed: 06/20/2021 [employer] Patient Education 2022 [employer] Inc[employer] Follow Up Care 03/05/2024 09:51:28 With:KE Burgos APRN, JARRETT Hernandez, URL Address: When: Unknown Comments:pending micro/cx [facility] 02-20-2024 History of Present illness Narrative* Franca Chin RN - 12/23/2023 11:30 AM EST Port flushed per protocol. documented in this encounterSt. Elizabeth Hospital02-13-2024 History of Present illness Narrative* Kaye Harmon, PROGRAM MANAGER ENVIRONMENTAL PLANNING - 12/16/2023 1:10 PM EST Reason for [...] Past Medical History: Diagnosis Date Anxiety Asthma ([facility]) Depression ([facility]) History of medical problems Family History [...] nursing note reviewed. Exam conducted with a end trimmer present. Vitals: There is no height or [...] of: Ed Grimes DO documented in this encounterSSM DePaul Health CenterHiythrxgie02-84-7980 Evaluation + Plan note Diagnostic Tests Pending * Urine Cytology ([facility]) 11/18/23 [facility]01-16-2024 Hospital Discharge instructions Patient Education 11/18/2023 11:38:29 [...] Follow these instructions at home: Medicines Take mkua-ujd-asdgaoi and prescription medicines only as told by [...] or the blood stops without treatment. Take gurw-cfv-voabxxu and prescription medicines only as told by your health care provider. Drink enough fluid to keep your urine pale yellow. This information is not intended to replace advice given to you by your health care provider. Make sure you discuss any questions you have with your health care provider. Document Revised: 06/20/2021 Document Reviewed: 06/20/2021 [employer] Patient Education 2022 [employer] [facility] 12-26-2023 History of Present illness Narrative* Franca Chin RN - 10/28/2023 12:30 PM EST Port flushed per protocol. documented in this encounterNorthwestern Medical CenterRakuten MediaForge Ijqhab79-26-1712 History and physical note Author Willie [facility] February 27, 2023 11:15amNote Date/TimeApril 2022 11:[address] [address] Gastroenterology H&P Signed Patient: Yin Taylor MR#: [id number] : 1995 Acct:[id number] Age/Sex: 27 / F Adm Date: 3 Loc: Room: Type: [facility] Attending Dr: Willie Monreal MD Copies [...] signed by Willie Monreal MD> 02/27/23 1115 [facility] [employer] Work Phone: 1(849) 806-908504-27-2023 Procedure noteSouthern Ohio Medical CenterEvaluation + Plan note No data available for this section [facility] evaluation noteNo assessment information available [facility] Work Phone: Evaluation note* Diagnosis Encounter for removal of etonogestrel implant Insertion of Nexplanon Abnormal uterine bleeding (AUB) documented in this encounter [facility] HealthcareEvaluation note* Diagnosis POTS (postural orthostatic tachycardia syndrome)- Primary Unspecified tachycardia Mild persistent asthma without complication BMI 40.0-44.9, adult ([facility]) Chronic gastritis without bleeding, unspecified gastritis type Gastroparesis Syncope, unspecified syncope type Aviva-Danlos syndrome type III Aviva-Danlos syndrome Skin abrasion Abrasion or friction burn of other, multiple, and unspecified sites, without mention of infection Port-A-Cath in place Collapse Syncope and collapse Anxiety Anxiety state, unspecified documented in this encounter [facility] SystemEvaluation note* Diagnosis Vaginal cyst Other specified noninflammatory disorder of vagina HSV infection Herpes simplex without mention of complication Irregular menstrual bleeding Irregular menstrual cycle documented in this encounter [facility] HealthcareHospital Discharge instructions Additional Instructions DISCHARGE INSTRUCTIONS [...] screening -Follow up with PCP. -Office number [phone]. [facility] Work Phone: Hospital Discharge instructions No data available for this section [facility]InstructionsNot on filedocumented in this encounter [facility] SystemProgress note No data available for this section [facility] Summary Purpose Family History No Family History Records Found Relationship Condition Age at Onset Recorded Date/T mitchell Not Specified Diabetes mellitus Unknown Intestinal obstructionUnknowngrandparentDiabetes mellitusUnknownMalignant neoplasm of breastUnknownHeart diseaseUnknownsisterDiabetes mellitusUnknown family memberMalignant neoplasm of colonUnknownMalignant neoplasm of lungUnknown Advance Directives No Advanced Directives Records Found Advance Directive Response Recorded Date/ Time Advance Directives No January 05 5:57pm Code StatusDate ActivatedDate InactivatedCommentsFull Code01/18/2021 5:05 AM 01/20/2021 6:33 PM Chief Complaint and Reason for Visit Chief Complaint Abdominal pain, Coli tis Additional Source Comments INFORMATION SOURCE (unrecogn ized section and content) DATE CREATED AUTHOR 04/22/2018 [facility] DATE CREATED AUTHOR AUTHOR'S ORGANIZ ATION 01/26/2023 [facility] DATE CREATED AUTHOR AUTHOR'S ORGANIZ ATION 03/01/2023 [facility] DATE CREATED AUTHOR AUTHOR'S ORGANIZ ATION 05/06/2024 [facility] DATE CREATED AUTHOR AUTHOR'S ORGANIZ ATION 05/07/2024 [facility] DATE CREATED AUTHOR AUTHOR'S ORGANIZ ATION 05/17/2024 [facility] DATE CREATED AUTHOR AUTHOR'S ORGANIZ ATION 05/18/2024 [facility] DATE CREATED AUTHOR AUTHOR'S ORGANIZ ATION 10/14/2024 [facility] DATE CREATED AUTHOR AUTHOR'S ORGANIZ ATION 04/25/2025 [facility] DATE CREATED AUTHOR AUTHOR'S ORGANIZ ATION 06/28/2025 [facility] DATE CREATED AUTHOR AUTHOR'S ORGANIZ ATION 08/28/2025 [facility] DATE CREATED AUTHOR AUTHOR'S ORGANIZ ATION 09/08/2025 [facility] Care Teams (unrecognized sec tion and content) Team Status: Active Member Role Status Dates Conchita Vargas NP-C Primary Care Provider Active Team Status: Inactive Member Role Status Dates Willie Monreal MD Attending Provider Active Conchita Vargas HAND FORMER HELPER-CPrimary Care ProviderActiveTeam MemberRelationship SpecialtyStart DateEnd Date Conchita Vargas FREQUENCY CHECKER-CHANNEL SUPERVISOR [address] [place] [id number] PCP - GeneralFamily Medicine11/25/19 Reason for Visit [...] BE BASED ON THE PRIMARY CLINICAL RECORDS. [employer] provides no warranty or guarantee of the accuracy or completeness of information in this document.
[2025-10-11 08:44] LABS: Hemoglobin 13.8 g/dL (12.0-16.0)
== END 2025-10-11 08:27 | disposition home or self-care (01) ==
LOC: CARD 08:27
PROVIDERS: PCP Nurse Practitioner Family; Visit Provider Nurse Practitioner Family
DX: J45.30 Mild persistent asthma, uncomplicated (principal)
CPT/HCPCS: 36415; 85018; 94010; 94726; 94729

== ENCOUNTER 2025-10-12 20:56 | Outpatient (OUT) | payer MEDICARE, SELFPAY ==
--- OUTSIDE RECORDS SUMMARY | 2024-08-05 09:00 | XMS_ITS ---
Author Organization [facility] in [place] Address [address] [place] [address] Care Team Providers Care Newspaper Distributor Supervisor Name Role Phone Conchita Daigle Primary Care Provider [phone] Izaiah Guevara [phone] REASON FOR VISIT 1YEAR-ASTHMA Encounters Encounter Location Date Provider Diagnosis Pulmonary Medicine [place] [address] [place] [address] 08/05/2024 Izaiah Guevara Plan Of Treatment Next Appt Details Provider Name:Conchita trevino, 12/01/2025 10:00:00 AM, [address] [place], [address], Progress Notes * Anne Marie GALEANO ADOB:[birth year] (29 yo F)Acc No.[id number]:08/05/2024 UNLOCKED PROGRESS NOTE Follow Up Patient: Anne Marie SKINNER :?Izaiah Guevara DODOB:1995???Age:28 Y ???Sex:FemaleDate:4Phone:[phone]:[address] [place], [place]-[id number]:Conchita Daigle Subjective: * Chief Complaints: * 1 . 1YEAR-ASTHMA. * Medical History: Objective: * Vitals: Assessment: Plan: * Treatment: * * Electronic signature of Izaiah Guevara on 10/12/2025 at 09:01 PM ESTSign off status: PendingVisit Status:?R/S (Rescheduled) * Provider: Tayler Guevara DO Date: Generated for Printing/Faxing/eTransmitting on:?10/12/2025 09:01 PM EST
--- OUTSIDE RECORDS SUMMARY | 2024-10-05 04:30 | XMS_ITS ---
Author Organization [facility] vices Address [address] [place] [id number] Care Team Providers Care Human Resources Recruiter Name Role Phone Rafaela Tristiandomgaurav Unavailable [phone] Hermelinda Sim Unavailable [phone] REASON FOR VISIT CANCEL- Comp. Exam Social History Sex Assigned At : Social History Observation Description Sex Assigned At Female Encounters Encounter Location Date Provider Diagnosis [facility] [address] [place], [place] [id number] 10/05/2024 Hermelinda Sim Plan Of Treatment No Information Progress Notes * Anne Marie GALEANODOB:1995 (29 yo F)Acc No.[id number]:10/05/2024 Patient:?Anne Marie Galeano :?Hermelinda Sim DDSDOB:1995???Age:28 Y ???Sex:FemaleDate:10/05/2024hone:[phone]:[address] [facility]-[id number] Subjective: * Chief Complaints: * C ANCEL- Comp. Exam * Electronic signature of Hermelinda Sim DDS on 10/12/2025 at 09:03 PM EST Sign off status: Pending * Provider: Uriel Sim DDS Date: 12/06/2023 Generated for Printing/Faxing/eTransmitting on:?10/12/2025 09:03 PM EST
--- OUTSIDE RECORDS SUMMARY | 2025-08-03 05:30 | XMS_ITS ---
Author Organization [facility] [place] Address [address] [place] [address] Care Team Providers Care Document Processing Specialist Name Role Phone Conchita Daigle Primary Care Provider [phone] Izaiah Guevara [phone] REASON FOR VISIT 1YEAR-ASTHMA Encounters Encounter Location Date Provider Diagnosis Pulmonary Medicine [place] [address] [place] [address] 08/03/2025 Izaiah Guevara Plan Of Treatment Next Appt Details Provider Name:Conchita trevino, 12/01/2025 10:00:00 AM, [address] [place], [address], Progress Notes * Anne Marie GALEANO ADOB:[birth year] (29 yo F)Acc No.[id number]:08/03/2025 UNLOCKED PROGRESS NOTE Follow Up Patient: Anne Marie SKINNER :?Izaiah Guevara DODOB:1995???Age:29 Y ???Sex:FemaleDate:08/03/2025Phone:[phone]:[address], [place]-[id number]:Conchita Daigle Subjective: * Chief Complaints: * 1 . 1YEAR-ASTHMA. * Medical History: Objective: * Vitals: Assessment: Plan: * Treatment: * * Electronic signature of Izaiah Guevara DO on 10/12/2025 at 09:03 PM ESTSign off status: PendingVisit Status:?OFF CANC (OFFICE CANCEL) * Provider: Tayler Guevara DO Date: Generated for Printing/Faxing/eTransmitting on:?10/12/2025 09:03 PM EST
--- OUTSIDE RECORDS SUMMARY | 2025-08-23 05:15 | XMS_ITS ---
Author Organization [facility] vices Address [address] [place], [place] [id number] Care Team Providers Care Silk Screen Printing Racker Name Role Phone Laya Russo Unavailable [phone] REASON FOR VISIT Recall (A) (29) Social History Sex Assigned At : Social History Observation Description Sex Assigned At Female Encounters Encounter Location Date Provider Diagnosis [facility] [address] [place], [place] [id number] 08/23/2025 Laya Russo Plan Of Treatment No Information Progress Notes * Anne Marie GALEANODOB:1995 (29 yo F)Acc No.[id number]:08/23/2025 Patient:?Anne Marie Galeano :?Laya Russo DDSDOB:1995???Age:29 Y ???Sex:FemaleDate:08/23/2025Phone:[phone]:[address]RE[address] [facility] ANSONYP-[address] Subjective: * Chief Complaints: * Belinda ahmadi (A) (29) Billing Information: * Procedure Codes: * Electronic signature of Laya Russo DDS on 10/12/2025 at 09:02 PM ESTSign off status: Pending * Provider: Pascale Russo DDS Date: Generated for Printing/Faxing/eTransmitting on:?10/12/2025 09:02 PM EST
--- OUTSIDE RECORDS SUMMARY | 2025-10-06 23:59 | XMS_ITS | Continuity of Care Document ---
Author Organization [facility] Address [address] [place] [address] Care Team Providers Care Neonatologist Name Role Phone PRISCA VARGAS Primary Care Physician Encounter BILL [id number] Date(s): 10/06/25 - 10/06/25 [facility] [address] [address]- Encounter Diagnosis Urinary frequency(Discharge Diagnosis) - 10/06/25 Microscopic hematuria(Discharge Diagnosis) - 10/06/25 Discharge Disposition: Home (Routine DC) Attending Physician: KE Burgos APRN, [facility] Encounter Type: Clinic Allergies, Adverse Reactions, Alerts No Known Medication Allergies Immunizations Not Given VaccineDateStatusRefusal Reasoninfluenza virus vaccine, inactivated11/18/23Not GivenPatient Refuses Medications albuterol 0.083% Inh Samra 3 mL 2.5 mg, 3 mL, Refill(s) 0 Start Date: 10/06/25 Status: Ordered Medication Dispense Status: Completed Total Allowed Fills: 1 Fills Dispensed: 0 Breyna 160 mcg-4.5 mcg/inh inhalation aerosol 2 inh, Refill(s) 0 Start Date: 10/06/25 Status: Ordered Medication Dispense Status: Completed Total Allowed Fills: 1 Fills Dispensed: 0 Corlanor 5 mg oral tablet 5 mg = 1 tab(s) Start Date: 11/18/23 Status: Ordered Medication Dispense Status: Completed Total Allowed Fills: 1 Fills Dispensed: 0 midodrine 5 mg Tab mg tab(s), Oral, BID Start Date: 11/18/23 Status: Ordered Medication Dispense Status: Completed Total Allowed Fills: 1 Fills Dispensed: 0 Problem List ConditionConfirmationCourseEffective DatesStatusHealth StatusInformantAsthma ConfirmedActiveHeadacheConfirmedActiveMicroscopic hematuriaConfirmedActive Postural orthostatic tachycardia syndrome [POTS]ConfirmedActive Procedures ProcedureDateRelated DiagnosisBody SiteStatusArthroscopy of knee rightCompleted CholecystectomyCompletedColonoscopyCompletedTonsillectomyCompleted Social History Social History TypeResponseSmoking StatusNever (less than 100 in lifetime);Never ; Concerns about tobacco use in household: No; Smoking Cessation Yes entered on: 10/06/25Birth SexFemaleSex RepresentationFemale (finding) Hospital Discharge Instructions Patient Education 10/06/2025 11:41:45 Hematuria, Adult Hematuria, Adult Hematuria is blood in the urine. Blood may be visible in the urine, or it may be identified with a test. This condition can be caused by infections of the bladder, urethra, kidney, or prostate. Otherpossible causes include: ??? Kidney stones. ??? Cancer of the urinary tract. ??? Too much calcium in the urine. ??? Conditions that are passed from parent to child (inherited conditions). ??? Exercise that requires a lot of energy. [...] cancers. Follow these instructions at home: Medicines ??? Take jaga-oyl-ssyzudj and prescription medicines only as told by your health care provider. ??? If you were prescribed an antibiotic medicine, take it as told by your health care provider. Donot stop taking the antibiotic even if you start to feel better. Eating and drinking ??? Drink enough fluid to keep your urine pale yellow. It is recommended that you drink 3???4 quarts (2.8???3.8 L) a day. If you have been diagnosed with an infection, drinking cranberry juice in addition to large amounts of water is recommended. ??? Avoid caffeine, tea, and carbonated beverages. These tend to irritate the bladder. ??? Avoid alcohol because it may irritate the prostate (in males). General instructions ??? If you have been diagnosed with a kidney stone, follow your health care provider's instructionsabout straining your urine to catch the stone. ??? Empty your bladder often. Avoid holding urine for long periods of time. ??? If you are female: ??? After a bowel movement, wipe from front to back and use each piece of toilet paper only once. ??? Empty your bladder before and after sex. ??? Pay attention to any changes in your symptoms. Tell your health care provider about any changesor any new symptoms. ??? It is up to you to get the results of any tests. Ask your health care provider, or the department that is doing the test, when your results will be ready. ??? Keep all follow-up visits. This is important. Contact a health care provider if: ??? You develop back pain. ??? You have a fever or chills. ??? You have nausea or vomiting. ??? Your symptoms do not improve after 3 days. ??? Your symptoms get worse. Get help right away if: ??? You develop severe vomiting and are unable to take medicine without vomiting. ??? You develop severe pain in your back or abdomen even though you are taking medicine. ??? You pass a large amount of blood in your urine. ??? You pass blood clots in your urine. ??? You feel very weak or like you might faint. ??? You faint. Summary ??? Hematuria is blood in the urine. It has many possible causes. ??? It is very important that you tell your health care provider about any blood in your urine, even if it is painless or the blood stops without treatment. ??? Take wxgp-bll-lottaik and prescription medicines only as told by your health care provider. ??? Drink enough fluid to keep your urine pale yellow. This information is not intended to replace advice given to you by your health care provider. Make sure you discuss any questions you have with your health care provider. Document Revised: 06/20/2021 Document Reviewed: 06/20/2021 [employer] Patient Education ?? 2023 [employer] 10/06/2025 11:41:44 Urinary Frequency, Adult Urinary Frequency, Adult Urinary frequency means urinating more often than usual. You may urinate every 1???2 hours even though you drink a normal amount of fluid and do not have a bladder infection or condition. Although you urinate more often than normal, the total amount of urine produced in a day is normal. With urinary frequency, you may have an urgent need to urinate often. The stress and anxiety of needing to find a bathroom quickly can make this urge worse. This condition may go away on its own, or you may need treatment at home. Home treatment may include bladder training, exercises, taking medicines, or making changes to your diet. Follow these instructions at home: Bladder health Your health care provider will tell you what to do to improve bladder health. You may be told to: ??? Keep a bladder diary. Keep track of: ??? What you eat and drink. ??? How often you urinate. ??? How much you urinate. ??? Follow a bladder training program. This may include: ??? Learning to delay going to the bathroom. ??? Double urinating, also called voiding. This helps if you are not completely emptying your bladder. ??? Scheduled voiding. ??? Do Kegel exercises. Kegel exercises strengthen the muscles that help control urination, which may help the condition. Eating and drinking Follow instructions from your health care provider about eating or drinking restrictions. You may be told to: ??? Avoid caffeine. ??? Drink fewer fluids, especially alcohol. ??? Avoid drinking in the evening. ??? Avoid foods or drinks that may irritate the bladder. These include coffee, tea, soda, artificial sweeteners, citrus, tomato-based foods, and chocolate. ??? Eat foods that help prevent or treat constipation. Constipation can make urinary frequency worse. You may need to take these actions to prevent or treat constipation: ??? Drink enough fluid to keep your urine pale yellow. ??? Take ttfe-gqr-hdsomdv or prescription medicines. ??? Eat foods that are high in fiber, such as beans, whole grains, and fresh fruits and vegetables. ??? Limit foods that are high in fat and processed sugars, such as fried or sweet foods. General instructions ??? Take wjks-bdv-mnknmbu and prescription medicines only as told by your health care provider. ??? Keep all follow-up visits. This is important. Contact a health care provider if: ??? You start urinating more often. ??? You feel pain or irritation when you urinate. ??? You notice blood in your urine. ??? Your urine looks cloudy. ??? You develop a fever. ??? You begin vomiting. Get help right away if: ??? You are unable to urinate. Summary ??? Urinary frequency means urinating more often than usual. With urinary frequency, you may urinate every 1???2 hours even though you drink a normal amount of fluid and do not have a bladder infection or other bladder condition. ??? Your health care provider may recommend that you keep a bladder diary, follow a bladder training program, or make dietary changes. ??? If told by your health care provider, do Kegel exercises to strengthen the muscles that help control urination. ??? Take fhvv-lpy-wtvdvdy and prescription medicines only as told by your health care provider. ??? Contact a health care provider if your symptoms do not improve or get worse. This information is not intended to replace advice given to you by your health care provider. Make sure you discuss any questions you have with your health care provider. Document Revised: 05/25/2021 Document Reviewed: 05/25/2021 [employer] Patient Education ?? 2023 [employer]. Follow Up Care 09/06/2025 15:20:40 With:KE Burgos APRN, [facility] X, JARRETT, URL Address: When: only if needed Patient Care team information Care Team Personnel Name: PRISCA VARGAS CNP Member Role: Primary Care Physician Address: [address], [place] [address]- Telecom: Care Team Related Persons Name: SYEDA GALEANO Name: SYEDA GALEANO Insurance Providers Guarantor name: Health Plan Information #: 1 Payer: [employer] Payer Identifier: [id number] Member Number: [id number] Group Number: [id number] Subscriber Identifier: [id number] Relationship to Subscriber: self Coverage Type: MEDICARE Coverage Verification Date: 25 Telecom: [phone] Address: [facility] [id number]
--- OUTSIDE RECORDS SUMMARY | 2025-10-12 20:59 | XMS_ITS | CCD ---
Author Organization [facility] CliniSyil Care Team Providers Care Drapery Head Former Name Role Phone DOMINGO JACOME AM Unavailable Unavailable DOMINGO JACOME AM Unavailable Unavailable GAKLAUS VARGAS Unavailable Unavailable GA, KLAUS Unavailable Unavailable CONCHITA VARGAS Admitting Unavailable CONCHITA VARGAS Attending Unavailable ALICIA, CONCHITA Primary Care Unavailable CONCHITA VARGAS Consulting Unavailable ALICIA, CONCHITA Admitting Unavailable CONCHITA VARGAS Attending Unavailable ALICIA CONCHITA Primary Care Unavailable CONCHITA VARGAS Consulting Unavailable NENO INGRAM Consulting Unavailable Conchita Vargas Primary Care Unavailable Asaad Imad Attending Unavailable Jocelin, Imad Admitting Unavailable MD Willie Monreal Attending Provider BONNIE Vargas Primary Care Provider [phone]( [phone] CONCHITA VARGAS Primary Care Physician Unavailable Primary [...] ALICIA, CONCHITA S Primary Care Unavailable FITZ GAXIOLA Attending Unavailable Adele Burgos Attending Unavailable Adele Burgos Admitting Unavailable Adele Burgos Attending Unavailable Allergies Allergy ClassificationReported Allergen(s)Allergy TypeDate of OnsetReaction(s) Facility (1 source)grape extractDrug AllergyMagruder [facility] Rep[facility] (2 sources)grape flavor; Translations: [GRAPE FLAVOR]Allergy to substance 24-39-2166UbsbsNhlovnjvrKettering Health [facility] (2 sources)dragon fruit; Translations: [DRAGON FRUIT]Allergy to substance 77-67-8534SpxxwvcwcarByigyvabcFostoria City Hospital (6 sources)buPROPionDrug Fzrxabz65-27-4870BpnckdlezqjwikLFJR Healthcare (5 sources)Flavoring AgentPropensity to adverse zzyrnmstm66-79-6203PeknbGeneral [facility] (3 sources)No Known Medication Allergies; Translations: [No Known Medication Allergies]Propensity to adverse reactions (disorder)[facility] Repository (1 source)buPROPion; Translations: [BUPROPION HCL]Drug Iuknktr33-63-8362 [facility] Repository (5 sources)Grape Flavoring; Translations: [GRAPE FLAVORING]Propensity to adverse reactions to sjdn74-06-9873AqqgzWell[facility] (4 sources)Flavoring Agent (Non-Screening)Propensity to adverse reactions 74-65-9736EauasChildren's [facility] Hospital Medications Current Medications MedicationDrug Class(es)DatesSig (Normalized)Sig (Original)[id number] 200 actuat albuterol 0.09 mg/actuat metered dose inhaler (14 sources)beta2-Adrenergic AgonistStart: 81-14-1117vqvg 1 puff(s) by inhalation every six hoursAlbuterol Sulfate Active 2 PUFF INHALATION Q6H February 27, 2023 12:00amStart: 02-71-0325rizd 2 puff(s) by inhalation every four hours as neededPROAIR HFA 90 mcg/actuation inhaler Inhale 2 puffs every 4 (four) hours as needed. ALBUTEROL SULFATE HFA SUBSTITUTE 0 06/03/2017 Activealbuterol (ProAir RespiClick) 90 mcg/act breath-activated inhaler Active End: 47-08-5639gbjy 2 puff(s) by mouth every four hoursalbuterol HFA 90 mcg/act inhaler inhale 2 puffs by mouth and INTO THE LUNGS every 4 hours 06/27/2025 Discontinued (Other)Albuterol (Eqv-ProAir HFA) 90 mcg/inh inhalation aerosol (6 sources)Start: 15-89-2310Rayzgerll (Eqv-ProAir HFA) 90 mcg/inh inhalation aerosol 2 [...] meter (glucose monitoring kit) kit (2 sources)Start: 70-84-7432qnhkp-glucose meter (glucose monitoring kit) kit Indications: Abnormal glucose tolerance test in Use as instructed 1 each 0 11/29/2020 Zgsjuf650 actuat budesonide 0.16 mg/actuat / formoterol fumarate 0.0045 mg/actuat metered dose inhaler (19 sources)Corticosteroid, beta2-Adrenergic AgonistStart: 55-75-7731fbxx 1 puff(s) by inhalation twice dailyBudesonide-Formoterol (Symbicort) 160-4.5 mcg/actuation Hfa Aerosol Inhaler Active 2 PUFF INHALATION Twice daily February 27, 2023 12:00amStart: 09-03-2022 End: 51-44-4891Kxiqbfxid 160-4.5 MCG/ACT inhaler 09/03/2022 06/27/2025 Discontinued (Other)take 2 puff(s) by inhalation in the morningbudesonide- formoterol (Symbicort) 160-4.5 MCG/ACT inhaler Inhale 2 puffs in the morning and 2 puffsin the evening. Active End: 31-58-3093bbkngwedst-formoterol (Symbicort) 80-4.5 MCG/ACT inhaler Symbicort 06/27/2025 Discontinued (Other)take 2 puff(s) by inhalation in the morningbudesonide-formoteroL (SYMBICORT) 160-4.5 mcg/actuation inhaler Inhale 2 puffs in the morning and 2puffs before bedtime. 0 Activecalcium carbonate 500 mg chewable tablet (2 sources)calcium carbonate (TUMS) 200 mg (500 mg) chewable tablet Chew 1 tablet and swallow in the morning. 0 Activecalcium carbonate (Tums) 250 mg ([place] 100 mg) chewable split tablet (2 sources)take 1 tablet by mouth in the morningcalcium carbonate (Tums) 250 mg ([place]et 100 mg) chewable split tablet Take 1 tablet by mouth in the morning. 0 Activecephalexin 500 mg oral capsule (2 sources)Cephalosporin AntibacterialStart: 06-27-2025 End: 77-03-0848tepy 1 capsule by mouth in the morning, [...] oral tablet (2 sources)Progestin, EstrogenStart: 06-27-2025 End: 45-99-1585pooh 1 tablet by mouth once daily, then take 1 tablet by mouth once dailydesogestrel-ethinyl estradiol (Apri) 0.15-30 MG-MCG tablet Indications: Irregular menstrual bleeding Take 1 tablet by mouth Daily for 28 days Take 1 tablet by mouth daily 28 tablet 06/27/2025 07/25/2025 Active dicyclomine hydrochloride 20 mg oral tablet (2 sources)AnticholinergicStart: 75-56-5760damq 1 tablet by mouth every six hours as neededdicyclomine (BENTYL) 20 mg tablet Take 1 tablet (20 mg total) by mouth every 6 (six) hours as needed (abdominal pain). 20 tablet 0 09/27/2023 Activedocusate sodium 100 mg oral capsule (2 sources)Start: 86-33-1554sutb 1 capsule by mouth twice dailydocusate sodium (COLACE) 100 mg capsule Take 1 capsule (100 mg total) by mouth 2 (two) times a day.60 capsule 2 12/20/2020 Activeetonogestrel 68 mg drug implant (8 sources)ProgestinStart: 12-16-2023 End: 91-46-8432ddxpphclkoyq-eluting 68 mg contraceptive implant 1 eachfamotidine 20 mg oral tablet (2 sources)Histamine-2 Receptor AntagonistStart: 50-39-3303dwip 1 tablet by mouth twice dailyfamotidine (PEPCID) 20 mg tablet Take 1 tablet (20 mg total) by mouth 2 (two) times a day. 30 tablet 1 12/28/2020 Activeibuprofen 800 mg oral tablet (5 sources)Nonsteroidal Anti-inflammatory DrugStart: 01-20-2021 End: 26-03-4492lkzd 1 tablet by mouth every eight hours as neededibuprofen (ADVIL,MOTRIN) 800 mg tablet Take 1 tablet (800 mg total) by mouth every 8 (eight) hours as needed (cramping). 90 tablet 0 01/20/2021 Activeivabradine 5 mg oral tablet (12 sources)Hyperpolarization-activated Cyclic Nucleotide-gated Channel [place] Start: 78-87-3870Cmudihjt 5 MG tablet 5 mg 02/27/2023 Activemidodrine hydrochloride 5 mg oral tablet (12 sources)alpha-Adrenergic AgonistStart: 40-07-5872objz 1 mg by mouth twice dailymidodrine 5 mg Tab mg tab(s), Oral, BID Start Date: 11/18/23 Status: Ordered Start: 93-35-0923drdfupihb (Proamatine) 10 MG tablet Twice daily 02/27/2023 ActiveStart: 37-47-7104gpav 1 dose by mouth once daily at bedtimeMidodrine Active 10 MG PO Twice daily February 27, 2023 12:00am do not give last dose of day after 6PM or within 4 hrs of bedtimeStart: 50-79-7495dkuq 1 tablet by mouth three times dailymidodrine (PROAMATINE) 10 mg tablet Indications: POTS (postural orthostatic tachycardia syndrome) Take 1 tablet (10 mg total) by mouth 3 (three) times a day. 90 tablet 1 01/03/2021 Activemontelukast 10 mg oral tablet (11 sources)Leukotriene Receptor AntagonistStart: 41-60-6371tejxnfoocfa 10 mg Tab 10 mg = 1 tab(s) Start Date: 11/18/23 Status: Orderedondansetron 4 mg disintegrating oral tablet (2 sources)Serotonin-3 Receptor AntagonistStart: 95-17-5697jlxz 1 tablet by mouth every eight hours [...] 160/4.5 inhalation aerosol with adapter (6 sources)Start: 43-58-5603Ddkflcsrk 160/4.5 inhalation aerosol with adapter 2 puff(s) Start Date: 11/18/23 Status: OrderedvalACYclovir 1000 mg oral tablet (2 sources)Herpesvirus Nucleoside Analog DNA Polymerase Inhibitor, Herpes Simplex Virus Nucleoside Analog DNA Polymerase Inhibitor, Herpes Zoster Virus Nucleoside Analog DNA Polymerase InhibitorStart: 06-27-2025 End: 96-01-7286gbtq 1 tablet by mouth in the morningvalACYclovir (Valtrex) 1 g tablet Indications: HSV infection Take 1 tablet (1,000 mg) by mouth in the morning and 1 tablet (1,000 mg) before bedtime. Do all this for 10 days. 20 tablet 06/27/2025 07/07/2025 Active Completed/Discontinued Medications MedicationDrug Class(es)DatesSig (Normalized)Sig (Original)120 actuat budesonide 0.18 mg/actuat dry powder inhaler (7 sources)Corticosteroid End: 96-29-8157nrkn 1 puff(s) by inhalation in the morningbudesonide (Pulmicort Flexhaler) 180 MCG/ACT inhaler Inhale 1 puff in the morning and 1 puff in the evening. 06/27/2025 Discontinued (Other)take 1 puff(s) by inhalation twice daily budesonide (PULMICORT) 180 mcg/actuation inhaler Inhale 1 puff 2 (two) times a day. 0 Djcrgp84 hr buPROPion hydrochloride 150 mg extended release oral tablet (5 sources)Aminoketone End: 46-76-2164kmym 1 tablet by mouth every twenty-four hours in the morning buPROPion XL (Wellbutrin XL) 150 MG 24 hr tablet Take 150 mg by mouth in the morning. 06/27/2025 Discontinued (Other)dicloxacillin 500 mg oral capsule (5 sources)Penicillin-class Antibacterial End: 85-95-8644vyvs 1 capsule by mouth every six hoursdicloxacillin (Dynapen) 500 MG capsule dicloxacillin 500 mg capsule take 1 capsule by mouth every 6hours 06/27/2025 Discontinued (Other)heparin (2 sources)Unfractionated Heparin, Anti-coagulantStart: 12-23-2023 End: 17-07-2857fbopfsq, porcine (PF) syringe 500 UnitsStart: 64-08-3866ijiecpm, porcine (PF) syringe 500 Sxqnm797 ml sodium chloride 9 mg/ml prefilled syringe (2 sources)Start: 12-23-2023 End: 05-65-8610tjqbit chloride 0.9 % flush 20 mLStart: 40-90-7713pyoswn chloride 0.9 % flush 20 mL Problems Active Problems Problem ClassificationProblemDateDocumented DateEpisodic/ChronicAbdominal pain (2 sources)Right lower quadrant pain; Translations: [Right upper quadrant pain] Onset: 50-50-0092PuhwzvavUyosmwl disorders (4 sources)Anxiety; Translations: [Anxiety disorder, unspecified]Onset: 094499-82-8859GgxtapuPhxrnt (11 sources)Asthma; Translations: [Uncomplicated mild persistent asthma]Onset: 506834-77-5370DrxntkyIkatcyj dysrhythmias (8 sources)Other specified cardiac arrhythmias; Translations: [Postural orthostatic tachycardia syndrome ]Onset: hronic Contraceptive and procreative management (4 sources)Subcutaneous contraceptive implant present; Translations: [Encounter for surveillance of implantable subdermal contraceptive]59-89-9000Ooajfday Diabetes mellitus without complication (1 source)Other abnormal glucose; Translations: [OTHER ABNORMAL GLUCOSE]Onset: 79-83-6304VwqnfdvdClhzo and electrolyte disorders (1 source)Hypokalemia; Translations: [Hypokalemia]Onset: 88-36-1123Qobxlqad Gastritis and duodenitis (4 sources)Chronic gastritis; Translations: [Unspecified chronic gastritis without bleeding]Onset: 298147-73-2955MotzyqrUsduoxzawpzrc symptoms and ill-defined conditions (7 sources)Microscopic hematuria; Translations: [Other microscopic hematuria] Onset: 08-25-7619FjfpjuyhRrtclijc; including migraine (6 sources)Zgflwshi65-27-4395MaqngbxuWcwamlwqo disorders (2 sources)Irregular periods; Translations: [Irregular menstruation, unspecified]48-09-8147GevanwuHgdn disorders (2 sources)Depressive disorder; Translations: [Depression]Onset: 07-23-2017 58-56-8017ZvolhzlEzpecy and vomiting (3 sources)Nausea; Translations: [Nausea]Onset: 31-29-5737CeprxdkzIikrcagdmsg chest pain (3 sources)Other chest pain; Translations: [Chest pain, unspecified]Onset: 28-68-5679EgpqiimgMqgty aftercare (2 sources)Encounter for other specified surgical aftercare; Translations: [Encounter for other specified surgical aftercare]Onset: 31-02-5891OvojystsHjjem circulatory disease (4 sources)Device in situ; Translations: [Presence of other vascular implants and grafts]Onset: 003064-72-0273SrjnowqXmcex circulatory disease (8 sources)Postural orthostatic tachycardia syndrome ; Translations: [Postural orthostatic tachycardia syndrome (POTS)]Onset: 892046-97-7254DtcuoyejXfijv congenital anomalies (4 sources)Aviva-Danlos syndrome, type 3; 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]Onset: 078053-17-1027FfmpyshZhhmu connective tissue disease (1 source)Pain in right lower leg; Translations: [Pain in right lower leg]Onset: 86-88-8198PcrymdefWlfoz female genital disorders (2 sources)Abnormal uterine bleeding; Translations: [Abnormal uterine and vaginal bleeding, unspecified]20-91-7063PidaviaNwtqp female genital disorders (2 sources)Cyst of vagina; Translations: [Other specified noninflammatory disorders of vagina]04-95-5007MwrpvropHzemj lower respiratory disease (1 source)Shortness of breathOnset: 78-39-1569OhkjihzeJmnsh nutritional; endocrine; and metabolic disorders (4 sources)Body mass index 40+ - severely obese; Translations: [Body mass index (BMI) 40.0-44.9, adult]Onset: 760204-05-6067UunqighTgtay skin disorders (1 source)Localized swelling, mass and lump, right lower limb; Translations: [Localized swelling, mass and lump, right lower limb]Onset: 10-54-9018Oacxfonz Unclassified (2 sources)Unknown / UNK(Unknown)Onset: 05-41-0894Pihctetfmdoe (1 source)Shoulder InjuryOnset: 06-23-2083Qypngml tract infections (4 sources)Urinary tract infection, site not specified; Translations: [UTI SITE NOT SPECIFIED]Onset: 11-36-3534RfeejurmWcbva infection (2 sources)Herpes simplex; Translations: [Herpesviral infection, unspecified] 12-96-0093Itbmmgcj Past or Other Problems Problem ClassificationProblemDateDocumented DateEpisodic/ChronicMood disorders (2 sources)Mood disordersOnset: Other aftercare (2 sources)Encounter for adjustment and management of vascular access device; Translations: [Encounter for adjustment and management of vascular access device]Onset: 73-84-7765OqjihzveJaqdh complications of (2 sources)RhD negative; Translations: [Other specified related conditions, unspecified trimester]Onset: 11-09-2020 Resolved: 409635-88-5364WbyzqpcyZbzqa disorders of stomach and duodenum (4 sources)Gastroparesis syndrome; Translations: [Gastroparesis]Onset: 376239-49-9593LmmqintcQbiqd injuries and conditions due to external causes (4 sources)Abrasion and/or friction burn of skin; Translations: [Other injury of unspecified body region, initial encounter]Onset: 559934-71-8270Nyaharjc Other non-traumatic joint disorders (1 source)Pain in right knee; Translations: [Pain in right knee]Onset: 70-63-7952VunaivjyNyexs non-traumatic joint disorders (1 source)Knee painOnset: 90-06-3141XaasthxsSefug non-traumatic joint disorders (1 source)Shoulder painOnset: 07-73-0661KurbrvcxNuyja and delivery including normal (4 sources) care status; Translations: [Encounter for supervision of normal , unspecified, third trimester]Onset: 11-09-2020 Resolved: 776574-08-3053WpkjfnbxIvcbn skin disorders (2 sources)Localized swelling, mass and lump, neck; Translations: [Localized swelling, mass and lump, neck]Onset: 05-28-4370OmdrgyytIrintgfry; thrombophlebitis and thromboembolism (2 sources)Acute embolism and thrombosis of unspecified vein; Translations: [Acute embolism and thrombosis of unspecified vein]Onset: 63-68-1692Xvhahphw Spondylosis; intervertebral disc disorders; other back problems (2 sources)Cervicalgia; Translations: [Cervicalgia]Onset: 31-73-9957Gdlbrkpc Sprains and strains (2 sources)Sprain of other specified parts of right knee, subsequent encounter; Translations: [Strain of unspecified muscle, fascia and tendon at shoulder and upper arm level, left arm, initial encounter]Onset: 09-26-8177SszmkjzrEwtjvtg (8 sources)Syncope; Translations: [Syncope and collapse]Onset: 07-23-2017 11-26-7453DdvijatdMigcplkwysgu (2 sources)Onset: Results Test NameValueInterpretationReference RangeFacilityMAGNESIUMon 08-27-2025 Magnesium [Mass/Vol]1.8 mg/dLNormal1.8-2.6ProMedica Al[facility] Hospital Medical CenterComment on above:Performed By: #### MG ####[facility] ([address] [place] [address] VIRPOTASSIUMon 62-39-6081Emttfzicm [Moles/Vol] 2.9 mmol/LLow3.5-5.0ProDoctors Hospital Of LaredoComment on above:Performed By: #### K #### [facility] ([address] [place] [address] VIRTROP I, HIGH SENSITIVITY 1 HOURon 55-07-9733NOAUZSWV I, HIGH SENSITIVITY<^2Normal<16ProDoctors Hospital Of LaredoComment on above:Performed By: #### TNIHS1 ####[facility] ([address] [place] [address] VIRBASIC METABOLIC PANELon 67-81-7836Felfu gap [Moles/Vol] 13 mmol/LNormal5-15ProDoctors Hospital Of LaredoComment on above:Performed By: #### BMP #### [facility] ([address] [place] [address] VIRCalcium [Mass/Vol]9.7 mg/dLNormal8.5-10.5PBethesda North HospitalComment on above:Performed By: #### BMP #### [facility] ([address] [place] [address] VIRChloride [Moles/Vol]102 mmol/QBkomrw48-075UmeZxmstlDoctors Hospital Of LaredoComment on above:Performed By: #### BMP #### [facility] ([address] [place] [address] VIRCO2 [Moles/Vol]24 mmol/JYhemdq22-23NpuKuonokBethesda North HospitalComment on above:Performed By: #### BMP #### [facility] ([address] [place] [place] [address] VIRCreatinine [Mass/Vol]0.82 mg/dLNormal0.40-1.00ProDoctors Hospital Of LaredoComment on above:Result Comment: METHOD TRACEABLE TO IDMS STANDARDPerformed By: #### BMP #### [facility] ([address] [place] [place] [address] VIREGFR (CKD-EPI) NON-RACE DEPENDENT>^90Normal>=60ProDoctors Hospital Of LaredoComment on above:Result Comment: Reported eGFR is based on the CKD-EPI 2020 equation that does not use a race coefficient.Performed By: #### BMP #### [facility] ([address] [place] [address] VIRGlucose [Mass/Vol]120 mg/wVTuaa77-07WfhBqgxyaDoctors Hospital Of LaredoComment on above:Performed By: #### BMP #### [address] [address] VIRPotassium [Moles/Vol]2.4 mmol/LCritically low3.5-5.0 [facility] SystemComment on above:Performed By: #### BMP #### [facility] ([address] [address] VIRSodium [Moles/Vol]139 mmol/WSxtnjx080-754ZgpNbxjco [facility] HospitalComment on above:Performed By: #### BMP #### [address] [place] [address] VIRUrea nitrogen [Mass/Vol]9 mg/dLNormal5-23ProDoctors Hospital Of LaredoComment on above:Performed By: #### BMP #### [facility] ([address] [place] [address] VIRCBC WITH AUTO DIFFERENTIALon 58-25-4155CXZPNRQEE ABSOLUTE COUNT (10*3/UL) BY AUTOMATED COUNT0.0 10*3/uLNormal0.0-0.2ProMedica Al[facility] Hospital Medical CenterComment on above:Performed By: #### CBCA #### [facility] ([address] [place] [address] VIRBASOPHILS RELATIVE PERCENT BY AUTOMATED COUNT0.3 %Normal [facility] SystemComment on above:Performed By: #### CBCA #### [facility] ([address] [place] [address] VIRCELLAVISION DIFFERENTIAL TYPEAUTOMATED DIFFERENTIALNormal [facility] SystemComment on above:Performed By: #### CBCA #### [facility] ([address] [place] [address] VIREosinophils (Bld) [#/Vol]0.2 10*3/uLNormal0.0-0.4[facility] SystemComment on above:Performed By: #### CBCA #### [facility] ([address] [place] [address] VIREOSINOPHILS RELATIVE PERCENT BY AUTOMATED COUNT2.8 %Normal [facility] SystemComment on above:Performed By: #### CBCA #### [facility] ([address] [place] [address] VIRErythrocyte distribution width (RBC) [Ratio]13.8 %Normal 11.5-15[facility] SystemComment on above:Performed By: #### CBCA #### [facility] ([address] [address] VIRHematocrit (Bld) [Volume fraction]36.5 %Ovfghm14-27 [facility] SystemComment on above:Performed By: #### CBCA #### [facility] ([address] [place] [place] [address] VIRHemoglobin (Bld) [Mass/Vol]12.6 g/nUArfmbt97.7-15.5 [facility] SystemComment on above:Performed By: #### CBCA #### [facility] ([address] [place] [address] VIRLYMPHOCYTES ABSOLUTE COUNT (10*3/UL) BY AUTOMATED COUNT3.3 10*3/uLNormal1.0-3.5PBethesda North HospitalComment on above:Performed By: #### CBCA #### [facility] ([address] [place] [address] VIRLYMPHOCYTES RELATIVE PERCENT BY AUTOMATED COUNT46.8 %Normal [facility] SystemComment on above:Performed By: #### CBCA #### [facility] ([address] [place] [address] VIRMCH (RBC) [Entitic mass]28.1 aiUumqss83-14KsySaidsyDoctors Hospital Of LaredoComment on above:Performed By: #### CBCA #### [facility] ([address] [place] [place] [address] VIRMCHC (RBC) [Mass/Vol]34.4 g/wPKpdjjr85-25EjaScyvgvAvita Health SystemComment on above:Performed By: #### CBCA #### [facility] ([address] [place] [address] VIRMCV (RBC) [Entitic vol]82 qHWidyly36-207IavFxcaxd [facility] HospitalComment on above:Performed By: #### CBCA #### [facility] ([address] [place] [place] [address] VIRMONOCYTES ABSOLUTE COUNT (10*3/UL) BY AUTOMATED COUNT0.5 10*3/uLNormal0.0-0.9[facility] SystemComment on above:Performed By: #### CBCA #### [facility] ([address] [place] [address] VIRMONOCYTES RELATIVE PERCENT BY AUTOMATED COUNT6.7 %Normal [facility] SystemComment on above:Performed By: #### CBCA #### [facility] ([facility]) [address] [place], [place] [address] [address] VIRNEUTROPHILS ABSOLUTE COUNT BY AUTOMATED COUNT3.1 10*3/uL Normal1.5-6.6[facility] Health SystemComment on above:Performed By: #### CBCA #### [facility] ([facility]) [address] [place], [place] [address] [place] [address] VIRNEUTROPHILS RELATIVE PERCENT BY AUTOMATED COUNT43.4 %Normal [facility] SystemComment on above:Performed By: #### CBCA #### [facility] ([address] [place] [place] [address] VIRPlatelet mean volume (Bld) [Entitic vol]8.3 fLNormal7-12 [facility] SystemComment on above:Performed By: #### CBCA #### [facility] ([address] [place] [place] [address] VIRPlatelets (Bld) [#/Vol]225 10*3/aLEcgsgq200-653AffRypkeo [facility] HospitalComment on above:Performed By: #### CBCA #### [facility] ([facility]) [address] [place] [address] [place] [address] VIRRBC COUNT4.47 X10E12/LNormal3.8-5.2Pro[facility] Hospital Medical CenterComment on above:Performed By: #### CBCA #### [facility] ([address] [place] [place] [address] VIRWBC (Bld) [#/Vol]7.1 10*3/uLNormal4-11[facility] SystemComment on above:Performed By: #### CBCA #### [facility] ([facility]) [address] [place] [address] [place] [address] VIRD-DIMERon 08-26-2024D DIMER<^047Sfchil2-659UmtTyogyg [facility] HospitalComment on above:Result Comment: Results <255 ng/mL DDU: The presensence of a VTE can safely be excluded with a negative D-Dimer result and Wells score. A negative result doesn't exclude the possibility of DIC. The test should be repeated along with other diagnostic tests if the patient's symptoms persist or worsen.Performed By: #### DDMR #### [facility] ([facility]) [address] [place] [address]. [place] [address] VIRTROPONIN I, HIGH SENSITIVITY 0 HOURon 36-29-8202WDEZQQHW I, HIGH SENSITIVITY2 ng/LNormal<16ProDoctors Hospital Of LaredoComment on above: Performed By: #### TNIHS0 #### [facility] ([facility]) [address] [place] [address]. [place] [address] VIRXR CHEST 1 VWon 80-13-8629UP CHEST 1 VWXR CHEST 1 VW HISTORY: [...] by Clay Feng MD on 08/26/2025 10:47 PMNormalProDoctors Hospital Of LaredoBASIC METABOLIC PANELon 02-28-6227Yuhno gap [Moles/Vol]10 mmol/LNormal 5-15[facility] Health SystemComment on above:Performed By: #### BMP #### [facility] ([facility]) [address] [place] [address] VIRCalcium [Mass/Vol]9.3 mg/dLNormal8.5-10.5ProMedica Alhambra Hospital Medical CenterComment on above:Performed By: #### BMP #### [facility] ([facility]) [address] [place] [address] VIRChloride [Moles/Vol]105 mmol/CMafwwr48-014UedHykodwDoctors Hospital Of LaredoComment on above:Performed By: #### BMP #### [facility] ([facility]) [address] [place] [address] VIRCO2 [Moles/Vol]25 mmol/TSyqeph15-22SjgGjmepa Fremont HospitalComment on above:Performed By: #### BMP #### [facility] ([facility]) [address] [place] [address] VIRCreatinine [Mass/Vol]0.66 mg/dLNormal0.40-1.00Avita Health SystemComment on above:Result Comment: METHOD TRACEABLE TO IDMS STANDARDPerformed By: #### BMP #### [facility] ([facility]) [address] [place] [address] VIREGFR (CKD-EPI) NON-RACE DEPENDENT>^90Normal>=60ProDoctors Hospital Of LaredoComment on above:Result Comment: Reported eGFR is based on the CKD-EPI 2020 equation that does not use a race coefficient.Performed By: #### BMP #### [facility] ([facility]) [address] [place] [address] VIRGlucose [Mass/Vol]76 mg/oGVfukuw98-03UskZtqlobDoctors Hospital Of LaredoComment on above:Performed By: #### BMP #### [facility] ([facility]) [address] [place] [address] VIRPotassium [Moles/Vol]3.9 mmol/LNormal3.5-5.0Avita Health SystemComment on above:Performed By: #### BMP #### [facility] ([facility]) [address] [place] [address] VIRSodium [Moles/Vol]140 mmol/SSkelwi363-105ZnoYfixfz Fremont HospitalComment on above:Performed By: #### BMP #### [facility] ([facility]) [address] [place] [address] VIRUrea nitrogen [Mass/Vol]8 mg/dLNormal5-Avita Health SystemComment on above:Performed By: #### BMP #### [facility] ([facility]) [address] [place] [address] VIRCBC WITH AUTO DIFFERENTIALon 86-79-9278ZJTOSFOKX ABSOLUTE COUNT (10*3/UL) BY AUTOMATED COUNT0.0 10*3/uLKeenan Private Hospital on above:Performed By: #### CBCA #### [facility] ([facility]) [address] [place] [address] VIRBASOPHILS RELATIVE PERCENT BY AUTOMATED COUNT0.7 %Normal Avita Health SystemComment on above:Performed By: #### CBCA #### [facility] ([facility]) [address] [place] [address] VIRCELLAVISION DIFFERENTIAL TYPEAUTOMATED DIFFERENTIALNoal [facility]ita Health SystemComment on above:Performed By: #### CBCA #### [facility] ([facility]) [address] [place] [address] VIREosinophils (Bld) [#/Vol]0.2 10*3/uLSCCI Hospital LimaComment on above:Performed By: #### CBCA #### [facility] ([facility]) [address] [place] [address] VIREOSINOPHILS RELATIVE PERCENT BY AUTOMATED COUNT2.6 %Normal [facility] SystemComascension borgess allegan hospital on above:Performed By: #### CBCA #### [facility] ([facility]) [address] [place] [address] VIRErythrocyte distribution width (RBC) [Ratio]13.8 %Normal 11.5-15Avita Health SystemComment on above:Performed By: #### CBCA #### [facility] ([facility]) [address] [place] [address] VIRHematocrit (Bld) [Volume fraction]39.5 %Qrzgzk47-33PjbYxahalDoctors Hospital Of LaredoComment on above:Performed By: #### CBCA #### [facility] ([facility]) [address] [place] [address] VIRHemoglobin (Bld) [Mass/Vol]13.7 g/vRHywyun30.7-15.5PBethesda North HospitalComment on above:Performed By: #### CBCA #### [facility] ([facility]) [address] [place] [address] VIRLYMPHOCYTES ABSOLUTE COUNT (10*3/UL) BY AUTOMATED COUNT2.1 10*3/uLSCCI Hospital LimaComment on above:Performed By: #### CBCA #### [facility] ([facility]) [address] [place] [address] VIRLYMPHOCYTES RELATIVE PERCENT BY AUTOMATED COUNT32.2 %Normal [facility]ita Health SystemComment on above:Performed By: #### CBCA #### [facility] ([facility]) [address] [place] [address] VIRMCH (RBC) [Entitic mass]28.5 dcVgyiyp72-47OcdYjkwuuDoctors Hospital Of LaredoComment on above:Performed By: #### CBCA #### [facility] ([facility]) [address] [place] [address] VIRMCHC (RBC) [Mass/Vol]34.6 g/oWVpcylx92-69LalSbezvnAvita Health SystemComment on above:Performed By: #### CBCA #### [facility] ([facility]) [address] [place] [address] VIRMCV (RBC) [Entitic vol]82 fWAruyxq31-418SucPgnwuoAvita Health SystemComment on above:Performed By: #### CBCA #### [facility] ([facility]) [address] [place] [address] VIRMONOCYTES ABSOLUTE COUNT (10*3/UL) BY AUTOMATED COUNT0.5 10*3/uLNormalProDoctors Hospital Of LaredoComment on above:Performed By: #### CBCA #### [facility] ([facility]) [address] [place] [address] VIRMONOCYTES RELATIVE PERCENT BY AUTOMATED COUNT7.4 %Normal [facility]ita Health SystemComment on above:Performed By: #### CBCA #### [facility] ([facility]) [address] [place] [address] VIRNEUTROPHILS ABSOLUTE COUNT BY AUTOMATED COUNT3.7 10*3/uL NormalAvita Health SystemComment on above:Performed By: #### CBCA #### [facility] ([facility]) [address] [place] [address] VIRNEUTROPHILS RELATIVE PERCENT BY AUTOMATED COUNT57.1 %Normal [facility] Health SystemComment on above:Performed By: #### CBCA #### [facility] ([facility]) [address] [place] [address] VIRPlatelet mean volume (Bld) [Entitic vol]8.5 fLNormal7-12 [facility] Health SystemComment on above:Performed By: #### CBCA #### [facility] ([facility]) [address] [place] [address] VIRPlatelets (Bld) [#/Vol]225 10*3/hXFhsvny131-624NwkGfdcfxAvita Health SystemComment on above:Performed By: #### CBCA #### [facility] ([facility]) [address] [place] [address] VIRRBC COUNT4.80 X10E12/LNormal3.8-5.2ProMedica Alhambra Hospital Medical CenterComment on above:Performed By: #### CBCA #### [facility] ([facility]) [address] [place] [address] VIRWBC (Bld) [#/Vol]6.4 10*3/uLNormal4-11Avita Health SystemComment on above:Performed By: #### CBCA #### [facility] ([facility]) [address] [place] [address] VIRXR KNEE RT 3 VWSon 85-51-0194YD KNEE RT 3 VWSXR KNEE RT 3 [...] by Nelly Ramirez MD on 12/30/2024 11:19 AMNormalAvita Health SystemFollow-Upon 09-28-8268Mizfbj-[id number] Yin Taylor 1995 F Date Provider Department Center 10/11/2024 LOLA GODDARD [facility]V [facility] Family History Problem Relation Age of [...] Sister Mother's Brother Mother's Sister Level of Service:[address] [place] OFFICE/OUTPATIENT ESTABLISHED LOW MDM 20 [facility]36on [phone] op call s/p CVC removal on 09/28/24, patient states having continued pain and swelling, business writer encouraged patient to take tylenol/ibuprofen as instructed and to call back if it become intolerable. F/U appointment on 10/11/24 @ 1030. [facility] HospitalHPon 61-51-6528EIUjxachx Of Present Illness Yin Taylor is a [...] rivka Obesity Mother Autumn rivka Asthma Sister Mre rivka Cancer Sister Mer rivka Clotting disorder [...] Department of Surgery Department of Medical Education [facility] Sciences [facility] [phone] [email or web address] Hardin Memorial HospitalOPNOTEon 21-37-4545XJDCBDGgxu Internal Jugular Vein CVC Removal (L) Operative Note Date: 09/28/2024 Location: [place] [facility] Name: Yin Taylor, : [...] - hemodynamically stable. Condition: stable Leigha Hutton CzsmyjJcbsloutmnOhioHealth Hardin Memorial Hospital36on 29-28-061031Fqhskaf was referred back to our office for port removal. Port has not been in use in over a year and it hasn't been flushed. She saw HO in June 21, and per office note between Rebekah calix and Rubina, port can be removed either at [facility] or [place]. Street Department Dispatcher reached out to [facility] nurses for expediency w scheduling.[facility] HospitalTelephoneon [id number] Yin Taylor 1995 F Date Provider Department Center 09/23/2024 Darvin0LAYLA ASCENCIO [facility] Family History Problem Relation Age of Onset [...] Mother Sister Mother's Sister Mother's Brother Mother's SisterNormalUniversBrown Memorial HospitalOffice Visiton 56-31-9544Wijlqh-up [id number] Yin Taylor 1995 F Date Provider Department Center 09/22/2024 Dandre-SURINDER GARLAND [facility] Family History Problem Relation Age of Onset [...] Sister Mother's Brother Mother's Sister Level of Service:[address]188 [place] OFFICE/OUTPATIENT ESTABLISHED LOW MDM 20 MINNoLutheran HospitalXR SHOULDER LT MIN 2 VWSon 43-70-4000WP SHOULDER LT MIN 2 VWSXR SHOULDER LT MIN 2 VWS XR SHOULDER LT MIN 2 VWS HISTORY: Shoulder pain. COMPARISON: none IMPRESSION: 1. No acute fracture or dislocation. Congruent acromioclavicular joint. 2. Left chest wall port, catheter redundancy within the lower neck. Finalized by Alan Wilson MD on 09/03/2024 9:41 AMNormalProMedica Alhambra Hospital Medical CenterOffice Visiton 18-78-6563Opares-up [id number] Yin Taylor 1995 F Date Provider Department Center 06/10/2024 KEVIN HERNANDEZ HVCVASENDO [place] [facility] Family History Problem Relation Age of [...] Sister Mother's Brother Mother's Sister Level of Service:11706 [place] OFFICE/OUTPATIENT NEW LOW MDM 30 MINUTES Reason for Visit and Comments: New Patient [632] - New Patient- discuss port removalNormalUniversity of Hca Houston Healthcare North CypressURINALYSISOrdered By: SYSTEM SYSTEM on 05-28-8999Ucwxrwpet Ql (U) NegativeNormalNegativemg/dLOKLAHOMA STATE UN[facility] UA Auto SSClarity (U)Clear (05/10/24 11:33 AM)NormalClearFTM UA Auto SSColor (U)Colorless 1 *ABN* (05/10/24 11:33 AM)Invalid Interpretation CodeYellowFT UA Auto SSComment on above:Interpretive Data: Microscopic readings are only performed on those samples that meet specific criteria set forth by [facility].Glucose Ql (U)NegativeNormalNegativemg/dLOKLAHOMA STATE UNIVERSITY [facility] UA Auto SSHemoglobin Auto test strip (U) [...] Auto SSURINALYSIS Ordered By: Breanne Ireland on 16-94-7235AO Spec DescClean Catch (05/10/24 11:33 AM)NormalOKLAHOMA STATE UNIVERSITY MED[facility] UA Auto SSUrinalysis with Microon 05-10-2024 Bilirubin Ql (U)NegativeNormalNegativeCone Health Wesley Long Hospitaler Sinai Hospital Of BaltimoreComment on above:Performed By: #### [id number] #### [facility] [address] [place], [place] [address]Jecsbgo (U)ClearNormalClearTrihealthComment on above:Performed By: #### [id number] #### [facility] [address] [place], [place] [address]Lwtci (U)ColorlessAbnormalYellowTrihealth Comment on above:Result Comment: Microscopic readings are only performed on those samples that meet specific criteria set forth by [facility].Performed By: #### [id number] #### [facility] [address] [place], [place] [address]Tnvncfr Ql (U)NegativeNormalNegativeTrihealth Comment on above:Performed By: #### [id number] #### [facility] [address] [place], [place] [address]Ejsccovhlm Auto test strip (U) [Mass/Vol]TraceAbnormalNegative TrihealthComment on above:Performed By: #### [id number] #### [facility] [address] [place], [place] [address]Sanrtfi Auto test strip Ql (U)NegativeNormalNegativeTrihealthComment on above:Performed By: #### [id number] #### [facility] [address] [place], [place] [address]Lvjzyepdi esterase Auto test strip Ql (U)NegativeNormalNegative TrihealthComment on above:Performed By: #### [id number] #### [facility] [address] [place], [place] [address]Ohsbphn Auto test strip Ql (U)NegativeNormalNegWyandot Memorial HospitalComment on above:Performed By: #### [id number] #### [facility] [address] [place], [place] [address]rC (U)6.5 [pH]Invalid Interpretation Code5.0-9.0TrihealthComment on above:Performed By: #### [id number] #### [facility] [address] [place] [address]Dheyoko Ql (U)NegativeNoelNegWyandot Memorial Hospital Comment on above:Performed By: #### [id number] #### [facility] [address] [place] [address]Zshzmhzp gravity (U) [Rel density]1.006Invalid Interpretation Code1.005-1.030TrihealthComment on above:Performed By: #### [id number] #### [facility] [address] [place] [address]Hibljeqxmtpx (U) [Mass/Vol]NegativeNormalNegWyandot Memorial HospitalComment on above:Performed By: #### [id number] #### [facility] [address] [place] [address]Dclj of Urine collection methodClean CatchSelect Medical Specialty Hospital - Cleveland-FairhillComment on above:Performed By: #### [id number] #### [facility] [address] [place] [address] Urineon 62-30-8707Pnxttdxz identified Cx Nom (U)Microbiology PROCEDURE: Urine Culture [R1] SOURCE: U CleanCatch BODY SITE: COLLECTED DATE/TIME: 05/04/2024 09:43 EDT RECEIVED DATE/TIME: 05/04/2024 19:28 EDT START DATE/TIME: 05/04/2024 19:28 EDT FREE TEXT SOURCE: Aubrey ARROYO, TECHNOLOGY LEAD-C, Aubrey ARROYO, TECHNOLOGY LEAD-C, Adele X Adele X FINAL REPORTS Final Report [] Verified Date/Time: 05/06/2024 07:12 EDT 800 cfu/ml Mixed skin contaminants Performing Locations R1: This test was performed at: [facility], [address] [place] [address], [address]- , , EvuuakQchrwdSelect Medical Specialty Hospital - Cleveland-FairhillComment on above:Performed By: #### [id number] #### [facility] [address] [place] [address]IOUJEQHRWGNytadtt By: SYSTEM SYSTEM on 92-26-9672Iakrzvysv Ql (U)NegativeNormalNegativemg/dLFT UA Auto SSClarity (U)Clear (05/04/24 9:43 AM)NormalClearFTM UA Auto SSColor (U)Light-Yellow 1 (05/04/24 9:43 AM)NormalYellowFT UA Auto SSComment on above:Interpretive Data: Microscopic readings are only performed on those samples that meet specific criteria set forth by [facility].Epithelial cells.squamous Auto (Urine sed) [#/Area]9-10 graded/HPFInvalid [...] Auto SSURINALYSIS Ordered By: Breanne Ireland on 05-52-6194YP Spec DescClean Catch (05/04/24 9:43 AM)[facility] UA Auto SSUrinalysis with Microon 56-32-0706Wykgdgxbq Ql (U)NegativeNormalNegativeTrihealthComment on above: Performed By: #### [id number] #### [facility] [address] [place], [place] [address]Xvuumro (U)ClearNormalClearTrihealthComment on above:Performed By: #### [id number] #### [facility] [address] [place], [place] [address]Jxpiv (U)Light-YellowNormalYellowTrihealth Comment on above:Result Comment: Microscopic readings are only performed on those samples that meet specific criteria set forth by [facility].Performed By: #### [id number] #### [facility] [address] [place], [place] [address]Sycjbtqhxw cells.squamous Auto (Urine sed) [#/Area]9-10Invalid Interpretation CodeTrihealthComment on above:Performed By: #### [id number] #### [facility] [address] [place], [place] [address]Gxzzakn Ql (U)NegativeNormalNegWyandot Memorial Hospital Comment on above:Performed By: #### [id number] #### [facility] [address] [place], [place] [address]Aqqtkyaqua Auto test strip (U) [Mass/Vol]1+ mg/dLAbnormal NegativeTrihealthComment on above:Performed By: #### [id number] #### [facility] [address] [place], [place] [address]Sqrjamh Auto test strip Ql (U)NegativeNormalNegativeTrihealthComment on above:Performed By: #### [id number] #### [facility] [address] [place], [place] [address]Iwvcuqphg esterase Auto test strip Ql (U)NegativeNormalNegative TrihealthComment on above:Performed By: #### [id number] #### [facility] [address] [place] [address]Zapbg Auto Ql (U)TraceNormalNegativeTrihealth Comment on above:Performed By: #### [id number] #### [facility] [address] [place] [address]Yicwghz Auto test strip Ql (U)NegativeNormalNegativeTrihealthComment on above:Performed By: #### [id number] #### [facility] [address] [place] [address]vM (U)6.5 [pH]Invalid Interpretation Code5.0-9.0TrihealthComment on above:Performed By: #### [id number] #### [facility] [address] [place] [address]Apsspun Ql (U)NegativeNormalNegWyandot Memorial Hospital Comment on above:Performed By: #### [id number] #### [facility] [address] [place] [address]VEW Ql (U)6-90Ytlwrzxg9-9Hqfqxu [facility] Hospital Of BaltimoreComment on above:Performed By: #### [id number] #### [facility] [address] [place] [address]Kktaosly gravity (U) [Rel density]1.015Invalid Interpretation Code1.005-1.030TrihealthComment on above:Performed By: #### [id number] #### [facility] [address] [place] [address]Tmmahmnzkwwe (U) [Mass/Vol]NegativeNormalNegativeTrihealthComment on above:Performed By: #### [id number] #### [facility] [address] [place] [address]EMN Auto (Urine sed) [#/Area]4-1Hvzpfd1-9Inybrd [facility] Hospital Of BaltimoreComment on above:Performed By: #### [id number] #### [facility] [address] [place], [place] [address]Olbg of Urine collection methodClean CatchNormalFisher [facility]inai Hospital Of BaltimoreComment on above:Performed By: #### [id number] #### [facility] [address] [place], [place] [address]zm 36-10-167322Ztwehbt is needing a medication refill. She has not been seen since 01/2023, and is unable to schedule appt d/t provider schedule not available at this moment. Patient would like a call to update that medication has been sent. Thank you This phone message was created by the Ambulatory float staff. If you need computer technical support specialist follow up regarding this patient, please make your appropriate clinic staff member aware. Thank you. [facility] 36Needs apptNormalUniversBrown Memorial HospitalUS PELVIS W/ TRANSVAGINALon 01-54-3779[place] [address] Ultrasound Report Signed Patient: YIN TAYLOR MR#: [id number] : 1995 Acct:[id number] Age/Sex: 28 / F ADM Date: 12/22/23 Loc: US Attending Dr: Ed Grimes D.O. Ordering Physician: Ed Grimes D.O. Date of Service: 12/22/23 Procedure(s): US pelvis w/ transvaginal Accession Number(s): [id number] cc: CONCHITA VARGAS ; Ed Grimes D.O. The [address] [address] Patient Name: YIN TAYLOR MRN: [id number] date: 1995 Sex: F Assigned Patient Location: US Current Patient Location: US Accession/Order Number: [id number] Exam Date: 12/22/2023 14:00 Report Date: 12/22/2023 [...] Signed By: 12/22/23 1459 DD/ 56 TD/TT: Other Wood Processing Machine Operator:TBHRadiology, Radiologist, - 12/22/2023 [place] [address] Ultrasound Report Signed Patient: IYN TAYLOR MR#: [id number] : 1995 Acct:[id number] Age/Sex: 28 / F ADM Date: 12/22/23 Loc: US Attending Dr: Ed Grimes D.O. Ordering Physician: Ed Grimes D.O. Date of Service: 12/22/23 Procedure(s): US pelvis w/ transvaginal Accession Number(s): [id number] cc: CONCHITA VARGAS ; Ed Grimes D.O. The [place] [id number] Patient Name: YIN TAYLOR MRN: [id number] date: 1995 Sex: F Assigned Patient Location: US Current Patient Location: US Accession/Order Number: [id number] Exam Date: 12/22/2023 14:00 Report Date: 12/22/2023 [...] Signed By: 12/22/23 1459 DD/ 1457 TD/TT: Other Wood Processing Machine Operator: ANNE HealthcareRadiology Study observation (narrative)NOMS HealthcareUS PELVIS W/ TRANSVAGINALOrdered By: Radiologist Radiology on 01-59-6043STZRLafayette Regional Health Center Work Phone: HCG ( test) Ql (U)on 75-73-1985Vfpqxqqsjdidkv and review of laboratory resultsNormalNONH HealthcarePreg Test, UrNegativeNOMosaic Life Care at St. JosephNOMosaic Life Care at St. JosephHCG ( test) IA.rapid Ql (U)Ordered By: Willie Monreal on 31-54-2855XRM ( test) Ql (U)NegativeFirOhioHealthHCG,Urineon 48-20-9376Hkvn HCG ( test) Ql (U)NegativeNormal [facility] West HospitalComment on above:Result Comment: PERFORMED BY: [address] [address] PATHOLOGIST [employer] SUPERVISOR JARED LOPEZ M.D.Performed By: #### UHCG #### [place] [id number] USALon 02-27-2023L Specimen: [id number] Received: 02/27/23 Status: YVON Martinez Num: [id number] Spec Type: Surgical Subm Dr: Willie Monreal MD Tissues: A Small Intestine - Biopsy/Polyp (TERMINAL ILEUM BX) B Colon Biopsy (RANDOM COLON BX) Procedures: VANESSA/Kenna, Gross/Micro L4/2 Age/ Patient Sex Location Account Attending Physician Dearsman,Yin Martine [id number] Willie Monreal MD SPEC NUM: [id number] RECD: 02/27/23 STATUS: YVON WONG NUM: [id number] VON: 02/27/23- [facility] DR: Willie Monreal MD ENTERED: 02/27/[address] [facility] [address]: SPEC TYPE: Surgical DEPT: S [...] advised. Clinical Information Abdomen pain, colitis Specimen: [id number] Received: 02/27/23 Status: YVON Matrinez Num: [id number] Spec Type: Surgical Subm Dr: Willie Monreal MD Tissues: A Small Intestine - Biopsy/Polyp (TERMINAL ILEUM BX) B Colon Biopsy (RANDOM COLON BX) Procedures: Franc NUÑEZ/Micro L4/2 Patient: Yin Taylor [id number] (Continued) Specimen: [id number] Received: 02/27/23 (Continued) Signed (signature on file) Geraldine Alexander MD 02/28/23 1054 Specimen: [id number] Received: 02/27/23 Status: YVON Martinez Num: [id number] Spec Type: Surgical Subm Dr: Willie Monreal MD Tissues: A Small Intestine - Biopsy/Polyp (TERMINAL ILEUM BX) B Colon Biopsy (RANDOM COLON BX) Procedures: Franc NUÑEZ/Micro L4/2 Patient: Yin Taylor [id number] (Continued) Specimen: [id number] Received: 02/27/23-123 (Continued) Gross Description A. Received [...] support the above pathologic diagnosis. CPT Codes 85590?2 Specimen: [id number] Received: 02/27/23-1235 Status: YVON Martinez Num: [id number] Spec Type: Surgical Subm Dr: Willie Monreal MD Tissues: A Small Intestine - Biopsy/Polyp (TERMINAL ILEUM BX) B Colon Biopsy (RANDOM COLON BX) Procedures: HE/4, Gross/Micro L4/2 Patient: Yin Taylor [id number] (Continued) Signed (signature on file) Geraldine Alexander MD 02/28/[address] [facility] HospitalCT ABD/PELV W CONon 46-47-2737YZ ABD/PELV W CONEXAMINATION: CT ABD/PELV W CON, [...] by: NENO INGRAM Date: 2023-01-17 18:33Normal The [facility]enan Private HospitalCULTURE URINEon 93-43-3725YCZBRAW URINECulture Observations: LIGHT GROWTH OF MIXED GENITAL DESI. NO POTENTIAL PATHOGENS SEEN.NormalThe Keenan Private HospitalComment on above:Performed By: #### URCX #### [facility] [address] [place] [address] Dr. Tere Rene RANDOM W/MICROSCOPICon 52-06-8355ABZPTHVVTJCALCkzzsqyiABCU SEENThe Keenan Private HospitalComment on above:Performed By: #### UAMIC #### [facility] [address] [place] [address] [address] Tere PastorBilirubin Ql (U)NegativeNormalNEGATIVEThe [facility] Comment on above:Performed By: #### UAMIC #### [facility] Laboratory [address] [address] [address] Tere PastorCASTNONE SEENNormalNONE SEENMagruder Memorial HospitalComment on above:Performed By: #### UAMIC #### [facility] [address] [place] [address] Dr. Tere PastorClarity (U)CLEARNormalCLEARThe [facility] HospitalComment on above: Performed By: #### UAMIC #### [facility] [address] [address] [address] Tere Christopherlor (U)LT. YELLOWNormalYELLOWMagruder Memorial HospitalComment on above:Performed By: #### UAMIC #### [facility] [address] [address] [address] Tere PastorCrystals LM Nom (Urine sed)NONE SEENNormalNONE SEENMagruder Memorial HospitalComment on above:Performed By: #### UAMIC #### [facility] [address] [address] [address] Carranza ChangEjosiethelial cells LM Ql (Urine sed)FEWAbnormalNONE SEEN /RAREMagruder Memorial HospitalComment on above:Performed By: #### UAMIC #### [facility] [address] [place] [address] Dr. Tere PastorGlucose Ql (U)NegativeNormalNEGATIVEMagruder Memorial HospitalComment on above:Performed By: #### UAMIC #### [facility] [address] [place] [address] Dr. Tere PastorHemoglobin Ql (U)MODERATEAbnormalNEGATIVESelect Medical [facility]ty [facility] on above:Performed By: #### UAMIC #### [facility] [address] [place] [address] Dr. Tere PastorKetones Ql (U)TRACEAbnormalNEGATIVEMagruder Memorial HospitalComment on above:Performed By: #### UAMIC #### [facility] [address] [place] [address] Dr. Tere PastorLEUKOCYTESMODERATEAbnormalNEGATIVEMagruder Memorial HospitalComment on above:Performed By: #### UAMIC #### [facility] [address] [address] [address] Tere PastorMUCOUSNONE SEENNormalNONE SEENMagruder Memorial HospitalComment on above:Performed By: #### UAMIC #### [facility] [address] [place] [address] Dr. Tere PastorNitrite Ql (U)NegativeNormalNEGATIVEMagruder Memorial HospitalComment on above:Performed By: #### UAMIC #### [facility] [address] [place] [address] Dr. Tere PastorpH (U)6.0 [pH]Normal5-9The [facility] HospitalComment on above: Performed By: #### UAMIC #### [facility] [address] [place] [address] Dr. Tere PastorYrhydMPI8-7Nfpdjfhn7-8Cxk [facility] HospitalComment on above:Performed By: #### UAMIC #### [facility] [address] [place] [address] Dr. Tere PastorSPEC GRAVITY1.918Suamby3.005-<=1.025The [facility] Private HospitalComment on above:Performed By: #### UAMIC #### [facility] [address] [place] [address] Dr. Tere Rene PROTEINNegativeNormalNEGATIVE/ TRACEThe [facility] Comment on above:Performed By: #### UAMIC #### [facility] [address] [place] [address] Dr. Tere Mcraebiltaylorgen Qn (U)0.2 {Conchita'U}/dLNormal0.2 - 1.0The [facility] HospitalComment on above:Performed By: #### UAMIC #### [facility] [address] [place] [address] Dr. Tere PastorWBC5-10AbnormalNONE SEENThe [facility] HospitalComment on above: Performed By: #### UAMIC #### [facility] [address] [place] [address] Dr. Tere FamC AUTO DIFFon 97-74-0468VPOX #0.0 103/ulNormal0.0-0.1The [facility] Private HospitalComment on above:Performed By: #### CBC #### [facility] [address] [place] [address] Dr. Tere PastorBasophils/100 WBC (Bld)0.5 %Normal0.2-2.0The [facility] Comment on above:Performed By: #### CBC #### [facility] [address] [address] [address] Tere Patel #0.2 103/ulNormal0.0-0.7The [facility] HospitalComment on above: Performed By: #### CBC #### [facility] [address] [place] [address] Dr. Tere Hillosinophils/100 WBC (Bld)2.7 %Normal0.9-7.0The [facility] Comment on above:Performed By: #### CBC #### [facility] [address] [place] [address] Dr. Tere Hillrythrocyte distribution width (RBC) [Ratio]13.2 %Ahdqrn45.0-15.0 The [facility] Centerment on above:Performed By: #### CBC #### [facility] [address] [place] [address] Dr. Tere PastorHematocrit (Bld) [Volume fraction]40.5 %Ylgwgk71.0-48.0The [facility] HospitalComment on above:Performed By: #### CBC #### [facility] [address] [place] [address] Dr. Tere PastorHemoglobin (Bld) [Mass/Vol]13.9 g/jNMteczd99.0-16.0The [facility] Centerment on above:Performed By: #### CBC #### [facility] [address] [place] [address] Dr. Tere Santana #0.01 10e3/ulNormal0.00-0.03The [facility] HospitalComment on above:Performed By: #### CBC #### [facility] [address] [place] [address] Dr. Tere Santana %0.2 %Normal0.0-0.5The [facility] Centerment on above: Performed By: #### CBC #### [facility] [address] [place] [address] Dr. Tere Henderson #2.4 103/ulNormal1.2-3.8The [facility] HospitalComment on above:Performed By: #### CBC #### [facility] [address] [address] [address] Tere Sotomphocytes/100 WBC (Bld)36.6 %Ftinky14.5-60.0The [facility] HospitalComment on above:Performed By: #### CBC #### [facility] [address] [place] [address] Dr. Tere Harris DIFF REQNONormalThe [facility] HospitalComment on above: Performed By: #### CBC #### [facility] [address] [place] [address] Dr. Tere Caraballo (RBC) [Entitic mass]28.6 lbIfzddn67.7-34.0The [facility] HospitalComment on above:Performed By: #### CBC #### [facility] [address] [place] [address] Dr. Tere Caraballo (RBC) [Mass/Vol]34.3 g/mDUooilv12.9-35.2The [facility] HospitalComment on above:Performed By: #### CBC #### [facility] [address] [place] [address] Dr. Tere Caraballo (RBC) [Entitic vol]83.3 aQSsboig39.0-99.0The [facility] HospitalComment on above:Performed By: #### CBC #### [facility] [address] [place] [address] Dr. Tere Mcrae #0.5 103/ulNormal0.3-0.8The [facility] HospitalComment on above:Performed By: #### CBC #### [facility] [address] [place] [address] Dr. Tere Adkinsocytes/100 WBC (Bld)7.6 %Normal1.7-12.0The [facility] on above:Performed By: #### CBC #### [facility] [address] [place] [address] Dr. Tere Davila #3.5 103/ulNormal1.4-6.5The [facility] on above:Performed By: #### CBC #### [facility] [address] [address] [address] Tere Markhamutrophils/100 WBC (Bld)52.4 %Fgfotb86.0-75.0The [facility] on above:Performed By: #### CBC #### [facility] [address] [address] [address] Tere Wadsworthlet mean volume (Bld) [Entitic vol]9.7 fLNormal9.5-13.5The [facility] on above:Performed By: #### CBC #### [facility] [address] [place] [address] Dr. Tere PastorPLT257 103/tmSbfaph745-899Qhl [facility] on above: Performed By: #### CBC #### [facility] [address] [place] [address] Dr. Tere PastorRBC4.86 106/ulNormal4.20-5.40The [facility] on above:Performed By: #### CBC #### [facility] [address] [place] [address] Dr. Tere PastorWBC6.6 103/ulNormal4.0-11.0The [facility] on above: Performed By: #### CBC #### [facility] [address] [place] [address] Dr. Tere Nunez THYROXINE INDEX T7on 55-28-5766LMS7.61Ekujmg0.30-4.50The [facility] on above:Performed By: #### T7, CMP, TSH #### [facility] [address] [place] [address] Dr. Tere PastorT3U33.0 %Iuaaau07.0-39.0The [facility] on above: Performed By: #### T7, CMP, TSH #### [facility] [address] [place] [address] Dr. Tere PastorT4 [Mass/Vol]7.60 ug/dLNormal4.80-13.90The [facility] Comment on above:Performed By: #### T7, CMP, TSH #### [facility] [address] [place] [address] Dr. Tere PastorGLYCOHEMOGLOBIN A1Con 80-61-9667XGC RECOMMENDATIONSEE BELOWNormal The [facility] Private HospitalComment on above:Result Comment: ADA RECOMMENDED LIMIT 4.0 - 6.0 ADA THERAPEUTIC TARGET < 7.0 ACTION SUGGESTED > 7.0Performed By: #### A1C #### [facility] [address] [place] [address] Dr. Tere PastorGlucose [Mass/Vol]91 mg/dLNormalThe [facility] HospitalComment on above:Performed By: #### A1C #### [facility] [address] [place] [address] Dr. Tere PastorHbA1c (Bld) [Mass fraction]4.8 %Normal4.5-6.2The [facility] HospitalComment on above:Performed By: #### A1C #### [facility] [address] [place] [address] Dr. Tere PastorPROF 14(COMP METB)on 53-89-6934Njochdi [Mass/Vol]3.7 g/dLNormal 3.4-5.0The [facility] HospitalComment on above:Performed By: #### T7, CMP, TSH #### [facility] [address] [place] [address] Dr. Tere PastorAlbumin/Globulin [Mass ratio]1.1 {ratio}NormalThe [facility] HospitalComment on above:Performed By: #### T7, CMP, TSH #### [facility] [address] [place] [address] Dr. Tere GunnP [Catalytic activity/Vol]63 U/IGbwktb09-731Uea [facility] Centerment on above:Performed By: #### T7, CMP, TSH #### [facility] [address] [place] [address] Dr. Tere GunnT [Catalytic activity/Vol]20 U/WUbpmoc64-80Nvk [facility] HospitalComment on above:Performed By: #### T7, CMP, TSH #### [facility] [address] [address] [address] Tere Bateson gap [Moles/Vol]10.8 mmol/LNormalThe [facility] Comment on above:Performed By: #### T7, CMP, TSH #### [facility] [address] [place] [address] Dr. Tere PastorAST [Catalytic activity/Vol]15 U/VXjtfkw05-64Tuz [facility] HospitalComment on above:Performed By: #### T7, CMP, TSH #### [facility] [address] [place] [address] Dr. Tere PastorBilirubin [Mass/Vol]0.7 mg/dLNormal0.2-1.0[facility] Comment on above:Performed By: #### T7, CMP, TSH #### [facility] [address] [place] [address] Dr. Tere PastorCalcium [Mass/Vol]8.8 mg/dLNormal8.5-10.1[facility] Comment on above:Performed By: #### T7, CMP, TSH #### [facility] [address] [place] [address] Dr. Tere PastorChloride [Moles/Vol]102 mmol/WQkilrq13-978VxtMagruder Memorial Hospital Comment on above:Performed By: #### T7, CMP, TSH #### [facility] [address] [place] [address] Dr. Tere PastorCO2 [Moles/Vol]28.3 mmol/OAeknds89.0-32.0The [facility] Comment on above:Performed By: #### T7, CMP, TSH #### [facility] [address] [place] [address] Dr. Tere PastorCreatinine [Mass/Vol]0.67 mg/dLNormal0.55-1.02The [facility] HospitalComment on above:Performed By: #### T7, CMP, TSH #### [facility] [address] [place] [address] Dr. Yilan ChangEGFR-AF FINNISH>60Normal>=60The [facility] HospitalComment on above:Performed By: #### T7, CMP, TSH #### [facility] [address] [place] [address] Dr. Tere HillGFR-NON AF FINNISH>60Normal>=60The [facility] HospitalComment on above:Performed By: #### T7, CMP, TSH #### [facility] [address] [place] [address] Dr. Tere PastorGlobulin (S) [Mass/Vol]3.3 g/dLNormalThe [facility] HospitalComment on above:Performed By: #### T7, CMP, TSH #### [facility] [address] [place] [address] Dr. Tere PastorGlucose [Mass/Vol]87 mg/dGChhnbk47-078FiiMagruder Memorial Hospital Comment on above:Performed By: #### T7, CMP, TSH #### [facility] [address] [place] [address] Dr. Tere PastorPotassium [Moles/Vol]4.1 mmol/LNormal3.5-5.1[facility] Comment on above:Performed By: #### T7, CMP, TSH #### [facility] [address] [place] [address] Dr. Tere PastorProtein [Mass/Vol]7.0 g/dLNormal6.4-8.2[facility] Comment on above:Performed By: #### T7, CMP, TSH #### [facility] [address] [place] [address] Dr. Tere PastorSodium [Moles/Vol]137 mmol/IIjgtjc321-735LinMagruder Memorial Hospital Comment on above:Performed By: #### T7, CMP, TSH #### [facility] [address] [place] [address] Dr. Tere PastorUrea nitrogen [Mass/Vol]7.0 mg/dLNormal7.0-18.0The [facility] HospitalComment on above:Performed By: #### T7, CMP, TSH #### [facility] [address] [place], [place] [address] Dr. Tere PastorUrea nitrogen/Creatinine [Mass ratio]10.4 mg/mgNormalThe [facility] HospitalComment on above:Performed By: #### T7, CMP, TSH #### [facility] [address] [place], [place] [address] Dr. Tere PastorTSHoedy 01-83-0467JXT1.865 uIU/mLNormal0.358-3.740Mag[facility]uder Memorial HospitalComment on above:Performed By: #### T7, CMP, TSH #### [facility] [address] [place], [place] [address] Dr. Tere Pastor Vital Signs Date TimeVital SignValuePerforming CdwaurbwaKmilstkm73-02-3883 14:35-0400Body .96 kgCorey Cornelio DO Work Phone: [facility] CenterBotpjvonoj69-80-7982 13:30-0500Body gbeklk679.33 kgCorey Cornelio DO Work Phone: [facility] CenterTnmjwrnozl99-57-9266 13:30-0500Diastolic blood obbrkoav19 mm[Hg]Ed Cornelio DO Work Phone: [facility] CenterElzysefdpo08-18-7493 13:30-0500Systolic blood sihtryku719 mm[Hg]Ed Cornelio DO Work Phone: [facility] CenterEkfjcfrzpk28-34-4158 09:58-0500Blood Pressure LocationAurora Orzech [facility]01-16-2024 09:58-0500Diastolic blood npqaaidk08 mm[Hg]Adele Orzech [facility]01-16-2024 09:58-0500Heart rate74 /minAurora Orzech [facility]01-16-2024 09:58-0500Respiratory rate16 /minAurora Orzech [facility]01-16-2024 09:58-0500Systolic blood wcldnoaz484 mm[Hg]Adele Orzech [facility]04-27-2023 12:25-0400Diastolic blood mrftavlw66 mm[Hg]RECEPTIONIST NURSE-C Conchita Alicia Work Phone: [phone] [place], [place] [address]04-27-2023 12:25-0400 Heart rate82 /minNP-C Conchita Alicia Work Phone: [phone] [place], [place] [address]04-27-2023 12:25-0400 Respiratory rate20 /minNP-C Conchita Alicia Work Phone: [phone]04-27-2023 12:25-0400 SaO2% (BldA) [Mass fraction]100 %RECEPTIONIST NURSE-C Conchita Vargas Work Phone: [phone] [place], [place] [address]04-27-2023 12:25-0400 Systolic blood ewhfxtou840 mm[Hg]RECEPTIONIST NURSE-C Conchita Alicia Work Phone: [phone] [place], [place] [address]04-27-2023 10:29-0400 Body sfaqgx252.1 cmNP-C Conchita Alicia Work Phone: [phone] [place], [place] [address]04-27-2023 10:29-0400 Body xswhefijsen25.7 [degF]RECEPTIONIST NURSE-C Conchita Alicia Work Phone: [phone] [place], [place] [address]04-27-2023 10:29-0400 Body oqdtyt419.05 kgNP-C Conchita Alicia Work Phone: [phone] [place] [address] Encounters Encounter DateEncounter TypeCare ProviderFacilityStart: 90-56-9710onsgkhplmf Adele X OrzechFacility:EU BellevueStart: 08-26-2025 End: 58-10-0958Didmolydm department patient visitPAMAISHA VARGASShelby Memorial Hospitaltart: 06-27-2025 End: 45-69-3548Tsdxzz outpatient visit 15 minutesCorey Cornelio DO Work Phone: [facility] [place] OBGYNComment on above:Vaginal cyst; HSV infection; Irregular menstrual bleedingStart: 06-27-2025 End: 67-42-1845jtemtlyygzCULJC FAZIONot AvailableStart: 06-27-2025 End: 09-89-9475Wtrseb flowsheetCorey Cornelio DO Work Phone: [facility] OBGYNStart: 06-27-2025 End: 39-00-0048Vxqbvr flowsheetCorey Cornelio DO Work Phone: [facility] OBGYNStart: 04-22-2025 End: 13-10-5181pyeubhzqcqBGISU L T[facility] HOSPITALTAKeenan Private Hospital Start: 03-09-2025 End: 84-25-2560kiywjvjjeaAZZPQQ [facility] HospitalStart: 12-30-2024 End: 02-58-1917Lubqlujag department patient visitSumma Healthtart: 10-11-2024 End: 45-53-9675lpzbopvlwlSXOUJZR [facility] Start: 09-22-2024 End: 71-93-6860aekfqdzswjGFADT GRUBBUniSamaritan North Health Centertart: 09-03-2024 End: 27-70-4295Iiqjgkdgb department patient visitSumma Healthtart: 06-11-2024 End: 20-91-6030vpobozzblnUXMQZHE [facility] Centertart: 63-33-1077vrcxnmdhvpUJAMSAN [facility] Centertart: 68-26-7228Mevxmagta for other preprocedural examinationHEATHER [facility] Centertart: 05-10-2024 End: 08-73-4564Jye Drop offAurormartine Burgos [facility] Start: 05-10-2024 End: 96-26-1505szyqnsvsptMjrmpm X OrzechFacility:EU BellevueStart: 05-10-2024 End: 89-23-8632Kwvkusv encounter procedureAurora X Orzech [facility] start: 05-04-2024 End: 35-97-4249yqmfgyyqkoPqdapl X OrzechFacility:FTMCStart: 05-04-2024 End: 55-99-8289Chh Drop offAurora X Orzech [facility] Start: 05-04-2024 End: 64-25-6276Tuestwr encounter procedureAurora X Orzech [facility] start: 12-23-2023 End: 16-08-1325hdibofjyqgBgk Infusion Chair [address] [place] [address] - Medical OncologyComment on above:POTS (postural orthostatic tachycardia syndrome) (Primary Dx); Mild persistent asthma without complication; BMI 40.0-44.9, adult ([facility]); Chronic gastritis without bleeding, unspecified gastritis type; Gastroparesis; Syncope, unspecified syncope type; Aviva-Danlos syndrome type III; Skin abrasion; Port-A-Cath in place; Collapse; AnxietyStart: 12-22-2023 End: 27-56-8400Geovfqnna Result EncounterCorey Cornelio DO Work Phone: [facility] External Department UnsolicitedStart: 12-22-2023 End: 08-29-0164Hfkomcgel Result EncounterCorey Cornelio DO Work Phone: [facility] External Department UnsolicitedStart: 12-16-2023 End: 87-03-4200Tsznmsj encounter procedureCorey Cornelio DO Work Phone: [facility] OBComment on above:Encounter for removal of etonogestrel implant; Insertion of Nexplanon; Abnormal uterine bleeding (AUB)Start: 11-18-2023 End: 16-06-9641Stl Drop offAurora X Orzech [facility] Start: 11-18-2023 End: 66-43-9319Qypmibq encounter procedureAurora X Orzech [facility] start: 10-28-2023 End: 70-60-5523dwextgnnejSig Infusion Chair 1DCentral [facility] - Medical OncologyComment on above:POTS (postural orthostatic tachycardia syndrome) (Primary Dx); Mild persistent asthma without complication; BMI 40.0-44.9, adult ([facility]); Chronic gastritis without bleeding, unspecified gastritis type; Gastroparesis; Syncope, unspecified syncope type; Aviva-Danlos syndrome type III; Skin abrasion; Port-A-Cath in place; Collapse; AnxietyStart: 02-27-2023 End: 66-90-5337pktgxgfijsCobsuy Sue CramerFacility:[facility] Hospitaltart: 02-27-2023 End: 85-27-0385Gltsorfjh to same day surgery Nestor Vargas Work Phone: [facility] Work Phone: Start: 02-27-2023 End: 26-11-3952racmlbcvfiVQ-C Pamela Sue Cramer Work Phone: [facility] Work Phone: Start: 01-17-2023 End: 97-16-9241vptnygrejtPVAFMS CRAMERFacility:B6Lvitx: 07-34-6009Egstodxar for preprocedural laboratory examinationCONCHITA VARGASJ.W. Ruby Memorial Hospitaltart: 10-23-2022 End: 79-38-0628ujxlooslgmSTNPLD CRAMERFacility:R5Rbfwv: 10-23-2022 End: 69-24-3519Liitrdszf for preprocedural laboratory examinationCONCHITA VARGAS Facility:V7Cuzka: 04-02-2018 End: 88-19-8889KesgmsztnkUUMBR ERLINDA JACOMEFacility:[facility] Procedures DateProcedureProcedure DetailPerforming ClinicianStart: 64-12-6403WZ PELVIS W/ TRANSVAGINALCorey Cornelio DO Work Phone: Start: 92-41-5795Bqssa test visual color cmprsn methsCorey Cornelio DO Work Phone: Start: 89-57-3836IdafgipruybRO-C Conchitagregory Vargas Work Phone: Start: 81-04-0106Nvpiy depression screening assessment Pfo 1Start: 93-61-3826Wsybrtmcaqb observation [Identifier] in Cervix by Cyto stainPfo 1CholecystectomyAurora Orzech ColonoscopyAurora Orzech TonsillectomyAurora Orzech Plan of Treatment DateCare ActivityDetailAuthorStart: 11-74-2263SYoM,Tdap and Td Vaccines (7 - Td or Tdap)DTaP,Tdap and Td Vaccines (7 - Td or Tdap)[facility] SystemStart: 06-27-2025 End: 61-91-4530Xewpwfp encounter bottolpgu11/25/2025 2:20 PM EDT Office Visit [facility] [address] [place] [address] Ed Grimes DO [address] [place] [address] ArrivedNOMS Avendaño OBGYNComment on above:ArrivedStart: 54-56-7537Deuzi BMI ScreeningAdult BMI ScreeningProMedica Health SystemStart: 23-96-5123Mcpkgje ScreeningTobacco ScreeningAtrium Health Wake Forest Baptisttart: 02-17-2024 End: 64-06-0885nxicisepvv93/16/2024 11:30 AM EDT Infusion Tasha Fonseca [facility] - Medical Oncology [address] [place] [address] [facility] Medical OncologyStart: 12-23-2023 End: 43-18-7699rknpbttxgb47/20/2024 11:30 AM EST Infusion Tasha Fonseca [facility] Medical Oncology [facility] [place] [address] [facility] Medical OncologyStart: 12-16-2023 End: 34-87-9358CH for pregnancyUS PELVIS-TRANSVAG IF INDICATED Imaging Routine Abnormal uterine bleeding (AUB) Expected: 12/16/2023 (Approximate), Expires: 12/16/2024NONH HealthcareComment on above:Expected: 12/16/2023 (Approximate), Expires: 12/16/2024Start: 71-61-1386Kpjmxeyub vaccinationInfluenza Vaccine [facility] Baptisttart: 90-80-2388Sflttbiwy for malignant neoplasm of cervixPap SmearProtestant Deaconess Hospital SystemStart: 82-94-0895DncfiwbhxTriHealth McCullough-Hyde Memorial Hospitaltart: 48-14-6654Tdwedyrzij ScreeningDepression ScreeningProtestant Deaconess Hospital SystemStart: 47-68-1525Buaui BMI Follow Up PlanAdult BMI Follow Up Plan [facility] HospitalRemoval non-biodegradable drug delivery implantRemove drug implant device Procedures Routine Encounter for removal of etonogestrel implant Ordered: 12/16/2023NONH Healthcare Work Phone: comment on above:Ordered: 12/16/2023 Immunizations Immunization DateImmunizationNotesCare VvznuxufIhztutdn51-38-0949vdpiupyma, injectable, quadrivalent, preservative freePfo [address] [place] [address] 12-59-6407UGW(D) immune globulin- IV or IMPfo [address] [place], [place] [address]82[address]01-07-2021 tetanus toxoid, reduced diphtheria toxoid, and acellular pertussis vaccine, adsorbedPfo [address] [place], [place] [address]Vsirhv96-25-3977ucewmrdmg virus vaccine, unspecified formulationPfo [address] [place], [place] [address]NEGATED: Highlighted row has not occurred!73-66-9814pknpsremi virus vaccine, unspecified formulationAureannamartine Camargoshellie [facility] Payers DatePayer CategoryPayerPolicy [id number] (Managed Care)[employer] [id number] [id number]-[id number] 2.0.[id number] 2.0.1.706563.3.57[id number] 2.0.1.318925.3.57[id number] 2.16840.1.871133.3.57[id number] 2.840.1.426397.3.57[id number] 2.840.1.264770.3.57[id number] 2.840.1.615889.3.57[id number] 2.840.1.342592.3.57[id number] 2.0.1.844612.3.579.2.00[id number] 2.0.1.508084.3.579.[id number] 2.0.1.338160.3.57[id number] 2..1.134785.3.579.2.52802-95-4330Bstpnml37001280 2.0.1.495790.3.579.2.727 [id number] MedicaidParamount [id number] MedicaidM[place]ina [place] [id number] 2.0.1.995283.3.579.2.531UnknownReverify Insurance [id number] Social History DateTypeDetailFacilityStart: 02-27-2023 End: 70-35-8119Gqbojwv smoking status NHISNever smoked tobacco (finding) [facility]: 85-01-8186Erg Assigned At BirthFemale [facility]tart: 11-20-2023 End: 98-16-6707Grl Assigned At BirthFeHenry County Hospitaltart: 12-16-2023 End: 70-56-6325Cclpsww intakeLifetime non-drinker (finding)[facility] HealthcareStart: 11-20-2023 End: 86-87-2441Oyprwji of Social functionAtrium Health Wake Forest Baptisttart: 61-19-2885Ljryfiy Commentcaffeine: 1-2 cups per dayNONH HealthcareStart: 46-35-8496Qbubxd identityIdentifies as female gender (finding)[facility] SystemStart: 62-85-1216Hptqtq orientationHeterosexual (finding)[facility] Baptisttart: 75-87-7032Kltqtym smoking statusNeverExecutive [facility] of [facility] Hospitaltart: 24-80-9913Pecdbvg use and exposureSmokeless tobacco non-userAtrium Health Wake Forest Baptisttart: 09-72-6113Hvdlssa intakeCurrent non-drinker of alcohol (finding)[facility] HospitalThe thought of harming myself has occurred to [facility] Medical Equipment Procedure CodeEquipment CodeEquipment Original TextEquipment IdentifierDates [facility]-10/21/[id number]_impStart: 79-82-5328Zzhdh 4x day: fasting, 1 hour after each [id number]: 11-29-2020 Goals DatePatient GoalDesired Activity/State Functional Status JdbjLbthaizvdyMbukmwByeitrqh89-50-6269Gsynkqarpv StatusN/AExec[facility]01-16-2024Functional StatusN/A[facility] Clinical Notes 02-27-2023 to 06-27-2025 Note Date & BmguSwxuTkcngyop35-05-6098 History of Present illness Narrative* Usha Razo [...] nursing note reviewed. Exam conducted with a grinder machine setter present. Vitals: There is no height or weight on file to calculate BMI. BP: No LMP recorded. Patient has had an implant. ASSESSMENT & PLAN ICD-10-CM 1. Vaginal cyst N89.8 Patient complaints of vaginal Documented by Usha Razo LPN on behalf of: Ed Grimes DO documented in this encounterLafayette Regional Health CenterDhatrjcxgr26-62-4898 [facility] HospitalEPARTMENT OF VASCULAR SURGERY Subjective Yin Taylor is [...] needed Electronically signed by: QUINTEN Sanchez Physician Recruitment Officer Vascular and Wound Surgery 10/11/2024 This note [...] the past 36 hour(s)). No follow-ups on file.[facility]2024 NoteSYNCOPE AND AUTONOMIC DISORDERS CLINIC Reason for [...] times weekly. I spent 30 minutes in tpty-cv-qmvn patient counseling and therapeutic decision making during [...] Tobacco Use: Low Risk (09/03/2024) Received from [facility] Patient History Smoking Tobacco Use: Never Smokeless Tobacco Use: Never Passive Exposure: Not on file Alcohol Use: Not At Risk (10/15/2018) Received from [facility], [facility] AUDIT-C Frequency of Alcohol Consumption: Never Average Number of Drinks: Not on file Frequency of Binge Drinking: Not on file Financial Resource Strain: Patient Declined (03/26/2023) Received from [facility], [facility] Overall Financial Resource Strain (CARDIA) Difficulty of Paying Living Expenses: Patient declined Food Insecurity: No Food Insecurity (09/03/2024) Received from [facility] Hunger Screening Within the past 12 months we worried whether our food would run out before we got money to buy more.: Never True Within the past 12 months the food we bought just didn't last and we didn't have money to get more.: Never True Transportation Needs: Patient Declined (03/26/2023) Received from [facility], [facility] PRAPARE - Transportation Lack of Transportation (Medical): Patient declined Lack of Transportation (Non-Medical): Patient declined Physical Activity: Not on file Stress: Not on file Social Connections: Not on file Intimate Partner Violence: Unknown (12/25/2023) [place] Safety & Environment Fear of Current or Ex-Partner: Not on file Emotionally Abused: Not on file Physically Abused: Not on file Sexually Abused: Not on file Physically or Sexually Abused: Not on file Depression: Not at risk (01/27/2023) PHQ-2 PHQ-2 Score: 0 Housing Stability: Low Risk (03/26/2023) Received from [facility], [facility] Housing Instability Are you worried or concerned [...] mg by mouth in (more content not included)...[facility]08-08-2024 Note Subjective Patient ID: Yin Taylor is [...] the past 36 hour(s)). No follow-ups on file.[facility]08-08-2024 Note Subjective Patient ID: Yin Taylor is [...] the past 36 hour(s)). No follow-ups on file.[facility]07-08-2024 Evaluation + Plan note Diagnostic Tests Pending * Urine Culture 05/10/24 [facility]07-02-2024 Evaluation + Plan note Diagnostic Tests Pending * Urine Culture 05/04/24 [facility]07-02-2024 Hospital Discharge instructions Patient Education 05/04/2024 09:40:00 [...] Follow these instructions at home: Medicines Take egwl-adv-taqlimu and prescription medicines only as told by [...] or the blood stops without treatment. Take lebc-qge-kqqlfof and prescription medicines only as told by your health care provider. Drink enough fluid to keep your urine pale yellow. This information is not intended to replace advice given to you by your health care provider. Make sure you discuss any questions you have with your health care provider. Document Revised: 06/20/2021 Document Reviewed: 06/20/2021 [employer] Patient Education 2022 [employer] Follow Up Care 03/05/2024 09:51:28 With:KE Burgos APRN, JARRETT Hernandez, URL Address: When: Unknown Comments:pending micro/cx [facility] 02-20-2024 History of Present illness Narrative* Franca Chin RN - 12/23/2023 11:30 AM EST Port flushed per protocol. documented in this encounterKnox [facility] Hospital02-13-2024 History of Present illness Narrative* Kaye Harmon, COBBLER UPPER - 12/16/2023 1:10 PM EST Reason for [...] Past Medical History: Diagnosis Date Anxiety Asthma ([facility]) Depression ([facility]) History of medical problems Family [...] nursing note reviewed. Exam conducted with a grinder machine setter present. Vitals: There is no height or [...] of: Ed Grimes DO documented in this encounterLafayette Regional Health CenterRgctwlpdxd29-36-2114 Evaluation + Plan note Diagnostic Tests Pending * Urine Cytology ([facility]) 11/18/23 [facility]01-16-2024 Hospital Discharge instructions Patient Education 11/18/2023 11:38:29 [...] Follow these instructions at home: Medicines Take tqeg-iwl-nnjvhlu and prescription medicines only as told by [...] or the blood stops without treatment. Take afhs-fol-jnrwkzm and prescription medicines only as told by your health care provider. Drink enough fluid to keep your urine pale yellow. This information is not intended to replace advice given to you by your health care provider. Make sure you discuss any questions you have with your health care provider. Document Revised: 06/20/2021 Document Reviewed: 06/20/2021 [employer] Patient Education 2022 [employer]. [facility] 12-26-2023 History of Present illness Narrative* Franca Chin RN - 10/28/2023 12:30 PM EST Port flushed per protocol. documented in this encounterKerbs Memorial HospitalAugmented Pixels CO Rrsqca98-39-6152 History and physical note Author [facility] February 27, 2023 11:15amNote Date/TimeApril 2022 11:[address] [address] Gastroenterology H&P Signed Patient: Yin Taylor MR#: [id number] : 1995 Acct:[id number] Age/Sex: 27 / F Adm Date: 3 Loc: Room: Type: [facility] Attending Dr: Willie Monreal MD [...] signed by Willie Monreal MD> 02/27/23 1115 [facility] mphoria Work Phone: 1(845) 836-136004-27-2023 Procedure noteMercy Health West HospitalEvaluation + Plan note No data available for this section [facility] evaluation noteNo assessment information available [facility] Work Phone: Evaluation note* Diagnosis Encounter for removal of etonogestrel implant Insertion of Nexplanon Abnormal uterine bleeding (AUB) documented in this encounter [facility] HealthcareEvaluation note* Diagnosis POTS (postural orthostatic tachycardia syndrome)- Primary Unspecified tachycardia Mild persistent asthma without complication BMI 40.0-44.9, adult ([facility]) Chronic gastritis without bleeding, unspecified gastritis type Gastroparesis Syncope, unspecified syncope type Aviva-Danlos syndrome type III Aviva-Danlos syndrome Skin abrasion Abrasion or friction burn of other, multiple, and unspecified sites, without mention of infection Port-A-Cath in place Collapse Syncope and collapse Anxiety Anxiety state, unspecified documented in this encounter [facility]* Diagnosis Vaginal cyst Other specified noninflammatory disorder of vagina HSV infection Herpes simplex without mention of complication Irregular menstrual bleeding Irregular menstrual cycle documented in this encounter [facility] HealthcareHospital Discharge instructions Additional [...] screening -Follow up with PCP. -Office number [phone]. [facility] Work Phone: Hospital Discharge instructions No data available for this section [facility]InstructionsNot on filedocumented in this encounter [facility] SystemProgress note No data available for this section [facility] Summary Purpose Family History No Family [...] section and content) DATE CREATED AUTHOR 04/22/2018 [facility] DATE CREATED AUTHOR AUTHOR'S ORGANIZ ATION 01/26/2023 [facility] DATE CREATED AUTHOR AUTHOR'S ORGANIZ ATION 03/01/2023 [facility] DATE CREATED AUTHOR AUTHOR'S ORGANIZ ATION 05/06/2024 [facility] DATE CREATED AUTHOR AUTHOR'S ORGANIZ ATION 05/07/2024 [facility] DATE CREATED AUTHOR AUTHOR'S ORGANIZ ATION 05/17/2024 [facility] DATE CREATED AUTHOR AUTHOR'S ORGANIZ ATION 05/18/2024 [facility] DATE CREATED AUTHOR AUTHOR'S ORGANIZ ATION 10/14/2024 [facility] DATE CREATED AUTHOR AUTHOR'S ORGANIZ ATION 04/25/2025 [facility] DATE CREATED AUTHOR AUTHOR'S ORGANIZ ATION 06/28/2025 [facility] DATE CREATED AUTHOR AUTHOR'S ORGANIZ ATION 08/28/2025 [facility] DATE CREATED AUTHOR AUTHOR'S ORGANIZ ATION 09/08/2025 [facility] Care Teams (unrecognized sec tion and content) Team Status: Active Member Role Status Dates Conchita Vargas NP-C Primary Care Provider Active Team Status: Inactive Member Role Status Dates Willie Monreal MD Attending Provider Active Conchita Vargas RECEPTIONIST NURSE-CPrimary Care ProviderActiveTeam MemberRelationship SpecialtyStart DateEnd Date Conchita Vargas TRANSPLANT RN-BORING MACHINE SET UP OPERATOR [address] [place] [id number] PCP - GeneralFamily Medicine11/25/19 Reason for Visit [...] BE BASED ON THE PRIMARY CLINICAL RECORDS. [employer] provides no warranty or guarantee of the accuracy or completeness of information in this document.
--- OUTSIDE RECORDS SUMMARY | 2025-10-12 21:01 | XMS_ITS | Patient Health Record ---
Author Organization [facility] vices Address [address] [place], [place] [id number] Care Team Providers Care Contact Lens Curve Grinder Name Role Phone Laya Russo Unavailable [phone] Allergies Allergen (clinical drug ingredient) Drug/Non Drug Allergy documented on EMR Reaction Allergy Type Onset Date Status Grape FlavorUnknownDrug AllergyActive Reason For Referral Reason Patient referred pre viously for removal of #31 and #32 Diagnosis 1 Encounter for screen ing for dental disorders (Z13.84) Referral Organization [facility] Referring Provider First Name Laya Referring Provider Last Name Rafaela Referring Provider Speciality Dental Gen era Practice Referred Provider [facility], Dental - Pediatric Referred Provider Specialty Pediatric de ntist General Notes Laya Russo 03/2025 04:42:48 PM >Hard copy referral given to patient day of comp exam, Tesha Murcia 03/24/2025 02:42:27 PM >Pt states she hasn't been able to schedule yet. Referral Priority Routine Medications Medication SIG (Take, Route, Frequency, Duration) Notes Start Date End Date Status Montelukast Sodium 10 MG Tablet Oral; Duration: 90 Days ActiveCorlanor 5 MG Tablettake 1 tablet by mouth IN THE MORNING Oral; Duration: 90 DaysActiveMidodrine HCl 5 MG TabletOral; Duration: 90 DaysActiveCorlanor 5 MG TabletTAKE 1/2 TABLET BY MOUTH DAILY, if hr does not drop below 50bpm, take ONE- HALF TABLET TWICE DAILY Oral; Duration: 30 DaysActiveAlbuterol Sulfate HFA 108 (90 Base) MCG/ACT Aerosol Solutioninhale 2 puffs by mouth and INTO THE LUNGS every 4 hours Inhalation; Duration: 48 DaysActiveAmoxicillin 500 MG CapsuleTAKE 1 CAPSULE BY MOUTH THREE TIMES DAILY Oral; Duration: 10 DaysNot-Taking/PRN Social History Tobacco Use: Social History Observation Description Date Details (start date - stop date) Current Smoker NA - NA Sex Assigned At : Social History Observation Description Sex Assigned At Female Social History Tobacco Use:Social InfoQuestionAnswerNotesTobacco Control (Standard)Tobacco use: Current smokerAdditional Findings: Tobacco non-userCurrent nonsmoker Problems Problem Type SNOMED Code ICD Code Onset Dates Problem Status W/U Status Risk Notes Problem Screening procedure () E ncounter for screening for dental disorders (Z13.84) ActiveconfirmedProblemObese class II ([id number])BMI 39.0-39.9,adult (Z68.39)Activeconfirmed Vital Signs Heart Rate 77 /min 03/14/2025 Height-cm165.1 cm03/14/2025lood pressure qdgljfotz76 mm Hg03/14/2025Weight-kg 106.6 kg03/14/20252638Ylftpr67 in03/14/2025lood pressure vsnkyaar801 mm Hg 03/14/20256016Rlerlv895 lbs03/14/2025BMI39.1 kg/m203/14/2025 Encounters Encounter Location Date Provider Diagnosis [facility] [address], [place] [id number] 12/07/2024 Laya Russo Encounter for scre ening for dental disorders Z13.84 ; Dental caries into dentine K02.62 ; Encounter for dental examination and cleaning with abnormal findings Z01.21 ; Caries of dentin K02.62 ; 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 and Dental mandaen status Z98.811 [facility] [address], [place] [id number] 01/13/2025 Laya Russo Encounter for scre ening for dental disorders Z13.84 ; BMI 39.0-39.9,adult Z68.39 ; Encounter for dental examination and cleaning with abnormal findings Z01.21 ; Necrosis of pulp K04.1 ; Dietary counseling Z71.3 ; Exercise counseling Z71.82 and Dental caries into dentine K02.62 [facility] [address], [place] [id number] 03/07/2025 Laya Russo BMI 39.0-39.9,adul t Z68.39 and Dental caries into dentine K02.62 [facility] [address], [place] [id number] 03/14/2025 Laya Russo BMI 39.0-39.9,adul t Z68.39 and Dental caries into dentine K02.62 Assessments Encounter Date Diagnosis (ICD Code) Assessment Notes Treatment Notes Treatment Clinical Notes Section Notes 12/07/2024 Encounter for screening for dent al disorders (ICD-10 - Z13.84) 01/13/2025Encounter for screening for dental disorders (ICD-10 - Z13.84) 03/07/2025MI 39.0-39.9,adult (ICD-10 - Z68.39)03/14/2025MI 39.0-39.9,adult (ICD-10 - Z68.39)03/14/2025Dental caries into dentine (ICD-10 - K02.62) 03/07/2025Dental caries into dentine (ICD-10 - K02.62)01/13/2025MI 39.0- 39.9,adult (ICD-10 - Z68.39)12/07/2024Dental caries into dentine (ICD-10 - K02.62)12/07/2024Encounter for dental examination and cleaning with abnormal findings (ICD-10 - Z01.21)01/13/2025Encounter for dental examination and cleaning with abnormal findings (ICD-10 - Z01.21)12/07/2024aries of dentin (ICD-10 - K02.62)01/13/2025Necrosis of pulp (ICD-10 - K04.1)12/07/2024 Irreversible pulpitis (ICD-10 - K04.02)01/13/2025Dietary counseling (ICD-10 - Z71.3)01/13/2025Exercise counseling (ICD-10 - Z71.82)12/07/2024Dental mandaen status (ICD-10 - Z98.811)01/13/2025Dental caries into dentine (ICD- 10 - K02.62) Plan Of Treatment No Information Insurance Providers Payer Name Payer Address Payer Phone Subscriber Number Group Number Insured Name Patient Relationship to Insured Coverage Start Date Coverage End Date [employer] [address] [address] [place] [phone] [id number] Taylor Self - patient is the insured [employer] [facility] [address] [address] [place] [id number], LeahSelf - patient is the [id number] 2023 Medical (General) History Medical History History ICD Code Asthma
--- OUTSIDE RECORDS SUMMARY | 2025-10-12 21:02 | XMS_ITS | Patient Health Record ---
Author Organization [facility] in [place] Address [address] [place] [address] Care Team Providers Care Risk Control Officer Name Role Phone Conchita Daigle Primary Care Provider [phone] CharanjitIzaiah [phone] Allergies Allergen (clinical drug ingredient) Drug/Non Drug Allergy documented on EMR Reaction Allergy Type Onset Date Status dragon fruit (uncoded)anaphylaxisAllergyActiveGrape FlavorhivesDrug Allergy Active Results Component Value Reference Range Notes CBC AND AUTO DIFF * Reviewed date:09/01/2025 02:18:52 PM Interpretation: Performing Lab: Notes/Report: WBC 6.4 4-11 x10E9/L RBC COUNT4.803.8-5.2 X10E12/DUEPHJBKGQF04.711.7-15.5 g/gMNGILYJEGSI21.535-47 % ZQB7716-618 fLMCH28.527-34 mtWFKF41.632-36 g/dLRDW13.811.5-15 %PLATELET VJNHM711 150-450 X10E9/LMPV8.57-12 fLNEUTROPHILS RELATIVE PERCENT BY AUTOMATED COUNT57.1 LYMPHOCYTES RELATIVE PERCENT BY AUTOMATED COUNT32.2MONOCYTES RELATIVE PERCENT BY AUTOMATED COUNT7.4EOSINOPHILS RELATIVE PERCENT BY AUTOMATED COUNT2.6BASOPHILS RELATIVE PERCENT BY AUTOMATED COUNT0.7NEUTROPHILS ABSOLUTE COUNT BY AUTOMATED COUNT3.7LYMPHOCYTES ABSOLUTE COUNT (10*3/UL) BY AUTOMATED COUNT2.1MONOCYTES ABSOLUTE COUNT (10*3/UL) BY AUTOMATED COUNT0.5EOSINOPHILS ABSOLUTE COUNT (10*3/UL) BY AUTOMATED COUNT0.2BASOPHILS ABSOLUTE COUNT (10*3/UL) BY AUTOMATED COUNT0.0CELLAVISION DIFFERENTIAL TYPEAUTOMATED DIFFERENTIAL The copy-to physician of this order is , ; CONCHITA DAIGLE PERFORMED AT [facility] [address],[place] [address] CBC AUTO DIFF Reviewed date:09/01/2025 02:18:18 PM Interpretation: Performing Lab: Notes/Report: [facility] ,White Blood Count9.94.0-11.0 10 3/uLRed Blood Count5.144.20-5.40 10 6/uL Kndxrdsgnf64.612.0-16.0 g/fXXhmpboqdly78.736.0-48.0 %Mean Corpuscular Mapxll68.0 81.0-99.0 fLMean Corpuscular Izflzpxczx66.426.7-34.0 pgMean Corpuscular HGB Conc 33.429.9-35.2 g/dLRed Cell Distribution Width12.911.0-15.0 %Platelet Byubn384 150-450 10 3/uLMean Platelet Volume9.59.5-13.5 fLNeutrophils Percent Auto61.0 43.0-75.0 %Lymphocytes Percent Auto30.220.5-60.0 %Monocytes Percent Auto5.91.7- 12.0 %Eosinophils Percent Auto2.10.9-7.0 %Basophils Percent Auto0.50.2-2.0 % Immature Granulocytes Pct Auto0.30.0-0.5 %Neutrophils Absolute Auto6.01.4-6.5 10 3/uLLymphocytes Absolute Auto3.01.2-3.8 10 3/uLMonocytes Absolute Auto0.60.3-0.8 10 3/uLEosinophils Absolute Auto0.20.0-0.7 10 3/uLBasophils Absolute Auto0.10.0- 0.1 10 3/uLImmature Granulocytes Abs Auto0.030.00-0.03 10 3/uLPerforming Lab:see noteML - [facility] LBGLYCOHEMOGLOBIN A1C Reviewed date:09/01/2025 02:18:18 PM Interpretation: Performing Lab: Notes/Report: [facility] ,Glycohemoglobin A1C4.74.5-6.2 % > 7.0 ADA RECOMMENDED LIMIT 4.0 - 6.0 ACTION SUGGESTED ADA THERAPEUTIC TARGET < 7.0 Estimated Average Gyqzedu56Lulidygqic Lab:see note - [facility] LB INSULIN Reviewed date:09/02/2025 09:19:28 AM Interpretation: Performing Lab: Notes/Report: [facility] ,Nqvasky03.12.6-24.9 uIU/mL [address] [place], [place] [id number] Performed at: [facility] Oncology Pharmacist: Bharat Yanez PhD, Phone: [phone] Performing Lab:see [facility]tha[facility] LBIRON Reviewed date:09/01/2025 02:18:18 PM Interpretation: Performing Lab: Notes/Report: [facility] ,Iron71.050.0-170.0 ug/dLPerforming Lab:see note - [facility] LB VITAMIN D 25 [place] Reviewed date:09/01/2025 02:18:18 PM Interpretation: Performing Lab: Notes/Report: [facility] ,Vitamin D39.9 <20 ng/mL Vit D deficient 30-100 ng/mL Vit D sufficient 20-<30 ng/mL Vit D insufficient >100 ng/mL Potential Toxicity Performing Lab:[facility] LBHEMOGLOBIN Reviewed date:10/11/2025 12:41:55 PM Interpretation: Performing Lab: Notes/Report: [facility] ,Ncgmogcjts71.812.0-16.0 g/dLPerforming Lab:see note - [facility] LBBMP w/GFR Reviewed date:09/01/2025 02:18:52 PM Interpretation: Performing Lab: Notes/Report:DIUZKP341793-808 mmol/LPOTASSIUM3.93.5-5.0 mmol/WDYNTGNCD63144-567 mmol/LCARBON LRIZJCZ2510-18 mmol/LANION SHE507-90 mmol/LBLOOD UREA DPIHNWYV82-92 mg/dLCREATININE0.660.40-1.00 mg/dLMETHOD TRACEABLE TO IDMS PMQPOZZEMKMAHSC5159- 99 mg/dLCALCIUM9.38.5-10.5 mg/dLEGFR (CKD-EPI) NON-RACE DEPENDENT>90>=60 ml/min/1.73sq.m PERFORMED AT [facility] [address],[place] [address] not use a race coefficient. CKD-EPI 2020 equation that does Reported eGFR is based on the The copy-to physician of this order is , ; CONCHITA DAIGLE TSH Reviewed date:09/01/2025 02:18:18 PM Interpretation: Performing Lab: Notes/Report: [facility] ,Thyroid Stimulating Hormone2.2810.358-3.740 uIU/mLPerforming Lab:see noteML - [facility] LBT4 Reviewed date:09/01/2025 02:18:18 PM Interpretation: Performing Lab: Notes/Report: [facility] ,T4 Thyroxine9.704.80-13.90 ug/dLPerforming Lab:see noteML - [facility] LBPROF 14(COMP METB) Reviewed date:09/01/2025 02:18:18 PM Interpretation: Performing Lab: Notes/Report: [facility] ,Wtqqzs493426-024 mmol/LPotassium4.13.5-5.1 mmol/CKzxkfxtq56102-763 mmol/LCarbon Tjnxgxr51.821.0-32.0 mmol/LAnion Gap12.7Flitkdx5045-791 mg/dLBlood Urea Nitrogen 12.07.0-18.0 mg/dLCreatinine0.710.55-1.02 mg/dLEstimated GFR ( Annika>60 >=60 mL/min/1.73m 2Estimated GFR (Non- Tana>60>=60 mL/min/1.73m 2BUN Creatinine Ratio16.6Dmiprfi0.98.5-10.1 mg/dLBilirubin Total0.80.2-1.0 mg/dL Aspartate Amino Wxriukfgakw7042-55 U/LAlanine Dyymbxfvtxwewiiz7482-99 U/L Alkaline Sjoxiwlappc7915-393 U/LTotal Protein7.76.4-8.2 g/dLAlbumin Level3.93.4- 5.0 g/dLGlobulin3.8Albumin Globulin Ratio1.0Performing Lab:see noteML - [facility] LBLIPID PROFILE Reviewed date:09/01/2025 02:18:18 PM Interpretation: Performing Lab: Notes/Report: [facility] ,Fccssmwgpwvpo64<=150 mg/cZAirzunnvete436<=200 mg/dLHDL Hvkaqltgvrc9008-50 mg/dL <40 mg/dl - HIGH CARDIOVASCULAR RISK > or =60 mg/dl - LOW CARDIOVASCULAR RISK LDL Cholesterol Lbzpklacnd892.0 100-129 mg/dl NEAR OR ABOVE OPTIMAL >190 mg/dl VERY HIGH <100 mg/dl OPTIMAL 130-159 mg/dl BORDERLINE HIGH 160-189 mg/dl HIGH VLDL JVELRPNROPC88.2Chol HDL Ratio4.1 4.4 - 7.1 AVERAGE RISK 7.1 - 11.0 MODERATE RISK 3.3 - 4.4 LOW RISK >11.0 HIGH RISK Performing Lab:see noteML - [facility] LBFREE T3 Reviewed date:09/01/2025 02:18:18 PM Interpretation: Performing Lab: Notes/Report: [facility] ,Free T33.092.18-3.98 pg/mLPerforming Lab:see noteML - [facility] LB Reason For Referral Reason asthma Diagnosis 1 Asthma (J45.909) Referral Organization [facility] Referring Provider First Name Conchita Referring Provider Last Name Oxana Referring Provider [facility] estefani Referred Provider Luci Cheatham Referred Provider Specialty Pulmonary Di seases Referral Priority Routine Reason requesting sleep igor dy Diagnosis 1 Snoring (R06.83) Referral Organization [facility] Referring Provider First Name Conchita Referring Provider Last Name Oxana Referring Provider [facility] estefani Referred Provider Rayne Cooper Referred Provider Specialty Neurology Referral Priority Routine Medications Medication SIG (Take, Route, Frequency, Duration) Notes Start Date End Date Status Midodrine HCl 5 MG 1 tablet Orally Twice a day ActiveNexplanon 68 MGas directed SubcutaneousActiveSingulair 10 MG1 tablet Orally Once a day; Duration: 90 daysActiveBreo Ellipta 50-25 MCG/INH1 puff Inhalation Once a dayActiveAlbuterol Sulfate HFA 108 (90 Base) MCG/ACT2 puffs as needed for SOB Inhalation every 4 hrs; Duration: 90 daysActiveCorlanor 5 MG1 tablet with meals Orally Twice a dayActive Immunizations Vaccine Route Administration Date Status Comme nts Flu, Fluzone (14877) 6 mos+, single-dose syringe/vial (2705-3413) Unknown 11/09/2020 Administered Tdap (Boostrix)Cbldzex3911/09/2020dministered Social History Tobacco Use: Social History Observation Description Date Details (start date - stop date) Never Smoker NA - NA Tobacco Control (Standard) Question Answer Notes Tobacco use: Nonsmoker AUDIT-C (Standard) Question Answer Notes Did you have a drink containing alcohol in the p ast year? No Bfpufo1ZjdkpceookvahlUndgucrv Problems Problem Type SNOMED Code ICD Code Onset Dates Problem Status W/U Status Risk Notes Problem Morbid obesity (disorder) (57098 6002) Morbid (severe) obesity due to excess calories (E66.01) ActiveconfirmedProblemObesity (969002356)Obesity, unspecified (E66.9)Active confirmedProblemSeasonal allergic rhinitis (910312146)Other seasonal allergic rhinitis (J30.2)ActiveconfirmedProblemUncomplicated mild persistent asthma (135117672)Mild persistent asthma, uncomplicated (J45.30)ActiveconfirmedProblem Sprain of right knee (disorder) (90414044852458531)Sprain of other specified parts of right knee, subsequent encounter (S83.8X1D)ActiveconfirmedProblemLong- term current use of inhaled steroid (309267607)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.51)ActiveconfirmedProblemAsthma (889962646)Asthma (J45.909)ActiveconfirmedProblemSeasonal allergic rhinitis (748646918)Seasonal allergic rhinitis (J30.2)ActiveconfirmedProblemLymphocytic colitis (1309212771) Lymphocytic colitis (K52.832)ActiveconfirmedProblemObese class II (finding) (602589474965142)Class 2 obesity (E66.9)ActiveconfirmedProblemBody mass index 35.00 to 39.99 (226585504861200)Body mass index [BMI] 38.0-38.9, adult (Z68.38) Activeconfirmed Vital Signs Heart Rate 72 /min 03/16/2025 Nmtnmhfntbc78.1 degrees Qzufolkokg77/14/2025Respiratory Rate16 /min03/16/2025 Jefovars77 %03/16/2025lood pressure jmdlbbxog42 mm Hg08/31/20257746Ecacty40 in 08/31/2025lood pressure ubifmtry363 mm Hg08/31/20252521Cgslxe487.8 lbs1MI 39.07 kg/m208/31/2025 Procedures Procedure Date Ordered Date Performed Result Body Sit e Spirometry (Pre Only) - Performed 03/16/2025 03/16/2025 N/ A PFT Ummsecmq69/30/2025N/A Encounters Encounter Location Date Provider Diagnosis [facility] [address] [place] [address] 09/01/2025 Conchita Daigle [facility] [place] [address] 09/01/2025Conchita Worthy persistent asthma, uncomplicated J45.30Pulmonary Medicine [address] [place] [address]/03[facility]20[facility] [place] [address] 03/10/2025[facility] [address] [place] [address]/[facility] [address] [place] [address]/[facility] for preprocedural respiratory examination Z01.811 ; Mild persistent asthma, fqyueijhvlhfaL75.30 ; Seasonal allergic rhinitis J30.2 ; group home (current) use of inhaled steroids Z79.51 ; Obesity, unspecified E66.9 and Body mass index [BMI] 38.0-38.9, adult Z68.38[facility] [place] [address]/04/2025Conchita Jenkinsrbid (severe) obesity due to excess calories E66.01 and Pre-operative clearance Z01.818[facility] [place] [address]/29/2025Pamela CramerAsthma J45.909 ; Class 2 obesity E66.9 and Snoring R06.83 Assessments Encounter Date Diagnosis (ICD Code) Assessment Notes Treatment Notes Treatment Clinical Notes Section Notes 03/08/2025 Morbid (severe) obesity due to e xcess calories (ICD-10 - E66.01) work on diet increase activity insurance did not cover GLP 1 03/08/2025Pre-operative clearance (ICD-10 - Z01.818) need to review labs, EKG seeing pulm for clearance ? cardiac clearance POTS 03/16/2025Encounter for preprocedural respiratory examination (ICD-10 - Z01.811) Planned right knee arthroscopy with meniscectomy. Patient's respiratory status is well-controlled. Peak flow is 720 and spirometry is excellent. Rarealbuterol use. No reported exacerbations. Previously handled moderate sedation without issues. Asthma is compensated. I do not anticipate any complications with surgery or anesthesia. Recommend bronchodilators on standby in the event of bronchospasm. Otherwise, the patient is optimized for surgery from a pulmonary standpoint. 03/16/2025Mild persistent asthma, uncomplicated (ICD-10 - J45.30) She states she has been doing well on Symbicort 160. Office spirometry performed today without bronchodilator. It is excellent without any evidence of current obstruction (FEV1/FVC 87%, FEV1 105%). No change necessary in her regimen. 08/31/2025sthma (ICD-10 - J45.909) recent exac needs new pulm 08/31/2025lass 2 obesity (ICD-10 - E66.9) states unable to lose wt several family members had bariatric sx tried Ruy otc insurance wont cover GLP 1 09/01/2025Mild persistent asthma, uncomplicated (ICD-10 - J45.30)08/31/2025 Snoring (ICD-10 - R06.83) pulse ox dropped when fell asleep in ER snoring, tired during day, wakes up with headaches, never feels rested 03/16/2025Seasonal allergic rhinitis (ICD-10 - J30.2) Continue Singulair. 03/16/2025Long term (current) use of inhaled steroids (ICD-10 - Z79.51) Patient was counseled to rinse & gargle with water after inhaled corticosteroid use. 03/16/2025Obesity, unspecified (ICD-10 - E66.9) Patient's weight is inducing a restrictive pulmonary physiology. Weight loss indicated: Decrease calories, increase activity. 03/16/2025ody mass index [BMI] 38.0-38.9, adult (ICD-10 - Z68.38) Plan Of Treatment Pending Test Test Name Order Date CMP (COMPLETE METABOLIC PANEL) 3 UA (URINALYSIS, COMPLETE) 09/30/2023 UA (URINALYSIS, COMPLETE) 10/17/2023 UA (URINALYSIS, COMPLETE) 10/30/2023 HEMOGLOBIN A1C (GLYCO) 09/30/2023 HEMOGLOBIN A1C (GLYCO) 08/31/2025 IRON, TOTAL 08/31/2025 IRON, TOTAL 09/30/2023 LIPID PANEL (CHOL/TRIG/HDL/LDL) 09/30/20 23 LIPID PANEL (CHOL/TRIG/HDL/LDL) 08/31/20 25 CBC WITH DIFF (EXP 09/2025) 09/30/2023 VITAMIN D, 25 LEVEL (TOTAL) 09/30/2023 VITAMIN D, 25 LEVEL (TOTAL) 08/31/2025 Urinalysis Microscopic 10/30/2023 URINE CULTURE 09/30/2023 PFT Complete 09/01/2025 Insulin Level 08/31/2025 Insulin Level 09/30/2023 INFLUENZA A and B, NASAL/NASOPHARYNGEAL (PCR) 07/21/2023 SARS COVID-2 NASAL - PCR 07/21/2023 CULTURE URINE 10/30/2023 US BLADDER 10/30/2023 THYROID PANEL (T4/TSH/FREE T3) 5 THYROID PANEL (T4/TSH/FREE T3) 3 CMP (COMP MET GANN) w/eGFR CKD-EPI 2024 CBC WITH DIFF 08/31/2025 Next Appt Details Provider Name:Conchita easley, 12/01/2025 10:00:00 AM, [address] [place], [address], Insurance Providers Payer Name Payer Address Payer Phone Subscriber Number Group Number Insured Name Patient Relationship to Insured Coverage Start Date Coverage End Date [employer] ADV PLAN [address] [place] [address] [phone] [id number] Anne Marie Taylor Self - patient is the insured MEDICAID [place] [address] [place], [place] [id number] [id number], LeahSelf - patient is the [id number] 2024 Medications Administered Medication Instructions Date of Administration Dosage Notes Dexamethasone, 4mg/mL mg8 mg Medical (General) History Medical History History ICD Code Mild persistent asthma, uncomplicated J4 5.30 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
--- OUTSIDE RECORDS SUMMARY | 2025-10-12 21:02 | XMS_ITS | Patient Health Record ---
Author Organization [facility] Address [address] [place] [address] Care Team Providers Care Flood Control Engineer Name Role Phone Waldemar Hahn [phone] Reason For Referral No Information Medications Medication SIG (Take, Route, Frequency, Duration) Notes Start Date End Date Status Symbicort Active Social History Tobacco Use: Social History Observation Description Date Details (start date - stop date) Never Smoker NA - NA Smoking History Question Answer Notes Smoking Status NonSmoker Problems Problem Type SNOMED Code ICD Code Onset Dates Problem Status W/U Status Risk Notes Problem Sprain of ankle (81957508) Sprai n of right ankle, unspecified ligament, initial encounter (S93.401A) ActiveconfirmedProblemClosed fracture of lateral malleolus of left fibula (59869970837377579)Displaced fracture of lateral malleolus of left fibula, subsequent encounter for closed fracture with routine healing (S82.62XD)Active confirmedProblemSprain of ligament of ankle joint (44993192)Sprain of other ligament of right ankle, initial encounter (S93.491A)ActiveconfirmedProblem Sprain of right ankle (18038202400013708)Sprain of other ligament of right ankle, subsequent encounter (S93.491D)ActiveconfirmedProblemClosed fracture of lateral malleolus (14584195)Closed displaced fracture of lateral malleolus of left fibula, initial encounter (S82.62XA)ActiveconfirmedProblemSprain of left ankle (35103410392073389)Left ankle sprain (S93.402A)Activeconfirmed Plan Of Treatment Pending Test Test Name Order Date PAPITO Ankle, Left [id number] 08/19/2023 Knee scooter/walker - use for up to 3 mo nt- Dispense one 08/13/2023 AIR CAST 08/13/2023 Insurance Providers Payer Name Payer Address Payer Phone Subscriber Number Group Number Insured Name Patient Relationship to Insured Coverage Start Date Coverage End Date Medicare Anthem Advantage [address] [place] [address] [id number] [id number] YIN GALEANO Self - patient is the insured Medical (General) History Medical History History ICD Code Asthma/COPD DepressionRespiratory problems:Heart disease:HypothyroidismGI Problems:Anxiety Surgical History Surgery Date(Month/Year) Port placed 2017 Cholecystectomy (gallbladder removal) 20 16 Tonsillectomy/Adenoidectomy child
--- OUTSIDE RECORDS SUMMARY | 2025-10-12 21:02 | XMS_ITS | Clinical Summary ---
Author Organization [facility] Address [address] [place] [address] Care Team Providers Care Paving Stone Installer Name Role Phone Ronald Moseley MD Primary Care Provider [phone] Allergies Active AllergyReactionsCriticalityNoted DateCommentsDragon FruitAnaphylaxisHigh 09/19/2022Grape SkbywdUimxEdm29/17/2022upropion HclHallucinationsMedium 10/29/2022 Medications MedicationSigDispense QuantityRefillsLast FilledStart DateEnd [...] every 4-6 weeks per protocol. 12 mL 3Active Additional Information Patient not taking.Reported on 10/11/2024 montelukast (Singulair) 10 mg tablet Take 10 mg by mouth at bedtime.Active midodrine (Proamatine) 5 mg tablet Indications:POTS (postural orthostatic tachycardia syndrome)TAKE 1 TABLET BY MOUTH THREE TIMES DAILY 270 tablet 5Active ivabradine (Corlanor) 5 mg tablet Indications:POTS (postural orthostatic tachycardia syndrome)TAKE 1 TABLET BY MOUTH IN THE MORNING 90 tablet 10/03/2025tive ivabradine (Corlanor) 5 mg tablet Indications:POTS (postural orthostatic tachycardia syndrome)Take 1 tablet (5 mg) by mouth in the morning. 90 tablet Discontinued midodrine (Proamatine) 5 mg tablet Indications:POTS (postural orthostatic tachycardia syndrome)Take 1 tablet (5 mg) by mouth three times daily. 270 tablet Discontinued Active Problems ProblemNoted DateDiagnosed DateHistory of insertion of tunneled central venous catheter (CVC) with port10/29/2022Uncomplicated jphqeq5209/19/2022Gastroparesis 09/19/20229365Esrhbbcbp73/17/2022OTS (postural orthostatic tachycardia syndrome) Syncope Encounters DateTypeDepartmentCare ThtiPmzrbagzrcb78/01/2025[facility] Cardiology [address], [address] [place] [address] Fausto Barboza MD POTS (postural orthostatic tachycardia syndrome)09/20/2025[facility] Cardiology [address], [address] [place] [address] Fausto Barboza MD POTS (postural orthostatic tachycardia syndrome)from Last 3 Months Family History Medical HistoryRelationNameCommentsCoronary artery diseaseMaternal Grandfather Yemi woodruffHeart attackMaternal GrandfatherWilliam woodruffHeart disease Maternal GrandfatherWilliam woodruffHeart failureMaternal GrandfatherWilliam woodruffCancerMaternal GrandmotherSharon woodruffCoronary artery [...] GrandmotherSharon woodruffMotherAmy swickMother's BrotherDenny woodruffMother's Sister 1Teri CunninghamMother's Sister 2Linda woodruffPaternal GrandmotherMary SwickSister Mer rivka Social History Tobacco UseTypesPacks/DayYears UsedDateSmoking Tobacco: NeverSmokeless [...] Last Filed Vital Signs Vital SignReadingTime TakenCommentsBlood Tfngyheh017/7310/11/2024 10:37 AM EST Stcfr409010/11/2024 10:37 AM NHPRametwarrpz83.8 ??C (98.2 ??F)06/10/2024 9:33 AM EDTRespiratory Hvfb100211/28/2023 8:54 AM ESTOxygen Bjikaibuqh52%10/11/2024 10:37 AM ESTInhaled Oxygen Concentration--Ozjefb534 kg (235 lb)10/11/2024 10:37 AM EST Mvshed576.1 cm (5' 5 )10/11/2024 10:37 AM ESTBody Mass Index39.11112/12/2023 10:37 AM EST Plan of Treatment Health MaintenanceDue DateLast DoneCommentsMedicare Annual Wellness (AWV) 1995Depression Obdoqphuo08/31/2008Varicella Vaccines (1 of 2 - 13+ 2-dose series)2008Pneumococcal Vaccine: Pediatrics (0 to 5 Years) and At-Risk Patients (6 to 64 Years) (1 of 2 - PCV)2014Pap Smear2016HPV Vaccines (1 - 3-dose SCDM series)3COVID-19 Vaccine (1 - season) 2025Influenza Vaccine (#1)501/05/2021, 10/25/2010dult Tetanus /05/2021Zoster Vaccines (1 of 2)2045HIB VaccinesCompleted 03/04/1997, 06/07/1996, 02/23/1996IPV DmpnnobrHvqdywxyt64/22/2001, 03/04/1997, 06/07/1996, Additional history existsMeningococcal B VaccineAged OutNo longer eligible based on patient's age to complete this topicMeningococcal VaccineAged OutNo longer eligible based on patient's age to complete this topicRotavirus VaccinesAged OutNo longer eligible based on patient's age to complete this topic Insurance Care Teams Team MemberRelationshipSpecialtyStart DateEnd Ronald Moseley MD [address] [facility] [address] PCP - Jyoitio48/17/22
--- OUTSIDE RECORDS SUMMARY | 2025-10-12 21:04 | XMS_ITS | Encounter Summary ---
Author Organization [facility] Address [address] [place] [address] Care Team Providers Care Sustainable Design Coordinator Name Role Phone Ronald Moseley MD Primary Care Provider [phone] Reason for Visit * ReasonCommentsMed Refill Encounter Details DateTypeDepartmentCare Team (Latest Contact Info)Lhbramfcbrg48/01/2025Refill [facility] Cardiology [address], [address] [place] [phone] Fausto Barboza MD [address] [facility] [place] [phone] POTS (postural orthostatic tachycardia syndrome) Social History Tobacco UseTypesPacks/DayYears UsedDateSmoking Tobacco: NeverSmokeless Tobacco: NeverAlcohol UseStandard Drinks/WeekCommentsNot Currently0 (1 standard drink = 0.6 oz pure alcohol)PHQ-2AnswerDate RecordedPatient Health Questionnaire-2 Score UT Safety & EnvironmentAnswerDate RecordedFear of Current or Ex-PartnerNot on file12/25/2023Emotionally AbusedNot on file12/25/2023hysically AbusedNot on file12/25/2023Sexually AbusedNot on file12/25/2023hysically or Sexually AbusedNot on file12/25/2023CommentsUnknownSex and Gender InformationValueDate RecordedSex Assigned at BirthNot on fileLegal SexFemale 05/01/2022 10:36 PM EDTGender IdentityNot on fileSexual OrientationNot on file documented as of this encounter Plan of Treatment Not on file documented as of this encounter Visit Diagnoses Diagnosis POTS (postural orthostatic tachycardia syndrome) Unspecified tachycardia documented in this encounter Care Teams Team MemberRelationshipSpecialtyStart DateEnd Date Ronald Moseley MD [address] [place] [address] PCP - Rdqmdrk98/17/22documented as of this encounter
--- OUTSIDE RECORDS SUMMARY | 2025-10-12 21:04 | XMS_ITS | Clinical Summary ---
Author Organization [facility] Address [address] [place] [address] Care Team Providers Care Pinsetter Mechanic Automatic Name Role Phone Unavailable Primary Care Provider Unavailabl e Allergies Active AllergyReactionsCriticalityNoted DateCommentsBupropionHallucinations Obfkbg9310/29/2022Flavoring Agent06/27/2025 Other Reaction(s): Unknown Flavoring Agent (Non-Screening)Ave [...] of etonogestrel implant1 eachILContinuous /ctive Encounters DateTypeDepartmentCare KoovZfvoxyybdbq34/17/2025Telephone [facility] [address] [place] [phone] JassiAlyssa irizarryYOVANY 07/19/2025Refill [facility] [address] [place] [address] [place] [phone] Ed Grimes, Irregular menstrual bleedingfrom Last 3 Months Family History Medical HistoryRelationNameCommentsAnxiety disorderMotherArthritisMother DepressionMotherRelationNameStatusCommentsFatherAliveMotherAlive Social History Tobacco UseTypesPacks/DayYears UsedDateSmoking Tobacco: Never Tobacco Cessation:Counseling Given: Not Answered Alcohol UseStandard Drinks/WeekCommentsNever0 (1 standard drink = 0.6 oz pure alcohol)caffeine: 1-2 cups per dayCommentsNoSex and Gender Information ValueDate RecordedSex Assigned at FzlpdMoyczy98/28/2023 11:31 AM ESTLegal Sex Onsinj8101/15/2023 6:46 PM EDTGender FnlhkkopNdxqwd66/28/2023 11:31 AM ESTSexual JtysjzevtduIvrjhncc32/28/2023 11:31 AM EST Last Filed Vital Signs Vital SignReadingTime TakenCommentsBlood Pfzjbhsm875/7405 1:07 PM EDT Pulse--Temperature--Respiratory Rate--Oxygen Saturation--Inhaled Oxygen Concentration--Smhjnx243 kg (231 lb 6.4 oz)06/27/2025 2:35 PM EDTHeight--Body Mass Index-- Plan of Treatment Not on file Insurance
--- OUTSIDE RECORDS SUMMARY | 2025-10-12 21:04 | XMS_ITS | Clinical Summary ---
Author Organization [facility] Address [address] [place], [place] [id number] Care Team Providers Care Field Auditor Name Role Phone Hi Hooks DO Primary Care Provider Bryant Avitia DO, David L Unavailable [phone] Allergies No known active allergies Medications MedicationSigDispense QuantityRefillsLast FilledStart DateEnd DateStatus Midodrine HCl (PROAMATINE) 10 mg tablet Indications:Right upper quadrant abdominal pain,Vomiting associated with bulimia nervosa with nausea (HCC)Take 10 mg by mouth three times daily.Active ALPRAZolam (XANAX) 0.5 mg tablet Indications:Right upper quadrant abdominal pain,Vomiting associated with bulimia nervosa with nausea (HCC)alprazolam 0.5 mg tabletActive montelukast (SINGULAIR) 10 mg tablet Indications:Right upper quadrant abdominal pain,Vomiting associated with bulimia nervosa with nausea (HCC)Take 10 mg by mouth once daily.Active amitriptyline (ELAVIL) 100 mg tablet Indications:Right upper quadrant abdominal pain,Vomiting associated with bulimia nervosa with nausea (HCC)Take 100 mg by mouth daily at bedtime.Active promethazine (PHENERGAN) 25 mg tablet Indications:Right upper quadrant abdominal pain,Vomiting associated with bulimia nervosa with nausea (HCC)Take 25 mg by mouth. One or two tablets every 8 hours Active dicyclomine (BENTYL) 20 mg tablet Indications:Right upper quadrant abdominal pain,Vomiting associated with bulimia nervosa with nausea (HCC)Take 20 mg by mouth three times daily.12/22/2017Active BREO ELLIPTA 200-25 mcg/dose inhaler Indications:Right upper quadrant abdominal pain,Vomiting associated with bulimia nervosa with nausea (HCC)02/23/2018Active albuterol HFA (PROAIR HFA) 90 mcg/actuation inhaler Indications:Right upper quadrant abdominal pain,Vomiting associated with bulimia nervosa with nausea (HCC)ProAir HFA 90 mcg/actuation aerosol inhalerActive buPROPion XL (WELLBUTRIN XL) 150 mg 24 hr tablet Indications:Right upper quadrant abdominal pain,Vomiting associated with bulimia nervosa with nausea (HCC)Take 150 mg by mouth once daily.Active 0.9 % sodium chloride (NACL 0.9%) solution Indications:Right upper quadrant abdominal pain,Vomiting associated with bulimia nervosa with nausea (HCC)1,000 mL. 2 times a week for P.O.T.SActive ondansetron orally disintegrating (ZOFRAN ODT) 8 mg disintegrating tablet Indications:Right upper quadrant abdominal pain,Vomiting associated with bulimia nervosa with nausea (HCC)8 mg. Dissolve 1 tablet on tongue if needed when zofran isn't vnqzicd4602/23/2018Active medroxyPROGESTERone (DEPO-PROVERA) 150 mg/mL syrg Indications:Right upper quadrant abdominal pain,Vomiting associated with bulimia nervosa with nausea (HCC)medroxyprogesterone 150 mg/mL intramuscular syringe Active Omeprazole 40 mg capsule take 1 capsule by mouth once daily 30 capsule 5006/22/2018Active Active Problems ProblemNoted DateDiagnosed DateRUQ abdominal pain03/04/2018 Overview (03/04/2018): Added automatically from request for surgery [id number] Social History Tobacco UseTypesPacks/DayYears UsedDateSmoking Tobacco: NeverSmokeless Tobacco: NeverAlcohol UseStandard Drinks/WeekCommentsNo0 (1 standard drink = 0.6 oz pure alcohol)Area Deprivation IndexAnswerDate RecordedNational Score (1-100), lower number is lower riskNot on file10/11/2020State Score (1-10), lower number is lower riskNot on file10/11/2020Data from: https://www.neighborhoodatlas.medicine.[facility].edu/. Last address used for calculationNot on file10/11/2020CommentsNoSex and Gender Information ValueDate RecordedSex Assigned at BirthNot on fileLegal IhuFxhknw99/01/2015 10:25 AM EDTGender IdentityNot on fileSexual OrientationNot on file Last Filed Vital Signs Vital SignReadingTime TakenCommentsBlood Jrtikxie321/7305 11:02 AM EDT Onvwg9170/10/2018 11:02 AM YETFrjxkqycrxn30.7 ??C (98.1 ??F)03/12/2018 8:48 AM EDTRespiratory Kbqp939503/12/2018 11:02 AM EDTOxygen Jgbggsdnqj13%03/12/2018 11:02 AM EDTInhaled Oxygen Concentration--Upfwsz76.4 kg (175 lb)03/12/2018 8:48 AM EDT Ctemve927.1 cm (5' 5 )03/12/2018 8:48 AM EDTBody Mass Index29.1205 8:48 AM EDT Plan of Treatment Health MaintenanceDue DateLast DoneCommentsAnxiety Rzyhenuqk92/31/2014Depression Yqphtdokf47/31/2014HIV Woeeblaoh75/31/2014Hepatitis C Gfgooyrzu98/31/2014 DTaP,Tdap,Td Vaccine (1 - Tdap)2014Hepatitis B Vaccine (1 of 3 - 19+ 3- dose series)2014Cervical Cancer Tmryyaylb94/31/2017HPV Vaccine (1 - 3-dose SCDM series)3Covid-19 Vaccine ( - 2024- season)2025Influenza Vaccine (#1)2025 Insurance Care Teams Team MemberRelationshipSpecialtyStart DateEnd Date Hi Hooks, [facility] Tyson Hurtado Jr., DO [address] [address] ReferringGastroenterology12/17/17
== END 2025-10-12 20:57 | disposition home or self-care (01) ==
PROVIDERS: PCP Nurse Practitioner Family; Visit Provider Nurse Practitioner Family
DX: G47.33 Obstructive sleep apnea (adult) (pediatric) (principal)
CPT/HCPCS: 95810